=== PATIENT | male | born 1955 | race Caucasian/White ===

== ENCOUNTER → 2017-04-16 | Outpatient (CLI) | payer SELFPAY ==
--- NOTE | 2017-04-16 16:21 | NM ---
EXAMINATION TYPE: NM bone scan whole body DATE OF EXAM: 04/16/2017 COMPARISON: NONE HISTORY: Prostate cancer Delayed whole-body scanning was performed following the injection of 25.2 mCi Tc 99m MDP. Images acq uired 4 hours post injection. Whole body images as well as spot images of the thorax abdomen and pelv is are acquired in multiple projections FINDINGS: There is abnormal radiotracer uptake involving the left iliac crest, portions of bilateral sacrum, L5 vertebra just left of midline, mid thoracic vertebra, vertebra near thoracolumbar junction, and abno rmal uptake involving mid ribs lateral aspect bilaterally as well as finally involving superior left scapula. IMPRESSION: Findings consistent with osseous metastatic disease as detailed above
== END ==
LOC: RADNMMAIN 10:33
PROVIDERS: ATTEND Urology
DX: C61 Malignant neoplasm of prostate (principal)
CPT/HCPCS: 78306; A9503

== ENCOUNTER → 2017-05-03 | Outpatient (CLI) | payer SELFPAY ==
--- NOTE | 2017-05-03 10:39 | CT ---
EXAMINATION TYPE: CT ChestAbdPelvis w con DATE OF EXAM: 05/03/2017 COMPARISON: NONE HISTORY: Prostate Cancer CT DLP: 772.50 mGycm CONTRAST: CT scan of the chest, abdomen and pelvis is performed with Oral Contrast and with IV Contrast, patien t injected with 100 ml mL of Omnipaque 300. CT Chest: LUNGS: The lungs are clear and free of infiltrate or atelectasis. No pulmonary nodule or mass is det ected. No pleural effusion or CT evidence of interstitial lung disease. MEDIASTINUM: Thoracic aorta is of normal caliber. The heart is mildly enlarged. No evidence for me diastinal mass or adenopathy. HILAR STRUCTURES: No evidence for mass. No hilar adenopathy is appreciated. OTHER: Large blastic metastases are noted to the bilateral ribs 6 and 7 on the right and 6 and 7 on t he left. There is also a blastic metastatic lesion involving T12. Nonspecific left thyroid nodule. CONTRAST CT ABDOMEN AND PELVIS FINDINGS: LIVER/GB: No calcified gallstones. No space occupying hepatic lesion. Biliary tree is of normal ca liber. PANCREAS: No inflammation. No distinct mass. SPLEEN: No splenic enlargement. No lesion seen. ADRENALS: No nodule. No thickening. KIDNEYS/BLADDER: No hydronephrosis. No nephrolithiasis. No disctinct renal mass. BOWEL: Normal appendix. Normal bowel caliber. No inflammation. GENITAL ORGANS: No gross abnormality. LYMPH NODES: There is adenopathy within the left para-aortic region extending from the left renal art jr through the bifurcation with multiple enlarged lymph nodes identified measuring up to 1.8 cm. The re is also anterior IVC lymph node mass measuring 1.9 cm. Which extends from just below the right yaneth al artery to the bifurcation. There is bilateral external and internal iliac chain adenopathy. The la rgest lymph node left external iliac chain measures 2.3 cm. Largest left internal iliac chain lymph n ode measures 1.4 cm. On the right measuring 1.5 cm and 8 mm respectively. Left inguinal lymph node me asures 9 mm in short axis. AORTA: No significant abnormality. OSSEOUS STRUCTURES: Blastic bony metastases are noted to involve the left iliac crest. There is loss of height involving L3 with 50% loss of height. I do not see definite blastic component and this may be chronic in nature. Pathologic fracture however cannot be excluded. There is a vague blastic lesion involving the left L5 pedicle. OTHER: No significant additional abnormality is seen. IMPRESSION: 1. Blastic osseous metastases as discussed above. 2. Moderate compression fracture of L3 of indeterminate age although no surrounding paraspinal hemato ma is appreciated. This may be chronic in nature. Underlying pathologic component is difficult to exc lude. 3. Retroperitoneal and iliac chain adenopathy as discussed.
== END ==
LOC: RADCTMAIN 07:34
PROVIDERS: ATTEND Internal Medicine Hematology & Oncology
DX: C79.51 Secondary malignant neoplasm of bone (principal); M48.56XA Collapsed vertebra, not elsewhere classified, lumbar region, initial encounter for fracture; R59.0 Localized enlarged lymph nodes
CPT/HCPCS: 71260; 74177; Q9967

== ENCOUNTER → 2017-10-24 | Outpatient (CLI) | payer OTHER ==
[2017-10-24 10:34] LABS: Blood Urea Nitrogen 15 mg/dL (9-20)
--- NOTE | 2017-10-24 14:11 | CT ---
EXAMINATION TYPE: CT ChestAbdPelvis w con DATE OF EXAM: 10/24/2017 INDICATION: Prostate Cancer COMPARISON: 05/03/2017 CT DLP: 1032.40 mGycm CONTRAST: Performed with Oral Contrast and with IV Contrast, patient injected with 100 ml mL of Omnipaque 300. TECHNIQUE: Axial images at 5 mm thick sections. Reconstructed images in the coronal plane. Delayed images through the kidneys. FINDINGS: CT CHEST: Left lobe thyroid is somewhat prominent although stable from prior study. There is some mild heteroge neity within the mid to inferior portion present previously. No suspicious lung nodules or focal infiltrates are present. There is a 1.4 cm lymph node in the lateral aortopulmonic window. Additional nonenlarged subcentimet er lymph nodes are within the mediastinum including the subcarinal region and right hilar regions. Th ela are increasing from comparison. The ascending aorta diameter at the level of the main pulmonary artery is 4.3 cm. The main pulmonary artery diameter at the bifurcation is 2.9 cm. There are bilateral lower lateral rib thickenings present bilaterally which were present on prior exa mination. These appear smaller in size from previous exam. CT ABDOMEN: Liver: Normal Spleen: Normal Pancreas: Normal Adrenal glands: The adrenal glands are normal. Gallbladder: Normal Kidneys: No masses are evident. No hydronephrosis is present. No cysts are present. Delayed images were obtained through the kidneys, which remain unremarkable. Right renal artery is retrocaval. Aorta: Vascular calcification is within the aorta. Inferior vena cava: Normal. CT PELVIS: Loops of bowel within the abdomen and pelvis are normal. There are loops of bowel which are incom pletely distended or lack oral contrast limiting their evaluation. Appendix: Retrocecal appendix is normal as visualized. No suspicious inflammatory changes evident. Urinary bladder: Normal. Genitourinary structures: Prostate calcification is present. Osseous structures: The enlarged expansile sclerotic ribs are discussed above. There is a sclerotic a jensen within the lateral anterior left iliac wing. Sclerotic lesion with some heterogeneity is within t he right T12 vertebral body. There is a compression deformity of L3 which is old. IMPRESSIONS: 1. Diminished size of expansile rib lesions. 2. Sclerotic metastasis at the anterior left iliac wing appears less prominent. 3. T12 lesion appears more sclerotic than prior exam. 4. Enlarged aortopulmonic window lymph node measuring 1.4 cm. 5. Compression deformity of L3 remain stable without posterior wall displacement.
--- NOTE | 2017-10-24 15:26 | NM ---
EXAMINATION TYPE: NM bone scan whole body DATE OF EXAM: 10/24/2017 COMPARISON: 04/16/2017, 05/03/2017, and CT chest abdomen and pelvis of the same date of 10/24/2017. HISTORY: History of metastatic prostate cancer. Follow-up exam. Delayed whole-body scanning was performed following the injection of 26 mCi Tc 99m MDP. Images acqui red 3 hours post injection. FINDINGS: The previously seen abnormal radiotracer uptake involving the left iliac crest, portions of the bilat eral sacrum, L5 vertebra just left of midline, mid thoracic vertebrae, vertebrae near the thoracolumb ar junction, scapula and multiple ribs on the prior exam of 04/16/2017 are redemonstrated. The sacral radiotracer uptake, L5 vertebrae uptake, and midthoracic vertebrae uptake are less conspicuous than o n the prior exam. The degree of uptake involving the multiple ribs, left iliac crest, and scapula hav e also decreased to a lesser degree compared to the prior of 04/16/2017. No new suspicious lesions are as of uptake are seen. IMPRESSION: Decrease in degree of uptake of the previously seen osseous metastatic lesions favoring response to t reatment. No new suspicious areas of uptake.
== END | disposition home or self-care (01) ==
LOC: RADNMMAIN 09:53
PROVIDERS: ATTEND Internal Medicine Hematology & Oncology
DX: C79.51 Secondary malignant neoplasm of bone (principal); R59.0 Localized enlarged lymph nodes; M43.8X6 Other specified deforming dorsopathies, lumbar region; C61 Malignant neoplasm of prostate; Z88.5 Allergy status to narcotic agent
CPT/HCPCS: 82565; 84520; 71260; 74177; 36415; 78306; A9503; Q9967

== ENCOUNTER → 2017-12-06 | Outpatient (CLI) | payer OTHER ==
[2017-12-06 15:06] LABS: HCT 41.8 % (39.0-53.0); MCH 32.4 pg (25.0-35.0); MCHC 33.4 g/dL (31.0-37.0); MCV 96.9 fL (80.0-100.0); Mean Platelet Volume 6.2; Platelet Count 206 k/uL (150-450); RBC 4.31 m/uL (4.30-5.90); RDW 12.3 % (11.5-15.5); WBC 5.5 k/uL (3.8-10.6)
[2017-12-06 15:18] LABS: Anion Gap 8 mmol/L; Blood Urea Nitrogen 17 mg/dL (9-20); Carbon Dioxide 26 mmol/L (22-30); Chloride 105 mmol/L (98-107); Potassium 4.4 mmol/L (3.5-5.1); Sodium 139 mmol/L (137-145)
== END | disposition home or self-care (01) ==
LOC: LABPAT 14:47
PROVIDERS: ATTEND Internal Medicine Interventional Cardiology
DX: Z01.812 Encounter for preprocedural laboratory examination (principal); R94.30 Abnormal result of cardiovascular function study, unspecified
CPT/HCPCS: 36415; 80051; 82565; 84520; 85027

== ENCOUNTER 2017-12-11 05:45 | Day surgery (SDC) | payer OTHER ==
[2017-12-07 10:09] VITALS: BMI 26.8
[2017-12-11] MEDS ORDERED: ALPRAZolam 0.5 MG TAB PO PRN (06:10)
[2017-12-11] MEDS ORDERED: ATORVASTATIN 80 MG TAB PO STA (06:10)
[2017-12-11] MEDS ORDERED: NITROGLYCERIN SL TABS 0.4 MG TAB SUBLINGUAL PRN (06:10)
[2017-12-11] MEDS ORDERED: SODIUM CHLORIDE 0.9% 1,000 ML in EMPTY BAG 1 BAG IV ONE (06:10)
[2017-12-11] MEDS ORDERED: ALPRAZolam 0.25 MG TAB PO PRN (06:10)
[2017-12-11] MEDS ORDERED: ASPIRIN 325 MG TAB PO STA (06:10)
[2017-12-11 06:32] VITALS: PULSE 70; TEMP 97.8
[2017-12-11] MEDS: MIDAZOLAM 2 MG/2 ML VIAL IV ONE ×2 (07:47→07:58)
[2017-12-11] MEDS ORDERED: LIDOCAINE 2% INJ 20 MG/ML SQ ONE (07:51)
[2017-12-11] MEDS: VERAPAMIL SYRINGE (5 MG/10 ML) IVP ONE ×2 (07:53→08:05)
[2017-12-11] MEDS ORDERED: HEPARIN SODIUM 1,000 UN/ML (10ML VL) IV ONE (07:53)
[2017-12-11] MEDS ORDERED: IOHEXOL 350 MG/ML 125ML BOTTLE INJ ONE (08:05)
[2017-12-11] MEDS ORDERED: RX INFO: IV CONTRAST WAS GIVEN 1 EACH MISC MISCELLANE PRN (08:07)
[2017-12-11] MEDS ORDERED: SODIUM CHLORIDE 0.9% 1,000 ML IV SCH (08:15)
[2017-12-11 09:13] VITALS: RESP 18
--- NOTE | 2017-12-11 09:21 | LTR ---
DATE OF SERVICE: 12/11/2017 RE: Ernie Khoa Dear Dr. Oliver; Mr. Khoa Klein diagnosed recently with cardiomyopathy. In view of that, a heart catheterization was recommended to evaluate for severe underlying coronary artery disease. Mr. Klein underwent a heart catheterization and that revealed normal coronaries. I want to thank you for allowing us to participate in his care and please do not hesitate to call if you have any question or concern. Sincerely, MD DAVID Soriano / NISREEN: [id number] /
--- NOTE | 2017-12-11 09:21 | CC ---
CARDIAC CATHETERIZATION REPORT DATE OF SERVICE: 12/11/2017 PERFORMING PHYSICIAN: Román Elena MD, Landing Signal Officer. PROCEDURE PERFORMED: 1. Selective right and left coronary angiogram. 2. Left heart catheterization. INDICATION: This is a pleasant 62-year-old gentleman who was diagnosed recently with cardiomyopathy. The heart catheterization is to evaluate for severe underlying coronary artery disease. APPROACH: Right radial artery. COMPLICATION: None. LEVEL OF SEDATION: Moderate with sedation length of 14 minutes. PROCEDURE DESCRIPTION: After obtaining an informed consent, the patient was brought to the [facility]. The right radial artery was cannulated using micropuncture technique. The micropuncture wire passed easily, then I placed a 6-Welsh sheath in the right radial artery. After that, I gave the patient 2 mg of verapamil IA and 10,000 units of heparin IV. After that, I did selective right and left coronary angiogram using JR4 and JL3.5 catheters. After that. I did left heart catheterization using 6-Welsh pigtail catheter. The procedure was completed without any complication. SELECTIVE CORONARY ANGIOGRAM: 1. The RCA is a large caliber vessel and it is a dominant vessel. The RCA is angiographically normal. It bifurcates distally into PDA and PLV branches both are angiographically normal. 2. The left main is angiographically normal. It bifurcates into the left circumflex and left anterior descending artery. 3. The left circumflex is a large caliber vessel and nondominant vessel. The proximal circ is angiographically normal and gives rise into a large OM branch which bifurcates into two subbranches and both are angiographically normal. The left circumflex continues after that as a medium caliber vessel in the AV groove and seems to be angiographically normal. 4. The left anterior descending artery, the proximal LAD appeared to be angiographically normal. The mid LAD is normal and gives rise into 2 diagonal branches, both are angiographically normal. The LAD distally is angiographically normal. HEMODYNAMICS: The left ventricular end-diastolic pressure was 12 mmHg and no gradient was identified across the aortic valve. CONCLUSION: Normal coronary angiogram. POSTPROCEDURE MANAGEMENT: Maximize medical treatment and follow up with the patient. MMODL / IJN: [id number] /
[2017-12-11] MEDS ORDERED: HYDROcodone/APAP 10-325MG 1 EACH TAB PO ONE (12:30)
[2017-12-11 15:37] VITALS: BP 132/80
== END 2017-12-11 15:38 | disposition home or self-care (01) ==
LOC: CATHCVL 05:45
PROVIDERS: ATTEND Internal Medicine Interventional Cardiology
DX: I42.9 Cardiomyopathy, unspecified (principal); R94.39 Abnormal result of other cardiovascular function study; I48.0 Paroxysmal atrial fibrillation; Z79.01 Long term (current) use of anticoagulants; F17.210 Nicotine dependence, cigarettes, uncomplicated; C61 Malignant neoplasm of prostate; Z79.891 Long term (current) use of opiate analgesic; Z79.899 Other long term (current) drug therapy; Z88.5 Allergy status to narcotic agent
CPT/HCPCS: 93458; C1894; J2001; J2250; J1644; Q9967

== ENCOUNTER → 2017-12-26 | Outpatient (CLI) | payer OTHER ==
--- NOTE | 2017-12-26 13:37 | XR ---
EXAMINATION TYPE: XR shoulder complete LT DATE OF EXAM: 12/26/2017 CLINICAL HISTORY: Left shoulder pain with no known injury TECHNIQUE: Three views of the left shoulder are obtained. COMPARISON: None. FINDINGS: There is no acute fracture/dislocation evident in the left shoulder. Healed rib fracture s are partially visualized of the lateral margins of ribs 6 and 7 on the left. Moderate acromioclavic ular arthropathy is displayed as joint space narrowing and marginal osteophytes. Mild glenohumeral ar thropathy is also seen as joint space narrowing. Visualized left lung is unremarkable. IMPRESSION: There is no acute fracture or dislocation in the left shoulder.
== END | disposition home or self-care (01) ==
LOC: RADXRMAIN 10:48
PROVIDERS: ATTEND Internal Medicine Hematology & Oncology
DX: M25.512 Pain in left shoulder (principal); C61 Malignant neoplasm of prostate; L25.8 Unspecified contact dermatitis due to other agents; R63.5 Abnormal weight gain; Z71.3 Dietary counseling and surveillance

== ENCOUNTER → 2018-08-27 | Outpatient (CLI) | payer MEDICARE, OTHER ==
[2018-08-27 11:32] LABS: Potassium 5.2 mmol/L (3.5-5.1)
[2018-08-27 11:33] LABS: HCT 42.2 % (39.0-53.0); HGB 14.1 gm/dL (13.0-17.5); MCH 32.6 pg (25.0-35.0); MCHC 33.5 g/dL (31.0-37.0); MCV 97.5 fL (80.0-100.0); Mean Platelet Volume 6.1; Platelet Count 271 k/uL (150-450); RBC 4.33 m/uL (4.30-5.90); RDW 12.4 % (11.5-15.5); WBC 4.7 k/uL (3.8-10.6)
== END | disposition home or self-care (01) ==
LOC: LABPAT 10:07
PROVIDERS: ATTEND Internal Medicine Interventional Cardiology
DX: Z01.812 Encounter for preprocedural laboratory examination (principal); I48.1 Persistent atrial fibrillation
CPT/HCPCS: 36415; 80051; 82565; 84520; 85027

== ENCOUNTER → 2018-09-06 | Day surgery (SDC) | payer OTHER, MEDICARE ==
[2018-09-04 11:03] VITALS: BMI 30.8
[~2018-09-06] MED LIST: AMIODARONE 200 MG TAB PO STA; LACTATED RINGERS 1,000 ML IV SCH; LIDOCAINE 1% INJ 10MG/ML (20 ML MDV) ONE; PROPOFOL 10 MG/ML 20 ML VIAL IV ONE; SODIUM CHLORIDE 0.9% 1,000 ML IV SCH; SODIUM CHLORIDE 0.9% 500 ML 500 ML IV ONE
[2018-09-06 06:59] VITALS: RESP 16; TEMP 97.5
[2018-09-06] MEDS: BENZOCAINE SPRAY 1 CAN MUCOUS MEM ONE ×2 (07:19→07:20)
--- NOTE | 2018-09-06 08:32 | ECHOT ---
TRANSESOPHAGEAL ECHOCARDIOGRAM DATE OF SERVICE: September 06, 2018 PERFORMING PHYSICIAN: Román Elena MD. PROCEDURE PERFORMED: Transesophageal echocardiogram. INDICATION: This is a pleasant 63-year-old gentleman with known history of paroxysmal atrial fibrillation, who was experiencing atrial fibrillation with RVR in spite of maximized medical treatment. He was brought today to undergo a cardioversion and the DEANNE is to rule out any left atrial appendage thrombus or intracardiac thrombus. COMPLICATION: None. LEVEL OF SEDATION: Deep sedation was performed using propofol with FRAME HAND anesthesiologist in the room. PROCEDURE DESCRIPTION: After obtaining an informed consent, explaining the procedure, benefits, risks, complications and alternatives, the patient was brought to the transesophageal echocardiogram suite. A pulse oximetry and heart rate monitors were attached to the patient prior to the procedure. The patient's throat was sprayed using lidocaine locally. Following that, the patient was turned into left lateral position. A bite guard was placed and the patient was then sedated with the above doses of Versed and fentanyl in divided doses. Following that, the transesophageal echocardiogram probe was advanced through the bite guard into the mid esophagus where 2-D echocardiogram images as well as color Doppler images of various cardiac structures were obtained. We evaluated the interatrial septum using 2-D echocardiogram, color Doppler, and contrast study. The procedure was completed. There were no complications. FINDINGS: The left ventricular dimensions appear to be within normal limits. The left ventricular systolic function is impaired with EF between around 40% with global hypokinesia. The right ventricle is dilated. The left atrium and right atrium are severely dilated. The left atrial appendage appeared to be free from any thrombus. The aortic valve is trileaflet valve without stenosis or regurgitation. The mitral valve appeared to be mildly thickened with mild MR only. There was moderate tricuspid regurgitation seen. There was mild pulmonic insufficiency seen as well. CONCLUSION: 1. Normal left atrial appendage without any evidence of thrombus. 2. Intact interatrial septum without any evidence of shunt. 3. Impaired left ventricular function with ejection fraction of 40% and global hypokinesia. 4. Dilated right ventricle with normal function. 5. Severe biatrial enlargement. 6. Trileaflet aortic valve without stenosis or regurgitation. 7. Mildly thickened mitral valve leaflets with mild mitral regurgitation. 8. Moderate tricuspid regurgitation. 9. No evidence of pericardial effusion. MMODL / IJN: [id number] /
--- NOTE | 2018-09-06 08:44 | CE ---
CARDIAC ELECTROPHYSIOLOGY REPORT ELECTROPHYSIOLOGY REPORT: INDICATION: This is a pleasant 63-year-old gentleman who was diagnosed with AFib, which was uncontrolled and he is scheduled today to undergo a cardioversion. COMPLICATION: None. LEVEL OF SEDATION: Deep sedation was performed using propofol. PROCEDURE DESCRIPTION: After performing DEANNE and ruling out intracardiac thrombus, we proceeded with cardioversion. The patient converted from the atrial fibrillation to normal sinus mechanism using 200 joules on first attempt. CONCLUSION: Successful cardioversion of atrial fibrillation to normal sinus mechanism using 200 joules on first attempt. MMODL / IJN: [id number] /
[2018-09-06 10:47] VITALS: BP 112/82; PULSE 72
== END | disposition home or self-care (01) ==
LOC: CATHCVL 05:58
PROVIDERS: ATTEND Internal Medicine Interventional Cardiology
DX: I48.0 Paroxysmal atrial fibrillation (principal); I08.1 Rheumatic disorders of both mitral and tricuspid valves; Z85.46 Personal history of malignant neoplasm of prostate; I11.9 Hypertensive heart disease without heart failure; I43 Cardiomyopathy in diseases classified elsewhere; F17.210 Nicotine dependence, cigarettes, uncomplicated; Z79.01 Long term (current) use of anticoagulants; Z79.891 Long term (current) use of opiate analgesic; Z79.899 Other long term (current) drug therapy
CPT/HCPCS: 93312; 93320; 93325; 92960; 84132; J2001; J2704

== ENCOUNTER → 2018-11-06 | Outpatient (CLI) | payer OTHER, MEDICARE ==
--- NOTE | 2018-11-06 10:07 | XR ---
EXAMINATION TYPE: XR chest 2V DATE OF EXAM: 11/06/2018 COMPARISON: Correlation nuclear medicine bone scan and CT 10/24/2017 HISTORY: 63-year-old male with headaches TECHNIQUE: Frontal and lateral views FINDINGS: Heart upper limits of normal in size. Aorta and pulmonary vasculature within normal limits. Mild hype rinflation. There is some pleural-parenchymal thickening focally along the lateral mid to lower thora cic margin. No consolidation or pleural effusion. IMPRESSION: 1. Focal areas of pleural parenchymal thickening along the lower lateral mid to lower hemithoraces co rrespond to known expansile metastatic rib lesions. 2. Borderline heart size. COPD. No acute process seen.
--- NOTE | 2018-11-06 10:19 | CT ---
EXAMINATION TYPE: CT brain wo con DATE OF EXAM: 11/06/2018 COMPARISON: None INDICATION: Headache x couple weeks. Patient on blood thinners. History of prostate cancer. DLP: 1146.4 mGycm, Automated exposure control for dose reduction was used. CONTRAST: None CT of the brain is performed utilizing 3 mm thick sections through the posterior fossa and 3 mm thick sections through the remaining calvarium. Study is performed within 24 hours of arrival to the hosp [facility]. No abnormal hyperdensity is present to suggest an acute intracranial hemorrhage. No mass lesion is evident. Some asymmetric physiologic basal ganglion calcifications present. No acute infarcts are evident. Small hypodensity along the medial mid left frontal lobe, series 201 i mage 23 is an extra-axial space. Ventricles and sulci are appropriate for the patient age. Paranasal sinuses and mastoid air cells within the [id number] are clear. Calvarium appears normal. IMPRESSIONS: 1. No acute intracranial process.
== END ==
LOC: RADCTMAIN 09:30
PROVIDERS: ATTEND Nurse Practitioner Adult Health
DX: R51 Headache (principal); R91.8 Other nonspecific abnormal finding of lung field; J44.9 Chronic obstructive pulmonary disease, unspecified
CPT/HCPCS: 70450; 71046

== ENCOUNTER → 2018-11-13 | Outpatient (CLI) | payer OTHER, MEDICARE ==
--- NOTE | 2018-11-13 14:02 | NM ---
EXAMINATION TYPE: NM bone scan whole body DATE OF EXAM: 11/13/2018 COMPARISON: 10/24/2017 HISTORY: Metastatic prostate carcinoma. Delayed whole-body scanning was performed following the injection of 24.8 mCi Tc 99m MDP. Images acq uired 3 hours post injection. FINDINGS: New lesions: None Improved lesions: Persistent but improved uptake about the bilateral ribs, left iliac crest, lower th oracic spine and upper lumbar spine. Stable lesions: Cervical spine. Stable uptake about the shoulders, hips and bilateral knees compatibl e with degenerative uptake. Progressive lesions: None IMPRESSION: Overall improvement noted as discussed above.
== END ==
LOC: RADNMMAIN 09:45
PROVIDERS: ATTEND Internal Medicine Hematology & Oncology
DX: C61 Malignant neoplasm of prostate (principal); C79.51 Secondary malignant neoplasm of bone; Z88.5 Allergy status to narcotic agent
CPT/HCPCS: 78306; A9503

== ENCOUNTER → 2018-12-12 | Outpatient (CLI) | payer OTHER, MEDICARE ==
--- NOTE | 2018-12-12 13:09 | CONS ---
CONSULTATION DATE OF SERVICE: 12/12/2018 A 63-year-old gentleman who has been evaluated in the [facility] for possible obstructive sleep apnea-hypopnea syndrome. HISTORY OF PRESENT ILLNESS/SLEEP-WAKE EVALUATION: Patient usual sleep schedule from 10 p.m. to 8:30 a.m. on weekdays and from 11 p.m. to 8:30 a.m. on weekends. No problem with falling asleep. No TV in bedroom. Usually patient sleeps on the back position. According to his , he has loud snoring, witnessed episodes of stopped breathing during the sleep, restless leg symptoms. He kicks and twitches his legs during the night. Patient wakes up from sleep 4 times with 2 episodes of nocturia. Positive history of sleep talking. Positive history of hypnagogic hallucinations even during short naps, which patient usually takes around 2 p.m. He may see dreams. Sometimes this is vivid dreams. No history of sleep paralysis. No history of cataplexy. [place] Sleepiness Scale is in extremely high range of 20. PAST MEDICAL HISTORY: Positive for hypertension, atrial fibrillation, prostate CA stage IV. PAST SURGICAL HISTORY: Surgery biopsy and cardioversion on 08/2018 for atrial fibrillation. MEDICATIONS: Amiodarone, Casodex, Effexor, fentanyl, fentanyl patch q. 72 hours, Klonopin, lisinopril, Lupron, metoprolol, [place], Spironolactone, Xarelto, SOCIAL HISTORY: Positive for smoking for about 40 years, up to 3 packs a day. Quit about 6 months ago. Alcohol consumption presently a few beers a week. FAMILY HISTORY: Hypertension, heart problems, snoring, cancer, restless legs. PHYSICAL EXAM: gentleman without distress, BP 129/78, HR 60, RR 16, height 6 foot 1 inch, weight 243 pounds. Body mass index 32.0, temperature 97.1, oxygen saturation at room air 96%. OROPHARYNX: Overbite with retrognathia about 2 mm, moderately low position of soft palate. Mallampati III. HEENT PERRLA, EOMI, evaluation of oropharynx showed tongue protrudes midline. Neck Supple, no JVD. Thyroid is not palpable. LUNGS Clear to percussion and to auscultation. Good air exchange. No wheezing or rhonchi. HEART S1, S2 regular. No murmurs, gallops, or rubs. ABDOMEN Soft and nontender. Bowel sounds are present. No organomegaly appreciated. EXTREMITIES No clubbing or cyanosis. SYSTEMS INTEGRATION MANAGER Awake, alert, and oriented X3. Cranial nerves 2 to 7 intact. There is no fasciculation or atrophy. noted. No focal deficits observed. IMPRESSION: 1. Loud snoring, witnessed episodes of stopped breathing during the sleep. Low position of soft palate, significant excessive daytime sleepiness, obstructive sleep apnea-hypopnea syndrome. 2. Significant sleepiness with [place] Sleepiness Scale 20. Patient seeing dreams during short naps and while falling asleep. Differential diagnosis should include possibly secondary narcolepsy. 3. History of prostate CA, stage IV. 4. Hypertension. 5. History of atrial fibrillation, status post cardioversion. 6. Periodic limb movements. 7. Mild obesity; body mass index 32. PLAN: 1. Polysomnography for evaluation of patient's breathing during sleep. 2. CPAP/BiPAP titration if sleep study confirms obstructive sleep apnea-hypopnea syndrome. 3. Preferable position during sleep on the side. 4. No driving if patient feels any sleepiness. 5. I will see patient for follow up visit to explain results of testing and following plan. Thank you very much for referring this patient for consultation. Sincerely, Brooks Ford MD, PhD, FAASM Diplomat of [employer] [facility] [place] MMODL / IJN: [id number] /
== END ==
LOC: SLEEP 11:18
PROVIDERS: ATTEND Internal Medicine
DX: G47.33 Obstructive sleep apnea (adult) (pediatric) (principal); G47.61 Periodic limb movement disorder; R35.1 Nocturia; R44.3 Hallucinations, unspecified; I10 Essential (primary) hypertension; I48.91 Unspecified atrial fibrillation; E66.9 Obesity, unspecified; C61 Malignant neoplasm of prostate; Z68.32 Body mass index [BMI] 32.0-32.9, adult; Z87.891 Personal history of nicotine dependence; Z79.891 Long term (current) use of opiate analgesic; Z79.01 Long term (current) use of anticoagulants; Z79.899 Other long term (current) drug therapy
CPT/HCPCS: 99211

== ENCOUNTER → 2019-05-01 | Outpatient (CLI) | payer OTHER, MEDICARE ==
--- NOTE | 2019-05-01 19:50 | PN ---
PROGRESS NOTE DATE OF SERVICE: 05/01/2019 63-year-old gentleman has been followed in Sleep Center for treatment of obstructive sleep apnea-hypopnea syndrome. Recently patient had a polysomnogram which showed extremely severe sleep apnea with extremely bad oxygen desaturation after the patient had CPAP titration. With titration, his respiration normalized. I discussed results of sleep studies with patient in detail. Subsequently, patient received CPAP unit, started to use it today for his first visit after he started to use CPAP equipment. With the CPAP, patient feels better in the morning. Not so often episodes of headaches which he has. [place] Sleepiness Scale today is 1. I checked his CPAP unit, range of the pressure 11 to 18, average pressure is 16.7, usage is 5 out of 30 nights with average usage 6.3 hours. Leak is 5 L/minutes which is normal range. Apnea-hypopnea index 6.4, which is borderline. MEDICATIONS: Amlodipine. Casodex, Effexor, Fentanyl, Klonopin, lisinopril, Lupron, metoprolol, [place], Spironolactone, Xarelto. PHYSICAL EXAM: Patient in no distress. BP 103/69, HR 60, RR 16, weight 253, temp 97.5, oxygen saturation at room air 95%. HEENT: Oropharynx low position of soft palate, Mallampati 3. Neck: Supple, no JVD. Thyroid is not palpable. LUNGS Clear to percussion and to auscultation. Good air exchange. No wheezing or rhonchi. HEART S1, S2 regular. No murmurs, gallops, or rubs. ABDOMEN; Slightly obese. Soft and nontender. Bowel sounds are present. No organomegaly appreciated. EXTREMITIES No clubbing or cyanosis. TELEPHONE EXCHANGE OPERATOR Awake, alert, and oriented X3. Cranial nerves 2 to 7 intact. There is no fasciculation or atrophy. noted. No focal deficits observed. IMPRESSION: 1. Extremely severe obstructive sleep apnea-hypopnea syndrome apnea-hypopnea index 77.9 with oxygen desaturation to extremely low 63.7%. Respiration is under control with CPAP. Presently patient used machine only for 5 nights. 2. History of atrial fibrillation status post cardioversion. 3. History of prostate cancer, stage IV. 4. Hypertension. 5. Mild obesity. PLAN: 1. I discussed with the patient the necessity to use CPAP equipment every night for the whole night and he promised to do so. 2. He will continue to use CPAP equipment every night for the whole night. 3. Watching and losing weight. 4. Sleep hygiene with regular time in bed for at least 7.5 hours. 5. No driving if feeling any sleepiness. Thank you very much for allowing me to participate in the management of your patient. Sincerely, Brooks Ford MD, PhD, FAASM Diplomat of [place] [employer] [place] [employer] [facility] [place] MMODL / IJN: [id number] /
== END | disposition home or self-care (01) ==
LOC: SLEEP 14:52
PROVIDERS: ATTEND Internal Medicine
DX: G47.33 Obstructive sleep apnea (adult) (pediatric) (principal); I10 Essential (primary) hypertension; E66.9 Obesity, unspecified; Z86.79 Personal history of other diseases of the circulatory system; Z85.46 Personal history of malignant neoplasm of prostate; Z99.89 Dependence on other enabling machines and devices; Z98.890 Other specified postprocedural states; Z79.01 Long term (current) use of anticoagulants; Z79.891 Long term (current) use of opiate analgesic; Z79.899 Other long term (current) drug therapy

== ENCOUNTER → 2019-07-10 | Outpatient (CLI) | payer MEDICARE, OTHER ==
--- NOTE | 2019-07-10 17:43 | PN ---
PROGRESS NOTE DATE OF SERVICE: 07/10/2019 63-year-old gentleman who has been [facility] for treatment of obstructive sleep apnea-hypopnea syndrome. Previous visit was done in April of 2019. At that time, the patient did not show compliance with the treatment and come back again today for followup visit. Patient able to use his CPAP unit now for most of the nights without problems and feels better while using his CPAP unit. [place] Sleepiness Scale today is 0, which is perfect. I checked his CPAP unit, range of the pressure from 11-18 cm of water. Average pressure 16 cm of water. Usage is 29/30 nights for more than 4 hours with average usage is 7.7 hours per night. Leak is 6 L/minute, which is normal. Apnea-hypopnea index 6.2, which is borderline but acceptable. MEDICATIONS: Amlodipine, Casodex, Effexor, fentanyl, Klonopin, lisinopril, Lupron, metoprolol, Orondo, spironolactone, Xarelto. PHYSICAL EXAM: Patient in no distress. BP 118/77, HR 71, RR 16, height 6 feet 1 inch, weight 265 pounds. Body mass index 34.8, temperature 97.7, oxygen saturation at room air 94%. Oropharynx: Wide pillars small oropharyngeal air space. Neck Supple, no JVD. Thyroid is not palpable. LUNGS Clear to percussion and to auscultation. Good air exchange. No wheezing or rhonchi. HEART S1, S2 regular. No murmurs, gallops, or rubs. ABDOMEN: Obese. Soft and nontender. Bowel sounds are present. No organomegaly appreciated. EXTREMITIES: No clubbing or cyanosis. COMPUTER HARDWARE DESIGNER Awake, alert, and oriented X3. Cranial nerves 2 to 7 intact. There is no fasciculation or atrophy. noted. No focal deficits observed. IMPRESSION: 1. Severe obstructive sleep apnea-hypopnea syndrome on control with CPAP. The patient demonstrated good compliance with treatment benefitting from treatment. 2. History of atrial fibrillation status post cardioversion. 3. History of prostate cancer, stage IV. 4. Hypertension. 5. Mild obesity. PLAN: 1. Patient will continue to use CPAP equipment every night for the whole night. 2. Watching weight. 3. Sleep hygiene with regular time in bed for at least 8 hours. 4. No driving if feeling sleepiness. 5. Precautions related to driving. 6. I will maintain all necessary prescriptions for CPAP supplies including mask, tube, filters. Thank you very much for allowing me to participate in management of your patient. Sincerely, Brooks Ford MD, PhD, FAASM Diplomat of [employer] [facility] MMODL / PHILN: [id number] /
== END ==
LOC: SLEEP 14:59
PROVIDERS: ATTEND Internal Medicine
DX: G47.33 Obstructive sleep apnea (adult) (pediatric) (principal); I10 Essential (primary) hypertension; E66.9 Obesity, unspecified; C61 Malignant neoplasm of prostate; Z99.89 Dependence on other enabling machines and devices; Z86.79 Personal history of other diseases of the circulatory system; Z98.890 Other specified postprocedural states; Z79.899 Other long term (current) drug therapy; Z79.891 Long term (current) use of opiate analgesic; Z79.818 Long term (current) use of other agents affecting estrogen receptors and estrogen levels

== ENCOUNTER 2019-07-15 11:25 | Day surgery (SDC) | payer MEDICARE, OTHER ==
[2019-07-11 11:02] VITALS: BMI 33.9
[~2019-07-15 11:25] MED LIST changes: -AMIODARONE 200 MG TAB PO STA; -LIDOCAINE 1% INJ 10MG/ML (20 ML MDV) ONE; -PROPOFOL 10 MG/ML 20 ML VIAL IV ONE; -SODIUM CHLORIDE 0.9% 1,000 ML IV SCH; -SODIUM CHLORIDE 0.9% 500 ML 500 ML IV ONE
[2019-07-15] MEDS ORDERED: LIDOCAINE 1% 20 ML VIAL (10MG/ML) FOR IV START INTRADERMA ONE (11:50)
[2019-07-15] MEDS ORDERED: PROPOFOL 10 MG/ML 20 ML VIAL IV ONE (12:45)
[2019-07-15] MEDS ORDERED: LIDOCAINE 1% INJ 10MG/ML (20 ML MDV) ONE (12:45)
--- NOTE | 2019-07-15 13:23 | P.PCN ---
Date of Procedure: 07/15/19 Description of Procedure: BRIEF HISTORY: Patient is a 64-year-old pleasant male scheduled for an elective colonoscopy as a part of screening for malignant neoplasm. No prior colonoscopy reported. Denies any change in bowel habits, constipation, diarrhea or blood per rectum. No family history of colon cancer. PROCEDURE PERFORMED: Colonoscopy with polypectomy. PREOPERATIVE DIAGNOSIS: Screening for malignant neoplasm of the colon, no prior colonoscopies reported. ESTIMATED BLOOD LOSS: Minimal. IV sedation per Anesthesia. PROCEDURE: After informed consent was obtained, the patient, was brought into the endoscopy unit. IV sedation was administered by Anesthesia under continuous monitoring. Digital rectal examination was normal. Initially the Olympus CF-190 flexible video colonoscope was then inserted in the rectum, gradually advanced into the cecum without any difficulty. Careful examination was performed as the scope was gradually being withdrawn. Ileocecal valve and the appendiceal orifice were visualized and appeared normal. Prep was excellent. Mucosa of the cecum, as cending colon, transverse colon, descending colon, sigmoid colon, and rectum appeared normal, somewhat distended. 2 diminutive sessile 2 mm polyps one in the ascending colon and one in the rectum removed with cold forcep polypectomy. Retroflexion was performed in the rectum and no lesions were seen. The patient tolerated the procedure well. IMPRESSION: Normal-appearing colon from rectum to cecum. 2 diminutive polyps one in the rectum and one in the ascending colon removed with cold forcep polypectomy. RECOMMENDATIONS: Findings of this examination were discussed with the patient and his . Okay to resume diet and medications today. Okay to resume Xarelto today. Await pathology from polypectomies. Anticipate repeat colonoscopy in 5-10 years pending pathology from polypectomies.
[2019-07-15] MEDS ORDERED: SODIUM CHLORIDE 0.9% 1,000 ML IV SCH (15:00)
--- NOTE | 2019-07-15 15:19 | P.CRDCN ---
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 He follows in the office with Dr. Elena. In 2018 his EF was 40% with global hypokinesia. Repeat echo after cardioverson performed in the office 06/16/2019 revealed improved LV systolic function with EF 55% and mild MR. He came to the hospital this morning for a routine colonoscopy screening with Dr. Wen. The patient states he did his bowel prep as ordered without incident. However, he woke up this morning with a pressure in the left precordial region. The pressure was worse with deep inspiration. He did not tell anyone because he did not want to have his procedure delayed. The colonoscopy was unremarkable and he was cleared to go home from GI. We have been asked to see him in post-op recovery secondary to ongoing chest pain. He rates the pain at a 4/10 described as a pressure under the left breast. The pain is worse with deep inspiration or when I press on the area. There is no radiation to the arm, back, neck or jaw. He denies associated shortness of breath, dizziness, palpitations, nausea, vomiting or diaphoresis. He does states that his breathing is becoming more labored over the previous couple of months. His states any minor activity causes significant dyspnea. He also has a chronic dry cough, no change recently. EKG requested in post-op reveals sinus bradycardia heart rate 42, no acute ST or T-wave changes. Current daily medications include Xarelto 20 mg daily, Aldactone 25 mg daily, lisinopril 2.5 mg daily, amiodarone 100 mg daily. At the time of my exam: CONSTITUTIONAL: Denies fever. Denies chills. EYES: Denies blurred vision. Denies vision changes. Denies eye pain. EARS, NOSE, MOUTH & THROAT: Denies headache. Denies sore throat. Denies ear pain. CARDIOVASCULAR: Complains of pleuritic left precordial chest pain. Denies shortness of breath. Denies orthopnea. Denies PND. Denies palpitations. RESPIRATORY: Denies cough. GASTROINTESTINAL: Denies abdominal pain. Denies diarrhea. Denies constipation. Denies nausea. Denies vomiting. MUSCULOSKELETAL: Denies myalgias. INTEGUMENTARY: Denies pruitis. Denies rash. NEUROLOGIC: Denies numbness. Denies tingling. Denies weakness. PSYCHIATRIC: Denies anxiety. Denies depression. ENDOCRINE: Denies fatigue. Denies weight change. Denies polydipsia. Denies polyurina. GENITOURINARY: Denies burning, hematuria or urgency with micturation. HEMATOLOGIC: Denies history of anemia. Denies bleeding. Blood pressure 145/94 heart rate 53 afebrile maintaining oxygen saturation on nasal cannula GENERAL: This is a 64-year-old male in no apparent distress at the time of my examination. HEENT: Head is atraumatic, normocephalic. Pupils are equal, round. Sclerae anicteric. Conjunctivae are clear. Mucous membranes of the mouth are moist. Neck is supple. There is no jugular venous distention. No carotid bruit is heard. LUNGS: Clear to auscultation no wheezes, rales or rhonchi. No chest wall tenderness is noted on palpation or with deep breathing. HEART: Regular rate and rhythm without murmurs, rubs or gallops. S1 and S2 heard. ABDOMEN: Soft, nontender. Bowel sounds are heard. No organomegaly noted. EXTREMITIES: No evidence of peripheral edema and no calf tenderness noted. VASCULAR: Radial and dorsalis pedis pulses palpated, no evidence of clubbing. NEUROLOGIC: Patient is awake, alert and oriented x3. ASSESSMENT Chest pain, pleuritic in nature. Has been off xarelto since Sunday for colonoscopy. Sinus bradycardia Paroxysmal atrial fibrillation, currently maintaining sinus mechanism History of non-ischemic cardiomyopathy Hypertension History of prostate cancer Chronic daily alcohol intake Former nicotine dependence PLAN Recommend pt to be placed on observation overnight. Apply continuous telemetry monitoring. Check CBC, CMP, d-dimer, proBNP, TSH with reflex to free T4, magensium and cardiac enzymes. If d-dimer abnormal consider CTA or VQ scan. REsume xarelto tonight, ok per Dr. Wen. Continue amiodarone, lisinopril and aldactone as previously ordered. Hold lopressor. Further recommendations to follow based on clinical course. Thank you kindly for this consultation. Nurse Practitioner note has been reviewed, I agree with a documented findings and plan of care. Patient was seen and examined. Past Medical History Past Medical History: Atrial Fibrillation, Cancer, Hypertension, Prostate Disorder, Skin Disorder, Sleep Apnea/CPAP/BIPAP Additional Past Medical History / Comment(s): migraines, heart "capacity at 30%", stage 4 prostate cancer, scars of arms and face from "picking self", anemia History of Any Multi-Drug Resistant Organisms: None Reported Past Surgical History: Heart Catheterization, Orthopedic Surgery Additional Past Surgical History / Comment(s): ORIF left wrist, cardioversion Past Anesthesia/Blood Transfusion Reactions: No Reported Reaction Smoking Status: Former smoker - Past Family History Father Family Medical History: Cancer, CVA/TIA Medications and Allergies Home Medications Medication Instructions Recorded Confirmed Type Bicalutamide [Casodex] 50 mg PO DAILY 12/07/17 07/11/19 History Calcium Carbonate [Calcium] 600 mg PO DAILY 12/07/17 07/11/19 History Metoprolol Tartrate 50 mg PO QAM 12/07/17 07/11/19 History Xgeva 120 mg IM QMONTH 12/07/17 07/11/19 History fentaNYL 25MCG/HR PATCH [Duragesic 1 patch TRANSDERM Q72H 12/07/17 07/11/19 History 25MCG/HR] HYDROcodone/APAP 7.5-325MG [[place] 1 tab PO BID 09/04/18 07/11/19 History 7.5-325] Ibuprofen 800 mg PO DAILY PRN 09/04/18 07/11/19 History Lisinopril [Zestril] 2.5 mg PO DAILY 09/04/18 07/11/19 History Rivaroxaban [Xarelto] 20 mg PO HS 09/04/18 07/11/19 History Spironolactone [Aldactone] 25 mg PO DAILY 09/04/18 07/11/19 History clonazePAM [KlonoPIN] 0.5 mg PO DAILY PRN 09/04/18 07/15/19 History Amiodarone [Cordarone] 100 mg PO QAM 09/06/18 07/11/19 History Lupron(Dose Unknown) 1 injection IM Q90D 07/11/19 07/11/19 History Venlafaxine HCl [Effexor] 75 mg PO HS 07/11/19 07/11/19 History Allergies Allergy/AdvReac Type Severity Reaction Status Date / Time codeine Allergy Nausea/head Verified 07/15/19 12:04 ache Physical Exam Vitals: Vital Signs Temp Pulse Resp BP Pulse Ox 07/15/19 14:40 53 L 16 145/94 99 07/15/19 14:16 49 L 16 146/84 97 07/15/19 13:38 50 L 16 122/84 94 L 07/15/19 13:24 55 L 16 100/72 93 L 07/15/19 11:50 97.3 F L 63 16 138/72 97 Intake and Output 07/14/19 07/15/19 07/15/19 22:59 06:59 14:59 Intake Total 400 Balance 400 Intake: IV 400 Other: Weight 114.8 kg Results Current Medications Generic Name Dose Route Start Last Admin Trade Name Freq PRN Reason Stop Dose Admin Amiodarone HCl 100 mg 07/16/19 09:00 Cordarone PO QAM HALLE Lactated Ringer's 1,000 mls @ 20 mls/hr 07/15/19 05:25 07/15/19 11:50 Lactated Ringers IV 400 mls .Q24H HALLE Administration Sodium Chloride 1,000 mls @ 50 mls/hr 07/15/19 15:00 Saline 0.9% IV .Q20H HALLE Lisinopril 2.5 mg 07/16/19 09:00 Zestril PO DAILY HALLE Rivaroxaban 20 mg 07/15/19 21:00 Xarelto PO HS HALLE Spironolactone 25 mg 07/16/19 09:00 Aldactone PO DAILY HALLE Intake and Output 07/14/19 07/15/19 07/15/19 22:59 06:59 14:59 Intake Total 400 Balance 400 Intake: IV 400 Other: Weight 114.8 kg Patient Weight 07/16/19 06:59 Weight 114.8 kg
--- NOTE | 2019-07-15 16:03 | XR ---
EXAMINATION TYPE: XR chest 2V DATE OF EXAM: 07/15/2019 COMPARISON: 11/06/2018 HISTORY: Pleuritic chest pain status post colonoscopy TECHNIQUE: Frontal and lateral views of the chest are obtained. FINDINGS: The visualized portions of the colon are dilated and distended by air. Splenic flexure pradeep sures up to 6.9 cm. Lung volumes are low. Pleural-based masses are again seen bilaterally as noted on the prior x-ray of 11/06/2018. Cardiomediastinal silhouette is enlarged, exaggerated by low lung volu mes. Minimal bibasilar atelectasis. No acute osseous pathology. There is mild diffuse osseous deminer alization. IMPRESSION: 1.. 1. Redemonstration of pleural-based masses bilaterally as seen on the x-ray 11/06/2018. 2. Low lung volumes creating bibasilar atelectasis and exaggeration of the cardiomediastinal silhouet te size, relative cardiomegaly. 3. Gaseous dilation of the visualized portions of the colon in this patient that is status post colon oscopy.
[2019-07-15 16:40] LABS: Basophils % (A) 0 %; Eosinophils # (A) 0.1 k/uL (0-0.7); Eosinophils % (A) 1 %; HCT 39.5 % (39.0-53.0); HGB 12.6 gm/dL (13.0-17.5); Lymphocytes # (A) 0.7 k/uL (1.0-4.8); Lymphocytes % (A) 10 %; MCH 31.9 pg (25.0-35.0); MCHC 31.8 g/dL (31.0-37.0); MCV 100.3 fL (80.0-100.0); Mean Platelet Volume 6.7; Monocytes # (A) 0.3 k/uL (0-1.0); Monocytes % (A) 5 %; Neutrophils # (A) 5.4 k/uL (1.3-7.7); Neutrophils % (A) 83 %; Platelet Count 236 k/uL (150-450); RBC 3.94 m/uL (4.30-5.90); RDW 12.3 % (11.5-15.5); WBC 6.6 k/uL (3.8-10.6)
[2019-07-15 16:54] LABS: ALT 41 U/L (21-72); AST 40 U/L (17-59); African American GFR (CKD) >90 (>60 ml/min/1.73 sqM); Albumin 4.2 g/dL (3.5-5.0); Alkaline Phosphatase 70 U/L (38-126); Anion Gap 7 mmol/L; Blood Urea Nitrogen 20 mg/dL (9-20); Carbon Dioxide 28 mmol/L (22-30); Chloride 104 mmol/L (98-107); Glucose 114 mg/dL (74-99); Magnesium 2.3 mg/dL (1.6-2.3); Potassium 4.4 mmol/L (3.5-5.1); Sodium 139 mmol/L (137-145); Total Bilirubin 0.3 mg/dL (0.2-1.3); Total Protein 7.4 g/dL (6.3-8.2)
[2019-07-15] MEDS ORDERED: ACETAMINOPHEN TAB 325 MG TAB PO PRN (17:01)
[2019-07-15] MEDS ORDERED: MORPHINE SULFATE 4 MG/ML SYRINGE IV PRN (17:01)
[2019-07-15] MEDS ORDERED: NALOXONE 0.4 MG/ML 1 ML VIAL IV PRN (17:01)
[2019-07-15] MEDS ORDERED: clonazePAM 0.5 MG TAB PO PRN (17:02)
[2019-07-15] MEDS ORDERED: IBUPROFEN 800 MG TAB PO PRN (17:02)
--- NOTE | 2019-07-15 17:13 | P.HPIM ---
History of Present Illness H&P Date: 07/15/19 Chief Complaint: chest pain Patient is a 64-year-old male past medical history of stage IV prostate cancer with metastasis to the bone including ribs, paroxysmal atrial fibrillation status post cardioversion chronically anticoagulated on eliquis, Obstructive sleep apnea, high blood pressure, and nonischemic cardiomyopathy who presented for colonoscopy secondary to anemia noted by his oncologist. He has been holding his Xarelto for 2 days prior to his colonoscopy. He has no history of DVT or pulmonary embolism in the past. 07/14 he woke up and was having some left-sided chest pain worse with inspiration and movement. He underwent his colonoscopy. In the post anesthesia care unit he again started having left- sided chest discomfort associated with some shortness of breath. Cardiology was called and evaluated the patient. EKG showed marked sinus bradycardia without significant ST-T wave changes. He was placed in observation for his chest pain. Patient seen and examined at bedside. He reports that he woke up with chest pain. She is in constant since this morning. It is exacerbated by deep breathing or movement. He did have an episode of feeling clammy and diaphoretic after waking up from his colonoscopy. He also has a history of hot flashes secondary to his anti-androgen. He did have 2 episodes of nausea associated with this and some shortness of breath. He also has chronic shortness of breath for the 2 years that limit his activity. He denies any recent changes to his medications. He denies any cough, cold, fever, or flu. He has no history of heart attack or stroke in the past. No family history of myocardial infarction. He does report that he uses a CPAP at night at 18. He has intermittent episodes of constipation related to his chronic pain medication use. He follows up with Dr. Pack for his oncologist. He does not regularly follow up with any PCP though Dr. Oliver is listed as his primary care physician. Review of Systems Pertinent positives and negatives as discussed in HPI, a complete review of systems was performed and all other systems are negative. Past Medical History Past Medical History: Atrial Fibrillation, Blood Disorder, Cancer, Hypertension, Pneumonia, Prostate Disorder, Renal Disease, Skin Disorder, Sleep Apnea/CPAP/BIPAP Additional Past Medical History / Comment(s): migraines, heart "capacity at 50%", stage 4 prostate cancer, scars of arms and face from "picking self", ane waylon, kidney infection as a child History of Any Multi-Drug Resistant Organisms: None Reported Past Surgical History: Heart Catheterization, Orthopedic Surgery Additional Past Surgical History / Comment(s): ORIF left wrist, cardioversion, colonoscopy Past Anesthesia/Blood Transfusion Reactions: No Reported Reaction Past Psychological History: Anxiety Smoking Status: Former smoker Past Alcohol Use History: Daily Additional Past Alcohol Use History / Comment(s): 1-2 beers nightly, smoked 3 PPD. started age 48, quit smoking 2017 Past Drug Use History: None Reported - Past Family History Father Family Medical History: Cancer, CVA/TIA Medications and Allergies Home Medications Medication Instructions Recorded Confirmed Type Bicalutamide [Casodex] 50 mg PO DAILY 12/07/17 07/11/19 History Calcium Carbonate [Calcium] 600 mg PO DAILY 12/07/17 07/11/19 History Metoprolol Tartrate 50 mg PO QAM 12/07/17 07/11/19 History Xgeva 120 mg IM QMONTH 12/07/17 07/11/19 History fentaNYL 25MCG/HR PATCH [Duragesic 1 patch TRANSDERM Q72H 12/07/17 07/11/19 History 25MCG/HR] HYDROcodone/APAP 7.5-325MG [[place] 1 tab PO BID 09/04/18 07/11/19 History 7.5-325] Ibuprofen 800 mg PO DAILY PRN 09/04/18 07/11/19 History Lisinopril [Zestril] 2.5 mg PO DAILY 09/04/18 07/11/19 History Rivaroxaban [Xarelto] 20 mg PO HS 09/04/18 07/11/19 History Spironolactone [Aldactone] 25 mg PO DAILY 09/04/18 07/11/19 History clonazePAM [KlonoPIN] 0.5 mg PO DAILY PRN 09/04/18 07/15/19 History Amiodarone [Cordarone] 100 mg PO QAM 09/06/18 07/11/19 History Lupron(Dose Unknown) 1 injection IM Q90D 07/11/19 07/11/19 History Venlafaxine HCl [Effexor] 75 mg PO HS 07/11/19 07/11/19 History Allergies Allergy/AdvReac Type Severity Reaction Status Date / Time codeine Allergy Nausea/head Verified 07/15/19 12:04 ache Physical Exam Osteopathic Statement: *. No significant issues noted on an osteopathic structural exam other than those noted in the History and Physical/Consult. Vitals: Vital Signs Temp Pulse Resp BP Pulse Ox 07/15/19 15:50 97.6 F 48 L 153/83 94 L 07/15/19 15:10 59 L 16 139/88 98 07/15/19 14:40 53 L 16 145/94 99 07/15/19 14:16 49 L 16 146/84 97 07/15/19 13:38 50 L 16 122/84 94 L 07/15/19 13:24 55 L 16 100/72 93 L 07/15/19 11:50 97.3 F L 63 16 138/72 97 Intake and Output 07/15/19 07/15/19 07/15/19 06:59 14:59 22:59 Intake Total 400 400 Balance 400 400 Intake: IV 400 400 Other: Weight 114.8 kg General: non toxic, no distress, appears at stated age, normal weight Derm: no unusual rashes/lesions no unusual ecchymoses, warm, dry Head: atraumatic, normocephalic, symmetric Eyes: EOMI, no lid lag, anicteric sclera, pupils equal round reactive to light ENT: Nose and ears atraumatic, no thrush, no pharyngeal erythema Neck: No thyromegaly, no cervical lymphadenopathy, trachea midline, supple Mouth: no lip lesion, mucus membranes moist Cardiovascular: S1S2 reg, no murmur, positive posterior tibial pulse bilateral, no edema, capillary refill less than 2 seconds, worsening chest pain with pressure applied to left side of chest Lungs: CTA bilateral, no rhonchi, no rales , no accessory muscle use Abdominal: soft, nontender to palpation, no guarding, no appreciable organomegaly, normal bowel sounds Ext: no gross muscle atrophy, muscle strength 5 out of 5 in all 4 extremities grossly, no contractures, Neuro: CN II-XI grossly intact, light touch intact all 4 extremities, finger to nose within normal limits, Psych: Alert, oriented, appropriate affect Results CBC & Chem 7: 07/15/19 16:28 07/15/19 16:28 Labs: Abnormal Lab Results - Last 24 Hours (Table) 07/15/19 07/15/19 Range/Units 16:28 16:28 RBC 3.94 L (4.30-5.90) m/uL Hgb 12.6 L (13.0-17.5) gm/dL MCV 100.3 H (80.0-100.0) fL Lymphocytes # 0.7 L (1.0-4.8) k/uL Glucose 114 H (74-99) mg/dL Chest x-ray: report reviewed Thrombosis Risk Factor Assmnt - DVT/VTE Prophylaxis DVT/VTE Prophylaxis: Mechanical Prophylaxis ordered - Choose All That Apply Any of the Below Risk Factors Present?: Yes Each Factor Represents 1 point: Obesity (BMI >25) Other Risk Factors: Yes Each Risk Factor Represents 2 Points: Age 61-74 years, Malignancy Other congenital or acquired thrombophilia - If yes, enter type in comment: No Thrombosis Risk Factor Assessment Total Risk Factor Score: 5 Thrombosis Risk Factor Assessment Level: High Risk Assessment and Plan Assessment: Pleuritic chest pain of bradycardia -Differential includes myocardial infarction, pulmonary embolism as patient recently off anticoagulation, or bone pain due to rib metastasis -Seriel troponins -Telemetry -Cardiology consult -Aspirin, beta aiden -Check stat CT PE protocol -Continue home fentanyl patch and [place] Paroxysmal atrial fibrillation -Xarelto colonoscopy. We'll continue to hold in case cardiac catheterization needed in the morning -Continue with amiodarone -Beta aiden on hold secondary to bradycardia Chronic pain secondary to bone metastasis -Resume home pain meds Hypertension, controlled -Hold metoprolol secondary to bradycardia -Continue with lisinopril -Follow blood pressures Metastatic prostate cancer with metastases to the bone including ribs -Continue with daily casted asked -Continue outpatient follow-up ABBIE - to bring in home CPAP Obesity BMI 32.5 - outpatient structured weight loss The patient is placed in observation with an anticipated less than 2 midnight stay for evaluation of chest pain. Surrogate decision-maker: CODE STATUS: full DVT prophylaxis: xarelto Discussed with: patient, cardio Anticipated discharge date: in AM Anticipated discharge place: home A total of [35] minutes was spent on the care of this complex patient more than 50% of the time was spent in counseling and care coordination.
--- NOTE | 2019-07-15 18:02 | CT ---
EXAMINATION TYPE: CT angio chest DATE OF EXAM: 07/15/2019 5:45 PM COMPARISON: None HISTORY: pulmonary embolism Chest pain CT DLP: 475.7 mGycm Automated exposure control for dose reduction was used. CONTRAST: CTA scan of the thorax is performed with IV Contrast, patient injected with 100 mL of Isovue 370, pul monary embolism protocol. . There are 3-D post processed images. FINDINGS: There is coarse interstitial infiltrate and atelectasis in the posterior lung ruiz. Heart is enlarg ed. There is no pericardial effusion. There is no hilar mass. There is no mediastinal adenopathy. Thoracic aorta is intact. There is no dissection. There is aneurysm of the ascending aorta measures 4 .4 cm. There is normal contrast opacification of the pulmonary arteries. There are no filling defects. Bony thorax is intact. There is significant sclerosis and thickening of the lateral left rib could re late to old trauma. IMPRESSION: THERE IS PULMONARY INFILTRATES AND ATELECTASIS AT THE LUNG BASES. HEART IS ENLARGED. THERE IS ANEURYS M OF THE ASCENDING AORTA. NO EVIDENCE OF PULMONARY EMBOLISM.
[2019-07-15] MEDS ORDERED: VENLAFAXINE HCL ER 75 MG CAP PO SCH (21:00)
[2019-07-15] MEDS ORDERED: VENLAFAXINE HCL 75 MG TAB PO SCH (21:00)
[2019-07-15] MEDS ORDERED: RIVAROXABAN 20 MG TAB PO SCH (21:00)
[2019-07-15] MEDS: HYDROcodone/APAP 7.5-325MG 1 EACH TAB PO SCH (21:13)
[2019-07-16 07:27] LABS: HCT 36.2 % (39.0-53.0); HGB 11.3 gm/dL (13.0-17.5); MCH 31.2 pg (25.0-35.0); MCHC 31.2 g/dL (31.0-37.0); MCV 100.1 fL (80.0-100.0); Mean Platelet Volume 6.2; Platelet Count 217 k/uL (150-450); RBC 3.62 m/uL (4.30-5.90); RDW 12.4 % (11.5-15.5); WBC 5.2 k/uL (3.8-10.6)
[2019-07-16 07:41] VITALS: BP 110/70; PULSE 53; RESP 18; TEMP 98.1
[2019-07-16 07:50] LABS: African American GFR (CKD) >90 (>60 ml/min/1.73 sqM); Anion Gap 7 mmol/L; Blood Urea Nitrogen 17 mg/dL (9-20); Calcium 8.2 mg/dL (8.4-10.2); Carbon Dioxide 23 mmol/L (22-30); Chloride 109 mmol/L (98-107); Glucose 99 mg/dL (74-99); Potassium 4.1 mmol/L (3.5-5.1); Sodium 139 mmol/L (137-145)
[2019-07-16] MEDS ORDERED: SPIRONOLACTONE 25 MG TAB PO SCH (09:00)
[2019-07-16] MEDS ORDERED: BICALUTAMIDE 50 MG TAB PO SCH (09:00)
[2019-07-16] MEDS ORDERED: LISINOPRIL 2.5 MG TAB PO SCH (09:00)
[2019-07-16] MEDS ORDERED: CALCIUM CARBONATE 500 MG CHEWABLE PO SCH (09:00)
[2019-07-16] MEDS ORDERED: AMIODARONE 100 MG TAB PO SCH (09:00)
[2019-07-16] MEDS: HYDROcodone/APAP 7.5-325MG 1 EACH TAB PO SCH (09:17)
--- NOTE | 2019-07-16 10:41 | P.DS ---
Providers Date of admission: 07/15/19 Expected date of discharge: 07/16/19 Attending physician: Gaby Boateng DO Consults: 07/15/19 14:43 Consult Physician Routine Consulting Provider: Dar Soliman Consult Reason/Comments: chest pain Do you want consulting provider notified?: Already Contacted Primary care physician: [facility] Course: Discharge Diagnosis: Intractable left rib pain secondary to metastasis Prostate cancer stage IV with mets to bone resulting in chronic pain Ascending aortic aneurysm 4.4 cm Status post screening colonoscopy Anemia HTN Paroxysmal atrial fibrillation ABBIE Obesity with BMI 32.5 Hospital Course: Patient is a 64-year-old male past medical history of stage IV prostate cancer with metastasis to the bone including ribs, paroxysmal atrial fibrillation status post cardioversion chronically anticoagulated on eliquis, Obstructive sleep apnea, high blood pressure, and nonischemic cardiomyopathy who presented for colonoscopy secondary to anemia noted by his oncologist. He has been holding his Xarelto for 2 days prior to his colonoscopy. He has no history of DVT or pulmonary embolism in the past. 07/14 he woke up and was having some left-sided chest pain worse with inspiration and movement. He underwent his colonoscopy. In the post anesthesia care unit he again started having left- sided chest discomfort associated with some shortness of breath. Cardiology was called and evaluated the patient. EKG showed marked sinus bradycardia without significant ST-T wave changes. He was placed in observation for his chest pain. Troponins remained negative. He underwent a CT of the chest which did not demonstrate any pulmonary embolism but did show some bibasilar atelectasis, ascending aortic aneurysm 4.4 cm, and sclerotic focus at the left rib. His pain had significantly decreased. He was seen by cardiology and determined stable for discharge. He'll follow up with Dr. Elena in 2 weeks, he is seeing Dr. Pack as his primary doctor secondary to his cancer he'll follow up with him in 2 weeks as well. He is also been given Dr. Kline's information in case Dr. Elena feels he should follow with cardiothoracic surgeon for his ascending aortic aneurysm. Patient states that he has just refilled his fentanyl and Salix and will not need any additional pain medications for home. Patient seen and examined at bedside. Pain is much better only hurts with deep breath, or pressing on lesion, no nausea, slight bloating still. Vital signs reviewed and stable. General: non toxic, no distress, appears at stated age Derm: warm, dry Head: atraumatic, normocephalic, symmetric Eyes: EOMI, no lid lag, anicteric sclera Mouth: no lip lesion, mucus membranes moist Cardiovascular: S1S2 reg, no murmur, positive posterior tibial pulse bilateral, Lungs: CTA bilateral, no rhonchi, no rales , no accessory muscle use Abdominal: soft, nontender to palpation, no guarding, no appreciable organomegaly Ext: no gross muscle atrophy, no edema, no contractures Neuro: CN II-XI grossly intact, no focal neuro deficits Psych: Alert, oriented, appropriate affect A total of 20 minutes of time were spent preparing this complex discharge summary . Patient Condition at Discharge: Stable Plan - Discharge Summary Discharge Rx Participant: Yes New Discharge Prescriptions: Continue Metoprolol Tartrate 50 mg PO QAM fentaNYL 25MCG/HR PATCH [Duragesic 25MCG/HR] 1 patch TRANSDERM Q72H Calcium Carbonate [Calcium] 600 mg PO DAILY Bicalutamide [Casodex] 50 mg PO DAILY Xgeva 120 mg IM QMONTH Spironolactone [Aldactone] 25 mg PO DAILY HYDROcodone/APAP 7.5-325MG [Salix 7.5-325] 1 tab PO BID clonazePAM [KlonoPIN] 0.5 mg PO DAILY PRN PRN Reason: Anxiety Lisinopril [Zestril] 2.5 mg PO DAILY Ibuprofen 800 mg PO DAILY PRN PRN Reason: Pain Rivaroxaban [Xarelto] 20 mg PO HS Amiodarone [Cordarone] 100 mg PO QAM Lupron(Dose Unknown) 1 injection IM Q90D Venlafaxine HCl [Effexor XR] 75 mg PO HS Discharge Medication List Bicalutamide [Casodex] 50 mg PO DAILY 12/07/17 [History] Calcium Carbonate [Calcium] 600 mg PO DAILY 12/07/17 [History] Metoprolol Tartrate 50 mg PO QAM 12/07/17 [History] Xgeva 120 mg IM QMONTH 12/07/17 [History] fentaNYL 25MCG/HR PATCH [Duragesic 25MCG/HR] 1 patch TRANSDERM Q72H 12/07/17 [History] HYDROcodone/APAP 7.5-325MG [Salix 7.5-325] 1 tab PO BID 09/04/18 [History] Ibuprofen 800 mg PO DAILY PRN 09/04/18 [History] Lisinopril [Zestril] 2.5 mg PO DAILY 09/04/18 [History] Rivaroxaban [Xarelto] 20 mg PO HS 09/04/18 [History] Spironolactone [Aldactone] 25 mg PO DAILY 09/04/18 [History] clonazePAM [KlonoPIN] 0.5 mg PO DAILY PRN 09/04/18 [History] Amiodarone [Cordarone] 100 mg PO QAM 09/06/18 [History] Lupron(Dose Unknown) 1 injection IM Q90D 07/11/19 [History] Venlafaxine HCl [Effexor XR] 75 mg PO HS 07/15/19 [History] Patient Instructions/Handouts: *Surgery [facility] - (Anesthesia) Endoscopy Discharge Instructions, Colonoscopy (DC)
== END 2019-07-16 11:10 | disposition home or self-care (01) ==
LOC: ORWHC2ENDO 11:25 → 1SOBS 13:23 → ORWHC2ENDO 07-16 11:10
PROVIDERS: ATTEND Internal Medicine
DX: Z12.11 Encounter for screening for malignant neoplasm of colon (principal); K62.1 Rectal polyp; K63.5 Polyp of colon; I48.0 Paroxysmal atrial fibrillation; Z79.01 Long term (current) use of anticoagulants; I10 Essential (primary) hypertension; C61 Malignant neoplasm of prostate; C79.51 Secondary malignant neoplasm of bone; Z87.01 Personal history of pneumonia (recurrent); G47.33 Obstructive sleep apnea (adult) (pediatric); Z99.89 Dependence on other enabling machines and devices; R00.1 Bradycardia, unspecified; R07.9 Chest pain, unspecified; R06.02 Shortness of breath; L90.5 Scar conditions and fibrosis of skin; I42.8 Other cardiomyopathies; G43.909 Migraine, unspecified, not intractable, without status migrainosus; G89.29 Other chronic pain; R07.81 Pleurodynia; I71.4 Abdominal aortic aneurysm, without rupture; D64.9 Anemia, unspecified; E66.9 Obesity, unspecified; Z68.32 Body mass index [BMI] 32.0-32.9, adult; F41.9 Anxiety disorder, unspecified; Z87.891 Personal history of nicotine dependence; Z82.3 Family history of stroke; Z79.890 Hormone replacement therapy; Z79.891 Long term (current) use of opiate analgesic; Z79.899 Other long term (current) drug therapy; Z88.5 Allergy status to narcotic agent
CPT/HCPCS: 93005; 85379; 88305; 83880; 80053; 80048; 84443; 83735; 84484 ×2; 85025; 85027; 71046; 71275; 45380; J2001; J2704; Q9967

== ENCOUNTER → 2019-07-24 | Outpatient (CLI) | payer MEDICARE, BC ==
--- NOTE | 2019-07-24 13:05 | CT ---
EXAMINATION TYPE: CT ChestAbdPelvis w con DATE OF EXAM: 07/24/2019 INDICATION: Prostate cancer COMPARISON: 07/15/2019 CTA chest, CT Chest Abdomen Pelvis With 10/24/2017 CT DLP: 2309.4 mGycm CONTRAST: Performed with Oral Contrast and with IV Contrast, patient injected with 100 mL of Isovue 300. TECHNIQUE: Axial images at 5 mm thick sections. Reconstructed images in the coronal plane. Delayed images through the kidneys. FINDINGS: CT CHEST: There is some hypodensity within the inferior left lobe thyroid measuring 1.3 cm. No suspicious lung nodules or focal infiltrates are present. No enlarged mediastinal or hilar adenopathy is evident. The ascending aorta diameter at the level of the main pulmonary artery is 4.3 cm. The main pulmonary artery diameter at the bifurcation is 2.[address] ABDOMEN: Liver: Normal Spleen: Normal Pancreas: Normal Adrenal glands: The adrenal glands are normal. Gallbladder: Normal Kidneys: No masses are evident. No hydronephrosis is present. No cysts are present. Delayed images were obtained through the kidneys, which remain unremarkable. Aorta: Vascular calcification is within the aorta. Inferior vena cava: Normal. CT PELVIS: Loops of bowel within the abdomen and pelvis are normal. There are loops of bowel which are incom pletely distended or lack oral contrast limiting their evaluation. Appendix: Not visualized. Urinary bladder: Normal. Genitourinary structures: Prostate appears to be present with calcification present. Osseous structures: There is a sclerotic lesion which may be slightly expansile at the anterior tip o f the left iliac wing there is some sclerotic area at the T12 level greater on the right. Left latera l expansile rib lesion at C6 is present. There is a sclerotic lesion at C7 which is minimal expansion there is an expansile lesion on the right seventh rib. There is a compression deformity of L3. IMPRESSIONS: 1. Bilateral mid lateral rib expansile lesions. Additional sclerotic lesions are in adjacent left lat eral rib the T12 vertebral level and the anterior left iliac wing. Findings can be compatible sclerot ic metastasis from prostate cancer. 2. Compression deformity of L3 present in 2018.
--- NOTE | 2019-07-24 14:18 | NM ---
EXAMINATION TYPE: NM bone scan whole body DATE OF EXAM: 07/24/2019 COMPARISON: Nuclear medicine bone scan dated 11/13/2018. HISTORY: Metastatic prostate carcinoma. Reevaluation. Delayed whole-body scanning was performed following the injection of 25.5 mCi Tc 99m MDP. Images acq uired 3 hours post injection. FINDINGS: New lesions: None Improved lesions: The sacral lesion is no longer seen with radiotracer focus of uptake in the urinary bladder overlying the distal coccyx. The previously noted radiotracer uptake of L5 has resolved. Stable lesions: Stable uptake of the anterior left seventh rib. The left iliac crest lesion is stable . Progressive lesions: Slight increased uptake within the anterior first right rib and lateral fifth le ft rib. Degenerative uptake of the sternal clavicular joints, glenohumeral joints, chromic clavicular joints, sacroiliac joints, knees, ankles, and risks are seen. IMPRESSION: 1. No new osseous metastatic foci. 2. Slight increased uptake within the first right rib and fifth left rib and stable uptake within the left seventh rib as well as the iliac crest on the left. Improved radiotracer uptake within the sacr um and L5.
== END | disposition home or self-care (01) ==
LOC: RADNMMAIN 09:29
PROVIDERS: ATTEND Internal Medicine Hematology & Oncology
DX: M43.8X6 Other specified deforming dorsopathies, lumbar region (principal); M89.8X8 Other specified disorders of bone, other site; C61 Malignant neoplasm of prostate; Z88.5 Allergy status to narcotic agent
CPT/HCPCS: 82565; 84520; 71260; 74177; 36415; 78306; A9503; Q9967 ×2

== ENCOUNTER → 2019-12-04 | Outpatient (CLI) | payer MEDICARE, BC ==
--- NOTE | 2019-12-04 10:25 | XR ---
EXAMINATION TYPE: XR chest 2V DATE OF EXAM: 12/04/2019 COMPARISON: 07/15/2019 INDICATION: Cough history of bone cancer TECHNIQUE: Single frontal view of the chest is obtained. FINDINGS: The heart size is normal. The pulmonary vasculature is normal. There is some pleural thickening along the left lateral margin, present previously. Right apical pleu ral margin thickening is also present. These areas appear stable. Right main pulmonary artery set the upper limits of normal for size. IMPRESSION: 1. Stable areas of pleural thickening adjacent to the left and right chest wall present previously 2. No acute pulmonary process.
== END | disposition home or self-care (01) ==
LOC: RADXRMAIN 10:05
PROVIDERS: ATTEND Internal Medicine Hematology & Oncology
DX: J92.9 Pleural plaque without asbestos (principal); R51 Headache; C61 Malignant neoplasm of prostate; C79.51 Secondary malignant neoplasm of bone
CPT/HCPCS: 71046

== ENCOUNTER → 2020-04-14 | Outpatient (CLI) | payer MEDICARE, BC ==
--- NOTE | 2020-04-14 15:48 | XR ---
KUB HISTORY: Hematuria Frontal KUB submitted on 2 images, comparison CT chest abdomen pelvis 07/24/2019 The bone mineralization is remarkable for abnormal sclerosis involving the left ilium. Calcifications the pelvis likely represent phleboliths but are indeterminate. Degenerative disc disease is present in the lumbar spine. Possible calcification is superimposed over the upper pole the left kidney measu ring 5 mm, this may represent bowel content however. Overlying bowel gas may obscure detail. No evide nt bowel obstruction or pneumoperitoneum. Prostate calcifications are present. IMPRESSION: Difficult to exclude nephrolithiasis as described. Metastatic disease to bone
== END | disposition home or self-care (01) ==
LOC: RADXRMAIN 09:56
PROVIDERS: ATTEND Urology
DX: R31.9 Hematuria, unspecified (principal)
CPT/HCPCS: 74018

== ENCOUNTER → 2020-04-27 | Outpatient (CLI) | payer MEDICARE, BC ==
--- NOTE | 2020-04-27 20:04 | CT ---
EXAMINATION TYPE: CT urogram wo/w con DATE OF EXAM: 04/27/2020 COMPARISON: 07/24/2019 HISTORY: Gross hematuria. CT DLP: 4589.8 mGycm, Automated Exposure Control for Dose Reduction was Utilized. CONTRAST: CT scan of the abdomen and pelvis is performed with oral and without and with IV Contrast, patient in jected with 100ml mL of Isovue 300. FINDINGS: LUNG BASES: The heart is enlarged and there is subsegmental changes involving the lungs most typical of atelectasis. LIVER/GB: No significant abnormality is appreciated. PANCREAS: No significant abnormality is seen. SPLEEN: No significant abnormality is seen. ADRENALS: No significant abnormality is seen. KIDNEYS: There is a 1 cm mid cortical renal lesion on the left measuring 48 Hounsfield units which does not me et the criteria of a simple cyst. There is no hydronephrosis or nephrolithiasis. No additional renal lesions are seen. Ureters are segmentally demonstrated to be of normal course and caliber. Bladder is limited distention with no definite filling defect on delayed imaging. Prostate is somewhat diminuti ve in size with calcifications. Along the medial cortex upper pole right kidney there is a less than 5 mm hypodensity stable from the prior exam and too small to characterize.. BOWEL: No significant abnormality is seen. LYMPH NODES: There is a 1.1 cm lymph node in the left periaortic region increased in size from the pr ior exam where it was subcentimeter. Internal calcification noted.. OSSEOUS STRUCTURES: Expansile lesions involving the left iliac bone and rib cage suggestive of metast ases are again noted.. Hypertrophic and degenerative changes of the spine are noted. Sclerosis involving the SI joints bilaterally correlate for sacroiliitis. OTHER: Small hiatal hernia noted.. Small fat-containing anterior abdominal wall hernia noted. IMPRESSION: 1. There is a 1 cm lesion involving the posterior mid cortex left kidney which does not meet the crit eria of a simple cyst measuring 40 Hounsfield units. MRI recommended to assess for proteinaceous cyst versus neoplasm. This was present on the prior exam and appeared to be better circumscribed previous ly. Therefore, proteinaceous cyst may be most likely etiology. 2. There is interval development of adenopathy in the retroperitoneum on the left measuring short axi s of 1.1 cm and previously measuring subcentimeter. 3. Osseous lesions compatible with bony metastases likely from blastic process such as prostate cance r correlate clinically.
== END | disposition home or self-care (01) ==
LOC: RADCTMAIN 15:10
PROVIDERS: ATTEND Urology
DX: N28.89 Other specified disorders of kidney and ureter (principal); R31.9 Hematuria, unspecified; R59.9 Enlarged lymph nodes, unspecified
CPT/HCPCS: 82565; 84520; 74178; 36415; 74400; Q9967

== ENCOUNTER → 2020-08-10 | Outpatient (CLI) | payer MEDICARE, BC ==
--- NOTE | 2020-08-10 15:49 | NM ---
EXAMINATION TYPE: NM bone scan whole body DATE OF EXAM: 08/10/2020 COMPARISON: Correlation CT same day HISTORY: 65-year-old male prostate cancer. TECHNIQUE: Delayed whole-body scanning was performed following the injection of 25 mCi Tc 99m MDP. I mages acquired 3 hours post injection. FINDINGS: Scattered areas of abnormal tracer activity such as within the posterior elements of the left cervica l spine, right first rib, lateral left mid thorax, right lateral mid to lower ribs, and left iliac wi ng all similar to prior exam. Small foci involving the second rib ends and anterior left mid thoracic rib and appear more defined from prior. IMPRESSION: Overall stable osseous metastatic disease. However, 3 small foci in the ribs appear new. These new ar eas are nonspecific given that they correspond to the rib ends and could reflect costochondritis. Cor relate with PSA values to exclude slight progression.
--- NOTE | 2020-08-10 19:17 | CT ---
EXAMINATION TYPE: CT ChestAbdPelvis w con DATE OF EXAM: 08/10/2020 COMPARISON: CT urogram 04/27/2020. CT chest abdomen pelvis 07/24/1990 HISTORY: Prostate CA CT DLP: 2254.7 mGycm Automated exposure control for dose reduction was used. CONTRAST: CT scan of the chest, abdomen and pelvis is performed with Oral Contrast and with IV Contrast, patien t injected with 80 mL of Isovue 300. FINDINGS: LUNGS: Bibasilar atelectasis. No concerning parenchymal mass or nodule identified. No pleural effusio n. No pneumothorax. The tracheobronchial tree is patent. MEDIASTINUM/SOFT TISSUES: No axillary, hilar, or mediastinal lymphadenopathy greater than 1 cm. Cardi ac size mildly enlarged. No pericardial effusion. Ascending thoracic aortic aneurysm measures 4.5 cm, previously 4.3 cm on 07/24/2019 comparison. Redemonstrated heterogenous asymmetrically enlarged appe arance of the left thyroid gland. LIVER: Redemonstrated too small to characterize hypodense lesion of the liver (3:48). BILIARY SYSTEM: Normal. PANCREAS: Normal. SPLEEN: Normal. ADRENALS: Normal. KIDNEYS: No hydronephrosis. Left renal cyst redemonstrated, with simple Hounsfield units less than 10 . BOWEL: No obstruction or thickening. PERITONEUM: No pneumoperitoneum. No free fluid. LYMPH NODES: Increased left retroperitoneal lymphadenopathy at the level of the kidneys measuring 2. 5 x 3.0 cm (3:72), previously measuring 1.6 x 1.5 cm on 04/27/2020 comparison. PELVIS: Normal urinary bladder. Coarse prostatic calcifications. VASCULATURE: No abdominal aortic aneurysm. MUSCULOSKELETAL: Sclerotic expansile lesions involving the bilateral ribs, spine, left iliac bone, a nd sacrum are not significantly changed from 04/27/2020 and 07/24/2019 CT comparisons. Bilateral gynec omastia. IMPRESSION: 1. Significantly increased left retroperitoneal lymphadenopathy versus 04/27/2020, most likely metast atic disease. 2. Osseous sclerotic metastases are unchanged versus 07/24/2019 and 04/27/2020. 3. Ascending thoracic aortic aneurysm measures 4.5 cm, previously 4.3 cm on 07/24/2019 comparison.
== END | disposition home or self-care (01) ==
LOC: RADNMMAIN 09:08
PROVIDERS: ATTEND Internal Medicine Hematology & Oncology
DX: I71.2 Thoracic aortic aneurysm, without rupture (principal); C61 Malignant neoplasm of prostate; C79.51 Secondary malignant neoplasm of bone; R93.7 Abnormal findings on diagnostic imaging of other parts of musculoskeletal system; Z88.5 Allergy status to narcotic agent
CPT/HCPCS: 82565; 84520; 71260; 74177; 36415; 78306; A9503; Q9967 ×2

== ENCOUNTER → 2020-10-21 | Outpatient (CLI) | payer MEDICARE, BC ==
--- NOTE | 2020-10-21 14:53 | XR ---
EXAMINATION TYPE: XR pelvis AP view, XR Hip Limited LT DATE OF EXAM: 10/21/2020 CLINICAL HISTORY: Pelvic and left hip pain. TECHNIQUE: A single AP view of the pelvis is obtained. Two views of the left hip are obtained. COMPARISON: None. FINDINGS: There is no acute fracture/dislocation evident in the pelvis. The sacroiliac joints appear symmetric and unremarkable. Mild to moderate axial joint space loss both hips with mild acetabular spurring. P ubic symphysis intact. Right-sided pelvic phleboliths. Two views of left hip show no acute fracture or dislocation. No focal lytic or sclerotic lesion seen in the proximal left femur. The overlying soft tissue is unremarkable. IMPRESSION: As above.
== END | disposition home or self-care (01) ==
LOC: RADXRMAIN 14:13
PROVIDERS: ATTEND Internal Medicine Hematology & Oncology
DX: M25.752 Osteophyte, left hip (principal); M25.852 Other specified joint disorders, left hip; C79.51 Secondary malignant neoplasm of bone; C61 Malignant neoplasm of prostate
CPT/HCPCS: 72170; 73501

== ENCOUNTER → 2020-11-01 | Outpatient (CLI) | payer MEDICARE, BC ==
--- NOTE | 2020-11-01 14:24 | MR ---
EXAMINATION TYPE: MR lumbar spine wo/w con DATE OF EXAM: 11/01/2020 COMPARISON: CT 10 bone scan 08/10/2020 HISTORY: 65-year-old male Prostate Cancer, Bone Mets, Low Back Pain Technique: Multiplanar, multisequence images of the lumbar spine were obtained before and after admin istration of 13.0 mL intravenous Gadavist gadolinium contrast. FINDINGS: Heterogeneous enhancing left periaortic mass L2 level measuring 4.7 cm craniocaudal by 3.0 cm AP by 2 .6 cm wide (versus 4.8 x 3.3 x 2.5 cm). Benign 1.8 cm left renal cyst. Superior endplate Schmorl's node of T12 shows diminished signal but no clear postcontrast enhancement , likely site of treated disease. Mild anterior wedging deformity of L3 is unchanged. Remaining vertebral body heights are preserved. Alignment is maintained. Mild multilevel disc disease with variable disc desiccation and disc bulging. Enhancing posterior annular fissure at L4-L5 and L5-S1. Ligamentum flavum thickening and hypertrophic facet arthropathy mid to lower lumbar spine. Conus medullaris is normal. There is a component of congenital spinal canal narrowing in the mid to lower lumbar spine with AP ca nal dimension of 1.2 cm. Changes result in overall mild spinal canal stenosis at L2-L3, moderate at L4-L5 and L5-S1. On the right, changes result in moderate neural foraminal stenosis at L5-S1, mild to moderate L4-L5, and mild at L3-L4. On the left, changes result in mild neuroforaminal stenoses at L4-L5 and L5-S1, mild to moderate at L 2-L3. Disc material with enhancing annular fissure posteriorly approaches and may abut the traversing S1 ne rve roots on both sides at L5-S1. IMPRESSION: 1. No enhancement to the T12 sclerotic area. Findings suggest treated osseous metastasis. 2. Chronic mild compression deformity of L3. No new compression collapse. 3. Known left paraaortic retroperitoneal metastatic soft tissue. This is relatively stable from 2019 measuring 4.7 x 3.0 cm (versus 4.8 x 3.3 cm, previously). 4. Mild congenital spinal canal narrowing with superimposed mild degenerative disc disease. Ligamentu m flavum thickening and hypertrophic facet arthropathy. Posterior annular fissures at L4-L5 and L5-S1 . Mild overall spinal canal stenosis at L2-L3 and moderate at L4-L5 and L5-S1. 5. Disc material with annular fissure approaches and may abut the traversing S1 nerve roots on both s ides at L5-S1. Otherwise, there is variable mild to moderate neuroforaminal stenoses as outlined sandra e.
== END | disposition home or self-care (01) ==
LOC: RADMRIMAIN 11:12
PROVIDERS: ATTEND Internal Medicine Hematology & Oncology
DX: M48.061 Spinal stenosis, lumbar region without neurogenic claudication (principal); M51.36 Other intervertebral disc degeneration, lumbar region; M47.816 Spondylosis without myelopathy or radiculopathy, lumbar region; M51.86 Other intervertebral disc disorders, lumbar region; G95.29 Other cord compression; M89.38 Hypertrophy of bone, other site; C61 Malignant neoplasm of prostate; C79.51 Secondary malignant neoplasm of bone
CPT/HCPCS: 72158; A9585

== ENCOUNTER → 2020-12-24 | Outpatient (CLI) | payer MEDICARE, BC ==
[2020-12-24 09:44] LABS: African American GFR (CKD) >90 (>60 ml/min/1.73 sqM); Blood Urea Nitrogen 18 mg/dL (9-20); Non-African American GFR(CKD) 89 (>60 ml/min/1.73 sqM)
--- NOTE | 2020-12-24 14:15 | CT ---
EXAMINATION TYPE: CT ChestAbdPelvis w con DATE OF EXAM: 12/24/2020 INDICATION: Prostate cancer, bone mets COMPARISON: 08/10/2020 CT DLP: 3050.1 mGycm CONTRAST: Performed with Oral Contrast and with IV Contrast, patient injected with 100 mL of Isovue 300. TECHNIQUE: Axial images at 5 mm thick sections. Reconstructed images in the coronal plane. Delayed images through the kidneys. FINDINGS: CT CHEST: There is some thickening and slight hypodensity within the left lobe thyroid. This could be further e valuated with ultrasound. Thyroid is incompletely visualized. Normal compressive atelectasis is within the dependent portions of the lung bases. No enlarged mediastinal or hilar adenopathy is evident. The ascending aorta diameter at the level of the main pulmonary artery is 4.6 cm. The main pulmonary artery diameter at the bifurcation is 2.[address] ABDOMEN: Liver: Normal Spleen: Normal Pancreas: Normal Adrenal glands: The adrenal glands are normal. Gallbladder: Normal Kidneys: No masses are evident. No hydronephrosis is present. There is a 1.6 cm cyst in the posteri or lateral left mid kidney. Delayed images were obtained through the kidneys, which remain unremarka ble. Aorta: Minimal calcification within the aorta. No dilatation is evident. Inferior vena cava: Normal. CT PELVIS: Loops of bowel within the abdomen and pelvis are normal. There are loops of bowel which are incom pletely distended or lack oral contrast limiting their evaluation. Appendix: Normal as visualized. Urinary bladder: Normal. Genitourinary structures: Prostate calcification is present. Osseous structures: There is a expansile lesion within the lateral left sixth rib in the lateral righ t seventh rib. There may be some right vertebral and right pedicle lytic lesion T12. There is an expa nsile sclerotic area within the superior left iliac crest. Subtle right sacral sclerotic change may b e present. Lymphadenopathy: Left periaortic adenopathy is present the level of the renal arteries. This has incr eased from 3.3 x 2.5 cm to 3.5 x 2.8 cm. Suspicious adenopathy is not otherwise evident. IMPRESSIONS: 1. Increasing periaortic adenopathy just below the level of the renal arteries. 2. Some thickening and signal abnormality within left lobe thyroid. This could be further evaluated w ith ultrasound. 3. Stable bilateral osseous rib lesions, left iliac crest lesion with possible T12 vertebral lesion.
--- NOTE | 2020-12-24 14:58 | NM ---
EXAMINATION TYPE: NM bone scan whole body DATE OF EXAM: 12/24/2020 COMPARISON: Same day whole body CT. Prior bone scan and CT August 10, 2020 HISTORY: Prostate cancer. Delayed whole-body scanning was performed following the injection of 20.0 mCi Tc 99m MDP. Images acq uired 3.5 hours post injection. Whole body images in anterior and posterior projection along with add itional projections of the thorax and abdomen. FINDINGS: Persistent multifocal areas increased radiotracer uptake with findings greatest over the bilateral ri bs is redemonstrated. There is urine loss contamination noted on today's study. IMPRESSION: Stable osseous metastatic disease when correlating bone scan and same day CT with [facility] 2019 studies.
== END ==
LOC: RADCTMAIN 08:58
PROVIDERS: ATTEND Internal Medicine Hematology & Oncology
DX: R59.0 Localized enlarged lymph nodes (principal); M89.8X8 Other specified disorders of bone, other site; C79.51 Secondary malignant neoplasm of bone
CPT/HCPCS: 82565; 84520; 71260; 74177; 36415; 78306; A9503; Q9967 ×2

== ENCOUNTER → 2021-04-05 | Outpatient (CLI) | payer MEDICARE, BC ==
[2021-04-05 17:39] LABS: African American GFR (CKD) 72.1 (60.0-200.0); Albumin 4.2 g/dL (3.80-4.90); Albumin/Globulin Ratio 1.56 (1.60-3.17); Anion Gap 10.9 mmol/L (4.00-12.00); BUN/Creat Ratio 16.67 Ratio (12.00-20.00); Calcium 8.7 mg/dL (8.7-10.3); Carbon Dioxide 20.1 mmol/L (21.6-31.8); Globulin 2.7 g/dL (1.6-3.3); Non-African American GFR(CKD) 62.2 (60.0-200.0); Potassium 4.7 mmol/L (3.5-5.5); Total Bilirubin 0.5 mg/dL (0.3-1.2); Total Protein 6.9 g/dL (6.2-8.2)
[2021-04-05 17:47] LABS: Prostate Specific Antigen 0.8 ng/mL (0.0-4.5)
== END | disposition home or self-care (01) ==
LOC: LABWHC1 10:22
PROVIDERS: ATTEND Internal Medicine Hematology & Oncology
DX: C61 Malignant neoplasm of prostate (principal); C79.51 Secondary malignant neoplasm of bone; R05 Cough; R06.2 Wheezing; R51.9 Headache, unspecified
CPT/HCPCS: 36415; 80053; 84153

== ENCOUNTER 2021-05-02 07:38 | Day surgery (SDC) | payer MEDICARE, BC ==
[2021-04-28 16:33] VITALS: BMI 35.3
[~2021-05-02 07:38] MED LIST changes: +LIDOCAINE 1% (10MG/ML) FOR IV START INTRADERMA PRN; +SODIUM CHLORIDE 0.9% 1,000 ML IV SCH
[2021-05-02 08:19] VITALS: RESP 16; TEMP 96.9
[2021-05-02 08:41] LABS: African American GFR (CKD) >90 (>60 ml/min/1.73 sqM); Anion Gap 6 mmol/L; Blood Urea Nitrogen 20 mg/dL (9-20); Carbon Dioxide 27 mmol/L (22-30); Chloride 105 mmol/L (98-107); Glucose 112 mg/dL (74-99); Non-African American GFR(CKD) 84 (>60 ml/min/1.73 sqM); Potassium 4.4 mmol/L (3.5-5.1); Sodium 138 mmol/L (137-145)
[2021-05-02 08:47] VITALS: BP 99/62; PULSE 63
== END 2021-05-02 09:35 | disposition home or self-care (01) ==
LOC: CATHCVL 07:38
PROVIDERS: ATTEND Internal Medicine Interventional Cardiology
DX: I48.0 Paroxysmal atrial fibrillation (principal); I48.19 Other persistent atrial fibrillation; Z53.9 Procedure and treatment not carried out, unspecified reason; F17.210 Nicotine dependence, cigarettes, uncomplicated; I08.1 Rheumatic disorders of both mitral and tricuspid valves; I65.23 Occlusion and stenosis of bilateral carotid arteries; Z79.899 Other long term (current) drug therapy; I71.2 Thoracic aortic aneurysm, without rupture; Z79.01 Long term (current) use of anticoagulants; Z88.5 Allergy status to narcotic agent; I10 Essential (primary) hypertension; I42.8 Other cardiomyopathies
CPT/HCPCS: 80048

== ENCOUNTER → 2021-10-25 | Outpatient (CLI) | payer MEDICARE, BC ==
[2021-10-25 10:39] LABS: African American GFR (CKD) >90 (>60 ml/min/1.73 sqM); Blood Urea Nitrogen 23 mg/dL (9-20); Non-African American GFR(CKD) 89 (>60 ml/min/1.73 sqM)
--- NOTE | 2021-10-25 12:33 | CT ---
EXAMINATION TYPE: CT ChestAbdPelvis w con DATE OF EXAM: 10/25/2021 INDICATION: prostate CA with mets COMPARISON: 12/24/2020 CT DLP: 2340 mGycm CONTRAST: Performed with Oral Contrast and with IV Contrast, patient injected with 100 mL of Isovue 300. TECHNIQUE: Axial images at 5 mm thick sections. Reconstructed images in the coronal plane. Delayed images through the kidneys. FINDINGS: CT CHEST: There is enlargement of the left lobe thyroid with a 1.6 cm hypodense area. This may be bet ter visualized than the comparison. Additional evaluation with CT is recommended. No suspicious lung nodules or focal infiltrates are present. Some minimal compressive atelectasis may be within dependent portions of the lung bases. No enlarged mediastinal or hilar adenopathy is evident. The ascending aorta diameter at the level of the main pulmonary artery is 4.6 cm and stable The main pulmonary artery diameter at the bifurcation is 3.[address] ABDOMEN: Liver: Normal Spleen: Normal Pancreas: Normal Adrenal glands: The adrenal glands are normal. Gallbladder: Normal Kidneys: No masses are evident. No hydronephrosis is present. No cysts are present. Aorta: Vascular calcification is within the aorta. Inferior vena cava: Normal. CT PELVIS: Loops of bowel within the abdomen and pelvis are normal. There are loops of bowel which are incom pletely distended or lack oral contrast limiting their evaluation. Appendix: Not identified. No dilated tubular structure inflammatory changes are evident. Urinary bladder: Normal. Genitourinary structures: Prostate appears small and contains calcification. Osseous structures: There is some sclerotic area along the left iliac crest could be related to metas tatic lesion. No suspicious lytic lesions are. There is some sclerosis within a lower right thoracic vertebral body could be a metastatic lesion this was present previously. There is an expansile eighth right rib suspicious for metastatic lesion. This was present previously. There are increased size lymph nodes within the periaortic region and the upper abdomen measuring 3.1 x 4.5 cm. This is slightly more prominent than 2.8 x 3.5 cm previous. IMPRESSIONS: 1. Expansile right rib lesion, sclerotic lesion left iliac crest, stable from comparison could be old or metastatic lesions. 2. Enlarging lymph nodes in the retrocrural region. 3. Stable ascending thoracic aortic aneurysm of 4.6 cm
--- NOTE | 2021-10-25 15:00 | NM ---
EXAMINATION TYPE: NM bone scan whole body DATE OF EXAM: 10/25/2021 COMPARISON: Same day CT. Prior bone scan December 24, 2020. HISTORY: Prostate cancer Delayed whole-body scanning was performed following the injection of 24.6 mCi Tc 99m MDP. Images acq uired 3 hours post injection. Whole body images in anterior and posterior projection along with addit ional spot views of the thorax and abdomen are acquired. FINDINGS: Versus a multifocal increased radiotracer uptake involving the bilateral ribs corresponding to sclero tic lesions on CT, 2 are expansile. Sclerotic lesion involving the T12 vertebra right aspect does not show increased radiotracer uptake on current study or most recent prior study. No definitive new are as of abnormal increased radiotracer uptake. IMPRESSION: As above. Osseous metastatic disease redemonstrated. No significant change or progression from prior bone scan.
== END | disposition home or self-care (01) ==
LOC: RADNMMAIN 09:56
PROVIDERS: ATTEND Internal Medicine Hematology & Oncology
DX: C61 Malignant neoplasm of prostate (principal); I71.2 Thoracic aortic aneurysm, without rupture; C79.51 Secondary malignant neoplasm of bone; R59.0 Localized enlarged lymph nodes
CPT/HCPCS: 82565; 84520; 71260; 74177; 36415; 78306; A9503; Q9967

== ENCOUNTER 2022-03-27 18:21 | Inpatient (IN) | payer MEDICARE, BC ==
--- NOTE | 2022-03-27 21:31 | ED ---
General Adult HPI - General Source: patient, family, RN notes reviewed, old records reviewed Mode of arrival: wheelchair Limitations: no limitations - History of Present Illness -: month(s) (1) Location: chest Radiation: non-radiation Severity scale (1-10): 8 Consistency: intermittent, now resolved Associated Symptoms: shortness of breath <Hung Rose - Last Filed: 03/27/22 23:33> <Zach Funez - Last Filed: 03/28/22 22:28> - General Chief complaint: Chest Pain Stated complaint: chest pain, SOB Time Seen by Provider: 03/27/22 21:10 - History of Present Illness Initial comments: This is a 66-year-old male, alert and oriented 4 with complaints of shortness of breath and intermittent chest pain for the past month. Patient does have a history of atrial fibrillation. He has recently seen Dr. Henry and is taking xaralto. Patient also has a history of stage IV prostate cancer with metastasis to the bone that his shortness of breath became so severe today that he wanted to be brought back to the hospital. (Hung Rose) - Related Data Home Medications Medication Instructions Recorded Confirmed fentaNYL 25MCG/HR PATCH [Duragesic 2 patch TRANSDERM Q48H 12/07/17 03/27/22 25MCG/HR] Ibuprofen 800 mg PO Q6H PRN 09/04/18 03/27/22 Rivaroxaban [Xarelto] 20 mg PO HS 09/04/18 03/27/22 clonazePAM [KlonoPIN] 0.5 mg PO Q8H PRN 09/04/18 03/27/22 Enzalutamide [Xtandi] 160 mg PO DAILY 04/28/21 03/27/22 Furosemide [Lasix] 40 mg PO DAILY 02/16/22 03/27/22 Leuprolide Acetate [Lupron Depot] 45 mg IM Q90D 02/16/22 03/27/22 Sennosides/Docusate Sodium 2 tab PO BID 02/16/22 03/27/22 [Senna-S 8.6-50 mg Tablet] Zolpidem [Ambien] 10 mg PO HS 02/16/22 03/27/22 Cyclobenzaprine [Flexeril] 5 mg PO TID 03/27/22 03/27/22 Gabapentin [Neurontin] 300 mg PO BID 03/27/22 03/27/22 HYDROcodone/APAP 10-325MG [[place] 1 tab PO Q6HR PRN 03/27/22 03/27/22 10-325] Metoprolol Succinate [Toprol XL] 100 mg PO DAILY 03/27/22 03/27/22 Previous Rx's Medication Instructions Recorded Albuterol Inhaler [Ventolin Hfa 2 puff INHALATION RT-Q6H PRN #90 03/28/22 Inhaler] mcg Budesonide/Formoterol Fumarate 2 puff INHALATION BID #10.2 gm 03/28/22 [Symbicort 80-4.5 Mcg Inhaler] Allergies Allergy/AdvReac Type Severity Reaction Status Date / Time codeine Allergy Nausea/head Verified 03/27/22 23:36 ache Review of Systems ROS Other: All systems not noted in ROS Statement are negative. <Hung Rose - Last Filed: 03/27/22 23:33> ROS Other: All systems not noted in ROS Statement are negative. <Zach Funez - Last Filed: 03/28/22 22:28> ROS Statement: Those systems with pertinent positive or pertinent negative responses have been documented in the HPI. Past Medical History Past Medical History: Atrial Fibrillation, Cancer, Hypertension, Prostate Disorder, Sleep Apnea/CPAP/BIPAP Additional Past Medical History / Comment(s): Prostate cancer with mets to spine treated with hormone therapy and radiation, back pain, past R sided sciatica, nonischemic cardiomyopathy, ABBIE with Cpap, bilateral lower exremity edema at times, migraines, benign colon polyp. History of Any Multi-Drug Resistant Organisms: None Reported Past Surgical History: Heart Catheterization, Orthopedic Surgery Additional Past Surgical History / Comment(s): ORIF left wrist, DEANNE/cardioversion, colonoscopy Past Anesthesia/Blood Transfusion Reactions: Previous Problems w/ Anesthesia Additional Past Anesthesia/Blood Transfusion Reaction / Comment(s): Woke up with CP after colonoscopy, EKG abn. Past Psychological History: No Psychological Hx Reported Smoking Status: Former smoker Past Alcohol Use History: None Reported Past Drug Use History: None Reported - Past Family History Father Family Medical History: Cancer, CVA/TIA Additional Family Medical History / Comment(s): Father of a stroke at the age of 91 yrs. He had prostate cancer Mother Family Medical History: No Reported History Additional Family Medical History / Comment(s): Mother is healthy and is 93 yrs old. <Hung Rose - Last Filed: 03/27/22 23:33> General Exam Limitations: no limitations General appearance: alert, in no apparent distress Head exam: Present: atraumatic, normocephalic Eye exam: Present: normal appearance. Absent: periorbital swelling ENT exam: Present: mucous membranes moist Neck exam: Present: normal inspection. Absent: tenderness, meningismus Respiratory exam: Present: normal lung sounds bilaterally. Absent: respiratory distress, wheezes, rales, rhonchi, stridor, accessory muscle use, decreased breath sounds Cardiovascular Exam: Present: regular rate, irregular rhythm. Absent: normal rhythm, bradycardia, tachycardia GI/Abdominal exam: Present: soft, normal bowel sounds. Absent: tenderness Extremities exam: Present: normal inspection, normal capillary refill. Absent: pedal edema Back exam: Present: normal inspection. Absent: tenderness, CVA tenderness (R), CVA tenderness (L), rash noted Neurological exam: Present: alert, oriented X3 Psychiatric exam: Present: normal affect, normal mood Skin exam: Present: warm, dry, normal color. Absent: cyanosis, diaphoretic, petechiae, pallor <Hung Rose - Last Filed: 03/27/22 23:33> Course <Zach Funez - Last Filed: 03/28/22 22:28> Vital Signs 03/27/22 03/28/22 03/28/22 18:24 01:17 02:10 Temperature 97.1 F L 97.5 F L Pulse Rate 99 85 Pulse Rate [ 107 H Pulse Oximetery ] Respiratory 18 18 16 Rate Blood Pressure 113/70 94/64 Blood Pressure 108/75 [Right Arm] O2 Sat by Pulse 98 93 L 93 L Oximetry - Reevaluation(s) Reevaluation #1: 03/28/22 Medical records reviewed (Zach Funez) Reevaluation #2: 03/28/22 Patient feels chest pain (Zach Funez) Reevaluation #3: 03/28/22 Spoke patient regarding findings he is agreeable (Zach Funez) - Consultations Consultation #1: Spoke with Dr. Munguia who will admit the patient (Zach Funez) EKG Findings - EKG Results: EKG shows: atrial fibrillation (Ventricular rate 91, QRS 0.87, QTC 0.381) <Hung Rose - Last Filed: 03/27/22 23:33> Medical Decision Making - Lab Data Result diagrams: 03/27/22 23:10 <Hung Rose - Last Filed: 03/27/22 23:33> - Lab Data Result diagrams: 03/27/22 23:10 03/27/22 23:10 - Radiology Data Radiology results: report reviewed (Chest x-rays negative for acute disease), image reviewed <Zach Funez - Last Filed: 03/28/22 22:28> - Medical Decision Making Patient has been having episodes of shortness of breath and intermittent chest pain for the past month. at bedside states he has had atrial fibrillation with a rapid ventricular rate in the past and was seen by Dr. Henry and is currently taking xarelto and amiodarone. 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 EKG shows atrial fibrillation with a ventricular rate of 91. Chest x-ray shows pleural thickening not changed from exam dated November 2019. There is no acute lung disease no heart failure noted. Patient has no pain or difficulty breathing at this time. Labs are pending therefore case was turned over to Dr. Funez for disposition. (RoseHung) 66 male to the emergency department for evaluation found to have atrial fibrillation, patient also having chest pain. Patient has had increased weakness no significant difficulty breathing. Patient be admitted for cardiology to evaluate (Zach Funez) - Lab Data Lab Results 03/27/22 03/27/22 03/27/22 Range/Units 23:10 23:10 23:10 WBC 5.8 (3.8-10.6) k/uL RBC 4.24 L (4.30-5.90) m/uL Hgb 13.3 (13.0-17.5) gm/dL Hct 40.6 (39.0-53.0) % MCV 95.8 (80.0-100.0) fL MCH 31.4 (25.0-35.0) pg MCHC 32.8 (31.0-37.0) g/dL RDW 13.3 (11.5-15.5) % Plt Count 268 (150-450) k/uL MPV 6.9 Neutrophils % 76 % Lymphocytes % 12 % Monocytes % 7 % Eosinophils % 3 % Basophils % 1 % Neutrophils # 4.4 (1.3-7.7) k/uL Lymphocytes # 0.7 L (1.0-4.8) k/uL Monocytes # 0.4 (0-1.0) k/uL Eosinophils # 0.2 (0-0.7) k/uL Basophils # 0.1 (0-0.2) k/uL PT 10.3 (9.0-12.0) sec INR 0.9 (<1.2) APTT 24.8 (22.0-30.0) sec D-Dimer 0.55 (<0.60) mg/L FEU Sodium 134 L (137-145) mmol/L Potassium 4.3 (3.5-5.1) mmol/L Chloride 101 (98-107) mmol/L Carbon Dioxide 27 (22-30) mmol/L Anion Gap 6 mmol/L BUN 22 H (9-20) mg/dL Creatinine 1.23 (0.66-1.25) mg/dL Est GFR (CKD-EPI)AfAm 70 (>60 ml/min/1.73 sqM) Est GFR (CKD-EPI)NonAf 60 (>60 ml/min/1.73 sqM) Glucose 101 H (74-99) mg/dL Calcium 8.3 L (8.4-10.2) mg/dL Magnesium 2.0 (1.6-2.3) mg/dL Total Bilirubin 0.3 (0.2-1.3) mg/dL AST 20 (17-59) U/L ALT 17 (4-49) U/L Alkaline Phosphatase 75 (38-126) U/L Troponin I (0.000-0.034) ng/mL Total Protein 6.9 (6.3-8.2) g/dL Albumin 3.8 (3.5-5.0) g/dL 03/27/22 Range/Units 23:10 WBC (3.8-10.6) k/uL RBC (4.30-5.90) m/uL Hgb (13.0-17.5) gm/dL Hct (39.0-53.0) % MCV (80.0-100.0) fL MCH (25.0-35.0) pg MCHC (31.0-37.0) g/dL RDW (11.5-15.5) % Plt Count (150-450) k/uL MPV Neutrophils % % Lymphocytes % % Monocytes % % Eosinophils % % Basophils % % Neutrophils # (1.3-7.7) k/uL Lymphocytes # (1.0-4.8) k/uL Monocytes # (0-1.0) k/uL Eosinophils # (0-0.7) k/uL Basophils # (0-0.2) k/uL PT (9.0-12.0) sec INR (<1.2) APTT (22.0-30.0) sec D-Dimer (<0.60) mg/L FEU Sodium (137-145) mmol/L Potassium (3.5-5.1) mmol/L Chloride (98-107) mmol/L Carbon Dioxide (22-30) mmol/L Anion Gap mmol/L BUN (9-20) mg/dL Creatinine (0.66-1.25) mg/dL Est GFR (CKD-EPI)AfAm (>60 ml/min/1.73 sqM) Est GFR (CKD-EPI)NonAf (>60 ml/min/1.73 sqM) Glucose (74-99) mg/dL Calcium (8.4-10.2) mg/dL Magnesium (1.6-2.3) mg/dL Total Bilirubin (0.2-1.3) mg/dL AST (17-59) U/L ALT (4-49) U/L Alkaline Phosphatase (38-126) U/L Troponin I <0.012 (0.000-0.034) ng/mL Total Protein (6.3-8.2) g/dL Albumin (3.5-5.0) g/dL Disposition <Hung Rose - Last Filed: 03/27/22 23:33> Is patient prescribed a controlled substance at d/c from ED?: No <Zach Funez - Last Filed: 03/28/22 22:28> Clinical Impression: Chest pain Disposition: ADMITTED IP TO THIS HOSP Condition: Undetermined
--- NOTE | 2022-03-27 21:37 | XR ---
EXAMINATION TYPE: XR chest 2V DATE OF EXAM: 03/27/2022 COMPARISON: 12/04/2019 HISTORY: Chest pain TECHNIQUE: FINDINGS: There is no heart failure nor confluent pneumonic infiltrate. Costophrenic angles are clear . There is focal pleural thickening on the left and right lateral chest wall with rib fractures. Ther e are no hilar masses. Thoracic spine is intact. IMPRESSION: Pleural thickening apparently related to old rib fractures not significantly different th an old exam. No acute lung disease. No heart failure.
[2022-03-27 23:30] LABS: Basophils # (A) 0.1 k/uL (0-0.2); Basophils % (A) 1 %; Eosinophils # (A) 0.2 k/uL (0-0.7); Eosinophils % (A) 3 %; HCT 40.6 % (39.0-53.0); HGB 13.3 gm/dL (13.0-17.5); Lymphocytes # (A) 0.7 k/uL (1.0-4.8); Lymphocytes % (A) 12 %; MCH 31.4 pg (25.0-35.0); MCHC 32.8 g/dL (31.0-37.0); MCV 95.8 fL (80.0-100.0); Mean Platelet Volume 6.9; Monocytes # (A) 0.4 k/uL (0-1.0); Monocytes % (A) 7 %; Neutrophils # (A) 4.4 k/uL (1.3-7.7); Neutrophils % (A) 76 %; Platelet Count 268 k/uL (150-450); RBC 4.24 m/uL (4.30-5.90); RDW 13.3 % (11.5-15.5); WBC 5.8 k/uL (3.8-10.6)
[2022-03-27 23:59] LABS: INR 0.9 (<1.2); Partial Thromboplastin Time 24.8 sec (22.0-30.0); Prothrombin Time 10.3 sec (9.0-12.0)
[2022-03-28 00:04] LABS: Albumin 3.8 g/dL (3.5-5.0); Calcium 8.3 mg/dL (8.4-10.2); Potassium 4.3 mmol/L (3.5-5.1); Total Bilirubin 0.3 mg/dL (0.2-1.3); Total Protein 6.9 g/dL (6.3-8.2)
[2022-03-28] MEDS ORDERED: ONDANSETRON 4 MG/2 ML VIAL IVP PRN (00:48)
[2022-03-28] MEDS ORDERED: MORPHINE SULFATE 4 MG/ML SYRINGE IV PRN (00:48)
[2022-03-28] MEDS ORDERED: LORazepam 2 MG/ML INJ IV PRN (00:48)
[2022-03-28] MEDS ORDERED: NALOXONE 0.4 MG/ML 1 ML VIAL IV PRN (00:48)
[2022-03-28] MEDS ORDERED: SPIRONOLACTONE 25 MG TAB PO SCH (09:00)
[2022-03-28] MEDS ORDERED: lisinopriL 5 MG TAB PO SCH (09:00)
[2022-03-28] MEDS: METOPROLOL SUCCINATE (ER) 100 MG TAB.ER.24H PO SCH (09:42)
[2022-03-28] MEDS: FUROSEMIDE 40 MG TAB PO SCH (09:43)
--- NOTE | 2022-03-28 10:40 | P.CRDCN ---
History of Present Illness History of present illness: HISTORY OF PRESENTING ILLNESS This is a pleasant 66-year-old male past medical history significant for long standing persistent atrial fibrillation on Xarelto, Prostate cancer with metastasis to bone (hip, ribs and shoulders per patient), obstructive sleep apnea, former alcohol abuse, former tobacco use. He follows in the office with Dr. Elena. We have been asked to see in consultation for chest pain. Patient presents to the ER with intermittent left sided chest discomfort for a few days and exertional shortness of breath. He states with activity he has been having shortness of breath, this has been going on for over a month. His chest discomfort is located lower left chest, describes it as sharp, lasts for a few minutes. Non-exertional chest pain. Non-radiating. He does endorse shortness of breath with activity. Denies any associated nausea, diaphoresis, palpitations, lightheadedness, dizziness or syncope. No specific alleviating symptoms. His chest discomfort has now resolved. He denies any symptoms of orthopnea or PND. He denies any history of CAD, AL, Stroke, or diabetes. He is a former smoker. Patient recently saw Dr. Elena this month and was noted to be in atrial fibri llation with overall uncontrolled heart rate. He was transitioned to metoprolol succinate 100mg Daily. DIAGNOSTICS EKG reveals atrial fibrillation, heart rate 91, no acute STT wave abnormalities noted. Last Cardiac Catheterization in 2018 revealed normal coronary arteries Most recent echo in the office 04/2021 revealed EF 55%, mild left ventricular hypertrophy, mild mitral regurgitation, moderate tricuspid regurgitation Telemetry tracings indicate atrial fibrillation with heart rate [id number] Chest xray no acute cardiopulmonary process. Laboratory reviewed, CBC unremarkable, d-dimer negative, sodium 134, potassium 4.3, BUN 22, serum creatinine 1.2, troponin negative 3, TSH within normal li mits. Current home medications include Lasix 40 mg daily, metoprolol succinate half milligrams daily, lisinopril 5 mg daily, Xarelto 20 mg nightly, spironolactone 25 mg daily REVIEW OF SYSTEMS At the time of my exam: CONSTITUTIONAL: Denies fever or chills. CARDIOVASCULAR: +chest pain, +shortness of breath, Denies orthopnea, PND or palpitations. RESPIRATORY: Denies cough. GASTROINTESTINAL: Denies abdominal pain, diarrhea, constipation, nausea or vomiting. MUSCULOSKELETAL: Denies myalgias. NEUROLOGIC: Denies numbness, tingling, headache or weakness. ENDOCRINE: Denies fatigue, weight change, polydipsia or polyurina. GENITOURINARY: Denies burning, hematuria or urgency with micturation. HEMATOLOGIC: Denies history of anemia or bleeding. PHYSICAL EXAMINATION Blood pressure 95/58, heart rate 90, afebrile, saturations 90% room air CONSTITUTIONAL: No apparent distress. HEENT: Head is normocephalic. Pupils are equal, round. Sclerae anicteric. Mucous membranes of the mouth are moist. No JVD. No carotid bruit. CHEST EXAMINATION: Lungs are clear to auscultation. No chest wall tenderness is noted on palpation or with deep breathing. HEART EXAMINATION: Irregular rate and rhythm. S1, S2 heard. No murmurs, gallops or rub. ABDOMEN: Soft, nontender. Positive bowel sounds. EXTREMITIES: 2+ peripheral pulses, no lower extremity edema and no calf tenderness. SKIN: warm, dry NEUROLOGIC EXAMINATION: Patient is awake, alert and oriented x3. ASSESSMENT Chest pain, atypical, acute coronary syndrome has been ruled out, does not appear to be cardiac in etiology Shortness of breath Longstanding persistent-atrial fibrillation on Xarelto History of nonischemic cardiomyopathy with recovered EF Prostate cancer with metastasis to bone Obstructive sleep apnea History of hypertension Hypotension PLAN An acute coronary event has been ruled out with no EKG evidence of ischemia and negative cardiac enzymes. Obtain 2D echocardiogram and doppler study to assess cardiac structure and function. TSH within normal limits Recommend stopping Lisinopril and spironolactone Continue Lasix and metoprolol succinate Continue Xarelto We will assess Echo, monitor BP and recommend close follow up with Dr. Elena. Thank you kindly for this consultation. Nurse practitioner note has been reviewed by physician. Signing provider agrees with the documented findings, assessment, and plan of care. Past Medical History Past Medical History: Atrial Fibrillation, Cancer, Hypertension, Prostate Disorder, Sleep Apnea/CPAP/BIPAP Additional Past Medical History / Comment(s): Prostate cancer with mets to spine treated with hormone therapy and radiation, back pain, past R sided sciatica, nonischemic cardiomyopathy, ABBIE with Cpap, bilateral lower exremity edema at times, migraines, benign colon polyp. History of Any Multi-Drug Resistant Organisms: None Reported Past Surgical History: Heart Catheterization, Orthopedic Surgery Additional Past Surgical History / Comment(s): ORIF left wrist, DEANNE/cardioversion, colonoscopy Past Anesthesia/Blood Transfusion Reactions: Previous Problems w/ Anesthesia Additional Past Anesthesia/Blood Transfusion Reaction / Comment(s): Woke up with CP after colonoscopy, EKG abn. Past Psychological History: No Psychological Hx Reported Additional Psychological History / Comment(s): Pt resides with his spouse. He uses no assistive device but was using a hospital walker here at the hospital last night. Pt is independent. He has a Cpap. Smoking Status: Former smoker Past Alcohol Use History: None Reported Additional Past Alcohol Use History / Comment(s): Pt started smoking in 2002 and was a 3 ppd smoker then quit in 2018. He was a heavy drinker in the past but now drinks rarely. Past Drug Use History: None Reported Additional Drug Use History / Comment(s): Marijuana in his 20s, pt states recently using a marijuana pen at bedtime. - Past Family History Father Family Medical History: Cancer, CVA/TIA Additional Family Medical History / Comment(s): Father of a stroke at the age of 91 yrs. He had prostate cancer Mother Family Medical History: No Reported History Additional Family Medical History / Comment(s): Mother is healthy and is 93 yrs old. Medications and Allergies Home Medications Medication Instructions Recorded Confirmed Type fentaNYL 25MCG/HR PATCH [Duragesic 2 patch TRANSDERM Q48H 12/07/17 03/27/22 History 25MCG/HR] Ibuprofen 800 mg PO Q6H PRN 09/04/18 03/27/22 History Rivaroxaban [Xarelto] 20 mg PO HS 09/04/18 03/27/22 History Spironolactone [Aldactone] 25 mg PO DAILY 09/04/18 03/27/22 History clonazePAM [KlonoPIN] 0.5 mg PO Q8H PRN 09/04/18 03/27/22 History Enzalutamide [Xtandi] 160 mg PO DAILY 04/28/21 03/27/22 History Furosemide [Lasix] 40 mg PO DAILY 02/16/22 03/27/22 History Leuprolide Acetate [Lupron Depot] 45 mg IM Q90D 02/16/22 03/27/22 History Sennosides/Docusate Sodium 2 tab PO BID 02/16/22 03/27/22 History [Senna-S 8.6-50 mg Tablet] Zolpidem [Ambien] 10 mg PO HS 02/16/22 03/27/22 History lisinopriL [Zestril] 5 mg PO DAILY 02/16/22 03/27/22 History Cyclobenzaprine [Flexeril] 5 mg PO TID 03/27/22 03/27/22 History Gabapentin [Neurontin] 300 mg PO BID 03/27/22 03/27/22 History HYDROcodone/APAP 10-325MG [[place] 1 tab PO Q6HR PRN 03/27/22 03/27/22 History 10-325] Metoprolol Succinate [Toprol XL] 100 mg PO DAILY 03/27/22 03/27/22 History Allergies Allergy/AdvReac Type Severity Reaction Status Date / Time codeine Allergy Nausea/head Verified 03/27/22 23:36 ache Physical Exam Vitals: Vital Signs Temp Pulse Pulse Resp BP BP Pulse Ox 03/28/22 02:10 97.5 F L 107 H 16 108/75 93 L 03/28/22 01:17 85 18 94/64 93 L 03/27/22 18:24 97.1 F L 99 18 113/70 98 Intake and Output 03/27/22 03/28/22 03/28/22 22:59 06:59 14:59 Other: Voiding Method Toilet # Voids 1 Weight 119.748 kg 119.748 kg Results 03/27/22 23:10 03/27/22 23:10 Cardiac Enzymes 03/27/22 03/27/22 03/28/22 Range/Units 23:10 23:10 02:34 AST 20 (17-59) U/L Troponin I <0.012 <0.012 (0.000-0.034) ng/mL Coagulation 03/27/22 Range/Units 23:10 PT 10.3 (9.0-12.0) sec APTT 24.8 (22.0-30.0) sec CBC 03/27/22 Range/Units 23:10 WBC 5.8 (3.8-10.6) k/uL RBC 4.24 L (4.30-5.90) m/uL Hgb 13.3 (13.0-17.5) gm/dL Hct 40.6 (39.0-53.0) % Plt Count 268 (150-450) k/uL Comprehensive Metabolic Panel 03/27/22 Range/Units 23:10 Sodium 134 L (137-145) mmol/L Potassium 4.3 (3.5-5.1) mmol/L Chloride 101 (98-107) mmol/L Carbon Dioxide 27 (22-30) mmol/L BUN 22 H (9-20) mg/dL Creatinine 1.23 (0.66-1.25) mg/dL Glucose 101 H (74-99) mg/dL Calcium 8.3 L (8.4-10.2) mg/dL AST 20 (17-59) U/L ALT 17 (4-49) U/L Alkaline Phosphatase 75 (38-126) U/L Total Protein 6.9 (6.3-8.2) g/dL Albumin 3.8 (3.5-5.0) g/dL Current Medications Generic Name Dose Route Start Last Admin Trade Name Freq PRN Reason Stop Dose Admin Lorazepam 0.5 mg 03/28/22 00:48 Lorazepam 2 Mg/Ml Inj IV Q6HR PRN Anxiety Morphine Sulfate 4 mg 03/28/22 00:48 Morphine Sulfate 4 Mg/Ml Syringe IV Q4HR PRN Severe Pain Naloxone HCl 0.2 mg 03/28/22 00:48 Naloxone 0.4 Mg/Ml 1 Ml Vial IV Q2M PRN Opioid Reversal Ondansetron HCl 4 mg 03/28/22 00:48 Ondansetron 4 Mg/2 Ml Vial IVP Q8HR PRN Nausea And Vomiting Intake and Output 03/27/22 03/28/22 03/28/22 22:59 06:59 14:59 Other: Voiding Method Toilet # Voids 1 Weight 119.748 kg 119.748 kg 03/27/22 23:10 03/27/22 23:10
--- NOTE | 2022-03-28 14:06 | P.HPIM ---
"History of Present Illness H&P Date: 03/28/22 Chief Complaint: Chest pain, shortness of breath History and Physical and Discharge Summary This is a 66-year-old gentleman with past medical history of metastatic prostate cancer, chronic atrial fibrillation, cardiomyopathy, obesity, obstructive sleep apnea, former alcohol abuse, former nicotine dependence-reports he was vaping every night,but recently stopped 2 weeks ago and multiple other medical issues presented to the ER with fluctuating lower left chest nonradiating pain/reproducible accompanied by exertional shortness of breath over the last month and continued to worsen. Recently saw Dr. Henry, with metoprolol initiated. Patient reports over the last few months he has continued to decline, unable to ambulate any significant distance related to his exertional shortness of breath. Denies nausea vomiting or diarrhea. Denies abdominal pain. Denies cough, congestion, chills or fevers. Chest x-ray reports no acute cardiopulmonary process. EKG revealing atrial fibrillation, troponins negative 3, most recent echo 04/27 reported normal LV function, mild left ventricular hypertrophy, moderate tricuspid regurgitation. D-dimer negative. Afebrile, normal WBC, hemoglobin 13.3, platelets 268 , hemoglobin 134, P1 22, creatinine 1 .23 , magnesium 2. Borderline hypotension, RABIA inhibitor and Aldactone placed on hold.Currently denies chest pain, palpitations or increased shortness of breath. Maintaining O2 sats in the 90s on room air. Review of Systems ROS Statement: Those systems with pertinent positive or pertinent negative responses have been documented in the HPI. ROS Other: All systems not noted in ROS Statement are negative. Past Medical History Past Medical History: Atrial Fibrillation, Cancer, Hypertension, Prostate Disorder, Sleep Apnea/CPAP/BIPAP Additional Past Medical History / Comment(s): Prostate cancer with mets to spine treated with hormone therapy and radiation, back pain, past R sided sciatica, nonischemic cardiomyopathy, ABBIE with Cpap, bilateral lower exremity edema at times, migraines, benign colon polyp. History of Any Multi-Drug Resistant Organisms: None Reported Past Surgical History: Heart Catheterization, Orthopedic Surgery Additional Past Surgical History / Comment(s): ORIF left wrist, DEANNE/cardioversion, colonoscopy Past Anesthesia/Blood Transfusion Reactions: Previous Problems w/ Anesthesia Additional Past Anesthesia/Blood Transfusion Reaction / Comment(s): Woke up with CP after colonoscopy, EKG abn. Past Psychological History: No Psychological Hx Reported Additional Psychological History / Comment(s): Pt resides with his spouse. He uses no assistive device but was using a hospital walker here at the hospital last night. Pt is independent. He has a Cpap. Smoking Status: Former smoker Past Alcohol Use History: None Reported Additional Past Alcohol Use History / Comment(s): Pt started smoking in 2002 and was a 3 ppd smoker then quit in 2018. He was a heavy drinker in the past but now drinks rarely. Past Drug Use History: None Reported Additional Drug Use History / Comment(s): Marijuana in his 20s, pt states recently using a marijuana pen at bedtime. - Past Family History Father Family Medical History: Cancer, CVA/TIA Additional Family Medical History / Comment(s): Father of a stroke at the age of 91 yrs. He had prostate cancer Mother Family Medical History: No Reported History Additional Family Medical History / Comment(s): Mother is healthy and is 93 yrs old. Medications and Allergies Home Medications Medication Instructions Recorded Confirmed Type fentaNYL 25MCG/HR PATCH [Duragesic 2 patch TRANSDERM Q48H 12/07/17 03/27/22 History 25MCG/HR] Ibuprofen 800 mg PO Q6H PRN 09/04/18 03/27/22 History Rivaroxaban [Xarelto] 20 mg PO HS 09/04/18 03/27/22 History clonazePAM [KlonoPIN] 0.5 mg PO Q8H PRN 09/04/18 03/27/22 History Enzalutamide [Xtandi] 160 mg PO DAILY 04/28/21 03/27/22 History Furosemide [Lasix] 40 mg PO DAILY 02/16/22 03/27/22 History Leuprolide Acetate [Lupron Depot] 45 mg IM Q90D 02/16/22 03/27/22 History Sennosides/Docusate Sodium 2 tab PO BID 02/16/22 03/27/22 History [Senna-S 8.6-50 mg Tablet] Zolpidem [Ambien] 10 mg PO HS 02/16/22 03/27/22 History Cyclobenzaprine [Flexeril] 5 mg PO TID 03/27/22 03/27/22 History Gabapentin [Neurontin] 300 mg PO BID 03/27/22 03/27/22 History HYDROcodone/APAP 10-325MG [[place] 1 tab PO Q6HR PRN 03/27/22 03/27/22 History 10-325] Metoprolol Succinate [Toprol XL] 100 mg PO DAILY 03/27/22 03/27/22 History Allergies Allergy/AdvReac Type Severity Reaction Status Date / Time codeine Allergy Nausea/head Verified 03/27/22 23:36 ache Physical Exam Vitals: Vital Signs Temp Pulse Pulse Resp BP BP Pulse Ox 03/28/22 07:43 97.5 F L 90 15 95/58 98 03/28/22 02:10 97.5 F L 107 H 16 108/75 93 L 03/28/22 01:17 85 18 94/64 93 L 03/27/22 18:24 97.1 F L 99 18 113/70 98 Intake and Output 03/27/22 03/28/22 03/28/22 22:59 06:59 14:59 Other: Voiding Method Toilet # Voids 1 Weight 119.748 kg 119.748 kg General: Awake, alert and oriented times 3. no acute distress.] HEENT: [PERRL. EOMI. No pharyngeal erythema or exudate. Neck: Supple, no JVD. Cardiac: S1, S2, irregular, No S3. No S4. No clicks, rubs. No murmur. Lungs: [Clear to auscultation bilaterally. Abdomen: [No mass. No organomegaly. Bowel sounds presnt and normoactive in all 4 quadrants.] Extremities: No swelling, no edema Musculoskeletal: [No joint erythema, edema or tenderness.] Skin: Warm and dry, No rash.] Neurologic: [No lateralizing deficits. CN II - XII grossly intact.] Results CBC & Chem 7: 03/27/22 23:10 03/27/22 23:10 Labs: Abnormal Lab Results - Last 24 Hours (Table) 03/27/22 03/27/22 Range/Units 23:10 23:10 RBC 4.24 L (4.30-5.90) m/uL Lymphocytes # 0.7 L (1.0-4.8) k/uL Sodium 134 L (137-145) mmol/L BUN 22 H (9-20) mg/dL Glucose 101 H (74-99) mg/dL Calcium 8.3 L (8.4-10.2) mg/dL Assessment and Plan Assessment: |Chest pain with shortness of breath, troponin is negative 3, ACS ruled out per Cardiology, Echo pending Borderline hypotension, acute renal failure, RABIA inhibitor and Aldactone placed on hold, reevaluate outpatient in clinic for further recommendations. Chronic atrial fibrillation,on Xarelto Hypertension History of nonischemic cardiomyopathy, EF 55% History of metastatic prostate cancer with metastases to spine Obstructive sleep apnea Obesity, BMI 33.9 History of nicotine dependence, reports he had been vaping every night, quit 2 weeks age COPD Medical debility, OP pulmonary function stress test to be arranged by PCP Plan: Continue on current medication regime ,monitoring and symptomatic treatment. Evaluated by cardiology. Patient will be discharged home today in a stable condition with guarded prognosis pending echo and final DC recommendations and clearance per cardiology. Patient and significant other at bedside and updated on plan of care including further outpatient workup to be arranged by a PCP, Dr. Oliver. Discharge Medication List fentaNYL 25MCG/HR PATCH [Duragesic 25MCG/HR] 2 patch TRANSDERM Q48H 12/07/17 [History] Ibuprofen 800 mg PO Q6H PRN 09/04/18 [History] Rivaroxaban [Xarelto] 20 mg PO HS 09/04/18 [History] clonazePAM [KlonoPIN] 0.5 mg PO Q8H PRN 09/04/18 [History] Enzalutamide [Xtandi] 160 mg PO DAILY 04/28/21 [History] Furosemide [Lasix] 40 mg PO DAILY 02/16/22 [History] Leuprolide Acetate [Lupron Depot] 45 mg IM Q90D 02/16/22 [History] Sennosides/Docusate Sodium [Senna-S 8.6-50 mg Tablet] 2 tab PO BID 02/16/22 [History] Zolpidem [Ambien] 10 mg PO HS 02/16/22 [History] Cyclobenzaprine [Flexeril] 5 mg PO TID 03/27/22 [History] Gabapentin [Neurontin] 300 mg PO BID 03/27/22 [History] HYDROcodone/APAP 10-325MG [[place] 10-325] 1 tab PO Q6HR PRN 03/27/22 [History] Metoprolol Succinate [Toprol XL] 100 mg PO DAILY 03/27/22 [History] Albuterol Inhaler [Ventolin Hfa Inhaler] 2 puff INHALATION RT-Q6H PRN #90 mcg [Rx] Budesonide/Formoterol Fumarate [Symbicort 80-4.5 Mcg Inhaler] 2 puff INHALATION BID #10.2 gm 03/28/22 [Rx] The impression and plan of care has been dictated as directed. : I performed a history and examination of this patient, discussed the same with the dictator. I agree with the dictator's note ,documented as a scribe. Any additional findings or plans will be noted."
--- NOTE | 2022-03-28 15:28 | CA ---
Transthoracic Echo Report Name: Khoa Klein Age: 66 Gender: M : 1955 Exam Date: 03/28/2022 09:51 Exam Location: [facility] Ht (in): 74 Wt (lb): 264 Ordering Physician: Zach Funez DO Attending/Referring Phys: Román Elena MD ([id number]) Agriculture Worker Amanda Angeles RDCS Procedure CPT: Indications: cp/sob Cardiac Hx: Technical Quality: Technically difficult study Contrast 1: Lumason Total Dose (mL): Contrast 2: Total Dose (mL): MEASUREMENTS (Male / Female) Normal Values 2D ECHO LV Diastolic Diameter PLAX 4.2 cm 4.2 - 5.9 / 3.9 - 5.3 cm LV Systolic Diameter PLAX 3.3 cm IVS Diastolic Thickness 1.3 cm 0.6 - 1.0 / 0.6 - 0.9 cm LVPW Diastolic Thickness 1.7 cm 0.6 - 1.0 / 0.6 - 0.9 cm LV Relative Wall Thickness 0.7 RV Internal Dim ED PLAX 3.4 cm LV Diastolic Volume MOD 4C 91.8 cm??? LV Systolic Volume MOD 4C 34.4 cm??? LV Ejection Fraction MOD 4C 62.6 % LV Cardiac Index MOD 4C 1993.8 cm???/min???m??? LV Diastolic Length 4C 6.6 cm LV Systolic Length 4C 6.6 cm LV Cardiac Index 4C AL 1883.6 cm???/min???m??? M-MODE Aortic Root Diameter MM 3.4 cm LA Systolic Diameter MM 4.4 cm LA Ao Ratio MM 1.3 AV Cusp Separation MM 2.3 cm DOPPLER AV Peak Velocity 80.1 cm/s AV Peak Gradient 2.6 mmHg LVOT Peak Velocity 61.6 cm/s LVOT Peak Gradient 1.5 mmHg TR Peak Velocity 266.2 cm/s TR Peak Gradient 28.3 mmHg Right Ventricular Systolic Press 32.8 mmHg FINDINGS Left Ventricle Mildly increased left ventricular wall thickness. Left ventricular ejection fraction is estimated at 50 %. Right Ventricle Mild right ventricular dilatation. Right ventricular systolic pressure within normal limits. Right Atrium Normal right atrial size. Left Atrium Moderately increased left atrial area. No evidence for an atrial septal defect. Mitral Valve Structurally normal mitral valve. Mild mitral annular calcification. Mild mitral regurgitation. Aortic Valve Trileaflet aortic valve. Aortic valve sclerosis. No aortic valve stenosis or regurgitation. Tricuspid Valve Structurally normal tricuspid valve. Mild tricuspid regurgitation. Pulmonic Valve Trace pulmonic regurgitation. Pericardium No pericardial effusion. Aorta Normal size aortic root and proximal ascending aorta. CONCLUSIONS Left radical ejection fraction 50% Very subtle septal hypokinesis Dilated right ventricle Biatrial enlargement Previewed by: Dr. Isiah Capone MD (Electronically Signed) Final Date: 28 March 2022 15:27
[2022-03-28] MEDS: RIVAROXABAN 20 MG TAB PO SCH (19:51)
[2022-03-28] MEDS: SYMBICORT 80-4.5 MCG INHALER INHALATION SCH ×2 (21:03)
[2022-03-29] MEDS: SYMBICORT 80-4.5 MCG INHALER INHALATION SCH ×2 (07:43→20:01)
[2022-03-29] MEDS: METOPROLOL SUCCINATE (ER) 100 MG TAB.ER.24H PO SCH (08:50)
[2022-03-29] MEDS: FUROSEMIDE 40 MG TAB PO SCH (08:50)
[2022-03-29 09:19] LABS: Basophils # (A) 0.04 X 10*3/uL (0.00-0.10); Basophils % (A) 0.7 %; Eosinophils # (A) 0.14 X 10*3/uL (0.04-0.35); Eosinophils % (A) 2.5 %; HCT 40.7 % (39.6-50.0); HGB 13.5 g/dL (13.0-17.0); Immature Grans, Automated 0.4 %; Lymphocytes # (A) 0.64 X 10*3/uL (0.90-5.00); Lymphocytes % (A) 11.5 %; MCH 30.6 pg (27.0-32.0); MCHC 33.2 g/dL (32.0-37.0); MCV 92.3 fL (80.0-97.0); Mean Platelet Volume 8.6 fL (9.5-12.2); Monocytes # (A) 0.62 X 10*3/uL (0.20-1.00); Monocytes % (A) 11.2 %; NRBC Per 100 WBC 0 /100 WBCS (0.0-0.0); Neutrophils % (A) 73.7 %; Platelet Count 245 X 10*3/uL (140-440); RBC 4.41 X 10*6/uL (4.40-5.60); RDW 12.6 % (11.5-14.5); WBC 5.56 X 10*3/uL (4.50-10.00)
--- NOTE | 2022-03-29 09:30 | P.PN ---
Subjective This is a pleasant 66-year-old male past medical history significant for long standing persistent atrial fibrillation on Xarelto, Prostate cancer with metastasis to bone (hip, ribs and shoulders per patient), obstructive sleep apnea, former alcohol abuse, former tobacco use. He follows in the office with Dr. Elena. We have been asked to see in consultation for chest pain. Patient presents to the ER with intermittent left sided chest discomfort for a few days and exertional shortness of breath. Acute coronary syndrome was ruled out. Echocardiogram was completed which revealed EF 50%, there is subtotal septal hypokinesis, dilated right ventricle, biatrial enlargement. TSH within normal limits. Overnight patient had 2 episodes of atrial tachycardia/atrial fibrillation with RVR with HR in the 170s. Patient HR decreased on their own, no additional medication were given. Patient endorsed some shortness of breath. Currently HR in the 60s-90s. He is currently maintained on Lasix 40 mg daily, metoprolol succinate 100 mg daily, Xarelto 20 mg nightly PHYSICAL EXAMINATION Vitals reviewed CONSTITUTIONAL: No apparent distress. HEENT: Neck Supple. No JVD. CHEST EXAMINATION: Lungs are clear to auscultation. No chest wall tenderness is noted on palpation or with deep breathing. HEART EXAMINATION: Irregular rate and rhythm. S1, S2 heard. No murmurs, gallops or rub. ABDOMEN: Soft, nontender. Positive bowel sounds. EXTREMITIES: no lower extremity edema and no calf tenderness. NEUROLOGIC EXAMINATION: Patient is awake, alert and oriented x3. ASSESSMENT Chest pain, atypical, acute coronary syndrome has been ruled out, does not appear to be cardiac in etiology Longstanding persistent-atrial fibrillation with rapid ventricular response on Xarelto Shortness of breath History of nonischemic cardiomyopathy with recovered EF Prostate cancer with metastasis to bone Obstructive sleep apnea History of hypertension Hypotension PLAN Start Flecainide 100mg BID Recommend continue to hold Lisinopril and spironolactone Continue Lasix and metoprolol succinate 100mg daily Continue Xarelto Continue cardiac telemetry Recommend to monitor patient for additional 24 hours Nurse practitioner note has been reviewed by physician. Signing provider agrees with the documented findings, assessment, and plan of care. Objective - Vital Signs Vital signs: Vital Signs Temp 98.2 F 03/29/22 07:27 Pulse 89 03/29/22 07:27 Resp 16 06/22/22 07:27 BP 102/69 03/29/22 07:27 Pulse Ox 97 03/29/22 07:27 FiO2 Intake & Output 03/28/22 03/29/22 03/29/22 18:59 06:59 18:59 Intake Total 118 Output Total 150 Balance -150 118 Intake: Oral 118 Output: Urine 150 Other: Voiding Method Toilet # Voids 2 1 - Labs CBC & Chem 7: 03/29/22 06:43 03/27/22 23:10 Labs: Abnormal Lab Results - Last 24 Hours (Table) 03/29/22 Range/Units 06:43 MPV 8.6 L (9.5-12.2) fL Lymphocytes # 0.64 L (0.90-5.00) X 10*3/uL
[2022-03-29] MEDS: FLECAINIDE 50 MG TAB PO SCH ×2 (09:44→19:24)
[2022-03-29 09:52] LABS: Magnesium 2.3 mg/dL (1.5-2.4)
[2022-03-29 10:05] LABS: African American GFR (CKD) 79.5 (60.0-200.0); Albumin 3.5 g/dL (3.8-4.9); Albumin/Globulin Ratio 1.35 (1.60-3.17); Anion Gap 10.6 mmol/L (10.00-18.00); BUN/Creat Ratio 17.82 Ratio (12.00-20.00); Blood Urea Nitrogen 19.6 mg/dL (9.0-27.0); Calcium 8.6 mg/dL (8.7-10.3); Carbon Dioxide 23.4 mmol/L (20.0-27.5); Globulin 2.6 g/dL (1.6-3.3); Non-African American GFR(CKD) 68.6 (60.0-200.0); Potassium 4.6 mmol/L (3.5-5.5); Total Bilirubin 0.3 mg/dL (0.30-1.20); Total Protein 6.1 g/dL (6.2-8.2)
[2022-03-29] MEDS ORDERED: LORazepam 0.5 MG TAB PO PRN (12:07)
[2022-03-29] MEDS ORDERED: IPRATROPIUM-ALBUTEROL 3 ML NEB INHALATION PRN (12:47)
--- NOTE | 2022-03-29 13:34 | P.PN ---
"Subjective Progress Note Date: 03/29/22 03/28/2022 This is a 66-year-old gentleman with past medical history of metastat ic prostate cancer, chronic atrial fibrillation, cardiomyopathy, obesity, obstructive sleep apnea, former alcohol abuse, former nicotine dependence- reports he was vaping every night,but recently stopped 2 weeks ago and multiple other medical issues presented to the ER with fluctuating lower left chest nonradiating pain/reproducible accompanied by exertional shortness of breath over the last month and continued to worsen. Recently saw Dr. Henry, with metoprolol initiated. Patient reports over the last few months he has continued to decline, unable to ambulate any significant distance related to his exertional shortness of breath. Denies nausea vomiting or diarrhea. Denies abdominal pain. Denies cough, congestion, chills or fevers. Chest x-ray reports no acute cardiopulmonary process. EKG revealing atrial fibrillation, troponins negative 3, most recent echo 04/27 reported normal LV function, mild left ventricular hypertrophy, moderate tricuspid regurgitation. D-dimer negative. Afebrile, normal WBC, hemoglobin 13.3, platelets 268 , hemoglobin 134, P1 22, creatinine 1.23 , magnesium 2. Borderline hypotension, RABIA inhibitor and Aldactone placed on hold.Currently denies chest pain, palpitations or increased shortness of breath. Maintaining O2 sats in the 90s on room air. 03/29/2022 continues on oral Lasix, metoprolol , anticoagulated on Xarelto .yesterday afternoon when into A. fib with RVR with heart rates as high as the 180s with ambulating, resolved spontaneously after sitting, another episode elevated heart rate reported upon minimal exertion with repositioning to sit at side of the bed. Echo reported technically difficult study, EF 50%, very subtle septal hypokinesis, dilated right ventricle, biatrial enlargement. Reports increased shortness of breath with tachycardia. TSH normal. Denies chest pain, palpitations or increased shortness of breath. Heart rate currently controlled, blood pressures soft. Objective - Vital Signs Vital signs: Vital Signs Temp 98.2 F 03/29/22 07:27 Pulse 89 03/29/22 07:27 Resp 16 03/29/22 07:27 BP 102/69 03/29/22 07:27 Pulse Ox 97 03/29/22 07:27 FiO2 Intake & Output 03/28/22 03/29/22 03/29/22 18:59 06:59 18:59 Intake Total 118 Output Total 150 Balance -150 118 Intake: Oral 118 Output: Urine 150 Other: Voiding Method Toilet # Voids 2 1 - Exam General: Awake, alert and oriented times 3. Sitting up in chair, no acute distress.] HEENT: [PERRL. EOMI. No pharyngeal erythema or exudate. Neck: Supple, no JVD. Cardiac: S1, S2, irregular, No S3. No S4. No clicks, rubs. No murmur. Lungs: [Clear to auscultation bilaterally. Abdomen: [No mass. No organomegaly. Bowel sounds presnt and normoactive in all 4 quadrants.] Extremities: No swelling, no edema Skin: Warm and dry, No rash.] Neurologic: CN II - XII grossly intact. No focal deficits] - Labs CBC & Chem 7: 03/29/22 06:43 03/29/22 06:43 Labs: Abnormal Lab Results - Last 24 Hours (Table) 03/29/22 03/29/22 Range/Units 06:43 06:43 MPV 8.6 L (9.5-12.2) fL Lymphocytes # 0.64 L (0.90-5.00) X 10*3/uL Sodium 134 L (135-145) mmol/L Calcium 8.6 L (8.7-10.3) mg/dL AST 13 L (14-35) U/L Total Protein 6.1 L (6.2-8.2) g/dL Albumin 3.5 L (3.8-4.9) g/dL Albumin/Globulin Ratio 1.35 L (1.60-3.17) g/dL Assessment and Plan Assessment: |Chest pain with shortness of breath, troponin is negative 3, ACS ruled out per Cardiology Borderline hypotension, acute renal failure, RABIA inhibitor and Aldactone placed on hold, reevaluate outpatient in clinic for further recommendations. Acute on Chronic atrial fibrillation with RVR, anticoagulated on Xarelto. 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 Discharge held yesterday, flecainide initiated. Blood pressures soft, RABIA inhibitor and Aldactone remain on hold. Follow closely with cardi ology. Continue monitoring. The impression and plan of care has been dictated as directed. : I performed a history and examination of this patient, discussed the same with the dictator. I agree with the dictator's note ,documented as a scribe. Any additional findings or plans will be noted."
[2022-03-29] MEDS: RIVAROXABAN 20 MG TAB PO SCH (19:24)
[2022-03-30] MEDS: SYMBICORT 80-4.5 MCG INHALER INHALATION SCH ×2 (08:31→19:44)
[2022-03-30] MEDS: FLECAINIDE 50 MG TAB PO SCH ×2 (08:54→20:56)
[2022-03-30] MEDS: FUROSEMIDE 40 MG TAB PO SCH (08:55)
[2022-03-30] MEDS: METOPROLOL SUCCINATE (ER) 100 MG TAB.ER.24H PO SCH (08:55)
[2022-03-30 10:37] LABS: African American GFR (CKD) 79.5 (60.0-200.0); Anion Gap 10.2 mmol/L (10.00-18.00); BUN/Creat Ratio 16.91 Ratio (12.00-20.00); Blood Urea Nitrogen 18.6 mg/dL (9.0-27.0); Calcium 8.7 mg/dL (8.7-10.3); Carbon Dioxide 25.8 mmol/L (20.0-27.5); Non-African American GFR(CKD) 68.6 (60.0-200.0); Potassium 4.1 mmol/L (3.5-5.5)
--- NOTE | 2022-03-30 10:38 | P.PN ---
Subjective This is a pleasant 66-year-old male past medical history significant for long standing persistent atrial fibrillation on Xarelto, Prostate cancer with metastasis to bone (hip, ribs and shoulders per patient), obstructive sleep apnea, former alcohol abuse, former tobacco use. He follows in the office with Dr. Elena. We have been asked to see in consultation for chest pain. Patient presents to the ER with intermittent left sided chest discomfort for a few days and exertional shortness of breath. Acute coronary syndrome was ruled out. Echocardiogram was completed which revealed EF 50%, there is subtotal septal hypokinesis, dilated right ventricle, biatrial enlargement. TSH within normal limits. 03/30/2022 Patient seen and examined at bedside, no acute distress. Feeling better. Started on Flecainide yesterday. Overnight patient having episodes of tachycardia, especially with movement and ambulating. Telemetry appears to be atrial tachycardia, atrial fibrillation with RVR. Currently HR in the 90s in atrial fibrillation He is currently maintained on Lasix 40 mg daily, metoprolol succinate 100 mg daily, Xarelto 20 mg nightly, Flecainide 100mg BID PHYSICAL EXAMINATION Vitals reviewed CONSTITUTIONAL: No apparent distress. HEENT: Neck Supple. No JVD. CHEST EXAMINATION: Lungs are clear to auscultation. No chest wall tenderness is noted on palpation or with deep breathing. HEART EXAMINATION: Irregular rate and rhythm. S1, S2 heard. No murmurs, gallops or rub. ABDOMEN: Soft, nontender. Positive bowel sounds. EXTREMITIES: no lower extremity edema and no calf tenderness. NEUROLOGIC EXAMINATION: Patient is awake, alert and oriented x3. ASSESSMENT Chest pain, atypical, acute coronary syndrome has been ruled out, does not appe ar to be cardiac in etiology Longstanding persistent-atrial fibrillation with rapid ventricular response on Xarelto Shortness of breath History of nonischemic cardiomyopathy with recovered EF Prostate cancer with metastasis to bone Obstructive sleep apnea History of hypertension Hypotension PLAN Continue current cardiac medications Recommend continue to hold Lisinopril and spironolactone Continue Xarelto Continue cardiac telemetry Plan for cardioversion tomorrow with Dr. Elena NPO after midnight Further recommendations based on clinical course Nurse practitioner note has been reviewed by physician. Signing provider agrees with the documented findings, assessment, and plan of care. Objective - Vital Signs Vital signs: Vital Signs Temp 97.3 F L 03/30/22 07:00 Pulse 180 H 03/30/22 07:40 Resp 16 03/30/22 07:00 BP 121/85 03/30/22 07:00 Pulse Ox 94 L 03/30/22 07:00 FiO2 Intake & Output 03/29/22 03/30/22 03/30/22 18:59 06:59 18:59 Intake Total 118 Balance 118 Intake: Oral 118 Other: Voiding Method Toilet # Voids 1 1 - Labs CBC & Chem 7: 03/29/22 06:43 03/29/22 06:43
[2022-03-30] MEDS ORDERED: HYDROcodone/APAP 10-325MG 1 EACH TAB PO PRN (13:32)
--- NOTE | 2022-03-30 13:37 | P.PN ---
"Subjective Progress Note Date: 03/30/22 03/28/2022 This is a 66-year-old gentleman with past medical history of metastat ic prostate cancer, chronic atrial fibrillation, cardiomyopathy, obesity, obstructive sleep apnea, former alcohol abuse, former nicotine dependence- reports he was vaping every night,but recently stopped 2 weeks ago and multiple other medical issues presented to the ER with fluctuating lower left chest nonradiating pain/reproducible accompanied by exertional shortness of breath over the last month and continued to worsen. Recently saw Dr. Henry, with metoprolol initiated. Patient reports over the last few months he has continued to decline, unable to ambulate any significant distance related to his exertional shortness of breath. Denies nausea vomiting or diarrhea. Denies abdominal pain. Denies cough, congestion, chills or fevers. Chest x-ray reports no acute cardiopulmonary process. EKG revealing atrial fibrillation, troponins negative 3, most recent echo 04/27 reported normal LV function, mild left ventricular hypertrophy, moderate tricuspid regurgitation. D-dimer negative. Afebrile, normal WBC, hemoglobin 13.3, platelets 268 , hemoglobin 134, P1 22, creatinine 1.23 , magnesium 2. Borderline hypotension, RABIA inhibitor and Aldactone placed on hold.Currently denies chest pain, palpitations or increased shortness of breath. Maintaining O2 sats in the 90s on room air. 03/29/2022 continues on oral Lasix, metoprolol , anticoagulated on Xarelto .yesterday afternoon when into A. fib with RVR with heart rates as high as the 180s with ambulating, resolved spontaneously after sitting, another episode elevated heart rate reported upon minimal exertion with repositioning to sit at side of the bed. Echo reported technically difficult study, EF 50%, very subtle septal hypokinesis, dilated right ventricle, biatrial enlargement. Reports increased shortness of breath with tachycardia. TSH normal. Denies chest pain, palpitations or increased shortness of breath. Heart rate currently controlled, blood pressures soft. 03/30/2022 tachycardic throughout the night ,maintained on flecainide. telemetry reporting atrial tachycardia, A. fib with RVR. Cardioversion ordered for tomorrow. Denies chest pain, palpitations or increased shortness of breath. Denies lightheadedness, dizziness or focal deficits. Afebrile, maintaining O2 sats in the 90s on room air. Renal function stable, BUN 18.6, creatinine 1.1 Objective - Vital Signs Vital signs: Vital Signs Temp 97.3 F L 03/30/22 07:00 Pulse 180 H 03/30/22 07:40 Resp 16 03/30/22 07:00 BP 121/85 03/30/22 07:00 Pulse Ox 94 L 03/30/22 07:00 FiO2 Intake & Output 03/29/22 03/30/22 03/30/22 18:59 06:59 18:59 Intake Total 118 Balance 118 Intake: Oral 118 Other: Voiding Method Toilet # Voids 1 1 - Exam General: Awake, alert and oriented times 3. Sitting up in chair, no acute distress.] HEENT: PERRL. EOMI. MMM. Neck: Supple, no JVD. Cardiac: S1, S2, irregular, tachycardic, No S3. No S4. No clicks, rubs. No murmur. Lungs: Clear to auscultation bilaterally. Abdomen: Soft, nontender, nondistended, positive bowel sounds. No guarding, no rigidity. Extremities: No swelling, no edema. Skin: Warm and dry, No rash.] Neurologic: CN II - XII grossly intact. No focal deficits] - Labs CBC & Chem 7: 03/29/22 06:43 03/30/22 07:28 Labs: Abnormal Lab Results - Last 24 Hours (Table) 03/30/22 Range/Units 07:28 Glucose 112 H (70-110) mg/dL Assessment and Plan Assessment: |Chest pain with shortness of breath, troponin is negative 3, ACS ruled out per Cardiology Borderline hypotension, acute renal failure, RABIA inhibitor and Aldactone placed on hold, reevaluate outpatient in clinic for further recommendations. Acute on Chronic atrial fibrillation with RVR, anticoagulated on Xarelto. 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 Continues on flecainide, metoprolol, oral Lasix. Anticoagulated on Xarelto. Scheduled for cardioversion tomorrow with cardiology. The impression and plan of care has been dictated as directed. : I performed a history and examination of this patient, discussed the same with the dictator. I agree with the dictator's note ,documented as a scribe. Any additional findings or plans will be noted."
[2022-03-30] MEDS: GABAPENTIN 300 MG CAP PO SCH ×2 (15:43→20:56)
[2022-03-30] MEDS: ENZALUTAMIDE 160 MG PO SCH (15:49)
[2022-03-30] MEDS: SODIUM CHLORIDE 0.9% 1,000 ML IV SCH (19:31)
[2022-03-30] MEDS: RIVAROXABAN 20 MG TAB PO SCH (20:57)
[2022-03-30] MEDS: SENNOSIDES-DOCUSATE SODIUM 1 EACH TAB PO SCH (20:57)
[2022-03-30] MEDS ORDERED: NON FORMULARY DRUG (Enzalutamide [Xtandi] 40 MG Capsule) PO SCH (21:00)
[2022-03-30] MEDS ORDERED: ZOLPIDEM 5 MG TAB PO SCH (21:00)
[2022-03-31 02:41] VITALS: TEMP 97.7
[2022-03-31] MEDS: ENZALUTAMIDE 160 MG PO SCH (07:07)
[2022-03-31] MEDS: FLECAINIDE 50 MG TAB PO SCH (07:14)
[2022-03-31] MEDS: METOPROLOL SUCCINATE (ER) 100 MG TAB.ER.24H PO SCH (07:15)
[2022-03-31] MEDS: GABAPENTIN 300 MG CAP PO SCH (07:15)
[2022-03-31] MEDS: FUROSEMIDE 40 MG TAB PO SCH (07:15)
[2022-03-31] MEDS: SENNOSIDES-DOCUSATE SODIUM 1 EACH TAB PO SCH (07:15)
[2022-03-31] MEDS: SODIUM CHLORIDE 0.9% 1,000 ML IV SCH (07:16)
[2022-03-31] MEDS: SYMBICORT 80-4.5 MCG INHALER INHALATION SCH (08:28)
[2022-03-31 10:09] VITALS: RESP 18
[2022-03-31] MEDS ORDERED: SODIUM CHLORIDE 0.9% 1,000 ML IV ONE (10:11)
[2022-03-31] MEDS ORDERED: fentaNYL (PF) 50 MCG/ML 2 ML AMP ONE (10:27)
[2022-03-31] MEDS ORDERED: LIDOCAINE 2% INJ 20 MG/ML (2 ML VIAL) ONE (10:27)
[2022-03-31] MEDS ORDERED: PROPOFOL 10 MG/ML 20 ML VIAL IV ONE (10:27)
[2022-03-31] MEDS ORDERED: MIDAZOLAM 2 MG/2 ML VIAL ONE (10:27)
--- NOTE | 2022-03-31 11:02 | P.PN ---
Subjective This is a pleasant 66-year-old male past medical history significant for long standing persistent atrial fibrillation on Xarelto, Prostate cancer with metastasis to bone (hip, ribs and shoulders per patient), obstructive sleep apnea, former alcohol abuse, former tobacco use. He follows in the office with Dr. Elena. We have been asked to see in consultation for chest pain. Patient presents to the ER with intermittent left sided chest discomfort for a few days and exertional shortness of breath. Acute coronary syndrome was ruled out. Echocardiogram was completed which revealed EF 50%, there is subtotal septal hypokinesis, dilated right ventricle, biatrial enlargement. TSH within normal limits. 03/31/2022 Patient seen and examined at bedside, no acute distress. Feeling better. Started on Flecainide 03/29. Patient continues to be in atrial fibrillation, relatively controlled rates, continues to have intermittent tachycardia. He is currently maintained on Lasix 40 mg daily, metoprolol succinate 100 mg daily, Xarelto 20 mg nightly, Flecainide 100mg BID PHYSICAL EXAMINATION Vitals reviewed CONSTITUTIONAL: No apparent distress. HEENT: Neck Supple. No JVD. CHEST EXAMINATION: Lungs are clear to auscultation. No chest wall tenderness is noted on palpation or with deep breathing. HEART EXAMINATION: Irregular rate and rhythm. S1, S2 heard. No murmurs, gallops or rub. ABDOMEN: Soft, nontender. Positive bowel sounds. EXTREMITIES: no lower extremity edema and no calf tenderness. NEUROLOGIC EXAMINATION: Patient is awake, alert and oriented x3. ASSESSMENT Chest pain, atypical, acute coronary syndrome has been ruled out, does not appear to be cardiac in etiology Longstanding persistent-atrial fibrillation with rapid ventricular response on Xarelto Shortness of breath History of nonischemic cardiomyopathy with recovered EF Prostate cancer with metastasis to bone Obstructive sleep apnea History of hypertension Hypotension PLAN Continue current cardiac medications Recommend continue to hold Lisinopril and spironolactone Continue Xarelto Continue cardiac telemetry Plan for cardioversion today with Dr. Elena. I have discussed the risks, benefits and alternative therapies for the above- mentioned procedure and for both sedation/analgesia as they pertain to this patient. The patient has indicated understanding and acceptance of the risks and procedures discussed. Questions have been answered appropriately and he is agreeable to move forward with the above-stated procedure. If patient maintains sinus rhythm and is feeling well later today, ok to discharge from a cardiology perspective and follow up with Dr. Elena within 1 week. Nurse practitioner note has been reviewed by physician. Signing provider agrees with the documented findings, assessment, and plan of care. Objective - Vital Signs Vital signs: Vital Signs Temp 97.7 F 03/31/22 07:20 Pulse 77 03/31/22 10:07 Resp 18 03/31/22 10:07 BP 125/77 03/31/22 10:07 Pulse Ox 97 03/31/22 10:07 FiO2 Intake & Output 03/30/22 03/31/22 03/31/22 18:59 06:59 18:59 Intake Total 550 Output Total 0 Balance 550 0 Intake: Oral 550 Output: Emesis 0 Other: Voiding Method Toilet # Voids 3 # Bowel Movements 1 - Labs CBC & Chem 7: 03/29/22 06:43 03/30/22 07:28 Labs: Abnormal Lab Results - Last 24 Hours (Table) 03/30/22 Range/Units 07:28 Glucose 112 H (70-110) mg/dL
--- NOTE | 2022-03-31 11:59 | P.PN ---
"Subjective Progress Note Date: 03/31/22 03/28/2022 This is a 66-year-old gentleman with past medical history of metastat ic prostate cancer, chronic atrial fibrillation, cardiomyopathy, obesity, obstructive sleep apnea, former alcohol abuse, former nicotine dependence- reports he was vaping every night,but recently stopped 2 weeks ago and multiple other medical issues presented to the ER with fluctuating lower left chest nonradiating pain/reproducible accompanied by exertional shortness of breath over the last month and continued to worsen. Recently saw Dr. Henry, with metoprolol initiated. Patient reports over the last few months he has continued to decline, unable to ambulate any significant distance related to his exertional shortness of breath. Denies nausea vomiting or diarrhea. Denies abdominal pain. Denies cough, congestion, chills or fevers. Chest x-ray reports no acute cardiopulmonary process. EKG revealing atrial fibrillation, troponins negative 3, most recent echo 04/27 reported normal LV function, mild left ventricular hypertrophy, moderate tricuspid regurgitation. D-dimer negative. Afebrile, normal WBC, hemoglobin 13.3, platelets 268 , hemoglobin 134, P1 22, creatinine 1.23 , magnesium 2. Borderline hypotension, RABIA inhibitor and Aldactone placed on hold.Currently denies chest pain, palpitations or increased shortness of breath. Maintaining O2 sats in the 90s on room air. 03/29/2022 continues on oral Lasix, metoprolol , anticoagulated on Xarelto .yesterday afternoon when into A. fib with RVR with heart rates as high as the 180s with ambulating, resolved spontaneously after sitting, another episode elevated heart rate reported upon minimal exertion with repositioning to sit at side of the bed. Echo reported technically difficult study, EF 50%, very subtle septal hypokinesis, dilated right ventricle, biatrial enlargement. Reports increased shortness of breath with tachycardia. TSH normal. Denies chest pain, palpitations or increased shortness of breath. Heart rate currently controlled, blood pressures soft. 03/30/2022 tachycardic throughout the night ,maintained on flecainide. telemetry reporting atrial tachycardia, A. fib with RVR. Cardioversion ordered for tomorrow. Denies chest pain, palpitations or increased shortness of breath. Denies lightheadedness, dizziness or focal deficits. Afebrile, maintaining O2 sats in the 90s on room air. Renal function stable, BUN 18.6, creatinine 1.1 03/31/2022 maintained on flecainide, telemetry atrial fibrillation with occasional tachycardia. Scheduled for cardioversion today. Denies chest pain, p alpitations or increased shortness of breath. Afebrile. Reports he was ambulating in the room last night with less shortness of breath. Objective - Vital Signs Vital signs: Vital Signs Temp 97.7 F 03/31/22 07:20 Pulse 62 03/31/22 10:52 Resp 18 03/31/22 10:52 BP 102/62 03/31/22 10:52 Pulse Ox 98 03/31/22 10:52 FiO2 Intake & Output 03/30/22 03/31/22 03/31/22 18:59 06:59 18:59 Intake Total 550 350 Output Total 0 Balance 550 0 350 Intake: IV 350 Oral 550 Output: Emesis 0 Other: Voiding Method Toilet Toilet # Voids 3 # Bowel Movements 1 - Exam General: Awake, alert and oriented times 3. Sitting up in bed, no acute distress.] HEENT: PERRL. EOMI. Neck: Supple, no JVD. Cardiac: S1, S2, irregular, No S3. No S4. No clicks, rubs. No murmur. Lungs: Clear to auscultation bilaterally. Abdomen: Soft, nontender, nondistended, positive bowel sounds. No guarding, no rigidity. Extremities: No swelling, no edema. Skin: Warm and dry, No rash.] Neurologic: CN II - XII grossly intact. No focal deficits] - Labs CBC & Chem 7: 03/29/22 06:43 03/30/22 07:28 Assessment and Plan Assessment: |Chest pain with shortness of breath, troponin is negative 3, ACS ruled out per Cardiology Borderline hypotension, acute renal failure, RABIA inhibitor and Aldactone placed on hold, reevaluate outpatient in clinic for further recommendations. Acute on Chronic atrial fibrillation with RVR, anticoagulated on Xarelto. Cardioversion pending Hypertension History of nonischemic cardiomyopathy, EF 50% History of metastatic prostate cancer with metastases to spine Obstructive sleep apnea Obesity, BMI 33.9 History of nicotine dependence, 3 packs a day X 14 yrs, quit 4 yrs ago, reports he had been vaping THC every night, quit 2 weeks age COPD Medical debility Plan: Continue on current medication regime ,monitoring and symptomatic treatment. Cardioversion pending . Maintained on flecainide, metoprolol, oral Lasix. Anticoagulated on Xarelto. Possible discharge later today, pending cardiology clearance. The impression and plan of care has been dictated as directed. : I performed a history and examination of this patient, discussed the same with the dictator. I agree with the dictator's note ,documented as a scribe. Any additional findings or plans will be noted."
[2022-03-31 12:12] LABS: African American GFR (CKD) 69.5 (60.0-200.0); BUN/Creat Ratio 20.33 Ratio (12.00-20.00); Calcium 8.9 mg/dL (8.7-10.3); Carbon Dioxide 19.1 mmol/L (20.0-27.5); Non-African American GFR(CKD) 59.9 (60.0-200.0); Potassium 4.3 mmol/L (3.5-5.5)
[2022-03-31 12:50] VITALS: BP 97/76; PULSE 72
--- NOTE | 2022-04-08 10:26 | P.PCN ---
Date of Procedure: 04/02/22 Operative Findings: Cardioversion report Performing physician Román Elena MD Procedure performed Successful cardioversion of atrial fibrillation Indication Atrial fibrillation with uncontrolled heart rate Complication None Procedure description After anesthesia induction using propofol, the patient was cardioverted from atrial fibrillation to normal rhythm using 200 J and first attempt Postprocedure management Continue AV ashley and oral anticoagulation agents
== END 2022-03-31 15:55 | disposition home or self-care (01) | DRG 309 ==
LOC: EC 18:21 → 6NMEDSUR 03-28 00:48 → OBSVTOIN 03-29 14:41
PROVIDERS: ADMIT Family Medicine; ATTEND Family Medicine
PROC: 5A2204Z Restoration of Cardiac Rhythm, Single (ICD-10-PCS; principal; 2022-03-31 10:30)
DX: I48.11 Longstanding persistent atrial fibrillation (principal); C79.51 Secondary malignant neoplasm of bone; N17.9 Acute kidney failure, unspecified; I42.8 Other cardiomyopathies; C61 Malignant neoplasm of prostate; I95.9 Hypotension, unspecified; J44.9 Chronic obstructive pulmonary disease, unspecified; I11.9 Hypertensive heart disease without heart failure; I47.1 Supraventricular tachycardia; I07.1 Rheumatic tricuspid insufficiency; G47.33 Obstructive sleep apnea (adult) (pediatric); G43.909 Migraine, unspecified, not intractable, without status migrainosus; F10.11 Alcohol abuse, in remission; M54.31 Sciatica, right side; F17.291 Nicotine dependence, other tobacco product, in remission; E66.9 Obesity, unspecified; Z68.33 Body mass index [BMI] 33.0-33.9, adult; Z79.01 Long term (current) use of anticoagulants; Z79.891 Long term (current) use of opiate analgesic; Z79.899 Other long term (current) drug therapy; Z92.3 Personal history of irradiation; Z88.5 Allergy status to narcotic agent
CPT/HCPCS: 36415; 71046; 80048; 80053; 83735; 84100; 84443; 84484; 85025; 85379; 85610; 85730; 92960; 93005; 93306; 94640; 99285

== ENCOUNTER → 2022-04-13 | Outpatient (CLI) | payer MEDICARE, BC ==
--- NOTE | 2022-04-14 09:42 | MR ---
EXAMINATION TYPE: MR brain wo/w con DATE OF EXAM: 04/13/2022 6:39 PM COMPARISON: NONE HISTORY: Altered mental status, prostate cancer, evaluate for metastatic disease. CONTRAST: Patient received 10 mL intravenous Gadavist gadolinium contrast. Multiplanar and multispin-echo imaging of the brain was performed . Pre and post contrast enhanced i mages are obtained. The ventricles, basal cisterns and sulci overlying the cerebral convexities are mildly enlarged. There is evidence of mild periventricular white matter ischemic demyelination. Remote deep white matter insults are also noted. No acute edema is seen on diffusion weighted imaging. There is no evidence for midline shift or mass effect. Acute intracranial hemorrhage or extra-axial collection is not evident. No enhancing lesions are seen. The paranasal sinuses and mastoid air cells are well-aerated. IMPRESSION: Age-related atrophic and chronic small vessel ischemic change. No acute intracranial process at this time. No enhancing lesions are seen.
== END | disposition home or self-care (01) ==
LOC: RADMRIMAIN 17:40
PROVIDERS: ATTEND Internal Medicine Hematology & Oncology
DX: G31.9 Degenerative disease of nervous system, unspecified (principal)
CPT/HCPCS: 70553; A9585

== ENCOUNTER → 2022-08-01 | Outpatient (CLI) | payer MEDICARE, BC ==
--- NOTE | 2022-08-01 14:51 | NM ---
EXAMINATION TYPE: NM bone scan whole body DATE OF EXAM: 08/01/2022 COMPARISON: Nuclear bone scan 02/20/2022, 10/25/2021. HISTORY: C79.51, history of prostate cancer. Delayed whole-body scanning was performed following the injection of 24.2 mCi Tc 99m MDP. Images acq uired 3 hours post injection. FINDINGS: Persistent multifocal increased radiotracer uptake involving the bilateral ribs and right iliac bone corresponding to previously seen sclerotic expansile lesions on CT consistent with metastasis. No def inite new areas of abnormal increased radiotracer uptake to suggest active metastatic disease. Mild u ptake bilateral knees and shoulders are felt to represent degenerative changes. IMPRESSION: Overall unchanged examination from 02/20/2022 with osseous metastatic disease redemonstrated.
== END | disposition home or self-care (01) ==
LOC: RADNMMAIN 10:22
PROVIDERS: ATTEND Internal Medicine Hematology & Oncology
DX: C79.51 Secondary malignant neoplasm of bone (principal)
CPT/HCPCS: 78306; A9503

== ENCOUNTER → 2023-02-14 | Outpatient (CLI) | payer MEDICARE, BC ==
--- NOTE | 2023-02-14 14:06 | NM ---
EXAMINATION TYPE: NM bone scan whole body DATE OF EXAM: 02/14/2023 COMPARISON: Multiple nuclear medicine bone scan with most recent 08/01/2022, CT chest abdomen pelvis 02/14/2023 CLINICAL INDICATION: Male, 67 years old with history of C61; Delayed whole-body scanning was performed following the injection of 23.1 mCi Tc 99m MDP. Images acq uired 4.25 hours post injection. FINDINGS: Persistent multifocal increased radiotracer uptake involving the bilateral ribs, cervical thoracolumb ar spine and right iliac bone corresponding to previously seen sclerotic expansile lesions on CT cons istent with metastasis. No definite new areas of abnormal increased radiotracer uptake to suggest act chris metastatic disease. Mild uptake bilateral knees and shoulders are felt to represent degenerative changes. IMPRESSION: Overall unchanged examination dating back to at least 08/10/2020 with osseous metastatic disease redem onstrated.
--- NOTE | 2023-02-14 16:22 | CT ---
EXAMINATION TYPE: CT ChestAbdPelvis w con DATE OF EXAM: 02/14/2023 INDICATION: Follow up to prostate CA COMPARISON: 10/25/2021 CT DLP: 2322.9 mGycm CONTRAST: Performed with Oral Contrast and with IV Contrast, patient injected with 80 mL of Isovue 300. TECHNIQUE: Axial images at 5 mm thick sections. Reconstructed images in the coronal plane. Delayed images through the kidneys. FINDINGS: CT CHEST: Left lobe thyroid is somewhat full. Right lobe thyroid is visualized appears normal. No suspicious lung nodules or focal infiltrates are present. No enlarged mediastinal or hilar adenopathy is evident. The ascending aorta diameter at the level of the main pulmonary artery is 4.7 cm. The main pulmonary artery diameter at the bifurcation is 2.[address] ABDOMEN: Liver: Normal Spleen: Normal Pancreas: Normal Adrenal glands: The adrenal glands are normal. Gallbladder: Normal Kidneys: No masses are evident. No hydronephrosis is present. Cortical renal cysts are on the left kidney present previously Delayed images were obtained through the kidneys, which remain unremarkabl e. Aorta: Vascular calcification is within the aorta. Inferior vena cava: Normal. CT PELVIS: Loops of bowel within the abdomen and pelvis are normal. There are loops of bowel lacking oral co ntrast or incompletely distended limiting their evaluation. Appendix: Not identified. No dilated tubular structure or inflammatory changes evident. Urinary bladder: Decompressed but otherwise unremarkable. Genitourinary structures: Prostate appears small. Calcifications present. Osseous structures: Lateral left sixth rib has an expansile lesion lateral right seventh rib is a sim ilar expansile lesion. These were present previously. There appears to be some sclerosis on the right pedicle at T12. There is a sclerotic lesion at the iliac crest on the left. No suspicious lytic lesi ons are identified. Lymphadenopathy: There may be some periaortic lymphadenopathy at the level of the renal artery. This was present previously and is currently estimated to measure 3.8 x 3.7 cm. Prior measurement 3.1 x 4 .5 cm. There is a 1.6 cm enlarged retrocrural lymph node. Normal less than 0.5 cm. This is new. IMPRESSIONS: 1. No retrocrural lymph node with persistent lymphadenopathy in the periaortic region. 2. Stable appearing sclerotic and expansile lesions discussed above
== END | disposition home or self-care (01) ==
LOC: RADCTMAIN 08:14
PROVIDERS: ATTEND Internal Medicine Hematology & Oncology
DX: C61 Malignant neoplasm of prostate (principal); C79.51 Secondary malignant neoplasm of bone; R31.9 Hematuria, unspecified; G89.3 Neoplasm related pain (acute) (chronic)
CPT/HCPCS: 82565; 84520; 71260; 74177; 36415; 78306; A9503; Q9967

== ENCOUNTER 2023-03-14 13:24 | Emergency (ER) | payer MEDICARE, BC ==
[2023-03-14] MEDS ORDERED: LIDOCAINE 1% INJ 10MG/ML (30 ML VIAL-PF) SQ ONE (14:46)
[2023-03-14] MEDS ORDERED: DIPH,PERTUS(ACELL)TETVAC-LF 0.5 ML VIAL IM ONE (14:46)
--- NOTE | 2023-03-14 15:40 | ED ---
General Adult HPI - General Chief complaint: Wound/Laceration Stated complaint: L Arm Injury Time Seen by Provider: 03/14/23 14:05 Source: patient, RN notes reviewed Mode of arrival: ambulatory Limitations: no limitations - History of Present Illness Initial comments: 67-year-old male presents emergency Department with chief complaint of left arm laceration. Patient states that he was working out in the yard cutting wood when he fell into a log with a wood flour miller and hit his left arm. Patient states that he had a sweater and long sleeve shirt on. He states that he put peroxide on the wound. Patient does not know the date of his last tetanus. - Related Data Home Medications Medication Instructions Recorded Confirmed fentaNYL 25MCG/HR PATCH [Duragesic 2 patch TRANSDERM Q48H 12/07/17 03/27/22 25MCG/HR] Ibuprofen 800 mg PO Q6H PRN 09/04/18 03/27/22 Rivaroxaban [Xarelto] 20 mg PO HS 09/04/18 03/27/22 clonazePAM [KlonoPIN] 0.5 mg PO Q8H PRN 09/04/18 03/27/22 Enzalutamide [Xtandi] 160 mg PO DAILY 04/28/21 03/27/22 Furosemide [Lasix] 40 mg PO DAILY 02/16/22 03/27/22 Leuprolide Acetate [Lupron Depot] 45 mg IM Q90D 02/16/22 03/27/22 Sennosides/Docusate Sodium 2 tab PO BID 02/16/22 03/27/22 [Senna-S 8.6-50 mg Tablet] Zolpidem [Ambien] 10 mg PO HS 02/16/22 03/27/22 Cyclobenzaprine [Flexeril] 5 mg PO TID 03/27/22 03/27/22 Gabapentin [Neurontin] 300 mg PO BID 03/27/22 03/27/22 HYDROcodone/APAP 10-325MG [[place] 1 tab PO Q6HR PRN 03/27/22 03/27/22 10-325] Metoprolol Succinate [Toprol XL] 100 mg PO DAILY 03/27/22 03/27/22 Previous Rx's Medication Instructions Recorded Albuterol Inhaler [Ventolin Hfa 2 puff INHALATION RT-Q6H PRN #90 03/28/22 Inhaler] mcg Budesonide/Formoterol Fumarate 2 puff INHALATION BID #10.2 gm 03/28/22 [Symbicort 80-4.5 Mcg Inhaler] Flecainide [Tambocor] 100 mg PO Q12HR #120 tab 03/31/22 Allergies Allergy/AdvReac Type Severity Reaction Status Date / Time codeine Allergy Nausea/head Verified 03/14/23 14:03 ache Review of Systems ROS Statement: Those systems with pertinent positive or pertinent negative responses have been documented in the HPI. ROS Other: All systems not noted in ROS Statement are negative. Past Medical History Past Medical History: Atrial Fibrillation, Cancer, Hypertension, Prostate Disorder, Sleep Apnea/CPAP/BIPAP Additional Past Medical History / Comment(s): Prostate cancer with mets to spine treated with hormone therapy and radiation, back pain, past R sided sciatica, nonischemic cardiomyopathy, ABBIE with Cpap, bilateral lower exremity edema at times, migraines, benign colon polyp. History of Any Multi-Drug Resistant Organisms: None Reported Past Surgical History: Heart Catheterization, Orthopedic Surgery Additional Past Surgical History / Comment(s): ORIF left wrist, DEANNE/cardioversion, colonoscopy Past Anesthesia/Blood Transfusion Reactions: Previous Problems w/ Anesthesia Additional Past Anesthesia/Blood Transfusion Reaction / Comment(s): Woke up with CP after colonoscopy, EKG abn. Past Psychological History: No Psychological Hx Reported Smoking Status: Former smoker Past Alcohol Use History: None Reported Past Drug Use History: None Reported - Past Family History Father Family Medical History: Cancer, CVA/TIA Additional Family Medical History / Comment(s): Father of a stroke at the age of 91 yrs. He had prostate cancer Mother Family Medical History: No Reported History Additional Family Medical History / Comment(s): Mother is healthy and is 93 yrs old. General Exam Limitations: no limitations General appearance: alert, in no apparent distress Head exam: Present: atraumatic, normocephalic, normal inspection Eye exam: Present: normal appearance, PERRL, EOMI. Absent: scleral icterus, conjunctival injection, periorbital swelling ENT exam: Present: normal exam, mucous membranes moist Neck exam: Present: normal inspection. Absent: tenderness, meningismus, lymphadenopathy Respiratory exam: Present: normal lung sounds bilaterally. Absent: respiratory distress, wheezes, rales, rhonchi, stridor Cardiovascular Exam: Present: regular rate, normal rhythm, normal heart sounds. Absent: systolic murmur, diastolic murmur, rubs, gallop, clicks Extremities exam: Present: other (4cm laceration to patient's left arm, quarter- sized abrasion to the left arm, normal capillary refill, radial pulses 2+, normal range of motion at the shoulder, elbow, fingers) Back exam: Present: normal inspection Neurological exam: Present: alert, oriented X3 Psychiatric exam: Present: normal affect, normal mood Course Vital Signs 03/14/23 03/14/23 13:59 16:14 Temperature 97.2 F L 97.6 F Pulse Rate 91 65 Respiratory 20 16 Rate Blood Pressure 117/88 108/70 O2 Sat by Pulse 95 96 Oximetry Procedures - Laceration Laceration #1 Consent Obtained: verbal consent Indication: laceration Site: upper extremity Size (cm): 4 Description: linear Depth: simple, single layer Anesthetic Used: lidocaine 1% Anesthesia Technique: local infiltration Pre-repair: wound explored, irrigated extensively Type of Sutures: other (Monofilament) Size of Sutures: 5-0 Number of Sutures: 8 Technique: simple, interrupted Patient Tolerated Procedure: well, no complications Medical Decision Making - Medical Decision Making Was pt. sent in by a medical professional or institution ([facility], INTEGRITY ANALYST, urgent care, hospital, or snf...) When possible be specific @ -No Did you speak to anyone other than the patient for history (EMS, parent, family, police, friend...)? What history was obtained from this source @ -No Did you review nursing and triage notes (agree or disagree)? Why? @ -I reviewed and agree with nursing and triage notes Were old charts reviewed (outside hosp., previous admission, EMS record, old EKG, old radiological studies, urgent care reports/EKG's, snf records)? Report findings @ -No old charts were reviewed Differential Diagnosis (chest pain, altered mental status, abdominal pain women, abdominal pain men, vaginal bleeding, weakness, fever, dyspnea, syncope, headache, dizziness, GI bleed, back pain, seizure, CVA, palpatations, mental health, musculoskeletal)? @ -Differential Musculoskeletal Muscular strain, contusion, ligament sprain, fracture, arthritis, septic arthritis, bursitis, cellulitis, muscle spasm, nerve compression, DVT, arterial occlusion, herpes zoster, electrolyte abnormality, tumor.... This is not meant to be in all inclusive list EKG interpreted by me (3pts min.). @ -None X-rays interpreted by me (1pt min.). @ -None done CT interpreted by me (1pt min.). @ -None done U/S interpreted by me (1pt. min.). @ -None done What testing was considered but not performed or refused? (CT, X-rays, U/S, labs)? Why? @ -None What meds were considered but not given or refused? Why? @ -None Did you discuss the management of the patient with other professionals (professionals i.e. , PA, INTEGRITY ANALYST, lab, RT, psych nurse, geriatric social worker, assistant director of plant operations, teacher, boat officer, case resource manager)? Give summary @ -No Was smoking cessation discussed for >3mins.? @ -No Was critical care preformed (if so, how long)? @ -No Were there social determinants of health that impacted care today? How? (Homelessness, low income, unemployed, alcoholism, drug addiction, transportation, low edu. Level, literacy, decrease access to med. care, care home, rehab)? @ -No Was there de-escalation of care discussed even if they declined (Discuss DNR or withdrawal of care, Hospice)? DNR status @ -No What co-morbidities impacted this encounter? (DM, HTN, Smoking, COPD, CAD, Cancer, CVA, ARF, Chemo, Hep., AIDS, mental health diagnosis, sleep apnea, morbid obesity)? @ -None Was patient admitted / discharged? Hospital course, mention meds given and route, prescriptions, significant lab abnormalities, going to OR and other pertinent info. @ -Discharged. Patient presented to emergency department chief complaint of laceration and skin tear of this left arm. Patient states that he is working in the yard when he fell into either a log or with other. He states that he is wearing a longsleeved shirt and sweater. Wound was extensively irrigated and cleaned Laceration was repaired with 8 simple interrupted sutures. The wound was dressed. Patient given instructions on wound care and when to get the sutures removed. Patient discharged in stable condition. Case discussed my attending, Dr. Malcolm Undiagnosed new problem with uncertain prognosis? @ -No Drug Therapy requiring intensive monitoring for toxicity (Heparin, Nitro, Insulin, Cardizem)? @ -No Were any procedures done? @ -Yes laceration repair Diagnosis/symptom? @ -laceration Acute, or Chronic, or Acute on Chronic? @ -Acute Uncomplicated (without systemic symptoms) or Complicated (systemic symptoms)? @ -Uncomplicated Side effects of treatment? @ -No Exacerbation, Progression, or Severe Exacerbation? @ -No Poses a threat to life or bodily function? How? (Chest pain, [place], [place], pneumonia, PE, COPD, DKA, ARF, appy, cholecystitis, CVA, Diverticulitis, Homicidal, Suicidal, threat to staff... and all critical care pts) @ -No Disposition Clinical Impression: Laceration Disposition: HOME SELF-CARE Condition: Stable Instructions (If sedation given, give patient instructions): Care For Your Stitches (ED), Acute Wound Care (ED) Additional Instructions: Please follow up with primary care provider for suture removal in 5-[address] ease return to the emergency department for new or worsening symptoms. follow Is patient prescribed a controlled substance at d/c from ED?: No Referrals: Hoang Oliver Jr, [Primary Care Provider] - 1-2 days Time of Disposition: 15:49
[2023-03-14 16:17] VITALS: BP 108/70; PULSE 65; RESP 16; TEMP 97.6
== END 2023-03-14 16:20 | disposition home or self-care (01) ==
LOC: EC 13:24
DX: S41.112A Laceration without foreign body of left upper arm, initial encounter (principal); I48.91 Unspecified atrial fibrillation; I10 Essential (primary) hypertension; G47.30 Sleep apnea, unspecified; Z87.891 Personal history of nicotine dependence; Z79.899 Other long term (current) drug therapy; Z88.5 Allergy status to narcotic agent; Z23 Encounter for immunization; W22.8XXA Striking against or struck by other objects, initial encounter
CPT/HCPCS: 90715; 99283; 90471; 12002; J2001

== ENCOUNTER 2023-04-12 10:57 | Emergency (ER) | payer MEDICARE, BC ==
[2023-04-12] MEDS ORDERED: HYDROmorphone 1 MG/ML 1 ML SYRINGE IVP STA (11:46)
--- NOTE | 2023-04-12 12:15 | ED ---
General Adult HPI - General Chief complaint: Back Pain/Injury Stated complaint: Sent over by PCP, Lower Back Pain Time Seen by Provider: 04/12/23 11:24 Source: patient, RN notes reviewed Mode of arrival: ambulatory Limitations: no limitations - History of Present Illness Initial comments: 67-year-old male presents to the emergency department for chief complaint of low back pain. He states the pain is worse with movement. He reports that he has had this pain before and was admitted to the hospital for pain management and received injections in his back. He has not had an injection since then. Patient was sent in by Michell at Dr. Oliver's office. Patient has a history of stage 4 prostate cancer with metastasis to the bone. Patient denies urinary retention, loss of bowel or bladder function, saddle anesthesia, fever, chills. - Related Data Home Medications Medication Instructions Recorded Confirmed fentaNYL 25MCG/HR PATCH [Duragesic 2 patch TRANSDERM Q48H 12/07/17 03/27/22 25MCG/HR] Ibuprofen 800 mg PO Q6H PRN 09/04/18 03/27/22 Rivaroxaban [Xarelto] 20 mg PO HS 09/04/18 03/27/22 clonazePAM [KlonoPIN] 0.5 mg PO Q8H PRN 09/04/18 03/27/22 Enzalutamide [Xtandi] 160 mg PO DAILY 04/28/21 03/27/22 Furosemide [Lasix] 40 mg PO DAILY 02/16/22 03/27/22 Leuprolide Acetate [Lupron Depot] 45 mg IM Q90D 02/16/22 03/27/22 Sennosides/Docusate Sodium 2 tab PO BID 02/16/22 03/27/22 [Senna-S 8.6-50 mg Tablet] Zolpidem [Ambien] 10 mg PO HS 02/16/22 03/27/22 Cyclobenzaprine [Flexeril] 5 mg PO TID 03/27/22 03/27/22 Gabapentin [Neurontin] 300 mg PO BID 03/27/22 03/27/22 HYDROcodone/APAP 10-325MG [[place] 1 tab PO Q6HR PRN 03/27/22 03/27/22 10-325] Metoprolol Succinate [Toprol XL] 100 mg PO DAILY 03/27/22 03/27/22 Previous Rx's Medication Instructions Recorded Albuterol Inhaler [Ventolin Hfa 2 puff INHALATION RT-Q6H PRN #90 03/28/22 Inhaler] mcg Budesonide/Formoterol Fumarate 2 puff INHALATION BID #10.2 gm 03/28/22 [Symbicort 80-4.5 Mcg Inhaler] Flecainide [Tambocor] 100 mg PO Q12HR #120 tab 03/31/22 fentaNYL 75MCG/HR PATCH [Duragesic 1 patch TRANSDERM Q72H 3 Days #3 04/12/23 75MCG/HR] patch Allergies Allergy/AdvReac Type Severity Reaction Status Date / Time codeine Allergy Nausea/head Verified 04/12/23 11:20 ache Review of Systems ROS Statement: Those systems with pertinent positive or pertinent negative responses have been documented in the HPI. ROS Other: All systems not noted in ROS Statement are negative. Past Medical History Past Medical History: Atrial Fibrillation, Cancer, Hypertension, Prostate Disorder, Sleep Apnea/CPAP/BIPAP Additional Past Medical History / Comment(s): Prostate cancer with mets to spine treated with hormone therapy and radiation, back pain, past R sided sciatica, nonischemic cardiomyopathy, ABBIE with Cpap, bilateral lower exremity edema at times, migraines, benign colon polyp. History of Any Multi-Drug Resistant Organisms: None Reported Past Surgical History: Heart Catheterization, Orthopedic Surgery Additional Past Surgical History / Comment(s): ORIF left wrist, DEANNE/cardioversion, colonoscopy Past Anesthesia/Blood Transfusion Reactions: Previous Problems w/ Anesthesia Additional Past Anesthesia/Blood Transfusion Reaction / Comment(s): Woke up with CP after colonoscopy, EKG abn. Past Psychological History: No Psychological Hx Reported Smoking Status: Former smoker Past Alcohol Use History: None Reported Past Drug Use History: None Reported - Past Family History Father Family Medical History: Cancer, CVA/TIA Additional Family Medical History / Comment(s): Father of a stroke at the a ge of 91 yrs. He had prostate cancer Mother Family Medical History: No Reported History Additional Family Medical History / Comment(s): Mother is healthy and is 93 yrs old. General Exam Limitations: no limitations General appearance: alert, in no apparent distress Head exam: Present: atraumatic, normocephalic, normal inspection Eye exam: Present: normal appearance, PERRL, EOMI ENT exam: Present: normal exam, mucous membranes moist Neck exam: Present: normal inspection. Absent: tenderness, meningismus, lymphadenopathy Respiratory exam: Present: normal lung sounds bilaterally. Absent: respiratory distress, wheezes, rales, rhonchi, stridor Cardiovascular Exam: Present: regular rate, normal rhythm, normal heart sounds. Absent: systolic murmur, diastolic murmur, rubs, gallop, clicks GI/Abdominal exam: Present: soft, normal bowel sounds. Absent: distended, tenderness, guarding, rebound, rigid Extremities exam: Present: normal inspection, full ROM, normal capillary refill. Absent: tenderness, pedal edema, joint swelling, calf tenderness Back exam: Present: normal inspection Neurological exam: Present: alert, oriented X3 Psychiatric exam: Present: normal affect, normal mood Skin exam: Present: warm, dry, intact, normal color. Absent: rash Course Vital Signs 04/12/23 04/12/23 11:17 15:36 Temperature 98.2 F 97.8 F Pulse Rate 74 89 Respiratory 20 18 Rate Blood Pressure 154/92 141/89 O2 Sat by Pulse 97 96 Oximetry Medical Decision Making - Medical Decision Making Was pt. sent in by a medical professional or institution (, PA, SUPERVISOR DRIED YEAST, urgent care, hospital, or intermediate...) When possible be specific @ -No Did you speak to anyone other than the patient for history (EMS, parent, family, police, friend...)? What history was obtained from this source @ -No Did you review nursing and triage notes (agree or disagree)? Why? @ -I reviewed and agree with nursing and triage notes Were old charts reviewed (outside hosp., previous admission, EMS record, old EKG, old radiological studies, urgent care reports/EKG's, intermediate records)? Report findings @ -prior records from last years visit were reviewed Differential Diagnosis (chest pain, altered mental status, abdominal pain women, abdominal pain men, vaginal bleeding, weakness, fever, dyspnea, syncope, hea dache, dizziness, GI bleed, back pain, seizure, CVA, palpatations, mental health, musculoskeletal)? @ -Differential Back Pain: Strain, zoster, cauda equina syndrome, epidural abscess, vertebral osteomyelitis, discitis, fracture, subluxation, disc herniation, DJD, spinal stenosis, dissection, AAA, pancreatitis, peptic ulcer disease, pyelonephritis, kidney stone, this is not meant to be an all-inclusive list. EKG interpreted by me (3pts min.). @ -none X-rays interpreted by me (1pt min.). @ -X-ray lumbar spine showed no acute fracture CT interpreted by me (1pt min.). @ -None done U/S interpreted by me (1pt. min.). @ -None done What testing was considered but not performed or refused? (CT, X-rays, U/S, labs)? Why? @ -None What meds were considered but not given or refused? Why? @ -None Did you discuss the management of the patient with other professionals (professionals i.e. , PA, SUPERVISOR DRIED YEAST, lab, RT, psych nurse, psychiatric social worker, audit machine operator, teacher, community relations officer, case therapist)? Give summary @ -Case was discussed with Dr. Jasso who recommended obtaining the patient's fentanyl patch dose to 75 g in follow up in the office in the next couple of days for referral to pain management Was smoking cessation discussed for >3mins.? @ -No Was critical care preformed (if so, how long)? @ -No Were there social determinants of health that impacted care today? How? (Homelessness, low income, unemployed, alcoholism, drug addiction, transportation, low edu. Level, literacy, decrease access to med. care, [facility], rehab)? @ -No Was there de-escalation of care discussed even if they declined (Discuss DNR or withdrawal of care, Hospice)? DNR status @ -No What co-morbidities impacted this encounter? (DM, HTN, Smoking, COPD, CAD, Cancer, CVA, ARF, Chemo, Hep., AIDS, mental health diagnosis, sleep apnea, morbid obesity)? @ -None Was patient admitted / discharged? Hospital course, mention meds given and ro jean-paul, prescriptions, significant lab abnormalities, going to OR and other pertinent info. @ -Discharged. Patient presented to emergency department chief complaint of low back pain which he reports to be in the low lumbar region. He was sent in by Michell at Dr. Oliver's office. Patient underwent lumbar x-rays which showed no evidence for acute fracture. Case was discussed with Dr. Jasso who recommended upping the patient's fentanyl patch dose to 75 g to help control the pain this time and if patient achieved appropriate pain management, patient can be managed on outpatient basis. Patient is not having any red flag symptoms at this time. Patient was given 1 mg of Dilaudid which he states improved his pain and a fentanyl patch was placed. He reported improvement in his pain and is agreeable to outpatient follow-up was Dr. Oliver's office. Patient stable at time of discharge. Case discussed my attending, Dr. Farah. Undiagnosed new problem with uncertain prognosis? @ -No Drug Therapy requiring intensive monitoring for toxicity (Heparin, Nitro, Insulin, Cardizem)? @ -No Were any procedures done? @ -No Diagnosis/symptom? @ -back pain Acute, or Chronic, or Acute on Chronic? @ -acute on chronic Uncomplicated (without systemic symptoms) or Complicated (systemic symptoms)? @ -uncomplicated Side effects of treatment? @ -No Exacerbation, Progression, or Severe Exacerbation? @ -No Poses a threat to life or bodily function? How? (Chest pain, [place], [place], pneumonia, PE, COPD, DKA, ARF, appy, cholecystitis, CVA, Diverticulitis, Homicidal, Suicidal, threat to staff... and all critical care pts) @ -No - Lab Data Lab Results 04/12/23 Range/Units 12:45 Urine Color Yellow Urine Appearance Clear (Clear) Urine pH 5.0 (5.0-8.0) Ur Specific [place] 1.015 (1.001-1.035) Urine Protein Trace H (Negative) Urine Glucose (UA) Negative (Negative) Urine Ketones Negative (Negative) Urine Blood Moderate H (Negative) Urine Nitrite Negative (Negative) Urine Bilirubin Negative (Negative) Urine Urobilinogen <2.0 (<2.0) mg/dL Ur Leukocyte Esterase Negative (Negative) Urine RBC 15 H (0-5) /hpf Urine WBC <1 (0-5) /hpf Urine Bacteria Rare H (None) /hpf Urine Mucus Occasional H (None) /hpf Disposition Clinical Impression: Back pain Disposition: HOME SELF-CARE Condition: Stable Instructions (If sedation given, give patient instructions): Acute Low Back Pain (ED) Additional Instructions: Please return to the emergency department for new or worsening symptoms. Prescriptions: fentaNYL 75MCG/HR PATCH [Duragesic 75MCG/HR] 1 patch TRANSDERM Q72H 3 Days #3 patch Is patient prescribed a controlled substance at d/c from ED?: No Referrals: Hoang Oliver Jr, [Primary Care Provider] - 1-2 days Time of Disposition: 15:21
--- NOTE | 2023-04-12 12:16 | XR ---
EXAMINATION TYPE: XR lumbar spine 2 or 3V DATE OF EXAM: 04/12/2023 CLINICAL HISTORY: Chronic mid to lower lumbar pain TECHNIQUE: Three views of the lumbar spine are submitted. COMPARISON: MR lumbar spine 02/18/2022, bone scan 02/14/2023 FINDINGS: There are 5 lumbar type vertebral bodies identified. No acute fracture. Stable anterior wedge anisha que deformity at L3 with approximately 50% height loss and no retropulsion. Additional mild anterior wedging of the T12 vertebral body redemonstrated. Multilevel facet arthropathy. Mild multilevel dege nerative disc disease with disc space narrowing, anterior osteophytosis, and endplate sclerosis. No s pondylolisthesis. Mild dextrocurvature of the lumbar spine. Heterogenous appearance of the T12 verteb ral body corresponding to known metastasis. The overlying soft tissue appears unremarkable. IMPRESSION: 1. No acute fracture or dislocation is seen in the lumbar spine. 2. Chronic anterior wedge compression deformities of the T12 and L3 vertebral bodies. 3. Mild multilevel degenerative disc disease and facet arthropathy. 4. Known osseous metastatic disease is better appreciated on prior MRI and bone scan.
[2023-04-12 13:17] LABS: Appearance,Urine Clear (Clear); Bacteria,Urine Rare /hpf; Bilirubin,Urine Negative (Negative); Blood,Urine Moderate (Negative); Color,Urine Yellow; Glucose,Urine (UA) Negative (Negative); Ketones,Urine Negative (Negative); Leukocyte Esterase,Urine Negative (Negative); Mucus,Urine Occasional /hpf; Nitrite,Urine Negative (Negative); Protein,Urine Trace (Negative); RBC,Urine 15 /hpf (0-5); Specific Gravity,Urine 1.015 (1.001-1.035); Urobilinogen,Urine <2.0 mg/dL (<2.0); WBC,Urine <1 /hpf (0-5)
[2023-04-12 15:41] VITALS: BP 141/89; PULSE 89; RESP 18; TEMP 97.8
== END 2023-04-12 15:42 | disposition home or self-care (01) ==
LOC: EC 10:57
DX: M54.50 Low back pain, unspecified (principal); I10 Essential (primary) hypertension; I48.91 Unspecified atrial fibrillation; Z79.01 Long term (current) use of anticoagulants; Z79.899 Other long term (current) drug therapy; Z87.891 Personal history of nicotine dependence; Z88.5 Allergy status to narcotic agent
CPT/HCPCS: 81001; 99284; 96374; 72100; J1170

== ENCOUNTER 2023-06-03 16:08 | Emergency (ER) | payer MEDICARE, BC ==
--- NOTE | 2023-06-03 16:28 | ED ---
Head Injury HPI - General Chief complaint: Head Injury Stated complaint: Head Lac, Blood Thinners Time Seen by Provider: 06/03/23 16:16 Source: patient, EMS Mode of arrival: EMS Limitations: altered mental status - History of Present Illness Initial comments: This patient is a 67-year-old man taking the Xarelto for atrial fibrillation, who is brought to have evaluation after having head injury. Patient reportedly using wood retread mold operator near his home when the metal housing came off and struck him in the head. He was reportedly unconscious for up to a couple of minutes. After that he has been confused and disoriented. The patient also has a laceration to the right frontoparietal area. When I review the patient, he is complaining of pain to the substernal area of the chest. MD Complaint: head injury -: minutes(s) Mechanism of Injury: other Location: parietal Loss of Consciousness: yes Previous Trauma to this Area: No Place: outdoors Quality: dull Consistency: constant Provoking factors: none known Other Injuries: laceration Associated Symptoms: confusion - Related Data Home Medications Medication Instructions Recorded Confirmed fentaNYL 25MCG/HR PATCH [Duragesic 2 patch TRANSDERM Q48H 12/07/17 03/27/22 25MCG/HR] Ibuprofen 800 mg PO Q6H PRN 09/04/18 03/27/22 Rivaroxaban [Xarelto] 20 mg PO HS 09/04/18 03/27/22 clonazePAM [KlonoPIN] 0.5 mg PO Q8H PRN 09/04/18 03/27/22 Enzalutamide [Xtandi] 160 mg PO DAILY 04/28/21 03/27/22 Furosemide [Lasix] 40 mg PO DAILY 02/16/22 03/27/22 Leuprolide Acetate [Lupron Depot] 45 mg IM Q90D 02/16/22 03/27/22 Sennosides/Docusate Sodium 2 tab PO BID 02/16/22 03/27/22 [Senna-S 8.6-50 mg Tablet] Zolpidem [Ambien] 10 mg PO HS 02/16/22 03/27/22 Cyclobenzaprine [Flexeril] 5 mg PO TID 03/27/22 03/27/22 Gabapentin [Neurontin] 300 mg PO BID 03/27/22 03/27/22 HYDROcodone/APAP 10-325MG [[employer] 1 tab PO Q6HR PRN 03/27/22 03/27/22 10-325] Metoprolol Succinate [Toprol XL] 100 mg PO DAILY 03/27/22 03/27/22 Previous Rx's Medication Instructions Recorded Albuterol Inhaler [Ventolin Hfa 2 puff INHALATION RT-Q6H PRN #90 03/28/22 Inhaler] mcg Budesonide/Formoterol Fumarate 2 puff INHALATION BID #10.2 gm 03/28/22 [Symbicort 80-4.5 Mcg Inhaler] Flecainide [Tambocor] 100 mg PO Q12HR #120 tab 03/31/22 fentaNYL 75MCG/HR PATCH [Duragesic 1 patch TRANSDERM Q72H 3 Days #3 04/12/23 75MCG/HR] patch Allergies/Adverse reactions: Allergies Allergy/AdvReac Type Severity Reaction Status Date / Time codeine Allergy Nausea/head Verified 04/12/23 11:20 ache Review of Systems ROS Statement: Those systems with pertinent positive or pertinent negative responses have been documented in the HPI. ROS Other: All systems not noted in ROS Statement are negative. Limitations: ROS unobtainable due to patients medical condition Respiratory: Denies: cough, dyspnea Cardiovascular: Reports: as per HPI, chest pain Gastrointestinal: Denies: abdominal pain, vomiting Neurological: Reports: headache Past Medical History Past Medical History: Atrial Fibrillation, Cancer, Hypertension, Prostate Disorder, Sleep Apnea/CPAP/BIPAP Additional Past Medical History / Comment(s): Prostate cancer with mets to spine treated with hormone therapy and radiation, back pain, past R sided sciatica, nonischemic cardiomyopathy, ABBIE with Cpap, bilateral lower exremity edema at times, migraines, benign colon polyp. History of Any Multi-Drug Resistant Organisms: None Reported Past Surgical History: Heart Catheterization, Orthopedic Surgery Additional Past Surgical History / Comment(s): ORIF left wrist, DEANNE/cardioversion, colonoscopy Past Anesthesia/Blood Transfusion Reactions: Previous Problems w/ Anesthesia Additional Past Anesthesia/Blood Transfusion Reaction / Comment(s): Woke up with CP after colonoscopy, EKG abn. Past Psychological History: No Psychological Hx Reported Smoking Status: Former smoker Past Alcohol Use History: None Reported Past Drug Use History: None Reported - Past Family History Father Family Medical History: Cancer, CVA/TIA Additional Family Medical History / Comment(s): Father of a stroke at the age of 91 yrs. He had prostate cancer Mother Family Medical History: No Reported History Additional Family Medical History / Comment(s): Mother is healthy and is 93 yrs old. General Exam Limitations: altered mental status General appearance: alert Head exam: Present: normocephalic, other (Laceration right frontal parietal area) Eye exam: Present: normal appearance, PERRL, EOMI. Absent: scleral icterus, conjunctival injection, nystagmus ENT exam: Present: normal oropharynx Neck exam: Present: normal inspection. Absent: tenderness Respiratory exam: Present: normal lung sounds bilaterally. Absent: respiratory distress, wheezes, rales, rhonchi, stridor, chest wall tenderness Cardiovascular Exam: Present: regular rate, normal rhythm, normal heart sounds. Absent: systolic murmur, diastolic murmur, rubs, gallop GI/Abdominal exam: Present: soft. Absent: distended, tenderness, guarding, rebound, rigid, mass Extremities exam: Present: normal inspection, normal capillary refill. Absent: pedal edema, calf tenderness Back exam: Present: normal inspection Neurological exam: Present: alert, CN II-XII intact, other (Patient with repetitive questioning and some confusion. Clear speech, no aphasia.). Absent: oriented X3, motor sensory deficit Expanded Neurological exam: Present: protecting the airway Patient oriented to: Present: person, place. Absent: time Speech: Present: fluid speech Cranial nerves: EOM's Intact: Normal, Gag Reflex: Normal, Tongue Deviation: Normal, Facial Sensation: Normal Motor strength exam: RUE: 5, LUE: 5, RLE: 5, LLE: 5 Eye Response: (4) open spontaneously Motor Response: (6) obeys commands Verbal Response: (4) confused conversation Thelma Total: 14 Skin exam: Present: warm, dry, intact, normal color. Absent: rash Course Vital Signs 06/03/23 06/03/23 06/03/23 16:08 16:47 17:10 Temperature 97.6 F Pulse Rate 82 88 102 H Respiratory 17 17 16 Rate Blood Pressure 121/107 109/80 102/81 O2 Sat by Pulse 88 L 94 L 95 Oximetry 06/03/23 18:05 Temperature 96.8 F L Pulse Rate 95 Respiratory 16 Rate Blood Pressure 105/86 O2 Sat by Pulse 96 Oximetry - Reevaluation(s) Reevaluation #1: 06/03/23 18:32 After reviewing the patient's computed tomography scan, I went to discuss with the patient and family was at bedside. Given the injury, patient to be transferred to facility with neurosurgery availability, and the consensus is to request [facility]. I spoke with the clinic coordinator there who states they can accept this patient at [facility]. I discussed the case with Dr. Aguilera, who will accept transfer. Medical Decision Making - Medical Decision Making Patient is 67-year-old man arrived by mL stab evaluation for head injury. The patient does have scalp lacerations which were irrigated at the bedside, careful to not apply any pressure to the injury, I also was able to remove a number of wood fragments from the laceration. The wound is then carefully redressed. The patient did receive dose of IV antibiotics. The patient had computed tomography scan of the brain that I interpreted as demonstrating acute skull fracture and acute subarachnoid hemorrhage. The patient had a hand x-ray which I interpreted as showing no acute bony injury The patient had chest x-ray which I interpreted as not showing pneumothorax, infiltrate, congestive heart failure The patient had pelvis x-ray which I interpreted as not showing acute bony injury I discussed the patient's injury with the patient and family, and they request transfer to [facility]. I discussed case with the transfer team there and accepted transfer. Was pt. sent in by a medical professional or institution (, PA, PRODUCT SUPPORT ANALYST, urgent care, hospital, or usp...) When possible be specific @ -[No] Did you speak to anyone other than the patient for history (EMS, parent, family, police, friend...)? What history was obtained from this source @ -[EMS gave medical history. Patient's family gave some history. Did you review nursing and triage notes (agree or disagree)? Why? @ -[I reviewed and agree with nursing and triage notes] Were old charts reviewed (outside hosp., previous admission, EMS record, old EKG, old radiological studies, urgent care reports/EKG's, usp records)? Report findings @ -[No old charts were reviewed] Differential Diagnosis (chest pain, altered mental status, abdominal pain women, abdominal pain men, vaginal bleeding, weakness, fever, dyspnea, syncope, headache, dizziness, GI bleed, back pain, seizure, CVA, palpatations, mental health, musculoskeletal)? @ -[The differential diagnosis for head injury includes skull fracture, subarachnoid hemorrhage, epidural hemorrhage, subdural hemorrhage, concussion, scalp contusion, laceration, amongst other conditions EKG interpreted by me (3pts min.). @ -[As above] X-rays interpreted by me (1pt min.). @ -[I interpreted as above CT interpreted by me (1pt min.). @ -[I interpreted as above U/S interpreted by me (1pt. min.). @ -[None done] What testing was considered but not performed or refused? (CT, X-rays, U/S, labs)? Why? @ -[None] What meds were considered but not given or refused? Why? @ -[None] Did you discuss the management of the patient with other professionals (professionals i.e. , PA, PRODUCT SUPPORT ANALYST, lab, RT, psych nurse, social media coordinator, medical center director, teacher, armoured corps officer, manager case management)? Give summary @ -[I discussed the case with transfer team and also the receiving physician Was smoking cessation discussed for >3mins.? @ -[No] Was critical care preformed (if so, how long)? @ -[Yes 35 minutes Were there social determinants of health that impacted care today? How? (Homelessness, low income, unemployed, alcoholism, drug addiction, transportation, low edu. Level, literacy, decrease access to med. care, group home, rehab)? @ -[No] Was there de-escalation of care discussed even if they declined (Discuss DNR or withdrawal of care, Hospice)? DNR status @ -[No] What co-morbidities impacted this encounter? (DM, HTN, Smoking, COPD, CAD, Cancer, CVA, ARF, Chemo, Hep., AIDS, mental health diagnosis, sleep apnea, morbid obesity)? @ -[None] Was patient admitted / discharged? Hospital course, mention meds given and route, prescriptions, significant lab abnormalities, going to OR and other pertinent info. @ -Patient is transferred to facility with trauma/neurosurgery for [facility]. [facility] was ordered to reverse patient's anticoagulation. Antibiotics ordered for scalp laceration and presence of skull fracture Undiagnosed new problem with uncertain prognosis? @ -[No] Drug Therapy requiring intensive monitoring for toxicity (Heparin, Nitro, Insulin, Cardizem)? @ -[No] Were any procedures done? @ -[No] Diagnosis/symptom? @ -[Traumatic subarachnoid hemorrhage, acute Skull fracture, acute Scalp laceration, acute Nasal bone fracture, acute Skin tear, left hand, acute Acute, or Chronic, or Acute on Chronic? @ -[Acute Uncomplicated (without systemic symptoms) or Complicated (systemic symptoms)? @ -[Uncomplicated Side effects of treatment? @ -[No] Exacerbation, Progression, or Severe Exacerbation? @ -[No] Poses a threat to life or bodily function? How? (Chest pain, USA, NM, pneumonia, PE, COPD, DKA, ARF, appy, cholecystitis, CVA, Diverticulitis, Homicidal, Suicidal, threat to staff... and all critical care pts) @ -[yes - Lab Data Result diagrams: 06/03/23 17:00 06/03/23 13:26 Lab Results 06/03/23 06/03/23 06/03/23 Range/Units 13:26 13:26 13:26 WBC (3.8-10.6) k/uL RBC (4.30-5.90) m/uL Hgb (13.0-17.5) gm/dL Hct (39.0-53.0) % MCV (80.0-100.0) fL MCH (25.0-35.0) pg MCHC (31.0-37.0) g/dL RDW (11.5-15.5) % Plt Count (150-450) k/uL MPV Neutrophils % % Lymphocytes % % Monocytes % % Eosinophils % % Basophils % % Neutrophils # (1.3-7.7) k/uL Lymphocytes # (1.0-4.8) k/uL Monocytes # (0-1.0) k/uL Eosinophils # (0-0.7) k/uL Basophils # (0-0.2) k/uL PT (9.0-12.0) sec INR (<1.2) APTT (22.0-30.0) sec Sodium 137 (137-145) mmol/L Potassium 4.5 (3.5-5.1) mmol/L Chloride 106 (98-107) mmol/L Carbon Dioxide 22 (22-30) mmol/L Anion Gap 9 mmol/L BUN 28 H (9-20) mg/dL Creatinine 1.56 H (0.66-1.25) mg/dL Est GFR (CKD-EPI)AfAm 52 (>60 ml/min/1.73 sqM) Est GFR (CKD-EPI)NonAf 45 (>60 ml/min/1.73 sqM) Glucose 135 H (74-99) mg/dL Plasma Lactic Acid Lucas 1.2 (0.7-2.0) mmol/L Calcium 8.8 (8.4-10.2) mg/dL Total Bilirubin 0.6 (0.2-1.3) mg/dL AST 75 H (17-59) U/L ALT 42 (4-49) U/L Alkaline Phosphatase 73 (38-126) U/L Troponin I 0.031 (0.000-0.034) ng/mL Total Protein 8.1 (6.3-8.2) g/dL Albumin 4.1 (3.5-5.0) g/dL Serum Alcohol mg/dL Blood Type Blood Type Confirm Blood Type Recheck Bld Type Recheck Status Antibody Screen Spec Expiration Date 06/03/23 06/03/23 06/03/23 Range/Units 13:26 16:26 16:32 WBC (3.8-10.6) k/uL RBC (4.30-5.90) m/uL Hgb (13.0-17.5) gm/dL Hct (39.0-53.0) % MCV (80.0-100.0) fL MCH (25.0-35.0) pg MCHC (31.0-37.0) g/dL RDW (11.5-15.5) % Plt Count (150-450) k/uL MPV Neutrophils % % Lymphocytes % % Monocytes % % Eosinophils % % Basophils % % Neutrophils # (1.3-7.7) k/uL Lymphocytes # (1.0-4.8) k/uL Monocytes # (0-1.0) k/uL Eosinophils # (0-0.7) k/uL Basophils # (0-0.2) k/uL PT (9.0-12.0) sec INR (<1.2) APTT (22.0-30.0) sec Sodium (137-145) mmol/L Potassium (3.5-5.1) mmol/L Chloride (98-107) mmol/L Carbon Dioxide (22-30) mmol/L Anion Gap mmol/L BUN (9-20) mg/dL Creatinine (0.66-1.25) mg/dL Est GFR (CKD-EPI)AfAm (>60 ml/min/1.73 sqM) Est GFR (CKD-EPI)NonAf (>60 ml/min/1.73 sqM) Glucose (74-99) mg/dL Plasma Lactic Acid Lucas (0.7-2.0) mmol/L Calcium (8.4-10.2) mg/dL Total Bilirubin (0.2-1.3) mg/dL AST (17-59) U/L ALT (4-49) U/L Alkaline Phosphatase (38-126) U/L Troponin I (0.000-0.034) ng/mL Total Protein (6.3-8.2) g/dL Albumin (3.5-5.0) g/dL Serum Alcohol <10 mg/dL Blood Type A Positive Blood Type Confirm A Positive Blood Type Recheck No Previous Record Bld Type Recheck Status CABO Indicated Antibody Screen NEGATIVE Spec Expiration Date 06/06/2023 - 232506/03/23 06/03/23 Range/Units 17:00 17:00 WBC 7.1 (3.8-10.6) k/uL RBC 3.81 L (4.30-5.90) m/uL Hgb 11.3 L (13.0-17.5) gm/dL Hct 34.4 L (39.0-53.0) % MCV 90.3 (80.0-100.0) fL MCH 29.6 (25.0-35.0) pg MCHC 32.8 (31.0-37.0) g/dL RDW 14.0 (11.5-15.5) % Plt Count 270 (150-450) k/uL MPV 6.8 Neutrophils % 81 % Lymphocytes % 12 % Monocytes % 4 % Eosinophils % 3 % Basophils % 0 % Neutrophils # 5.8 (1.3-7.7) k/uL Lymphocytes # 0.8 L (1.0-4.8) k/uL Monocytes # 0.3 (0-1.0) k/uL Eosinophils # 0.2 (0-0.7) k/uL Basophils # 0.0 (0-0.2) k/uL PT 11.2 (9.0-12.0) sec INR 1.1 (<1.2) APTT 25.6 (22.0-30.0) sec Sodium (137-145) mmol/L Potassium (3.5-5.1) mmol/L Chloride (98-107) mmol/L Carbon Dioxide (22-30) mmol/L Anion Gap mmol/L BUN (9-20) mg/dL Creatinine (0.66-1.25) mg/dL Est GFR (CKD-EPI)AfAm (>60 ml/min/1.73 sqM) Est GFR (CKD-EPI)NonAf (>60 ml/min/1.73 sqM) Glucose (74-99) mg/dL Plasma Lactic Acid Lucas (0.7-2.0) mmol/L Calcium (8.4-10.2) mg/dL Total Bilirubin (0.2-1.3) mg/dL AST (17-59) U/L ALT (4-49) U/L Alkaline Phosphatase (38-126) U/L Troponin I (0.000-0.034) ng/mL Total Protein (6.3-8.2) g/dL Albumin (3.5-5.0) g/dL Serum Alcohol mg/dL Blood Type Blood Type Confirm Blood Type Recheck Bld Type Recheck Status Antibody Screen Spec Expiration Date - EKG Data -: EKG Interpreted by [facility] EKG shows normal: axis (normal), intervals (QRS duration borderline at 116 ms.) Interpretation: nonspecific ST-T wave changes, other (atrial fibrillation) Disposition Clinical Impression: Depressed skull fracture, Subarachnoid hemorrhage, Laceration of left hand Disposition: OTHER INSTITUTION NOT DEFINED Condition: Serious Is patient prescribed a controlled substance at d/c from ED?: No Referrals: None,Stated [REFERRING] - 1-2 days - Out of Hospital Transfer - Req. Specs Out of Hospital Transfer - Requested Specifics: Other Emergency Center
--- NOTE | 2023-06-03 16:58 | XR ---
Pelvis HISTORY: Trauma. COMPARISON: 10/21/2020 TECHNIQUE: Single AP view the pelvis is obtained. FINDINGS: The pelvic ring is intact and there is no fracture or diastasis of the SI joints or pubic symphysis. The hips are normal and symmetric bilaterally without fracture or dislocation. IMPRESSION: No evidence of trauma.
--- NOTE | 2023-06-03 17:01 | XR ---
EXAMINATION TYPE: XR chest 1V portable DATE OF EXAM: 06/03/2023 COMPARISON: 03/27/2022 HISTORY: Trauma TECHNIQUE: Single frontal view of the chest is obtained. FINDINGS: There is marked cardiomegaly but no overt pulmonary vascular congestion There is no airspace consolidation. There is no pleural effusion or pneumothorax. There is a focal area of pleural thickening on the left lateral chest wall which was seen previously and likely corresponds to remote healed rib fractures. No acute osseous abnormalities are seen. IMPRESSION: 1. No evidence of acute trauma. 2. Marked cardiomegaly without overt CHF.
[2023-06-03 17:10] LABS: Basophils % (A) 0 %; Eosinophils # (A) 0.2 k/uL (0-0.7); Eosinophils % (A) 3 %; HCT 34.4 % (39.0-53.0); HGB 11.3 gm/dL (13.0-17.5); Lymphocytes # (A) 0.8 k/uL (1.0-4.8); Lymphocytes % (A) 12 %; MCH 29.6 pg (25.0-35.0); MCHC 32.8 g/dL (31.0-37.0); MCV 90.3 fL (80.0-100.0); Mean Platelet Volume 6.8; Monocytes # (A) 0.3 k/uL (0-1.0); Monocytes % (A) 4 %; Neutrophils # (A) 5.8 k/uL (1.3-7.7); Neutrophils % (A) 81 %; Platelet Count 270 k/uL (150-450); RBC 3.81 m/uL (4.30-5.90); WBC 7.1 k/uL (3.8-10.6)
--- NOTE | 2023-06-03 17:13 | CT ---
EXAMINATION TYPE: CT brain son douglass DATE OF EXAM: 06/03/2023 COMPARISON: 11/06/2018 HISTORY: fall CT DLP: 1630 mGycm Automated exposure control for dose reduction was used. TECHNIQUE: CT scan of the head and cervical spine are performed without contrast. FINDINGS: Head CT: The ventricles, basal cisterns and sulci over convexities are within normal limits and there is no ma ss effect or shift of midline structures. There is a 3.3 x 2.2 cm area of increased parenchymal density in the right frontal lobe adjacent to t he falx and there is a small subarachnoid hemorrhage along the right side of the falx. A second focal area of ill-defined increased density is seen in the cortex and subcortical white matter of the left parietal lobe. These findings are consistent with acute hemorrhage. There is marked soft tissue swelling over the calvarial vertex and frontal region. On the sagittal im ages of the calvarium, there is a small depressed skull fracture involving the outer table of the mid line frontal bone with soft tissue gas in the adjacent soft tissues. There is swelling over the nasal bone with soft tissue gas and there is a mildly displaced nasal frac ture.. The intraorbital contents appear normal and symmetric. Paranasal sinuses and mastoid air cells are well aerated. CT cervical spine: Cervical spine is visualized in its entirety from C1 through upper thoracic levels and demonstrates s atisfactory alignment without evidence of acute fracture or dislocation. Prevertebral soft tissue ap pears within normal limits. The C1-C2 articulation is unremarkable. There is mild to moderate degen erative disc disease at the C4-5 and C6-6 levels. There is a few tiny bony fragments adjacent to the tip of the odontoid process indicating remote injury. IMPRESSION: 1. There is no acute fracture or dislocation evident in the cervical spine. 2. Small focal acute subarachnoid hemorrhage and 2 areas of acute parenchymal hemorrhage as described above. 3. Small depressed posterior frontal bone fracture involving the outer table of the skull. 4. Marked soft tissue swelling with scattered areas of gas over the calvarial vertex, frontal bone an d nasal bone. 5. Nasal bone fracture.
[2023-06-03 17:20] VITALS: RESP 16
[2023-06-03 17:21] LABS: INR 1.1 (<1.2); Partial Thromboplastin Time 25.6 sec (22.0-30.0); Prothrombin Time 11.2 sec (9.0-12.0)
[2023-06-03] MEDS ORDERED: Kcentra PER PHARMACY 1 EACH MISC MISCELLANE PRN (17:21)
[2023-06-03] MEDS ORDERED: DIPH,PERTUS(ACELL)TETVAC-LF 0.5 ML VIAL IM ONE (17:38)
--- NOTE | 2023-06-03 17:41 | XR ---
Left hand HISTORY: Trauma COMPARISON: None TECHNIQUE: 3 views left hand were obtained. FINDINGS: There is remote trauma to the distal ulna. There is no acute fracture or dislocation. There is no radiopaque foreign body. There is mild soft ti ssue gas in the dorsal soft tissues. There is moderate osteoarthritic change of the hand including the DIP joints and PIP joints as well a s the second and third MCP joints. There are also moderate degenerative changes of the radial aspect of the wrist involving the first carpometacarpal articulation and scaphoid trapezium articulation. IMPRESSION: 1. No evidence of acute trauma. 2. Osteophytic changes as described above. 3. Remote trauma to the distal ulna.
[2023-06-03] MEDS ORDERED: EMPTY BAG 1 BAG with HUMAN PROTHROMBIN COMPLX 2,216 UNIT IV ONE (17:45)
[2023-06-03] MEDS ORDERED: HUMAN PROTHROMBIN COMPLX 500 UNIT/16 ML VIAL IV ONE (17:52)
[2023-06-03] MEDS ORDERED: MORPHINE SULFATE 4 MG/ML SYRINGE IV STA (17:52)
[2023-06-03 18:44] LABS: ALT 42 U/L (4-49); African American GFR (CKD) 52 (>60 ml/min/1.73 sqM); Albumin 4.1 g/dL (3.5-5.0); Anion Gap 9 mmol/L; Blood Urea Nitrogen 28 mg/dL (9-20); Calcium 8.8 mg/dL (8.4-10.2); Carbon Dioxide 22 mmol/L (22-30); Chloride 106 mmol/L (98-107); Glucose 135 mg/dL (74-99); Non-African American GFR(CKD) 45 (>60 ml/min/1.73 sqM); Sodium 137 mmol/L (137-145); Total Bilirubin 0.6 mg/dL (0.2-1.3); Total Protein 8.1 g/dL (6.3-8.2)
[2023-06-03 19:01] LABS: AST 75 U/L (17-59); Alkaline Phosphatase 73 U/L (38-126); Potassium 4.5 mmol/L (3.5-5.1)
[2023-06-03 21:08] VITALS: BP 105/86; PULSE 95; TEMP 96.8
== END 2023-06-03 18:05 | disposition other institution (70) ==
LOC: EC 16:08
DX: S02.0XXA Fracture of vault of skull, initial encounter for closed fracture (principal); S02.2XXA Fracture of nasal bones, initial encounter for closed fracture; S06.6XAA Traumatic subarachnoid hemorrhage with loss of consciousness status unknown, initial encounter; S61.412A Laceration without foreign body of left hand, initial encounter; R40.2362 Coma scale, best motor response, obeys commands, at arrival to emergency department; R40.2142 Coma scale, eyes open, spontaneous, at arrival to emergency department; R40.2242 Coma scale, best verbal response, confused conversation, at arrival to emergency department; I10 Essential (primary) hypertension; I48.91 Unspecified atrial fibrillation; Z79.01 Long term (current) use of anticoagulants; Z79.899 Other long term (current) drug therapy; Z87.891 Personal history of nicotine dependence; W22.8XXA Striking against or struck by other objects, initial encounter
CPT/HCPCS: 36415; 93005; 86900; 86901; 80053; 83605; 84484; 85025; 85610; 85730; 86850; 72170; 73130; 71045; 72125; 70450; 99291; 96374; 96375 ×2; G0480; J2270; J0690; J7168; 80320

== ENCOUNTER 2023-07-13 17:00 | Emergency (ER) | payer MEDICARE, BC ==
[2023-07-13 17:17] VITALS: TEMP 98.6
[2023-07-13] MEDS ORDERED: MIDODRINE 5 MG TAB PO STA (17:40)
[2023-07-13 18:05] LABS: Basophils % (A) 0 %; Eosinophils # (A) 0.2 k/uL (0-0.7); Eosinophils % (A) 5 %; HCT 33.1 % (39.0-53.0); HGB 10.7 gm/dL (13.0-17.5); Hypochromasia Moderate; Lymphocytes # (A) 0.5 k/uL (1.0-4.8); Lymphocytes % (A) 12 %; MCH 29.2 pg (25.0-35.0); MCHC 32.4 g/dL (31.0-37.0); MCV 90.2 fL (80.0-100.0); Mean Platelet Volume 6.6; Monocytes # (A) 0.2 k/uL (0-1.0); Monocytes % (A) 5 %; Neutrophils # (A) 3.4 k/uL (1.3-7.7); Neutrophils % (A) 76 %; Platelet Count 489 k/uL (150-450); RBC 3.67 m/uL (4.30-5.90); RDW 14.9 % (11.5-15.5); WBC 4.4 k/uL (3.8-10.6)
[2023-07-13 18:12] VITALS: RESP 16
[2023-07-13 18:14] LABS: ALT 11 U/L (4-49); AST 23 U/L (17-59); African American GFR (CKD) 77 (>60 ml/min/1.73 sqM); Albumin 3.4 g/dL (3.5-5.0); Alkaline Phosphatase 89 U/L (38-126); Anion Gap 10 mmol/L; Blood Urea Nitrogen 16 mg/dL (9-20); Calcium 8.4 mg/dL (8.4-10.2); Carbon Dioxide 27 mmol/L (22-30); Chloride 101 mmol/L (98-107); Glucose 103 mg/dL (74-99); Non-African American GFR(CKD) 67 (>60 ml/min/1.73 sqM); Potassium 4.2 mmol/L (3.5-5.1); Sodium 138 mmol/L (137-145); Total Bilirubin 0.3 mg/dL (0.2-1.3); Total Protein 6.8 g/dL (6.3-8.2)
[2023-07-13 18:18] LABS: Appearance,Urine Clear (Clear); Bilirubin,Urine Negative (Negative); Blood,Urine Negative (Negative); Color,Urine Yellow; Glucose,Urine (UA) Negative (Negative); Hyaline Casts,Urine 4 /lpf (0-2); Ketones,Urine Negative (Negative); Leukocyte Esterase,Urine Negative (Negative); Mucus,Urine Few /hpf; Nitrite,Urine Negative (Negative); Protein,Urine 1+ (Negative); RBC,Urine 4 /hpf (0-5); Specific Gravity,Urine 1.029 (1.001-1.035); Squamous Epithelial Cell,Urine <1 /hpf (0-4); Urobilinogen,Urine <2.0 mg/dL (<2.0); WBC,Urine 4 /hpf (0-5)
--- NOTE | 2023-07-13 19:48 | ED ---
Male Urogenital HPI - General Chief complaint: Recheck/Abnormal Lab/Rx Stated complaint: Trouble Urinating Time Seen by Provider: 07/13/23 17:20 Source: patient Mode of arrival: ambulatory Limitations: no limitations - History of Present Illness Initial comments: 67-year-old male with recent history of traumatic brain injury who presents to the emergency department reporting urinary retention. Daughter is at bedside and helps provide history. States that the patient recently had a brain bleed and was transferred to outside facility. While hospitalized there the patient had issues with urinary retention and low blood pressures. He was discharged to rehab and just left rehab yesterday. States that he has not urinated since yesterday morning. He does not have the urge to go. The patient required a catheter while in the hospital however this was taken out approximately 1 week ago and he hasn't had any issues. He does report to some constipation as his last bowel movement was yesterday morning as well. He denies any abdominal pain. No fevers. Upon hospital arrival the patient is noted to have significantly low blood pressures. Daughter does provide medication list which states that he is on midodrine 3 times a day as well as fludrocortisone. Patient has taken 2 doses of his midodrine however still requires one more dose and it is around the time that the patient should be taking it. No other alleviating, precipitating or modifying factors - Related Data Home Medications Medication Instructions Recorded Confirmed Rivaroxaban [Xarelto] 20 mg PO DAILY@1700 09/04/18 07/05/23 clonazePAM [KlonoPIN] 0.5 mg PO HS 09/04/18 07/05/23 Gabapentin [Neurontin] 300 mg PO Q12HR@0800,2100 03/27/22 07/05/23 Metoprolol Succinate [Toprol XL] 100 mg PO DAILY@0800 03/27/22 07/05/23 Acetaminophen Tab [Tylenol] 650 mg PO Q6H PRN 07/05/23 07/05/23 Bacitracin Zinc Oint 1 applic TOPICAL DAILY@0800 07/05/23 07/05/23 Calcium Carbonate [Tums] 1,000 mg PO QID PRN 07/05/23 07/05/23 Docusate [Colace] 100 mg PO BID@0800,1700 07/05/23 07/05/23 Flecainide [Tambocor] 100 mg PO Q12HR@0800,209907/05/23 07/05/23 Fludrocortisone [Florinef] 0.1 mg PO DAILY@0800 07/05/23 07/05/23 Magnesium Hydroxide [Milk of 2,400 mg PO Q2D PRN 07/05/23 07/05/23 Magnesia Concentrate] Midodrine HCl [ProAmatine] 10 mg PO TID@0600,1400,209907/05/23 07/05/23 Na Phos,M-B/Na Phos,Di-Ba [Fleet 133 ml RECTAL DAILY PRN 07/05/23 07/05/23 Adult] Sennosides [Senna Lax] 17.2 mg PO BID@0800,209907/05/23 07/05/23 Sodium Chloride [Saline Mist] 1 spray EA NOSTRIL Q6H PRN 07/05/23 07/05/23 Tamsulosin HCl [Flomax] 0.4 mg PO HS 07/05/23 07/05/23 bisacodyL 10 mg RECTAL DAILY PRN 07/05/23 07/05/23 bisacodyL [Dulcolax] 10 mg PO DAILY@00 07/05/23 07/05/23 clonazePAM [KlonoPIN] 0.5 mg PO BID PRN 07/05/23 07/05/23 levETIRAcetam [Keppra] 500 mg PO Q12HR@0800,209907/05/23 07/05/23 oxyCODONE-APAP 10-325MG [Percocet 1 tab PO QID PRN 07/05/23 07/05/23 10-325 mg] Previous Rx's Medication Instructions Recorded fentaNYL 75MCG/HR PATCH [Duragesic 1 patch TRANSDERM Q72H 3 Days #3 04/12/23 75MCG/HR] patch Allergies Allergy/AdvReac Type Severity Reaction Status Date / Time codeine AdvReac Nausea/head Verified 07/13/23 17:16 ache Review of Systems ROS Statement: Those systems with pertinent positive or pertinent negative responses have been documented in the HPI. ROS Other: All systems not noted in ROS Statement are negative. Past Medical History Past Medical History: Atrial Fibrillation, Cancer, Hypertension, Prostate Disorder, Sleep Apnea/CPAP/BIPAP Additional Past Medical History / Comment(s): Prostate cancer with mets to spine treated with hormone therapy and radiation, back pain, past R sided sciatica, nonischemic cardiomyopathy, ABBIE with Cpap, bilateral lower exremity edema at times, migraines, benign colon polyp. History of Any Multi-Drug Resistant Organisms: None Reported Past Surgical History: Heart Catheterization, Orthopedic Surgery Additional Past Surgical History / Comment(s): ORIF left wrist, DEANNE/cardioversion, colonoscopy Past Anesthesia/Blood Transfusion Reactions: Previous Problems w/ Anesthesia Additional Past Anesthesia/Blood Transfusion Reaction / Comment(s): Woke up with CP after colonoscopy, EKG abn. Past Psychological History: No Psychological Hx Reported Smoking Status: Former smoker Past Alcohol Use History: None Reported Past Drug Use History: None Reported - Past Family History Father Family Medical History: Cancer, CVA/TIA Additional Family Medical History / Comment(s): Father of a stroke at the age of 91 yrs. He had prostate cancer Mother Family Medical History: No Reported History Additional Family Medical History / Comment(s): Mother is healthy and is 93 yrs old. General Exam Limitations: no limitations General appearance: alert, in no apparent distress Head exam: Present: atraumatic, normocephalic, normal inspection Eye exam: Present: normal appearance, PERRL, EOMI. Absent: scleral icterus, conjunctival injection, periorbital swelling ENT exam: Present: normal exam, mucous membranes moist Neck exam: Present: normal inspection. Absent: tenderness, meningismus, lymphadenopathy Respiratory exam: Present: normal lung sounds bilaterally. Absent: respiratory distress, wheezes, rales, rhonchi, stridor Cardiovascular Exam: Present: regular rate, normal rhythm, normal heart sounds. Absent: systolic murmur, diastolic murmur, rubs, gallop, clicks GI/Abdominal exam: Present: soft, normal bowel sounds. Absent: distended, tenderness, guarding, rebound, rigid Extremities exam: Present: normal inspection, full ROM, normal capillary refill. Absent: tenderness, pedal edema, joint swelling, calf tenderness Back exam: Present: normal inspection Neurological exam: Present: alert, oriented X3, CN II-XII intact Psychiatric exam: Present: normal affect, normal mood Skin exam: Present: warm, dry, intact, normal color. Absent: rash Course Vital Signs 07/13/23 07/13/23 07/13/23 17:12 17:15 20:20 Temperature 98.6 F Pulse Rate 99 82 90 Respiratory 23 16 16 Rate Blood Pressure 79/53 97/52 102/83 O2 Sat by Pulse 96 95 Oximetry Medical Decision Making - Medical Decision Making Was pt. sent in by a medical professional or institution (, AJIT, RUN BOAT OPERATOR, urgent care, hospital, or halfway...) When possible be specific @ -No Did you speak to anyone other than the patient for history (EMS, parent, family, police, friend...)? What history was obtained from this source @ -I spoke with the patient's daughter Did you review nursing and triage notes (agree or disagree)? Why? @ -I reviewed and agree with nursing and triage notes Were old charts reviewed (outside hosp., previous admission, EMS record, old EKG, old radiological studies, urgent care reports/EKG's, halfway records)? Report findings @ -I reviewed the patient's medication list from rehab Differential Diagnosis (chest pain, altered mental status, abdominal pain women, abdominal pain men, vaginal bleeding, weakness, fever, dyspnea, syncope, headache, dizziness, GI bleed, back pain, seizure, CVA, palpatations, mental health, musculoskeletal)? @ -Urinary retention, BPH, UTI, hematuria, TINA EKG interpreted by me (3pts min.). @ -Yes and demonstrates A. fib with a rate of 83. QRS 121. QTC of 452. No acute ST segment elevations or depressions X-rays interpreted by me (1pt min.). @ -None done CT interpreted by me (1pt min.). @ -None done U/S interpreted by me (1pt. min.). @ -None done What testing was considered but not performed or refused? (CT, X-rays, U/S, labs)? Why? @ -None What meds were considered but not given or refused? Why? @ -None Did you discuss the management of the patient with other professionals (professionals i.e. , AJIT, RUN BOAT OPERATOR, lab, RT, psych nurse, social work professor, opticianry teacher, teacher, financial aid officer, home health care case manager)? Give summary @ -No Was smoking cessation discussed for >3mins.? @ -No Was critical care preformed (if so, how long)? @ -No Were there social determinants of health that impacted care today? How? (Homelessness, low income, unemployed, alcoholism, drug addiction, transportation, low edu. Level, literacy, decrease access to med. care, m[facility], rehab)? @ -No Was there de-escalation of care discussed even if they declined (Discuss DNR or withdrawal of care, Hospice)? DNR status @ -No What co-morbidities impacted this encounter? (DM, HTN, Smoking, COPD, CAD, Cancer, CVA, ARF, Chemo, Hep., AIDS, mental health diagnosis, sleep apnea, morbid obesity)? @ -Orthostatic hypotension, recent TBI, BPH Was patient admitted / discharged? Hospital course, mention meds given and route, prescriptions, significant lab abnormalities, going to OR and other pertinent info. @ -Discharged. Upon arrival patient was placed into trauma 1 because of this low blood pressure. It does improve upon sitting down. I did dose the patient's Midrin as it is time for him to receive it. Bladder scan is performed which demonstrates that the patient has 500 mL of urine in his bladder. Rome catheter is placed and does have return of 500 mL. Laboratory studies are conducted. Kidney function normal. Patient continues to have improved blood pressure after Midrin. Patient is producing urine. Kidney function is normal. He would like to go home. Instructed that he will have to have a Rome catheter in and removed next week by urology. He understood and was agreeable to this. Instructed to return for any new or worsening symptoms. Must stick to his medications for a closely due to his history of orthostatic hypotension. Patient was agreeable to this plan and was discharged in stable condition Undiagnosed new problem with uncertain prognosis? @ -Yes Drug Therapy requiring intensive monitoring for toxicity (Heparin, Nitro, Insulin, Cardizem)? @ -No Were any procedures done? @ -Rome insertion Diagnosis/symptom? @ -Acute urinary retention, history of BPH, orthostatic hypotension on Midrin Acute, or Chronic, or Acute on Chronic? @ -Acute urinary retention, chronic orthostatic hypotension and BPH Uncomplicated (without systemic symptoms) or Complicated (systemic symptoms)? @ -Complicated Side effects of treatment? @ -No Exacerbation, Progression, or Severe Exacerbation? @ -No Poses a threat to life or bodily function? How? (Chest pain, [place], [place], pneumonia, PE, COPD, DKA, ARF, appy, cholecystitis, CVA, Diverticulitis, Homicidal, Suici emelina, threat to staff... and all critical care pts) @ -No - Lab Data Result diagrams: 07/13/23 17:55 07/13/23 17:55 Lab Results 07/13/23 07/13/23 07/13/23 Range/Units 17:55 17:55 17:55 WBC 4.4 (3.8-10.6) k/uL RBC 3.67 L (4.30-5.90) m/uL Hgb 10.7 L (13.0-17.5) gm/dL Hct 33.1 L (39.0-53.0) % MCV 90.2 (80.0-100.0) fL MCH 29.2 (25.0-35.0) pg MCHC 32.4 (31.0-37.0) g/dL RDW 14.9 (11.5-15.5) % Plt Count 489 H (150-450) k/uL MPV 6.6 Neutrophils % 76 % Lymphocytes % 12 % Monocytes % 5 % Eosinophils % 5 % Basophils % 0 % Neutrophils # 3.4 (1.3-7.7) k/uL Lymphocytes # 0.5 L (1.0-4.8) k/uL Monocytes # 0.2 (0-1.0) k/uL Eosinophils # 0.2 (0-0.7) k/uL Basophils # 0.0 (0-0.2) k/uL Hypochromasia Moderate Sodium 138 (137-145) mmol/L Potassium 4.2 (3.5-5.1) mmol/L Chloride 101 (98-107) mmol/L Carbon Dioxide 27 (22-30) mmol/L Anion Gap 10 mmol/L BUN 16 (9-20) mg/dL Creatinine 1.12 (0.66-1.25) mg/dL Est GFR (CKD-EPI)AfAm 77 (>60 ml/min/1.73 sqM) Est GFR (CKD-EPI)NonAf 67 (>60 ml/min/1.73 sqM) Glucose 103 H (74-99) mg/dL Calcium 8.4 (8.4-10.2) mg/dL Total Bilirubin 0.3 (0.2-1.3) mg/dL AST 23 (17-59) U/L ALT 11 (4-49) U/L Alkaline Phosphatase 89 (38-126) U/L Troponin I (0.000-0.034) ng/mL Total Protein 6.8 (6.3-8.2) g/dL Albumin 3.4 L (3.5-5.0) g/dL Urine Color Yellow Urine Appearance Clear (Clear) Urine pH 6.0 (5.0-8.0) Ur Specific Stanton 1.029 (1.001-1.035) Urine Protein 1+ H (Negative) Urine Glucose (UA) Negative (Negative) Urine Ketones Negative (Negative) Urine Blood Negative (Negative) Urine Nitrite Negative (Negative) Urine Bilirubin Negative (Negative) Urine Urobilinogen <2.0 (<2.0) mg/dL Ur Leukocyte Esterase Negative (Negative) Urine RBC 4 (0-5) /hpf Urine WBC 4 (0-5) /hpf Ur Squamous Epith Cells <1 (0-4) /hpf Hyaline Casts 4 H (0-2) /lpf Urine Mucus Few H (None) /hpf 07/13/23 Range/Units 17:55 WBC (3.8-10.6) k/uL RBC (4.30-5.90) m/uL Hgb (13.0-17.5) gm/dL Hct (39.0-53.0) % MCV (80.0-100.0) fL MCH (25.0-35.0) pg MCHC (31.0-37.0) g/dL RDW (11.5-15.5) % Plt Count (150-450) k/uL MPV Neutrophils % % Lymphocytes % % Monocytes % % Eosinophils % % Basophils % % Neutrophils # (1.3-7.7) k/uL Lymphocytes # (1.0-4.8) k/uL Monocytes # (0-1.0) k/uL Eosinophils # (0-0.7) k/uL Basophils # (0-0.2) k/uL Hypochromasia Sodium (137-145) mmol/L Potassium (3.5-5.1) mmol/L Chloride (98-107) mmol/L Carbon Dioxide (22-30) mmol/L Anion Gap mmol/L BUN (9-20) mg/dL Creatinine (0.66-1.25) mg/dL Est GFR (CKD-EPI)AfAm (>60 ml/min/1.73 sqM) Est GFR (CKD-EPI)NonAf (>60 ml/min/1.73 sqM) Glucose (74-99) mg/dL Calcium (8.4-10.2) mg/dL Total Bilirubin (0.2-1.3) mg/dL AST (17-59) U/L ALT (4-49) U/L Alkaline Phosphatase (38-126) U/L Troponin I <0.012 (0.000-0.034) ng/mL Total Protein (6.3-8.2) g/dL Albumin (3.5-5.0) g/dL Urine Color Urine Appearance (Clear) Urine pH (5.0-8.0) Ur Specific Stanton (1.001-1.035) Urine Protein (Negative) Urine Glucose (UA) (Negative) Urine Ketones (Negative) Urine Blood (Negative) Urine Nitrite (Negative) Urine Bilirubin (Negative) Urine Urobilinogen (<2.0) mg/dL Ur Leukocyte Esterase (Negative) Urine RBC (0-5) /hpf Urine WBC (0-5) /hpf Ur Squamous Epith Cells (0-4) /hpf Hyaline Casts (0-2) /lpf Urine Mucus (None) /hpf Disposition Clinical Impression: Urinary retention, Orthostatic hypotension Disposition: HOME SELF-CARE Condition: Stable Instructions (If sedation given, give patient instructions): Urinary Retention in Men (ED) Additional Instructions: Please follow-up with the urologist next week to have your Rome removed Is patient prescribed a controlled substance at d/c from ED?: No Referrals: Hoang Oliver Jr, DO [Primary Care Provider] - 1-2 days Garrett Webster MD [STAFF PHYSICIAN] - 1-2 days Time of Disposition: 19:48
[2023-07-13 20:24] VITALS: BP 102/83; PULSE 90
== END 2023-07-13 20:21 | disposition home or self-care (01) ==
LOC: EC 17:00
DX: R33.9 Retention of urine, unspecified (principal); I95.1 Orthostatic hypotension; I10 Essential (primary) hypertension; I48.91 Unspecified atrial fibrillation; Z79.01 Long term (current) use of anticoagulants; Z79.899 Other long term (current) drug therapy; Z88.5 Allergy status to narcotic agent; Z87.891 Personal history of nicotine dependence; Z87.438 Personal history of other diseases of male genital organs
CPT/HCPCS: 36415; 51702; 51798; 80053; 81001; 84484; 85025; 93005; 99284

== ENCOUNTER 2023-07-14 11:42 | Inpatient (IN) | payer MEDICARE, BC ==
[2023-07-14] MEDS ORDERED: SODIUM CHLORIDE 0.9% 1,000 ML IV ONE (12:01)
[2023-07-14] MEDS: MIDODRINE 5 MG TAB PO SCH ×3 (12:24→23:11)
[2023-07-14 12:28] LABS: Basophils % (A) 0 %; Eosinophils # (A) 0.2 k/uL (0-0.7); Eosinophils % (A) 3 %; HCT 32.3 % (39.0-53.0); HGB 10.3 gm/dL (13.0-17.5); Hypochromasia Moderate; Lymphocytes # (A) 0.5 k/uL (1.0-4.8); Lymphocytes % (A) 7 %; MCH 29.1 pg (25.0-35.0); MCHC 31.9 g/dL (31.0-37.0); MCV 91.4 fL (80.0-100.0); Mean Platelet Volume 6.8; Monocytes # (A) 0.4 k/uL (0-1.0); Monocytes % (A) 6 %; Neutrophils # (A) 5.4 k/uL (1.3-7.7); Neutrophils % (A) 84 %; Platelet Count 473 k/uL (150-450); RBC 3.53 m/uL (4.30-5.90); RDW 15.3 % (11.5-15.5); WBC 6.5 k/uL (3.8-10.6)
--- NOTE | 2023-07-14 12:29 | ED ---
General Adult HPI - General Chief complaint: Weakness Stated complaint: Low BP Time Seen by Provider: 07/14/23 11:57 Source: patient, RN notes reviewed Mode of arrival: ambulatory Limitations: no limitations - History of Present Illness Initial comments: 5-year-old male with past medical history significant for TBI, subarachnoid hemorrhage resents to the emergency department with a chief complaint of low blood pressure. Patient reports that he had low blood pressure for a few weeks. Patient reports that he has on Midrin, Flomax. He recently had a urinary catheter placed in the emergency department yesterday. Patient also wears a fentanyl patch. Patient denies any dizziness, lightheadedness, vision changes, vision loss, headache, chest pain, palpitations, shortness of breath, nausea, vomiting. He reports increased fatigue and weakness causing him to be unable to ambulate. Patient reports that he was seen here yesterday for the same. - Related Data Home Medications Medication Instructions Recorded Confirmed Rivaroxaban [Xarelto] 20 mg PO W/SUPPER 09/04/18 07/14/23 clonazePAM [KlonoPIN] 1 mg PO HS 09/04/18 07/14/23 Gabapentin [Neurontin] 300 mg PO BID 03/27/22 07/14/23 Metoprolol Succinate [Toprol XL] 100 mg PO DAILY 03/27/22 07/14/23 Acetaminophen Tab [Tylenol] 650 mg PO Q6H PRN 07/05/23 07/14/23 Flecainide [Tambocor] 100 mg PO Q12H 07/05/23 07/14/23 Fludrocortisone [Florinef] 0.1 mg PO DAILY 07/05/23 07/14/23 Midodrine HCl [ProAmatine] 10 mg PO TID 07/05/23 07/14/23 Sennosides [Senna Lax] 17.2 mg PO BID 07/05/23 07/14/23 Tamsulosin HCl [Flomax] 0.4 mg PO DAILY 07/05/23 07/14/23 clonazePAM [KlonoPIN] 0.5 mg PO DAILY PRN 07/05/23 07/14/23 levETIRAcetam [Keppra] 500 mg PO Q12H 07/05/23 07/14/23 oxyCODONE-APAP 10-325MG [Percocet 1 tab PO QID PRN 07/05/23 07/14/23 10-325 mg] Cholecalciferol [Vitamin D3 (25 50 mcg PO DAILY 07/14/23 07/14/23 Mcg = 1000 Iu)] Previous Rx's Medication Instructions Recorded fentaNYL 75MCG/HR PATCH [Duragesic 1 patch TRANSDERM Q72H 3 Days #3 04/12/23 75MCG/HR] patch Allergies Allergy/AdvReac Type Severity Reaction Status Date / Time codeine AdvReac Nausea/head Verified 07/14/23 13:01 ache Review of Systems ROS Statement: Those systems with pertinent positive or pertinent negative responses have been documented in the HPI. ROS Other: All systems not noted in ROS Statement are negative. Past Medical History Past Medical History: Atrial Fibrillation, Cancer, Hypertension, Prostate Disorder, Sleep Apnea/CPAP/BIPAP Additional Past Medical History / Comment(s): Prostate cancer with mets to spine treated with hormone therapy and radiation, back pain, past R sided sciatica, nonischemic cardiomyopathy, ABBIE with Cpap, bilateral lower exremity edema at times, migraines, benign colon polyp. History of Any Multi-Drug Resistant Organisms: None Reported Past Surgical History: Heart Catheterization, Orthopedic Surgery Additional Past Surgical History / Comment(s): ORIF left wrist, DEANNE/cardioversion, colonoscopy Past Anesthesia/Blood Transfusion Reactions: Previous Problems w/ Anesthesia Additional Past Anesthesia/Blood Transfusion Reaction / Comment(s): Woke up with CP after colonoscopy, EKG abn. Past Psychological History: No Psychological Hx Reported Smoking Status: Former smoker Past Alcohol Use History: None Reported Past Drug Use History: None Reported - Past Family History Father Family Medical History: Cancer, CVA/TIA Additional Family Medical History / Comment(s): Father of a stroke at the age of 91 yrs. He had prostate cancer Mother Family Medical History: No Reported History Additional Family Medical History / Comment(s): Mother is healthy and is 93 yrs old. General Exam - General Exam Comments Initial Comments: General: Alert, in no acute distress Head: atraumatic normocephalic. Eyes PERRL, EOMI intact, mucous membranes moist Respiratory: Lungs clear to auscultation bilaterally Cardiovascular: Heart rate regular rate and rhythm Abdominal: Soft without guarding or rebound Extremities: Normal inspection with full range of motion and normal capillary refill Neuroogic: alert and oriented 3, CN II-XII intact, able to ambulate with steady gait Skin: warm dry and intact with normal color Limitations: no limitations Course Vital Signs 07/14/23 07/14/23 07/14/23 11:45 12:01 13:00 Temperature 98.2 F Pulse Rate 116 H 89 68 Respiratory 20 16 16 Rate Blood Pressure 83/54 92/60 116/72 O2 Sat by Pulse 98 98 98 Oximetry 07/14/23 07/14/23 07/14/23 14:00 15:00 17:00 Temperature Pulse Rate 82 86 89 Respiratory 20 16 16 Rate Blood Pressure 101/74 92/60 88/66 O2 Sat by Pulse 98 96 96 Oximetry - Reevaluation(s) Reevaluation #1: 07/14/23 16:02 Dr. Veras to discuss case with Dr. Oliver regarding admission EKG Findings - EKG Comments: EKG Findings:: Interpreted the following: EKG performed at 12:31 rate 79 bpm atrial fibrillation. NE interval *, QRS duration 107, QT/QTc 440/474 Medical Decision Making - Medical Decision Making Was pt. sent in by a medical professional or institution (, PA, INTERNAL COMBUSTION ENGINE SUBASSEMBLER, urgent care, hospital, or [facility]...) When possible be specific @ -[No] Did you speak to anyone other than the patient for history (EMS, parent, family, police, friend...)? What history was obtained from this source @ - Did you review nursing and triage notes (agree or disagree)? Why? @ -[I reviewed and agree with nursing and triage notes] Were old charts reviewed (outside hosp., previous admission, EMS record, old EKG, old radiological studies, urgent care reports/EKG's, [facility] records)? Report findings @ Chart from yesterday, 07/14 reviewed Differential Diagnosis (chest pain, altered mental status, abdominal pain women, abdominal pain men, vaginal bleeding, weakness, fever, dyspnea, syncope, headache, dizziness, GI bleed, back pain, seizure, CVA, palpatations, mental health, musculoskeletal)? @ -[not applicable] EKG interpreted by me (3pts min.). @ -[As above] X-rays interpreted by me (1pt min.). @ -[None done] CT interpreted by me (1pt min.). @ -[None done] U/S interpreted by me (1pt. min.). @ -[None done] What testing was considered but not performed or refused? (CT, X-rays, U/S, labs)? Why? @ -[None] What meds were considered but not given or refused? Why? @ -[None] Did you discuss the management of the patient with other professionals (pr ofessionals i.e. , PA, INTERNAL COMBUSTION ENGINE SUBASSEMBLER, lab, RT, psych nurse, social insurance specialist, general office clerk, teacher, court collections officer, case finishing machine adjuster)? Give summary @ -[No] Was smoking cessation discussed for >3mins.? @ -[No] Was critical care preformed (if so, how long)? @ -[No] Were there social determinants of health that impacted care today? How? (Homelessness, low income, unemployed, alcoholism, drug addiction, tra nsportation, low edu. Level, literacy, decrease access to med. care, fpc, rehab)? @ -[No] Was there de-escalation of care discussed even if they declined (Discuss DNR or withdrawal of care, Hospice)? DNR status @ -[No] What co-morbidities impacted this encounter? (DM, HTN, Smoking, COPD, CAD, Cancer, CVA, ARF, Chemo, Hep., AIDS, mental health diagnosis, sleep apnea, morbid obesity)? @ -[None] Was patient admitted / discharged? Hospital course, mention meds given and route, prescriptions, significant lab abnormalities, going to OR and other pertinent info. @ Admission. 68-year-old male with a past medical history significant for TBI and metastatic prostate cancer presents to the emergency department with a chief complaint hypotension. Patient had a thorough history and physical exam performed on the ED. Physical exam is essentially unremarka ble. Heart rate regular rate and rhythm, lungs are to auscultation bilaterally abdomen soft. Patient's initial blood pressure 80/60. Patient's blood pressure 100/70 status post fluids and midrin., Patient had laboratory studies which revealed hemoglobin 9.1, WBC 6.2, sodium 137, potassium 4.0, BUN 17, Cr 1.58, magnesium 1.8, troponin negative Urinalysis reveals moderate, blood, large leukocyte esterase, 12 WBCs Stool: Negative. This is essentially negative workup in the emergency department is my decision to admit the patient for dramatic hypotension. Case discussed with Dr. Oliver, k 9 handler/ deputy who agrees and accepts the patient for admission. Patient started on IV Rocephin. Fentanyl patch ordered. Case discussed with Dr. Veras, ECP agrees with plan of care Undiagnosed new problem with uncertain prognosis? @ -[No] Drug Therapy requiring intensive monitoring for toxicity (Heparin, Nitro, Insulin, Cardizem)? @ -[No] Were any procedures done? @ -[No] Diagnosis/symptom? @ -Hypotension - Weakness Acute, or Chronic, or Acute on Chronic? @ -Acute on Chronic Uncomplicated (without systemic symptoms) or Complicated (systemic symptoms)? @ -Uncomplicated Side effects of treatment? @ -[No] Exacerbation, Progression, or Severe Exacerbation? @ -[No] Poses a threat to life or bodily function? How? (Chest pain, [place], [place], pneumonia, PE, COPD, DKA, ARF, appy, cholecystitis, CVA, Diverticulitis, Homicidal, Suicidal, threat to staff... and all critical care pts) @ -Moderate likelihood, increased fall risk - Lab Data Result diagrams: 07/14/23 12:46 07/14/23 12:01 Lab Results 07/14/23 07/14/23 07/14/23 Range/Units 12:01 12:01 12:01 WBC 6.5 (3.8-10.6) k/uL RBC 3.53 L (4.30-5.90) m/uL Hgb 10.3 L (13.0-17.5) gm/dL Hct 32.3 L (39.0-53.0) % MCV 91.4 (80.0-100.0) fL MCH 29.1 (25.0-35.0) pg MCHC 31.9 (31.0-37.0) g/dL RDW 15.3 (11.5-15.5) % Plt Count 473 H (150-450) k/uL MPV 6.8 Neutrophils % 84 % Lymphocytes % 7 % Monocytes % 6 % Eosinophils % 3 % Basophils % 0 % Neutrophils # 5.4 (1.3-7.7) k/uL Lymphocytes # 0.5 L (1.0-4.8) k/uL Monocytes # 0.4 (0-1.0) k/uL Eosinophils # 0.2 (0-0.7) k/uL Basophils # 0.0 (0-0.2) k/uL Hypochromasia Moderate PT 12.1 H (9.0-12.0) sec INR 1.2 H (<1.2) APTT 36.5 H (22.0-30.0) sec Sodium (137-145) mmol/L Potassium (3.5-5.1) mmol/L Chloride (98-107) mmol/L Carbon Dioxide (22-30) mmol/L Anion Gap mmol/L BUN (9-20) mg/dL Creatinine (0.66-1.25) mg/dL Est GFR (CKD-EPI)AfAm (>60 ml/min/1.73 sqM) Est GFR (CKD-EPI)NonAf (>60 ml/min/1.73 sqM) Glucose (74-99) mg/dL Plasma Lactic Acid Lucas (0.7-2.0) mmol/L Calcium (8.4-10.2) mg/dL Magnesium (1.6-2.3) mg/dL Total Bilirubin (0.2-1.3) mg/dL AST (17-59) U/L ALT (4-49) U/L Alkaline Phosphatase (38-126) U/L Troponin I (0.000-0.034) ng/mL Total Protein (6.3-8.2) g/dL Albumin (3.5-5.0) g/dL Urine Color Light Red Urine Appearance Cloudy (Clear) Urine pH 5.5 (5.0-8.0) Ur Specific [place] 1.030 (1.001-1.035) Urine Protein 2+ H (Negative) Urine Glucose (UA) Negative (Negative) Urine Ketones Negative (Negative) Urine Blood Large H (Negative) Urine Nitrite Negative (Negative) Urine Bilirubin Negative (Negative) Urine Urobilinogen 2.0 (<2.0) mg/dL Ur Leukocyte Esterase Large H (Negative) Urine RBC >182 H (0-5) /hpf Urine WBC 51 H (0-5) /hpf Urine WBC Clumps Rare H (None) /hpf Ur Squamous Epith Cells <1 (0-4) /hpf Urine Bacteria Rare H (None) /hpf Hyaline Casts 16 H (0-2) /lpf Urine Mucus Many H (None) /hpf 07/14/23 07/14/23 07/14/23 Range/Units 12:01 12:01 12:46 WBC 6.2 (3.8-10.6) k/uL RBC 3.20 L (4.30-5.90) m/uL Hgb 9.1 L (13.0-17.5) gm/dL Hct 29.1 L (39.0-53.0) % MCV 91.1 (80.0-100.0) fL MCH 28.6 (25.0-35.0) pg MCHC 31.4 (31.0-37.0) g/dL RDW 15.2 (11.5-15.5) % Plt Count 431 (150-450) k/uL MPV 6.9 Neutrophils % 82 % Lymphocytes % 7 % Monocytes % 7 % Eosinophils % 2 % Basophils % 0 % Neutrophils # 5.1 (1.3-7.7) k/uL Lymphocytes # 0.5 L (1.0-4.8) k/uL Monocytes # 0.4 (0-1.0) k/uL Eosinophils # 0.2 (0-0.7) k/uL Basophils # 0.0 (0-0.2) k/uL Hypochromasia Slight PT (9.0-12.0) sec INR (<1.2) APTT (22.0-30.0) sec Sodium 137 (137-145) mmol/L Potassium 4.0 (3.5-5.1) mmol/L Chloride 100 (98-107) mmol/L Carbon Dioxide 27 (22-30) mmol/L Anion Gap 10 mmol/L BUN 17 (9-20) mg/dL Creatinine 1.58 H (0.66-1.25) mg/dL Est GFR (CKD-EPI)AfAm 51 (>60 ml/min/1.73 sqM) Est GFR (CKD-EPI)NonAf 44 (>60 ml/min/1.73 sqM) Glucose 107 H (74-99) mg/dL Plasma Lactic Acid Lucas (0.7-2.0) mmol/L Calcium 8.2 L (8.4-10.2) mg/dL Magnesium 1.8 (1.6-2.3) mg/dL Total Bilirubin 0.3 (0.2-1.3) mg/dL AST 25 (17-59) U/L ALT 12 (4-49) U/L Alkaline Phosphatase 89 (38-126) U/L Troponin I <0.012 (0.000-0.034) ng/mL Total Protein 6.6 (6.3-8.2) g/dL Albumin 3.2 L (3.5-5.0) g/dL Urine Color Urine Appearance (Clear) Urine pH (5.0-8.0) Ur Specific [place] (1.001-1.035) Urine Protein (Negative) Urine Glucose (UA) (Negative) Urine Ketones (Negative) Urine Blood (Negative) Urine Nitrite (Negative) Urine Bilirubin (Negative) Urine Urobilinogen (<2.0) mg/dL Ur Leukocyte Esterase (Negative) Urine RBC (0-5) /hpf Urine WBC (0-5) /hpf Urine WBC Clumps (None) /hpf Ur Squamous Epith Cells (0-4) /hpf Urine Bacteria (None) /hpf Hyaline Casts (0-2) /lpf Urine Mucus (None) /hpf 07/14/23 07/14/23 Range/Units 12:46 12:46 WBC (3.8-10.6) k/uL RBC (4.30-5.90) m/uL Hgb (13.0-17.5) gm/dL Hct (39.0-53.0) % MCV (80.0-100.0) fL MCH (25.0-35.0) pg MCHC (31.0-37.0) g/dL RDW (11.5-15.5) % Plt Count (150-450) k/uL MPV Neutrophils % % Lymphocytes % % Monocytes % % Eosinophils % % Basophils % % Neutrophils # (1.3-7.7) k/uL Lymphocytes # (1.0-4.8) k/uL Monocytes # (0-1.0) k/uL Eosinophils # (0-0.7) k/uL Basophils # (0-0.2) k/uL Hypochromasia PT (9.0-12.0) sec INR (<1.2) APTT (22.0-30.0) sec Sodium (137-145) mmol/L Potassium (3.5-5.1) mmol/L Chloride (98-107) mmol/L Carbon Dioxide (22-30) mmol/L Anion Gap mmol/L BUN (9-20) mg/dL Creatinine (0.66-1.25) mg/dL Est GFR (CKD-EPI)AfAm (>60 ml/min/1.73 sqM) Est GFR (CKD-EPI)NonAf (>60 ml/min/1.73 sqM) Glucose (74-99) mg/dL Plasma Lactic Acid Lucas 1.3 (0.7-2.0) mmol/L Calcium (8.4-10.2) mg/dL Magnesium (1.6-2.3) mg/dL Total Bilirubin (0.2-1.3) mg/dL AST (17-59) U/L ALT (4-49) U/L Alkaline Phosphatase (38-126) U/L Troponin I (0.000-0.034) ng/mL Total Protein (6.3-8.2) g/dL Albumin (3.5-5.0) g/dL Urine Color Yellow Urine Appearance Cloudy (Clear) Urine pH 6.0 (5.0-8.0) Ur Specific [place] 1.031 (1.001-1.035) Urine Protein 1+ H (Negative) Urine Glucose (UA) Negative (Negative) Urine Ketones Negative (Negative) Urine Blood Moderate H (Negative) Urine Nitrite Negative (Negative) Urine Bilirubin Negative (Negative) Urine Urobilinogen 2.0 (<2.0) mg/dL Ur Leukocyte Esterase Large H (Negative) Urine RBC 108 H (0-5) /hpf Urine WBC 12 H (0-5) /hpf Urine WBC Clumps (None) /hpf Ur Squamous Epith Cells (0-4) /hpf Urine Bacteria Occasional H (None) /hpf Hyaline Casts 1 (0-2) /lpf Urine Mucus Few H (None) /hpf Disposition Clinical Impression: Symptomatic hypotension, Weakness Disposition: ADMITTED IP TO THIS HOSP Condition: Fair Is patient prescribed a controlled substance at d/c from ED?: No Time of Disposition: 16:06
[2023-07-14 12:35] LABS: INR 1.2 (<1.2); Partial Thromboplastin Time 36.5 sec (22.0-30.0); Prothrombin Time 12.1 sec (9.0-12.0)
[2023-07-14 12:43] LABS: Appearance,Urine Cloudy (Clear); Bacteria,Urine Rare /hpf; Bilirubin,Urine Negative (Negative); Blood,Urine Large (Negative); Color,Urine Light Red; Glucose,Urine (UA) Negative (Negative); Hyaline Casts,Urine 16 /lpf (0-2); Ketones,Urine Negative (Negative); Leukocyte Esterase,Urine Large (Negative); Mucus,Urine Many /hpf; Nitrite,Urine Negative (Negative); PH, Urine 5.5 (5.0-8.0); Protein,Urine 2+ (Negative); RBC,Urine >182 /hpf (0-5); Squamous Epithelial Cell,Urine <1 /hpf (0-4); WBC,Urine 51 /hpf (0-5)
[2023-07-14 12:44] LABS: ALT 12 U/L (4-49); AST 25 U/L (17-59); African American GFR (CKD) 51 (>60 ml/min/1.73 sqM); Albumin 3.2 g/dL (3.5-5.0); Alkaline Phosphatase 89 U/L (38-126); Anion Gap 10 mmol/L; Blood Urea Nitrogen 17 mg/dL (9-20); Calcium 8.2 mg/dL (8.4-10.2); Carbon Dioxide 27 mmol/L (22-30); Chloride 100 mmol/L (98-107); Glucose 107 mg/dL (74-99); Magnesium 1.8 mg/dL (1.6-2.3); Non-African American GFR(CKD) 44 (>60 ml/min/1.73 sqM); Sodium 137 mmol/L (137-145); Total Bilirubin 0.3 mg/dL (0.2-1.3); Total Protein 6.6 g/dL (6.3-8.2)
[2023-07-14 13:02] LABS: Basophils % (A) 0 %; Eosinophils # (A) 0.2 k/uL (0-0.7); Eosinophils % (A) 2 %; HCT 29.1 % (39.0-53.0); HGB 9.1 gm/dL (13.0-17.5); Hypochromasia Slight; Lymphocytes # (A) 0.5 k/uL (1.0-4.8); Lymphocytes % (A) 7 %; MCH 28.6 pg (25.0-35.0); MCHC 31.4 g/dL (31.0-37.0); MCV 91.1 fL (80.0-100.0); Mean Platelet Volume 6.9; Monocytes # (A) 0.4 k/uL (0-1.0); Monocytes % (A) 7 %; Neutrophils # (A) 5.1 k/uL (1.3-7.7); Neutrophils % (A) 82 %; Platelet Count 431 k/uL (150-450); RDW 15.2 % (11.5-15.5); WBC 6.2 k/uL (3.8-10.6)
--- NOTE | 2023-07-14 13:03 | XR ---
EXAMINATION TYPE: XR chest 2V DATE OF EXAM: 07/14/2023 12:43 PM CLINICAL INDICATION:Male, 68 years old with history of weakness; [facility] COMPARISON: Chest radiographs from 06/03/2023. TECHNIQUE: XR chest 2V Frontal and lateral views of the chest. FINDINGS: Lungs/Pleura: There is no evidence of pleural effusion, focal consolidation, or pneumothorax. Pulmonary vascularity: Unremarkable. Heart/mediastinum: Cardiomediastinal silhouette is enlarged and stable. Musculoskeletal: No acute osseous pathology. IMPRESSION: No acute cardiopulmonary disease/process.
[2023-07-14 13:37] LABS: Appearance,Urine Cloudy (Clear); Bacteria,Urine Occasional /hpf; Bilirubin,Urine Negative (Negative); Blood,Urine Moderate (Negative); Color,Urine Yellow; Glucose,Urine (UA) Negative (Negative); Hyaline Casts,Urine 1 /lpf (0-2); Ketones,Urine Negative (Negative); Leukocyte Esterase,Urine Large (Negative); Mucus,Urine Few /hpf; Nitrite,Urine Negative (Negative); Protein,Urine 1+ (Negative); RBC,Urine 108 /hpf (0-5); Specific Gravity,Urine 1.031 (1.001-1.035); WBC,Urine 12 /hpf (0-5)
[2023-07-14] MEDS ORDERED: NALOXONE 0.4 MG/ML 1 ML VIAL IV PRN (16:09)
[2023-07-14] MEDS ORDERED: ONDANSETRON 4 MG/2 ML VIAL IVP PRN (16:09)
[2023-07-14] MEDS: SODIUM CHLORIDE 0.9% 1,000 ML IV SCH ×3 (17:05→23:16)
[2023-07-14] MEDS ORDERED: clonazePAM 0.5 MG TAB PO PRN (21:56)
[2023-07-14] MEDS ORDERED: ACETAMINOPHEN TAB 325 MG TAB PO PRN (21:56)
[2023-07-14] MEDS: levETIRAcetam 500 MG TAB PO SCH (23:11)
[2023-07-14] MEDS: FLECAINIDE 50 MG TAB PO SCH (23:11)
[2023-07-14] MEDS: clonazePAM 1 MG TAB PO SCH (23:11)
[2023-07-15] MEDS: SODIUM CHLORIDE 0.9% 1,000 ML IV SCH ×3 (00:48→20:01)
[2023-07-15] MEDS: MIDODRINE 5 MG TAB PO SCH ×5 (06:17→20:01)
[2023-07-15] MEDS: FLECAINIDE 50 MG TAB PO SCH ×2 (08:19→20:01)
[2023-07-15] MEDS: CHOLECALCIFEROL 25 MCG (1000 IU) TABLET PO SCH (08:20)
[2023-07-15] MEDS: TAMSULOSIN 0.4 MG CAP.ER.24H PO SCH (08:20)
[2023-07-15] MEDS: SENNOSIDES 8.6 MG TAB PO SCH ×2 (08:20→20:01)
[2023-07-15] MEDS: GABAPENTIN 300 MG CAP PO SCH ×2 (08:20→20:02)
[2023-07-15] MEDS: levETIRAcetam 500 MG TAB PO SCH ×2 (08:21→20:02)
[2023-07-15] MEDS: FLUDROCORTISONE 0.1 MG TAB PO SCH (08:24)
[2023-07-15 11:44] LABS: Basophils % (A) 0 %; Eosinophils # (A) 0.1 k/uL (0-0.7); Eosinophils % (A) 2 %; HCT 28.9 % (39.0-53.0); HGB 9.1 gm/dL (13.0-17.5); Hypochromasia Moderate; Lymphocytes # (A) 0.3 k/uL (1.0-4.8); Lymphocytes % (A) 5 %; MCH 28.9 pg (25.0-35.0); MCHC 31.6 g/dL (31.0-37.0); MCV 91.5 fL (80.0-100.0); Mean Platelet Volume 6.7; Monocytes # (A) 0.4 k/uL (0-1.0); Monocytes % (A) 5 %; Neutrophils % (A) 87 %; Platelet Count 413 k/uL (150-450); RBC 3.16 m/uL (4.30-5.90); RDW 15.1 % (11.5-15.5); WBC 6.9 k/uL (3.8-10.6)
[2023-07-15 11:59] LABS: African American GFR (CKD) 75 (>60 ml/min/1.73 sqM); Anion Gap 6 mmol/L; Blood Urea Nitrogen 13 mg/dL (9-20); Calcium 7.7 mg/dL (8.4-10.2); Carbon Dioxide 26 mmol/L (22-30); Chloride 102 mmol/L (98-107); Glucose 105 mg/dL (74-99); Non-African American GFR(CKD) 65 (>60 ml/min/1.73 sqM); Potassium 4.1 mmol/L (3.5-5.1); Sodium 134 mmol/L (137-145)
[2023-07-15] MEDS: RIVAROXABAN 20 MG TAB PO SCH (18:12)
[2023-07-15] MEDS: clonazePAM 1 MG TAB PO SCH (20:01)
--- NOTE | 2023-07-16 07:38 | P.HPIM ---
History of Present Illness H&P Date: 07/15/23 Chief Complaint: weakness, fatigue, hypotension 68-year-old patient well-known to my practice long-standing history of metastatic prostate cancer, developed hypotension, urinary obstruction, urinary tract infection, nausea,. This patient is awake alert oriented 3 current vital signs are stable blood pressure has improved though still taking meds to support blood pressure, suspect underlying urinary tract infection with early sepsis Review of Systems Constitutional: Reports fatigue, Reports malaise, Reports weakness Ears, nose, mouth and throat: Reports as per HPI Cardiovascular: Reports as per HPI Respiratory: Reports cough Gastrointestinal: Reports nausea (oliguria) Genitourinary: Reports as per HPI (oliguria, obstruction, UTI,) Musculoskeletal: Reports muscle weakness Integumentary: Reports as per HPI Neurological: Reports as per HPI (significant low back pain) Psychiatric: Reports as per HPI Endocrine: Reports as per HPI Past Medical History Past Medical History: Atrial Fibrillation, Cancer, Hypertension, Prostate Disorder, Sleep Apnea/CPAP/BIPAP Additional Past Medical History / Comment(s): Prostate cancer with mets to spine treated with hormone therapy and radiation, back pain, past R sided sciatica, nonischemic cardiomyopathy, ABBIE with Cpap, bilateral lower exremity edema at times, migraines, benign colon polyp. History of Any Multi-Drug Resistant Organisms: None Reported Past Surgical History: Heart Catheterization, Orthopedic Surgery Additional Past Surgical History / Comment(s): ORIF left wrist, DEANNE/cardiover que, colonoscopy Past Anesthesia/Blood Transfusion Reactions: Previous Problems w/ Anesthesia Additional Past Anesthesia/Blood Transfusion Reaction / Comment(s): Woke up with CP after colonoscopy, EKG abn. Past Psychological History: No Psychological Hx Reported Additional Psychological History / Comment(s): Pt resides with his spouse. He uses no assistive device but was using a hospital walker here at the hospital last night. Pt is independent. He has a Cpap. Smoking Status: Former smoker Past Alcohol Use History: None Reported Additional Past Alcohol Use History / Comment(s): Pt started smoking in 2002 and was a 3 ppd smoker then quit in 2018. He was a heavy drinker in the past but now drinks rarely. Past Drug Use History: None Reported Additional Drug Use History / Comment(s): Marijuana in his 20s, pt states recently using a marijuana pen at bedtime. - Past Family History Father Family Medical History: Cancer, CVA/TIA Additional Family Medical History / Comment(s): Father of a stroke at the age of 91 yrs. He had prostate cancer Mother Family Medical History: No Reported History Additional Family Medical History / Comment(s): Mother is healthy and is 93 yrs old. Medications and Allergies Home Medications Medication Instructions Recorded Confirmed Type Rivaroxaban [Xarelto] 20 mg PO W/SUPPER 09/04/18 07/14/23 History clonazePAM [KlonoPIN] 1 mg PO HS 09/04/18 07/14/23 History Gabapentin [Neurontin] 300 mg PO BID 03/27/22 07/14/23 History Metoprolol Succinate [Toprol XL] 100 mg PO DAILY 03/27/22 07/14/23 History fentaNYL 75MCG/HR PATCH [Duragesic 1 patch TRANSDERM Q72H 3 Days #3 04/12/23 07/14/23 Rx 75MCG/HR] patch Acetaminophen Tab [Tylenol] 650 mg PO Q6H PRN 07/05/23 07/14/23 History Flecainide [Tambocor] 100 mg PO Q12H 07/05/23 07/14/23 History Fludrocortisone [Florinef] 0.1 mg PO DAILY 07/05/23 07/14/23 History Midodrine HCl [ProAmatine] 10 mg PO TID 07/05/23 07/14/23 History Sennosides [Senna Lax] 17.2 mg PO BID 07/05/23 07/14/23 History Tamsulosin HCl [Flomax] 0.4 mg PO DAILY 07/05/23 07/14/23 History clonazePAM [KlonoPIN] 0.5 mg PO DAILY PRN 07/05/23 07/14/23 History levETIRAcetam [Keppra] 500 mg PO Q12H 07/05/23 07/14/23 History oxyCODONE-APAP 10-325MG [Percocet 1 tab PO QID PRN 07/05/23 07/14/23 History 10-325 mg] Cholecalciferol [Vitamin D3 (25 50 mcg PO DAILY 07/14/23 07/14/23 History Mcg = 1000 Iu)] Allergies Allergy/AdvReac Type Severity Reaction Status Date / Time codeine AdvReac Nausea/head Verified 07/14/23 13:01 ache Physical Exam Osteopathic Statement: *. No significant issues noted on an osteopathic structural exam other than those noted in the History and Physical/Consult. Vitals: Vital Signs Temp Pulse Resp BP Pulse Ox 07/16/23 04:00 100 18 94/60 96 07/15/23 23:43 98.8 F 92 18 98/64 97 07/15/23 19:57 99.2 F 89 18 95/62 95 07/15/23 16:00 99.0 F 87 16 84/62 97 07/15/23 14:00 16 07/15/23 12:00 100.3 F H 93 16 104/72 96 07/15/23 08:55 99.8 F H 85 18 100/60 98 Intake and Output 07/15/23 07/16/23 07/16/23 22:59 06:59 14:59 Other: Voiding Method Indwelling Catheter Indwelling Catheter General: [Patient awake, alert and oriented times 3. Patient in no acute distress.] HEENT: [PERRL. EOMI. No pharyngeal erythema or exudate.] Neck: [No adenopathy.] Cardiac: [Heart regular in rate and rhythm. No S3. No S4. No clicks, rubs. No murmur.] Lungs: [Clear to auscultation bilaterally.] Abdomen: [No mass. No organomegaly. Bowel sounds presnt and normoactive in all 4 quadrants.] Extremes: [No edema no cyanosis no claudication normal pulses] : normal male genitalia Musculoskeletal: [No joint erythema, edema or tenderness.] Skin: [No rash.] Neurologic: [No lateralizing deficits. CN II - XII grossly intact.] Lymphatic: [No adenopathy.] Results CBC & Chem 7: 07/15/23 10:43 07/15/23 10:43 Labs: Abnormal Lab Results - Last 24 Hours (Table) 07/15/23 07/15/23 Range/Units 10:43 10:43 RBC 3.16 L (4.30-5.90) m/uL Hgb 9.1 L (13.0-17.5) gm/dL Hct 28.9 L (39.0-53.0) % Lymphocytes # 0.3 L (1.0-4.8) k/uL Sodium 134 L (137-145) mmol/L Glucose 105 H (74-99) mg/dL Calcium 7.7 L (8.4-10.2) mg/dL Thrombosis Risk Factor Assmnt - DVT/VTE Prophylaxis DVT/VTE Prophylaxis: Pharmacologic Prophylaxis ordered (currently on Xarelto) - Choose All That Apply Any of the Below Risk Factors Present?: Yes Each Risk Factor Represents 2 Points: Age 61-74 years Thrombosis Risk Factor Assessment Total Risk Factor Score: 2 Thrombosis Risk Factor Assessment Level: Low Risk Assessment and Plan (1) Symptomatic hypotension Current Visit: Yes Status: Acute Code(s): I95.9 - HYPOTENSION, UNSPECIFIED SNOMED Code(s): 38523219 (2) Weakness Current Visit: Yes Status: Acute Code(s): R53.1 - WEAKNESS SNOMED Code(s): 45933660 (3) Atrial fibrillation with RVR Current Visit: No Status: Acute Code(s): I48.91 - UNSPECIFIED ATRIAL FIBRILLATION SNOMED Code(s): 949683176070335 (4) Back pain Current Visit: No Status: Acute Code(s): M54.9 - DORSALGIA, UNSPECIFIED SNOMED Code(s): 763137256 (5) Chest pain Current Visit: No Status: Acute Code(s): R07.9 - CHEST PAIN, UNSPECIFIED SNOMED Code(s): 34019380 (6) Left-sided weakness Current Visit: No Status: Acute Code(s): R53.1 - WEAKNESS SNOMED Code(s): 482559333 (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 Current Visit: No Status: Acute Code(s): C61 - MALIGNANT NEOPLASM OF PROSTATE; Z19.2 - HORMONE RESISTANT MALIGNANCY STATUS SNOMED Code(s): 605754795920848 (8) Orthostatic hypotension Current Visit: No Status: Acute Code(s): I95.1 - ORTHOSTATIC HYPOTENSION SNOMED Code(s): 05792770 (9) Urinary retention Current Visit: No Status: Acute Code(s): R33.9 - RETENTION OF URINE, UNSPECIFIED SNOMED Code(s): 994044613 (10) Wedge compression fracture of L3 vertebra Current Visit: No Status: Acute Code(s): S32.030A - WEDGE COMPRESSION FRACTURE OF THIRD LUMBAR VERTEBRA, INIT SNOMED Code(s): 062158337 Plan: the patient is a hospital IV fluids IV antibiotics Consult urology Consult oncology Waiting on urine culture Pain management Continue to follow Time with Patient: Greater than 30
[2023-07-16] MEDS: levETIRAcetam 500 MG TAB PO SCH ×2 (08:35→20:25)
[2023-07-16] MEDS: FLECAINIDE 50 MG TAB PO SCH ×2 (08:35→20:28)
[2023-07-16] MEDS: CHOLECALCIFEROL 25 MCG (1000 IU) TABLET PO SCH (08:35)
[2023-07-16] MEDS: SENNOSIDES 8.6 MG TAB PO SCH ×2 (08:35→20:25)
[2023-07-16] MEDS: MIDODRINE 5 MG TAB PO SCH ×3 (08:35→21:39)
[2023-07-16] MEDS: FLUDROCORTISONE 0.1 MG TAB PO SCH (08:35)
[2023-07-16] MEDS: TAMSULOSIN 0.4 MG CAP.ER.24H PO SCH (08:35)
[2023-07-16] MEDS: GABAPENTIN 300 MG CAP PO SCH ×2 (08:35→20:28)
[2023-07-16] MEDS: SODIUM CHLORIDE 0.9% 1,000 ML IV SCH ×3 (11:20→23:19)
--- NOTE | 2023-07-16 14:13 | CT ---
EXAMINATION TYPE: CT brain wo con DATE OF EXAM: 07/16/2023 COMPARISON: 06/03/2023 HISTORY: confusion and ams CT DLP: 1186.4 mGycm Automated exposure control for dose reduction was used. FINDINGS: Basal ganglia calcifications are stable. Mild/moderate generalized degenerative change. Faint hypoatt enuation the white matter most typical of remote microvascular ischemia. Hyperdensity along the anter ior margin of the frontal bone most likely artifactual in stable. Previously noted areas of acute intracranial hemorrhage have resolved. Stable right frontal bone fracture. Orbits are symmetric. No midline shift or mass effect. Craniocerv ical junction maintained. Sella turcica is normal. IMPRESSION: DEGENERATIVE CHANGE WITH NO EVIDENCE OF ACUTE INTRACRANIAL HEMORRHAGE OR MASS EFFECT. HYPERDENSITY AL SHARON THE FRONTAL LOBES BILATERALLY STABLE FROM PRIOR EXAM AND LIKELY ARTIFACTUAL
--- NOTE | 2023-07-16 16:06 | P.CONS ---
History of Present Illness - Reason for Consult Consult date: 07/16/23 metastatic prostate cancer Requesting physician: Hoang Oliver Jr - Chief Complaint hypotension, weakness - History of Present Illness Patient is a 68 year male with a significant history of metastatic prostate cancer. He is a patient of Dr. Pack. He had Prostate Bx on 04/04/17 revealing Rosemary 4+3=7 Adenocarcinoma involving L mid & L Lateral base. He has been on m ultiple treatment regimens due to skeletal metastasis. Most recently was started on Nubeqa 05/2023, last taking medication approx 1 month ago and only took medication for 1 month before stopping. It was held due to potential side effects of hypotension. 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 Patient presented to the emergency room with complaints of dizziness and lower extremity weakness. Patient was previously at rehab and had Rome catheter removed prior to discharge. Patient reports he was home for approximately 2 days and had little urinary output and began experiencing increasing weakness and dizziness. At todays visit, pt has no reported complaints, but he is having some confused speech, but is oriented to person and place. Upon admission blood pressure was found to be 79/53. Tmax 100.3. Rome catheter was placed. UA suspicious for UTI. Patient was started on Rocephin. Chest x-ray revealed no acute cardiopulmonary processes. WBC 6.9, hemoglobin 9.1, platelets 413,000. Review of Systems 10 point ROS is negative except as stated in the HPI Past Medical History Past Medical History: Atrial Fibrillation, Cancer, Hypertension, Prostate Disorder, Sleep Apnea/CPAP/BIPAP Additional Past Medical History / Comment(s): Prostate cancer with mets to spine treated with hormone therapy and radiation, back pain, past R sided sciatica, n onischemic cardiomyopathy, ABBIE with Cpap, bilateral lower exremity edema at times, migraines, benign colon polyp. History of Any Multi-Drug Resistant Organisms: None Reported Past Surgical History: Heart Catheterization, Orthopedic Surgery Additional Past Surgical History / Comment(s): ORIF left wrist, DEANNE/cardioversion, colonoscopy Past Anesthesia/Blood Transfusion Reactions: Previous Problems w/ Anesthesia Additional Past Anesthesia/Blood Transfusion Reaction / Comm: Woke up with CP after colonoscopy, EKG abn. Past Psychological History: No Psychological Hx Reported Additional Psychological History / Comment(s): Pt resides with his spouse. He uses no assistive device but was using a hospital walker here at the hospital last night. Pt is independent. He has a Cpap. Smoking Status: Former smoker Past Alcohol Use History: None Reported Additional Past Alcohol Use History / Comment(s): Pt started smoking in 2002 and was a 3 ppd smoker then quit in 2018. He was a heavy drinker in the past but now drinks rarely. Past Drug Use History: None Reported Additional Drug Use History / Comment(s): Marijuana in his 20s, pt states recently using a marijuana pen at bedtime. - Past Family History Father Family Medical History: Cancer, CVA/TIA Additional Family Medical History / Comment(s): Father of a stroke at the age of 91 yrs. He had prostate cancer Mother Family Medical History: No Reported History Additional Family Medical History / Comment(s): Mother is healthy and is 93 yrs old. Medications and Allergies Home Medications Medication Instructions Recorded Confirmed Type Rivaroxaban [Xarelto] 20 mg PO W/SUPPER 09/04/18 07/14/23 History clonazePAM [KlonoPIN] 1 mg PO HS 09/04/18 07/14/23 History Gabapentin [Neurontin] 300 mg PO BID 03/27/22 07/14/23 History Metoprolol Succinate [Toprol XL] 100 mg PO DAILY 03/27/22 07/14/23 History fentaNYL 75MCG/HR PATCH [Duragesic 1 patch TRANSDERM Q72H 3 Days #3 04/12/23 07/14/23 Rx 75MCG/HR] patch Acetaminophen Tab [Tylenol] 650 mg PO Q6H PRN 07/05/23 07/14/23 History Flecainide [Tambocor] 100 mg PO Q12H 07/05/23 07/14/23 History Fludrocortisone [Florinef] 0.1 mg PO DAILY 07/05/23 07/14/23 History Midodrine HCl [ProAmatine] 10 mg PO TID 07/05/23 07/14/23 History Sennosides [Senna Lax] 17.2 mg PO BID 07/05/23 07/14/23 History Tamsulosin HCl [Flomax] 0.4 mg PO DAILY 07/05/23 07/14/23 History clonazePAM [KlonoPIN] 0.5 mg PO DAILY PRN 07/05/23 07/14/23 History levETIRAcetam [Keppra] 500 mg PO Q12H 07/05/23 07/14/23 History oxyCODONE-APAP 10-325MG [Percocet 1 tab PO QID PRN 07/05/23 07/14/23 History 10-325 mg] Cholecalciferol [Vitamin D3 (25 50 mcg PO DAILY 07/14/23 07/14/23 History Mcg = 1000 Iu)] Allergies Allergy/AdvReac Type Severity Reaction Status Date / Time codeine AdvReac Nausea/head Verified 07/14/23 13:01 ache Physical Exam Vitals: Vital Signs Temp Pulse Pulse Resp BP Pulse Ox 07/16/23 14:00 108 H 100 18 07/16/23 12:00 108 H 18 100/64 96 07/16/23 08:02 95 07/16/23 08:00 98.1 F 115 H 100 18 121/74 95 07/16/23 04:00 100 18 94/60 96 07/15/23 23:43 98.8 F 92 18 98/64 97 07/15/23 19:57 99.2 F 89 18 95/62 95 07/15/23 16:00 99.0 F 87 16 84/62 97 Intake and Output 07/16/23 07/16/23 07/16/23 06:59 14:59 22:59 Intake Total 180 Balance 180 Intake: Oral 180 Other: Voiding Method Indwelling Catheter Indwelling Catheter - Constitutional General appearance: average body habitus, no acute distress - EENT Eyes: anicteric sclerae, EOMI ENT: hearing grossly normal - Respiratory Respiratory: bilateral: CTA - Cardiovascular Rhythm: regular Heart sounds: normal: S1, S2 Abnormal Heart Sounds: no systolic murmur, no diastolic murmur, no rub, no S3 Gallop, no S4 Gallop, no click, no other - Gastrointestinal General gastrointestinal: soft, no tenderness - Integumentary Integumentary: no cyanotic, no jaundiced - Musculoskeletal Musculoskeletal: generalized weakness - Psychiatric confused, but A&O to person and place Results CBC & Chem 7: 07/15/23 10:43 07/15/23 10:43 Chest x-ray: report reviewed Assessment and Plan (1) UTI (urinary tract infection) Current Visit: Yes Status: Acute Priority: High Code(s): N39.0 - URINARY TRACT INFECTION, SITE NOT SPECIFIED SNOMED Code(s): 62396920 (2) Symptomatic hypotension Current Visit: Yes Status: Acute Priority: High Code(s): I95.9 - HYPOTENSION, UNSPECIFIED SNOMED Code(s): 16882107 (3) Metastatic castration-resistant adenocarcinoma of prostate Current Visit: Yes Status: Acute Priority: High Code(s): C61 - MALIGNANT NEOPLASM OF PROSTATE; Z19.2 - HORMONE RESISTANT MALIGNANCY STATUS SNOMED Code(s): 695273612330991 (4) Urinary retention Current Visit: Yes Status: Acute Priority: High Code(s): R33.9 - RETENTION OF URINE, UNSPECIFIED SNOMED Code(s): 727539455 Plan: Urinary retention/UTI: -UA suspicious for UTI. Patient has been started on Rocephin. Urine culture pending - Rome catheter placed. Urology consulted - Blood cultures ordered - BP improved. Afebrile x 24 hours. No leukocytosis noted, WBC 6.9 Confusion: -CT head ordered to r/o other underlying etiology for acute confusion. Hx TBI and metastatic prostate cancer -Likely r/t underlying UTI. Continue treatment for the same Metastatic prostate cancer: -Pt of Dr. Pack. He has been on multiple treatment regimens due to skeletal metastasis. Most recently was started on Nubeqa 05/2023, last taking medication approx 1 month ago and only took medication for 1 month before stopping. It was held due to potential side effects of hypotension. -Will continue to hold Nubeqa. Will schedule f/u in clinic once acutely recovered to reassess pt and to discuss plan of care/treatment options with patient Pt and updated on POC Dr attests: I have performed H&P and developed impression and plan of care for patient, discussed with dictator. I agree with dictated note, documented as a scribe
--- NOTE | 2023-07-16 16:25 | P.PN ---
Subjective Progress Note Date: 07/16/23 H&P Date: 07/15/23 Chief Complaint: weakness, fatigue, hypotension 68-year-old patient well-known to my practice long-standing history of metastatic prostate cancer, developed hypotension, urinary obstruction, urinary tract infection, nausea,. This patient is awake alert oriented 3 current vital signs are stable blood pressure has improved though still taking meds to support blood pressure, suspect underlying urinary tract infection with early sepsis 07/16/2023 fluctuating confusion, staff reports he reorients easily. Maintained on gentle IV fluid hydration with significant improvement in blood pressures. Mild tachycardia. Denies chest pain, palpitations or shortness of breath. Maintaining O2 sats in the mid 90s on 2 L nasal cannula. Rome catheter placed for urinary retention, culture pending. Maintained on IV ceftriaxone. Afebrile, T-max 100.3, normal WBC. Blood cultures in progress. Renal function improving, BUN 13, creatinine decreased to 1.14. Sodium 134. Objective - Vital Signs Vital signs: Vital Signs Temp 98.1 F 07/16/23 08:00 Pulse 100 07/16/23 14:00 Resp 18 07/16/23 14:00 BP 100/64 07/16/23 12:00 Pulse Ox 96 07/16/23 12:00 FiO2 Intake & Output 07/15/23 07/16/23 07/16/23 18:59 06:59 18:59 Intake Total 540 180 Output Total 450 Balance 90 180 Weight 106.141 kg Intake: Oral 540 180 Output: Urine 450 Other: Voiding Method Indwelling Catheter Indwelling Catheter Indwelling Catheter - Exam General: Sitting up in bed, alert and oriented 3, no acute distress. HEENT: [Normal cephalic, PERRL. EOMI. MMM. Neck: Supple, no JVD Cardiac: [Heart regular in rate and rhythm. Mild tachycardia. No S3. No S4. No clicks, rubs. No murmur.] Lungs: [Unlabored, equal air entry, Clear to auscultation bilaterally.] Abdomen: [Soft, non-distended, nontender .No mass. No organomegaly. +BS Extremes: [No edema no cyanosis no claudication normal pulses] Skin: No rash, warm and dry. - Labs CBC & Chem 7: 07/15/23 10:43 10/08/23 10:43 Assessment and Plan Assessment: Assessment and Plan (1) Symptomatic hypotension Current Visit: Yes Status: Acute Code(s): I95.9 - HYPOTENSION, UNSPECIFIED SNOMED Code(s): 05638087 (2) Weakness Current Visit: Yes Status: Acute Code(s): R53.1 - WEAKNESS SNOMED Code(s): 41143656 (3) Atrial fibrillation with RVR Current Visit: No Status: Acute Code(s): I48.91 - UNSPECIFIED ATRIAL FIBRIL LATION SNOMED Code(s): 387120865095033 (4) Back pain Current Visit: No Status: Acute Code(s): M54.9 - DORSALGIA, UNSPECIFIED SNOMED Code(s): 449877471 (5) Chest pain Current Visit: No Status: Acute Code(s): R07.9 - CHEST PAIN, UNSPECIFIED SNOMED Code(s): 89133435 (6) Left-sided weakness Current Visit: No Status: Acute Code(s): R53.1 - WEAKNESS SNOMED Code(s): 694858482 (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 Current Visit: No Status: Acute Code(s): C61 - MALIGNANT NEOPLASM OF PROSTATE; Z19.2 - HORMONE RESISTANT MALIGNANCY STATUS SNOMED Code(s): 354 919941116324 (8) Orthostatic hypotension Current Visit: No Status: Acute Code(s): I95.1 - ORTHOSTATIC HYPOTENSION SNOMED Code(s): 81646697 (9) Urinary retention Current Visit: No Status: Acute Code(s): R33.9 - RETENTION OF URINE, UNSPECIFIED SNOMED Code(s): 949907581 (10) Wedge compression fracture of L3 vertebra Current Visit: No Status: Acute Code(s): S32.030A - WEDGE COMPRESSION FRACTURE OF THIRD LUMBAR VERTEBRA, INIT SNOMED Code(s): 535719147 (11) sepsis secondary to acute UTI, culture pending (12) History of TBI, workup completed at [facility]-reported per S.O. (13) fluctuating delirium ,acute metabolic encephalopathy, possibly related to metastatic malignancy, possibly residual effects of skull fracture, possibly related to infection. Brain CT pending (14) chronic atrial fibrillation (15) morbid obesity,BMI 30 (16) obstructive sleep apnea and wears CPAP (17) former nicotine dependence (18) marijuana use Plan: Continue on current medication regime ,monitoring and symptomatic treatment. Brain CT pending. IV antibiotics of ceftriaxone while urine cultures finalize. Blood cultures pending. Urology consult in place, recommendations pending. Continue with Flomax. PT/OT evaluation pending. The impression and plan of care has been dictated as directed. : I performed a history and examination of this patient, discussed the same with the dictator. I agree with the dictator's note ,documented as a scribe. Any additional findings or plans will be noted.
[2023-07-16] MEDS: RIVAROXABAN 20 MG TAB PO SCH (17:55)
[2023-07-16] MEDS: clonazePAM 1 MG TAB PO SCH (20:28)
[2023-07-17] MEDS: MIDODRINE 5 MG TAB PO SCH ×3 (08:23→20:06)
[2023-07-17] MEDS: TAMSULOSIN 0.4 MG CAP.ER.24H PO SCH (08:23)
[2023-07-17] MEDS: SENNOSIDES 8.6 MG TAB PO SCH ×2 (08:23→20:06)
[2023-07-17] MEDS: CHOLECALCIFEROL 25 MCG (1000 IU) TABLET PO SCH (08:23)
[2023-07-17] MEDS: PANTOPRAZOLE 40 MG/10 ML VIAL IVP SCH (08:23)
[2023-07-17] MEDS: FLUDROCORTISONE 0.1 MG TAB PO SCH (08:23)
[2023-07-17] MEDS: GABAPENTIN 300 MG CAP PO SCH ×2 (08:23→20:06)
[2023-07-17] MEDS: FLECAINIDE 50 MG TAB PO SCH ×2 (08:23→20:06)
[2023-07-17] MEDS: levETIRAcetam 500 MG TAB PO SCH ×2 (08:24→20:06)
[2023-07-17 11:42] LABS: Basophils % (A) 0 %; Eosinophils # (A) 0.1 k/uL (0-0.7); Eosinophils % (A) 3 %; HCT 26.5 % (39.0-53.0); HGB 8.4 gm/dL (13.0-17.5); Hypochromasia Moderate; Lymphocytes # (A) 0.4 k/uL (1.0-4.8); Lymphocytes % (A) 8 %; MCH 28.7 pg (25.0-35.0); MCHC 31.6 g/dL (31.0-37.0); MCV 90.9 fL (80.0-100.0); Mean Platelet Volume 7.1; Monocytes # (A) 0.4 k/uL (0-1.0); Monocytes % (A) 9 %; Neutrophils # (A) 3.5 k/uL (1.3-7.7); Neutrophils % (A) 78 %; Platelet Count 322 k/uL (150-450); RBC 2.91 m/uL (4.30-5.90); RDW 15.1 % (11.5-15.5); WBC 4.5 k/uL (3.8-10.6)
[2023-07-17 12:05] LABS: African American GFR (CKD) >90 (>60 ml/min/1.73 sqM); Anion Gap 8 mmol/L; Blood Urea Nitrogen 9 mg/dL (9-20); Calcium 7.2 mg/dL (8.4-10.2); Carbon Dioxide 24 mmol/L (22-30); Chloride 104 mmol/L (98-107); Glucose 98 mg/dL (74-99); Non-African American GFR(CKD) 89 (>60 ml/min/1.73 sqM); Potassium 3.8 mmol/L (3.5-5.1); Sodium 136 mmol/L (137-145)
--- NOTE | 2023-07-17 12:46 | P.PN ---
Subjective Progress Note Date: 07/17/23 Principal diagnosis: UTI, confusion At today's visit patient is resting comfortably in bed. Confusion has improved. Patient reports he is feeling well but fatigued. BP has improved. Patient afebrile x 48hrs. Urine culture positive for Enterococcus faecalis VRE, ID consulted for abx management Objective - Vital Signs Vital signs: Vital Signs Temp 97.5 F L 07/17/23 08:00 Pulse 100 07/17/23 08:00 Resp 18 07/17/23 08:00 BP 99/65 07/17/23 08:00 Pulse Ox 90 L 07/17/23 08:00 FiO2 Intake & Output 07/16/23 07/17/23 07/17/23 18:59 06:59 18:59 Intake Total 180 Output Total 800 Balance 180 -800 Weight 106.141 kg Intake: Oral 180 Output: Urine 800 Other: Voiding Method Indwelling Catheter Indwelling Catheter Indwelling Catheter # Bowel Movements 1 - Constitutional General appearance: Present: average body habitus, no acute distress - EENT Eyes: Present: anicteric sclerae, EOMI ENT: Present: hearing grossly normal - Respiratory Details: breathing even and unlabored - Cardiovascular Details: skin warm and dry - Gastrointestinal General gastrointestinal: Present: soft. Absent: tenderness - Integumentary Integumentary: Absent: cyanotic, jaundiced - Musculoskeletal Musculoskeletal: Present: generalized weakness - Psychiatric Psychiatric: Present: A&O x's 3 - Labs CBC & Chem 7: 07/17/23 10:37 07/17/23 10:37 Labs: Abnormal Lab Results - Last 24 Hours (Table) 07/17/23 07/17/23 Range/Units 10:37 10:37 RBC 2.91 L (4.30-5.90) m/uL Hgb 8.4 L (13.0-17.5) gm/dL Hct 26.5 L (39.0-53.0) % Lymphocytes # 0.4 L (1.0-4.8) k/uL Sodium 136 L (137-145) mmol/L Calcium 7.2 L (8.4-10.2) mg/dL Microbiology - Last 24 Hours (Table) 07/14/23 12:46 Urine Culture - Final Urine,Catheterized Enterococcus faecalis VRE Assessment and Plan (1) UTI (urinary tract infection) Current Visit: Yes Status: Acute Priority: High Code(s): N39.0 - URINARY TRACT INFECTION, SITE NOT SPECIFIED SNOMED Code(s): 91412754 (2) Symptomatic hypotension Current Visit: Yes Status: Acute Priority: High Code(s): I95.9 - HYPOTENSION, UNSPECIFIED SNOMED Code(s): 33139317 (3) Metastatic castration-resistant adenocarcinoma of prostate Current Visit: Yes Status: Acute Priority: High Code(s): C61 - MALIGNANT NEOPLASM OF PROSTATE; Z19.2 - HORMONE RESISTANT MALIGNANCY STATUS SNOMED Code(s): 848634593644864 (4) Urinary retention Current Visit: Yes Status: Acute Priority: High Code(s): R33.9 - RETENTION OF URINE, UNSPECIFIED SNOMED Code(s): 914016682 Plan: Urinary retention/UTI: -Urine culture positive for Enterococcus faecalis VRE, ID consulted for abx management - Rome catheter placed. Urology following - Blood cultures pending - BP improved. Afebrile x 48 hours. No leukocytosis noted, WBC 4.5 Confusion: -CT head obtained, showed degenerative change without evidence of acute intracra nial hemorrhage or mass effect. Hyperdensity along the frontal lobes bilaterally stable from last exam -Confusion improved today -Likely r/t underlying UTI. Continue treatment for the same. Will continue to monitor Metastatic prostate cancer: -Patient has been on multiple treatment regimens due to disease progression. Most recently was started on Nubeqa 05/2023, last taking medication approx 1 month ago and only took medication for 1 month before stopping. It was held due to potential side effects of hypotension, however this is not a common adverse effect from medication -Will continue to hold Nubeqa and upcoming lupron injection. Will reassess pt to ensure he has adequately recovered from acute condition before proceeding with treatment. Clinic f/u with Dr. Pack in discharge plan Pt and updated on POC
--- NOTE | 2023-07-17 13:21 | P.GSCN ---
History of Present Illness Consult date: 07/17/23 Reason for Consult: Urinary retention History of present illness: This is a 68-year-old male with history metastatic prostate cancer on androgen deprivation therapy, he is a patient of Dr. Pack and Dr Blair. He's admitted to the hospital for confusion, urine culture does show VRE. Urology is consulted for urinary retention. He had a Roem catheter placed on presentation for PVR of 500 mL. Patient was unable to void, and was unaware of his retention. Patient hasn't had a recent traumatic brain injury and has been having intermittent urinary retention. He is currently on Flomax Review of Systems ROS unobtainable: due to mental status Past Medical History Past Medical History: Atrial Fibrillation, Cancer, Hypertension, Prostate Disorder, Sleep Apnea/CPAP/BIPAP Additional Past Medical History / Comment(s): Prostate cancer with mets to spine treated with hormone therapy and radiation, back pain, past R sided sciatica, n onischemic cardiomyopathy, ABBIE with Cpap, bilateral lower exremity edema at times, migraines, benign colon polyp. History of Any Multi-Drug Resistant Organisms: None Reported Past Surgical History: Heart Catheterization, Orthopedic Surgery Additional Past Surgical History / Comment(s): ORIF left wrist, DEANNE/cardioversion, colonoscopy Past Anesthesia/Blood Transfusion Reactions: Previous Problems w/ Anesthesia Additional Past Anesthesia/Blood Transfusion Reaction / Comm: Woke up with CP after colonoscopy, EKG abn. Past Psychological History: No Psychological Hx Reported Additional Psychological History / Comment(s): Pt resides with his spouse. He uses no assistive device but was using a hospital walker here at the hospital last night. Pt is independent. He has a Cpap. Smoking Status: Former smoker Past Alcohol Use History: None Reported Additional Past Alcohol Use History / Comment(s): Pt started smoking in 2002 and was a 3 ppd smoker then quit in 2018. He was a heavy drinker in the past but now drinks rarely. Past Drug Use History: None Reported Additional Drug Use History / Comment(s): Marijuana in his 20s, pt states recently using a marijuana pen at bedtime. - Past Family History Father Family Medical History: Cancer, CVA/TIA Additional Family Medical History / Comment(s): Father of a stroke at the age of 91 yrs. He had prostate cancer Mother Family Medical History: No Reported History Additional Family Medical History / Comment(s): Mother is healthy and is 93 yrs old. Medications and Allergies Home Medications Medication Instructions Recorded Confirmed Type Rivaroxaban [Xarelto] 20 mg PO W/SUPPER 09/04/18 07/14/23 History clonazePAM [KlonoPIN] 1 mg PO HS 09/04/18 07/14/23 History Gabapentin [Neurontin] 300 mg PO BID 03/27/22 07/14/23 History Metoprolol Succinate [Toprol XL] 100 mg PO DAILY 03/27/22 07/14/23 History fentaNYL 75MCG/HR PATCH [Duragesic 1 patch TRANSDERM Q72H 3 Days #3 04/12/23 07/14/23 Rx 75MCG/HR] patch Acetaminophen Tab [Tylenol] 650 mg PO Q6H PRN 07/05/23 07/14/23 History Flecainide [Tambocor] 100 mg PO Q12H 07/05/23 07/14/23 History Fludrocortisone [Florinef] 0.1 mg PO DAILY 07/05/23 07/14/23 History Midodrine HCl [ProAmatine] 10 mg PO TID 07/05/23 07/14/23 History Sennosides [Senna Lax] 17.2 mg PO BID 07/05/23 07/14/23 History Tamsulosin HCl [Flomax] 0.4 mg PO DAILY 07/05/23 07/14/23 History clonazePAM [KlonoPIN] 0.5 mg PO DAILY PRN 07/05/23 07/14/23 History levETIRAcetam [Keppra] 500 mg PO Q12H 07/05/23 07/14/23 History oxyCODONE-APAP 10-325MG [Percocet 1 tab PO QID PRN 07/05/23 07/14/23 History 10-325 mg] Cholecalciferol [Vitamin D3 (25 50 mcg PO DAILY 07/14/23 07/14/23 History Mcg = 1000 Iu)] Allergies Allergy/AdvReac Type Severity Reaction Status Date / Time codeine AdvReac Nausea/head Verified 07/14/23 13:01 ache Surgical - Exam Vital Signs Temp Pulse Resp BP Pulse Ox 98.2 F 116 H 20 83/54 98 07/14/23 11:45 07/14/23 11:45 07/14/23 11:45 07/14/23 11:45 07/14/23 11:45 - General no distress, no pain - ENT normal nares, normal mucosa - Respiratory normal expansion, normal respiratory effort - Abdomen Abdomen: soft, non tender - Psychiatric oriented to time, oriented to person, oriented to place Results - Labs 07/17/23 10:37 07/17/23 10:37 Abnormal Lab Results - Last 24 Hours (Table) 07/17/23 07/17/23 Range/Units 10:37 10:37 RBC 2.91 L (4.30-5.90) m/uL Hgb 8.4 L (13.0-17.5) gm/dL Hct 26.5 L (39.0-53.0) % Lymphocytes # 0.4 L (1.0-4.8) k/uL Sodium 136 L (137-145) mmol/L Calcium 7.2 L (8.4-10.2) mg/dL Microbiology - Last 24 Hours (Table) 07/14/23 12:46 Urine Culture - Final Urine,Catheterized Enterococcus faecalis VRE Diabetes panel 07/17/23 Range/Units 10:37 Sodium 136 L (137-145) mmol/L Potassium 3.8 (3.5-5.1) mmol/L Chloride 104 (98-107) mmol/L Carbon Dioxide 24 (22-30) mmol/L BUN 9 (9-20) mg/dL Creatinine 0.84 (0.66-1.25) mg/dL Glucose 98 (74-99) mg/dL Calcium 7.2 L (8.4-10.2) mg/dL Calcium panel 07/17/23 Range/Units 10:37 Calcium 7.2 L (8.4-10.2) mg/dL Pituitary panel 07/17/23 Range/Units 10:37 Sodium 136 L (137-145) mmol/L Potassium 3.8 (3.5-5.1) mmol/L Chloride 104 (98-107) mmol/L Carbon Dioxide 24 (22-30) mmol/L BUN 9 (9-20) mg/dL Creatinine 0.84 (0.66-1.25) mg/dL Glucose 98 (74-99) mg/dL Calcium 7.2 L (8.4-10.2) mg/dL Adrenal panel 07/17/23 Range/Units 10:37 Sodium 136 L (137-145) mmol/L Potassium 3.8 (3.5-5.1) mmol/L Chloride 104 (98-107) mmol/L Carbon Dioxide 24 (22-30) mmol/L BUN 9 (9-20) mg/dL Creatinine 0.84 (0.66-1.25) mg/dL Glucose 98 (74-99) mg/dL Calcium 7.2 L (8.4-10.2) mg/dL Assessment and Plan Assessment: 68-year-old male with history metastatic prostate cancer last PSA is 2.4. Admitted to the hospital with confusion and VRE UTI. Patient had a Rome catheter placed for urinary retention, he was unaware retention, but patient currently does have altered mental status. Recommend for now keep in the Rome catheter in place until his mental status is improving and he's started on appropriate antibiotics. Discussed with the his retention unawareness is concerning for an atonic bladder, but given his altered mental status and his VRE UTI this could be the cause of his unawareness. -Continue Flomax -Rome catheter can be removed prior to discharge, after catheter was removed obtain a postvoid residual, if less than 400 and can be discharged home without the Rome catheter. If his urinary retention persists following Rome catheter removal then he will require an outpatient urodynamics
--- NOTE | 2023-07-17 13:45 | P.PN ---
Subjective Progress Note Date: 07/17/23 H&P Date: 07/15/23 Chief Complaint: weakness, fatigue, hypotension 68-year-old patient well-known to my practice long-standing history of metastatic prostate cancer, developed hypotension, urinary obstruction, urinary tract infection, nausea,. This patient is awake alert oriented 3 current vital signs are stable blood pressure has improved though still taking meds to support blood pressure, suspect underlying urinary tract infection with early sepsis 07/16/2023 fluctuating confusion, staff reports he reorients easily. Maintained on gentle IV fluid hydration with significant improvement in blood pressures. Mild tachycardia. Denies chest pain, palpitations or shortness of breath. Maintaining O2 sats in the mid 90s on 2 L nasal cannula. Rome catheter placed for urinary retention, culture pending. Maintained on IV ceftriaxone. Afebrile, T-max 100.3, normal WBC. Blood cultures in progress. Renal function improving, BUN 13, creatinine decreased to 1.14. Sodium 134. 07/17/2023 maintained on Unasyn. Afebrile, mild tachycardia, low 100s, systolic blood pressures high 90s to 1 teens. urine culture reporting enterococcus VRE. Denies chest pain, palpitations or shortness of breath. Maintaining O2 sats in the low 90s on 2 L nasal cannula. Rome catheter remains in place secondary to urinary retention, continues on Flomax. Brain CT reported degenerative changes with no evidence of acute intracranial hemorrhage or mass effect. Hyperdensity along the frontal lobes bilaterally stable from prior exam and likely artifactual. Objective - Vital Signs Vital signs: Vital Signs Temp 97.5 F L 07/17/23 08:00 Pulse 100 07/17/23 08:00 Resp 18 07/17/23 08:00 BP 99/65 07/17/23 08:00 Pulse Ox 90 L 07/17/23 08:00 FiO2 Intake & Output 07/16/23 07/17/23 07/17/23 18:59 06:59 18:59 Intake Total 180 Output Total 800 Balance 180 -800 Weight 106.141 kg Intake: Oral 180 Output: Urine 800 Other: Voiding Method Indwelling Catheter Indwelling Catheter Indwelling Catheter # Bowel Movements 1 - Exam General: Sitting up in bed, alert and oriented 3, no acute distress. HEENT: [Normal cephalic, PERRL. EOMI. MMM. Neck: Supple, no JVD Cardiac: [Heart regular in rate and rhythm. Mild tachycardia. No S3. No S4. No clicks, rubs. No murmur.] Lungs: [Unlabored, equal air entry, Clear to auscultation bilaterally.] Abdomen: [Soft, non-distended, nontender .No mass. No organomegaly. +BS Extremes: [No edema no cyanosis,normal pulses] Skin: No rash, warm and dry. - Labs CBC & Chem 7: 07/17/23 10:37 07/17/23 10:37 Labs: Abnormal Lab Results - Last 24 Hours (Table) 07/17/23 07/17/23 Range/Units 10:37 10:37 RBC 2.91 L (4.30-5.90) m/uL Hgb 8.4 L (13.0-17.5) gm/dL Hct 26.5 L (39.0-53.0) % Lymphocytes # 0.4 L (1.0-4.8) k/uL Sodium 136 L (137-145) mmol/L Calcium 7.2 L (8.4-10.2) mg/dL Microbiology - Last 24 Hours (Table) 07/14/23 12:46 Urine Culture - Final Urine,Catheterized Enterococcus faecalis VRE Assessment and Plan Assessment: Assessment and Plan (1) Symptomatic hypotension Current Visit: Yes Status: Acute Code(s): I95.9 - HYPOTENSION, UNSPECIFIED SNOMED Code(s): 77469313 (2) Weakness Current Visit: Yes Status: Acute Code(s): R53.1 - WEAKNESS SNOMED Code(s): 73896169 (3) Atrial fibrillation with RVR Current Visit: No Status: Acute Code(s): I48.91 - UNSPECIFIED ATRIAL FIBRILLATION SNOMED Code(s): 937312346674655 (4) Back pain Current Visit: No Status: Acute Code(s): M54.9 - DORSALGIA, UNSPECIFIED SNOMED Code(s): 504634023 (5) Chest pain Current Visit: No Status: Acute Code(s): R07.9 - CHEST PAIN, UNSPECIFIED SNOMED Code(s): 15029392 (6) Left-sided weakness Current Visit: No Status: Acute Code(s): R53.1 - WEAKNESS SNOMED Code(s): 258648720 (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 Current Visit: No Status: Acute Code(s): C61 - MALIGNANT NEOPLASM OF PROSTATE; Z19.2 - HORMONE RESISTANT MALIGNANCY STATUS SNOMED Code(s): 419802592270393 (8) Orthostatic hypotension Current Visit: No Status: Acute Code(s): I95.1 - ORTHOSTATIC HYPOTENSION SNOMED Code(s): 16993851 (9) Urinary retention Current Visit: No Status: Acute Code(s): R33.9 - RETENTION OF URINE, UNSPECIFIED SNOMED Code(s): 228466722 (10) Wedge compression fracture of L3 vertebra Current Visit: No Status: Acute Code(s): S32.030A - WEDGE COMPRESSION FRACTURE OF THIRD LUMBAR VERTEBRA, INIT SNOMED Code(s): 902226466 (11) sepsis secondary to acute UTI, culture reporting enterococcus VRE. (12) History of TBI, workup completed at [facility]-reported per S.O. (13) fluctuating delirium ,acute metabolic encephalopathy, suspect related to infection. Brain CT reported degenerative changes. (14) chronic atrial fibrillation (15) morbid obesity,BMI 30 (16) obstructive sleep apnea and wears CPAP (17) former nicotine dependence (18) marijuana use Plan: Continue on current medication regime ,monitoring and symptomatic treatment. Infectious disease consulted, urine culture now reporting VRE .Continue with Flomax. The impression and plan of care has been dictated as directed. : I performed a history and examination of this patient, discussed the same with the dictator. I agree with the dictator's note ,documented as a scribe. Any additional findings or plans will be noted.
[2023-07-17] MEDS: AMPICILLIN-SULBACTAM 3 GM in SODIUM CHLORIDE 0.9% 100 ML IVPB SCH ×3 (17:38→23:58)
[2023-07-17] MEDS: RIVAROXABAN 20 MG TAB PO SCH (17:39)
[2023-07-17] MEDS: clonazePAM 1 MG TAB PO SCH (20:06)
[2023-07-17] MEDS: SODIUM CHLORIDE 0.9% 1,000 ML IV SCH (22:11)
[2023-07-18] MEDS: oxyCODONE-APAP 10-325MG 1 EACH TAB PO PRN ×2 (00:02→20:22)
[2023-07-18] MEDS: SODIUM CHLORIDE 0.9% 1,000 ML IV SCH ×2 (01:56→11:48)
[2023-07-18] MEDS: AMPICILLIN-SULBACTAM 3 GM in SODIUM CHLORIDE 0.9% 100 ML IVPB SCH ×4 (05:48→23:55)
--- NOTE | 2023-07-18 07:16 | P.CONS ---
History of Present Illness - Reason for Consult Consult date: 07/17/23 UTI, enterococcus, VRE Requesting physician: iRchard Weaver - Chief Complaint Weakness and urinary retention x few days - History of Present Illness Patient is a 76-year-old male with a past medical history significant for atrial fibrillation hypertension history of prostate cancer with mets to the spine presenting to the hospital 3 days ago for evaluation of weakness low blood pressure and no urine output patient on presentation to the hospital was afebrile he did have a low-grade fever 100.3 F on 07/15/2023 patient did have a normal white count creatinine was mildly elevated subsequent normalized did have significantly positive UA with urine culture showing a VRE that has prompted this infectious disease consultation patient currently complaining of mostly weakness patient denies having any headache or URI symptoms no chest pain shortness of breath or cough some nausea decreased oral intake but no vomiting no abdominal pain no diarrhea, patient currently did have a Rome catheter getting some dark urine and no hematuria Review of Systems Positive point and negatives has been mentioned in the HPI, complete review of systems was performed and all other systems are negative Past Medical History Past Medical History: Atrial Fibrillation, Cancer, Hypertension, Prostate Disorder, Sleep Apnea/CPAP/BIPAP Additional Past Medical History / Comment(s): Prostate cancer with mets to spine treated with hormone therapy and radiation, back pain, past R sided sciatica, nonischemic cardiomyopathy, ABBIE with Cpap, bilateral lower exremity edema at times, migraines, benign colon polyp. History of Any Multi-Drug Resistant Organisms: None Reported Past Surgical History: Heart Catheterization, Orthopedic Surgery Additional Past Surgical History / Comment(s): ORIF left wrist, DEANNE/cardiov ersion, colonoscopy Past Anesthesia/Blood Transfusion Reactions: Previous Problems w/ Anesthesia Additional Past Anesthesia/Blood Transfusion Reaction / Comm: Woke up with CP after colonoscopy, EKG abn. Past Psychological History: No Psychological Hx Reported Additional Psychological History / Comment(s): Pt resides with his spouse. He uses no assistive device but was using a hospital walker here at the hospital last night. Pt is independent. He has a Cpap. Smoking Status: Former smoker Past Alcohol Use History: None Reported Additional Past Alcohol Use History / Comment(s): Pt started smoking in 2002 and was a 3 ppd smoker then quit in 2018. He was a heavy drinker in the past but now drinks rarely. Past Drug Use History: None Reported Additional Drug Use History / Comment(s): Marijuana in his 20s, pt states recently using a marijuana pen at bedtime. - Past Family History Father Family Medical History: Cancer, CVA/TIA Additional Family Medical History / Comment(s): Father of a stroke at the age of 91 yrs. He had prostate cancer Mother Family Medical History: No Reported History Additional Family Medical History / Comment(s): Mother is healthy and is 93 yrs old. Medications and Allergies Home Medications Medication Instructions Recorded Confirmed Type Rivaroxaban [Xarelto] 20 mg PO W/SUPPER 09/04/18 07/14/23 History Metoprolol Succinate [Toprol XL] 100 mg PO DAILY 03/27/22 07/14/23 History Acetaminophen Tab [Tylenol] 650 mg PO Q6H PRN 07/05/23 07/14/23 History Flecainide [Tambocor] 100 mg PO Q12H 07/05/23 07/14/23 History Fludrocortisone [Florinef] 0.1 mg PO DAILY 07/05/23 07/14/23 History Midodrine HCl [ProAmatine] 10 mg PO TID 07/05/23 07/14/23 History Sennosides [Senna Lax] 17.2 mg PO BID 07/05/23 07/14/23 History Tamsulosin HCl [Flomax] 0.4 mg PO DAILY 07/05/23 07/14/23 History levETIRAcetam [Keppra] 500 mg PO Q12H 07/05/23 07/14/23 History Cholecalciferol [Vitamin D3 (25 50 mcg PO DAILY 07/14/23 07/14/23 History Mcg = 1000 Iu)] Amoxic-Pot Clav 875-125Mg 1 tab PO BID 7 Days #14 tab 07/20/23 Rx [Augmentin 875-125] Gabapentin [Neurontin] 100 mg PO BID 3 Days #6 cap 07/20/23 Rx Pantoprazole Sodium [Protonix] 40 mg PO DAILY #30 tab 07/20/23 Rx clonazePAM [KlonoPIN] 0.5 mg PO DAILY PRN #3 tab 07/20/23 Rx clonazePAM [KlonoPIN] 1 mg PO HS #3 tab 07/20/23 Rx fentaNYL 75MCG/HR PATCH [Duragesic 1 patch TRANSDERM Q72H 3 Days #1 07/20/23 Rx 75MCG/HR] patch oxyCODONE-APAP 10-325MG [Percocet 1 tab PO QID PRN #12 tab 07/20/23 Rx 10-325 mg] Allergies Allergy/AdvReac Type Severity Reaction Status Date / Time codeine AdvReac Nausea/head Verified 07/14/23 13:01 ache Physical Exam Vitals: Vital Signs Temp Pulse Pulse Resp BP Pulse Ox 07/17/23 08:00 97.5 F L 101 H 100 18 99/65 90 L 07/17/23 04:00 105 H 18 111/72 93 L 07/17/23 00:00 101 H 17 111/68 97 07/16/23 20:00 97.8 F 64 18 119/71 93 L 07/16/23 16:00 102 H 18 111/68 98 Intake and Output 07/16/23 07/17/23 07/17/23 22:59 06:59 14:59 Output Total 800 Balance -800 Output: Urine 800 Other: Voiding Method Indwelling Catheter Indwelling Catheter Indwelling Catheter # Bowel Movements 1 Weight 106.141 kg GENERAL DESCRIPTION: Elderly male lying in bed, no distress. No tachypnea or accessory muscle of respiration use. HEENT: Shows Pallor , no scleral icterus. Oral mucous membrane is dry. No pharyngeal erythema or thrush NECK: Trachea central, no thyromegaly. LUNGS: Unlabored breathing. Clear to auscultation anteriorly. No wheeze or crackle. HEART: S1, S2, regular rate and rhythm. ABDOMEN: Soft, no tenderness , guarding or rigidity, no organomegaly EXTREMITIES: No edema of feet. SKIN: No rash, no masses palpable. NEUROLOGICAL: The patient is awake, alert, oriented x3, mood and affect normal. Results CBC & Chem 7: 07/19/23 08:09 07/19/23 08:09 Labs: Abnormal Lab Results - Last 24 Hours (Table) 07/17/23 07/17/23 Range/Units 10:37 10:37 RBC 2.91 L (4.30-5.90) m/uL Hgb 8.4 L (13.0-17.5) gm/dL Hct 26.5 L (39.0-53.0) % Lymphocytes # 0.4 L (1.0-4.8) k/uL Sodium 136 L (137-145) mmol/L Calcium 7.2 L (8.4-10.2) mg/dL Microbiology - Last 24 Hours (Table) 07/14/23 12:46 Urine Culture - Final Urine,Catheterized Enterococcus faecalis VRE Assessment and Plan (1) UTI (urinary tract infection) Status: Acute Priority: High Code(s): N39.0 - URINARY TRACT INFECTION, SITE NOT SPECIFIED SNOMED Code(s): 77290494 (2) VRE (vancomycin resistant enterococcus) culture positive Status: Acute Code(s): Z22.39 - CARRIER OF OTHER SPECIFIED BACTERIAL DISEASES SNOMED Code(s): 811608767 Plan: 1patient was in the hospital with weakness low blood pressure in this patient did have a urinary retention requiring Rome catheter placement positive UA low- grade fever likely symptomatic/complicated UTI in this patient who do have a history of metastatic prostate cancer with a urine culture showing VRE that is penicillin sensitive 2-discontinue Rocephin 3-we will start the patient on Unasyn 3 g every 6 hours at the bedside multiple questions concern answered We will follow on clinical condition and cultures to further adjust medication if needed Thank you for this consultation we will follow the patient along with you Dictation was produced using [employer] dictation software. please excuse any grammatical, word or spelling errors. Time with Patient: Greater than 30
[2023-07-18] MEDS: GABAPENTIN 300 MG CAP PO SCH ×2 (09:56→20:22)
[2023-07-18] MEDS: TAMSULOSIN 0.4 MG CAP.ER.24H PO SCH (09:56)
[2023-07-18] MEDS: PANTOPRAZOLE 40 MG/10 ML VIAL IVP SCH (09:56)
[2023-07-18] MEDS: MIDODRINE 5 MG TAB PO SCH ×3 (09:56→21:40)
[2023-07-18] MEDS: FLECAINIDE 50 MG TAB PO SCH ×2 (09:57→21:40)
[2023-07-18] MEDS: SENNOSIDES 8.6 MG TAB PO SCH ×2 (09:57→20:22)
[2023-07-18] MEDS: CHOLECALCIFEROL 25 MCG (1000 IU) TABLET PO SCH (09:57)
[2023-07-18] MEDS: levETIRAcetam 500 MG TAB PO SCH ×2 (09:57→21:40)
[2023-07-18] MEDS: FLUDROCORTISONE 0.1 MG TAB PO SCH (09:57)
--- NOTE | 2023-07-18 12:00 | P.PN ---
Subjective Progress Note Date: 07/18/23 Principal diagnosis: VRE urinary tract infection and a positive blood culture Patient is a 76-year-old male with a past medical history significant for atrial fibrillation hypertension history of prostate cancer with mets to the spine presenting to the hospital for evaluation of weakness and did have a urinary retention patient did have a low-grade fever and urine cultures have been finalized with the VRE. On today's evaluation and that is07/18/2023, the patient denies any fever or any chills, the patient is breathing comfortably on 2 L nasal cannula supplemental oxygen, the patient denies chest pain or cough, patient denies nausea/vomiting and no diarrhea has been reported. Patient did have white count of 4.5, creatinine 0.84 Objective - Vital Signs Vital signs: Vital Signs Temp 97.5 F L 07/18/23 11:47 Pulse 120 H 07/18/23 11:47 Resp 17 07/18/23 11:47 BP 118/72 07/18/23 11:47 Pulse Ox 96 07/18/23 11:47 FiO2 Intake & Output 07/17/23 07/18/23 07/18/23 18:59 06:59 18:59 Intake Total 10 20 490 Output Total 900 Balance 10 -880 490 Intake: IV 10 20 10 Invasive Line 3 10 20 10 Oral 480 Output: Urine 900 Other: Voiding Method Indwelling Catheter Indwelling Catheter Indwelling Catheter - Exam GENERAL DESCRIPTION: An elderly male lying in bed in no distress RESPIRATORY SYSTEM: Unlabored breathing , decreased breath sounds at bases HEART: S1 S2 regular rate and rhythm , ABDOMEN: Soft , no tenderness EXTREMITIES: No edema feet - Labs CBC & Chem 7: 07/17/23 10:37 07/17/23 10:37 Labs: Abnormal Lab Results - Last 24 Hours (Table) 07/17/23 Range/Units 10:37 Sodium 136 L (137-145) mmol/L Calcium 7.2 L (8.4-10.2) mg/dL Microbiology - Last 24 Hours (Table) 07/16/23 12:14 Blood Culture Gram Stain - Preliminary Blood Blood Culture - Preliminary 07/16/23 12:14 Blood Culture - Preliminary Blood 07/14/23 12:46 Urine Culture - Final Urine,Catheterized Enterococcus faecalis VRE Assessment and Plan (1) Positive blood culture Current Visit: Yes Status: Acute Code(s): R78.81 - BACTEREMIA SNOMED Code(s): 594626678 (2) VRE (vancomycin resistant enterococcus) culture positive Current Visit: Yes Status: Acute Code(s): Z22.39 - CARRIER OF OTHER SPECIFIED BACTERIAL DISEASES SNOMED Code(s): 104148974 (3) UTI (urinary tract infection) Current Visit: Yes Status: Acute Priority: High Code(s): N39.0 - URINARY TRACT INFECTION, SITE NOT SPECIFIED SNOMED Code(s): 35199868 Plan: 1patient was in the hospital with weakness low blood pressure in this patient did have a urinary retention requiring Rome catheter placement positive UA low- grade fever likely symptomatic/complicated UTI in this patient who do have a history of metastatic prostate cancer with a urine culture showing VRE that is penicillin sensitive 2Patient also have a positive blood culture with staph epi likely skin contamination, no need for vancomycin blood cultures will be repeated documented recurrence 3-we will continue the patient on Unasyn 3 g every 6 hours with a plan to finish therapy with oral antibiotics Dictation was produced using [employer] dictation software. please excuse any grammatical, word or spelling errors. Time with Patient: Less than 30
--- NOTE | 2023-07-18 15:01 | P.PN ---
Subjective Progress Note Date: 07/18/23 Principal diagnosis: UTI, confusion At today's visit patient is resting comfortably in bed, family at bedside. Confusion has improved, pt is A&Ox3. BP stable. Patient afebrile. Urine culture positive for Enterococcus faecalis VRE, ID consulted for abx management. Pt started on Unasyn Objective - Vital Signs Vital signs: Vital Signs Temp 97.5 F L 07/18/23 11:47 Pulse 120 H 07/18/23 11:47 Resp 17 07/18/23 11:47 BP 118/72 07/18/23 11:47 Pulse Ox 96 07/18/23 11:47 FiO2 Intake & Output 07/17/23 07/18/23 07/18/23 18:59 06:59 18:59 Intake Total 10 20 500 Output Total 900 Balance 10 -880 500 Intake: IV 10 20 20 Invasive Line 3 10 20 20 Oral 480 Output: Urine 900 Other: Voiding Method Indwelling Catheter Indwelling Catheter Indwelling Catheter - Constitutional General appearance: Present: no acute distress - EENT Eyes: Present: anicteric sclerae, EOMI ENT: Present: hearing grossly normal - Respiratory Details: breathing is even and unlabored - Cardiovascular Details: skin warm and dry - Gastrointestinal General gastrointestinal: Present: soft. Absent: tenderness - Integumentary Integumentary: Absent: cyanotic, jaundiced - Musculoskeletal Musculoskeletal: Present: generalized weakness - Psychiatric Psychiatric: Present: A&O x's 3, appropriate affect, intact judgment & insight - Labs CBC & Chem 7: 07/17/23 10:37 07/17/23 10:37 Labs: Microbiology - Last 24 Hours (Table) 07/16/23 12:14 Blood Culture Gram Stain - Preliminary Blood Blood Culture - Preliminary 07/16/23 12:14 Blood Culture - Preliminary Blood 07/14/23 12:46 Urine Culture - Final Urine,Catheterized Enterococcus faecalis VRE Assessment and Plan (1) UTI (urinary tract infection) Current Visit: Yes Status: Acute Priority: High Code(s): N39.0 - URINARY TRACT INFECTION, SITE NOT SPECIFIED SNOMED Code(s): 38299165 (2) Symptomatic hypotension Current Visit: Yes Status: Acute Priority: High Code(s): I95.9 - HYPOTENSION, UNSPECIFIED SNOMED Code(s): 09313450 (3) Metastatic castration-resistant adenocarcinoma of prostate Current Visit: Yes Status: Acute Priority: High Code(s): C61 - MALIGNANT NEOPLASM OF PROSTATE; Z19.2 - HORMONE RESISTANT MALIGNANCY STATUS SNOMED Code(s): 349065725122846 (4) Urinary retention Current Visit: Yes Status: Acute Priority: High Code(s): R33.9 - RETENTION OF URINE, UNSPECIFIED SNOMED Code(s): 100339615 Plan: Urinary retention/UTI: -Urine culture positive for Enterococcus faecalis VRE, ID consulted for abx management. Abx coverage changed to Unasyn - Haque catheter in place. Urology following with plans for outpt f/u if urinary retention persists s/p haque removal - Blood cultures negative thus far - BP improved/stable. Afebrile. No leukocytosis noted, WBC 4.5 Confusion: -CT head obtained, showing degenerative change without evidence of acute intracranial hemorrhage or mass effect. Hyperdensity along the frontal lobes bilaterally stable from last exam -Confusion has improved -Likely r/t underlying UTI. Continue treatment for the same. Will continue to monitor Metastatic prostate cancer: -Patient has been on multiple treatment regimens due to disease progression. Most recently was started on Nubeqa 05/2023, last taking medication approx 1 month ago and only took medication for 1 month before stopping. It was held due to potential side effects of hypotension, however this is not a common adverse effect from medication -Will continue to hold Nubeqa and upcoming lupron injection. Will reassess pt to ensure he has adequately recovered from acute condition before proceeding with treatment. Clinic f/u with Dr. Pack in discharge plan Pt and updated on POC
[2023-07-18 16:45] LABS: HCT 25.3 % (39.0-53.0); HGB 8.1 gm/dL (13.0-17.5); Hypochromasia Marked; MCH 28.8 pg (25.0-35.0); MCV 90.1 fL (80.0-100.0); Mean Platelet Volume 6.7; Platelet Count 330 k/uL (150-450); RBC 2.81 m/uL (4.30-5.90); RDW 14.9 % (11.5-15.5); WBC 3.3 k/uL (3.8-10.6)
[2023-07-18] MEDS: RIVAROXABAN 20 MG TAB PO SCH (17:03)
[2023-07-18] MEDS: METOPROLOL SUCCINATE (ER) 100 MG TAB.ER.24H PO SCH (17:03)
[2023-07-18] MEDS: clonazePAM 1 MG TAB PO SCH (20:22)
[2023-07-19] MEDS: SODIUM CHLORIDE 0.9% 1,000 ML IV SCH ×2 (03:12→12:02)
[2023-07-19] MEDS: AMPICILLIN-SULBACTAM 3 GM in SODIUM CHLORIDE 0.9% 100 ML IVPB SCH ×3 (06:06→17:43)
[2023-07-19 08:34] LABS: Basophils % (A) 0 %; Eosinophils # (A) 0.2 k/uL (0-0.7); Eosinophils % (A) 8 %; HCT 26.6 % (39.0-53.0); HGB 8.1 gm/dL (13.0-17.5); Hypochromasia Marked; Lymphocytes # (A) 0.4 k/uL (1.0-4.8); Lymphocytes % (A) 14 %; MCH 28.1 pg (25.0-35.0); MCHC 30.6 g/dL (31.0-37.0); MCV 91.8 fL (80.0-100.0); Mean Platelet Volume 7.2; Monocytes # (A) 0.3 k/uL (0-1.0); Monocytes % (A) 8 %; Neutrophils # (A) 2.1 k/uL (1.3-7.7); Neutrophils % (A) 69 %; Platelet Count 316 k/uL (150-450); RDW 14.9 % (11.5-15.5); WBC 3.1 k/uL (3.8-10.6)
[2023-07-19 08:56] LABS: African American GFR (CKD) >90 (>60 ml/min/1.73 sqM); Anion Gap 7 mmol/L; Blood Urea Nitrogen 6 mg/dL (9-20); Carbon Dioxide 25 mmol/L (22-30); Chloride 106 mmol/L (98-107); Glucose 89 mg/dL (74-99); Non-African American GFR(CKD) 90 (>60 ml/min/1.73 sqM); Potassium 3.7 mmol/L (3.5-5.1); Sodium 138 mmol/L (137-145)
[2023-07-19] MEDS: FLECAINIDE 50 MG TAB PO SCH ×2 (08:58→22:02)
[2023-07-19] MEDS: CHOLECALCIFEROL 25 MCG (1000 IU) TABLET PO SCH (08:58)
[2023-07-19] MEDS: PANTOPRAZOLE 40 MG/10 ML VIAL IVP SCH (08:58)
[2023-07-19] MEDS: GABAPENTIN 300 MG CAP PO SCH (08:58)
[2023-07-19] MEDS: levETIRAcetam 500 MG TAB PO SCH ×2 (08:58→22:02)
[2023-07-19] MEDS: METOPROLOL SUCCINATE (ER) 100 MG TAB.ER.24H PO SCH (08:58)
[2023-07-19] MEDS: SENNOSIDES 8.6 MG TAB PO SCH ×2 (08:58→22:02)
[2023-07-19] MEDS: TAMSULOSIN 0.4 MG CAP.ER.24H PO SCH (08:58)
[2023-07-19] MEDS: MIDODRINE 5 MG TAB PO SCH ×3 (08:59→22:02)
[2023-07-19] MEDS: FLUDROCORTISONE 0.1 MG TAB PO SCH (08:59)
--- NOTE | 2023-07-19 13:39 | P.PN ---
Subjective Progress Note Date: 07/18/23 H&P Date: 07/15/23 Chief Complaint: weakness, fatigue, hypotension 68-year-old patient well-known to my practice long-standing history of metastatic prostate cancer, developed hypotension, urinary obstruction, urinary tract infection, nausea,. This patient is awake alert oriented 3 current vital signs are stable blood pressure has improved though still taking meds to support blood pressure, suspect underlying urinary tract infection with early sepsis 07/16/2023 fluctuating confusion, staff reports he reorients easily. Maintained on gentle IV fluid hydration with significant improvement in blood pressures. Mild tachycardia. Denies chest pain, palpitations or shortness of breath. Maintaining O2 sats in the mid 90s on 2 L nasal cannula. Rome catheter placed for urinary retention, culture pending. Maintained on IV ceftriaxone. Afebrile, T-max 100.3, normal WBC. Blood cultures in progress. Renal function improving, BUN 13, creatinine decreased to 1.14. Sodium 134. 07/17/2023 maintained on Unasyn. Afebrile, mild tachycardia, low 100s, systolic blood pressures high 90s to 1 teens. urine culture reporting enterococcus VRE. Denies chest pain, palpitations or shortness of breath. Maintaining O2 sats in the low 90s on 2 L nasal cannula. Rome catheter remains in place secondary to urinary retention, continues on Flomax. Brain CT reported degenerative changes with no evidence of acute intracranial hemorrhage or mass effect. Hyperdensity along the frontal lobes bilaterally stable from prior exam and likely artifactual. 07/18/2023 evaluated by infectious disease yesterday with antibiotics adjusted to Unasyn. One of 2 blood cultures reporting gram-positive cocci in clusters. Repeat blood culture in progress. Afebrile. Labs pending. Tachycardic. Maintaining O2 sats in the 90s on 2 L nasal cannula. Objective - Vital Signs Vital signs: Vital Signs Temp 97.5 F L 07/18/23 11:47 Pulse 120 H 07/18/23 11:47 Resp 17 07/18/23 11:47 BP 118/72 07/18/23 11:47 Pulse Ox 96 07/18/23 11:47 FiO2 Intake & Output 07/17/23 07/18/23 07/18/23 18:59 06:59 18:59 Intake Total 10 20 500 Output Total 900 Balance 10 -880 500 Intake: IV 10 20 20 Invasive Line 3 10 20 20 Oral 480 Output: Urine 900 Other: Voiding Method Indwelling Catheter Indwelling Catheter Indwelling Catheter - Exam General: Sitting up in bed, alert and oriented 3, no acute distress. HEENT: [Normal cephalic, PERRL. EOMI. MMM. Neck: Supple, no JVD Cardiac: [Heart regular in rate and rhythm. Mild tachycardia. No S3. No S4. No clicks, rubs. No murmur.] Lungs: [Unlabored, equal air entry, Clear to auscultation bilaterally.] Abdomen: [Soft, non-distended, nontender .No guarding .+BS Extremes: [No edema no cyanosis,normal pulses] Skin: No rash, warm and dry. - Labs CBC & Chem 7: 07/19/23 08:09 07/19/23 08:09 Labs: Microbiology - Last 24 Hours (Table) 07/16/23 12:14 Blood Culture Gram Stain - Preliminary Blood Blood Culture - Preliminary 07/16/23 12:14 Blood Culture - Preliminary Blood 07/14/23 12:46 Urine Culture - Final Urine,Catheterized Enterococcus faecalis VRE Assessment and Plan Assessment: Assessment and Plan (1) Symptomatic hypotension Current Visit: Yes Status: Acute Code(s): I95.9 - HYPOTENSION, UNSPECIFIED SNOMED Code(s): 75997082 (2) Weakness Current Visit: Yes Status: Acute Code(s): R53.1 - WEAKNESS SNOMED Code(s): 12381844 (3) Atrial fibrillation with RVR Current Visit: No Status: Acute Code(s): I48.91 - UNSPECIFIED ATRIAL FIBRILLATION SNOMED Code(s): 364429103158578 (4) Back pain Current Visit: No Status: Acute Code(s): M54.9 - DORSALGIA, UNSPECIFIED SNOMED Code(s): 835246636 (5) Chest pain Current Visit: No Status: Acute Code(s): R07.9 - CHEST PAIN, UNSPECIFIED SNOMED Code(s): 76463176 (6) Left-sided weakness Current Visit: No Status: Acute Code(s): R53.1 - WEAKNESS SNOMED Code(s): 379088514 (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 Current Visit: No Status: Acute Code(s): C61 - MALIGNANT NEOPLASM OF PROSTATE; Z19.2 - HORMONE RESISTANT MALIGNANCY STATUS SNOMED Code(s): 662956851641907 (8) Orthostatic hypotension Current Visit: No Status: Acute Code(s): I95.1 - ORTHOSTATIC HYPOTENSION SNOMED Code(s): 48292049 (9) Urinary retention Current Visit: No Status: Acute Code(s): R33.9 - RETENTION OF URINE, UNSPECIFIED SNOMED Code(s): 061563273 (10) Wedge compression fracture of L3 vertebra Current Visit: No Status: Acute Code(s): S32.030A - WEDGE COMPRESSION FRACT URE OF THIRD LUMBAR VERTEBRA, INIT SNOMED Code(s): 389347235 (11) sepsis secondary to acute UTI, culture reporting enterococcus VRE. (12) History of TBI, workup completed at [facility]-reported per S.O. (13) fluctuating delirium ,acute metabolic encephalopathy, suspect related to infection. Brain CT reported degenerative changes. (14) chronic atrial fibrillation (15) morbid obesity,BMI 30 (16) obstructive sleep apnea and wears CPAP (17) former nicotine dependence (18) marijuana use Plan: Continue on current medication regime ,monitoring and symptomatic treatment. Labs pending, antibiotics as per infectious disease. Discharge planning in progress pending Repeat blood culture. Significant other at bedside, updated on plan of care. The impression and plan of care has been dictated as directed. : I performed a history and examination of this patient, discussed the same with the dictator. I agree with the dictator's note ,documented as a scribe. Any additional findings or plans will be noted.
--- NOTE | 2023-07-19 13:46 | P.PN ---
Subjective Progress Note Date: 07/19/23 H&P Date: 07/15/23 Chief Complaint: weakness, fatigue, hypotension 68-year-old patient well-known to my practice long-standing history of metastatic prostate cancer, developed hypotension, urinary obstruction, urinary tract infection, nausea,. This patient is awake alert oriented 3 current vital signs are stable blood pressure has improved though still taking meds to support blood pressure, suspect underlying urinary tract infection with early sepsis 07/16/2023 fluctuating confusion, staff reports he reorients easily. Maintained on gentle IV fluid hydration with significant improvement in blood pressures. Mild tachycardia. Denies chest pain, palpitations or shortness of breath. Maintaining O2 sats in the mid 90s on 2 L nasal cannula. Rome catheter placed for urinary retention, culture pending. Maintained on IV ceftriaxone. Afebrile, T-max 100.3, normal WBC. Blood cultures in progress. Renal function improving, BUN 13, creatinine decreased to 1.14. Sodium 134. 07/17/2023 maintained on Unasyn. Afebrile, mild tachycardia, low 100s, systolic blood pressures high 90s to 1 teens. urine culture reporting enterococcus VRE. Denies chest pain, palpitations or shortness of breath. Maintaining O2 sats in the low 90s on 2 L nasal cannula. Rome catheter remains in place secondary to urinary retention, continues on Flomax. Brain CT reported degenerative changes with no evidence of acute intracranial hemorrhage or mass effect. Hyperdensity along the frontal lobes bilaterally stable from prior exam and likely artifactual. 07/18/2023 evaluated by infectious disease yesterday with antibiotics adjusted to Unasyn. One of 2 blood cultures reporting gram-positive cocci in clusters. Repeat blood culture in progress. Afebrile. Labs pending. Tachycardic. Maintaining O2 sats in the 90s on 2 L nasal cannula. 07/19/2023 continues on Unasyn, repeat blood culture pending. Afebrile, normal WBC. Developed some confusion during the night/, pulling out lines. Fatigued this morning. Maintaining O2 sats in the 90s on 2 L. Denies chest pain, palpitations or shortness of breath. Objective - Vital Signs Vital signs: Vital Signs Temp 97.3 F L 07/19/23 08:51 Pulse 86 07/19/23 11:52 Resp 17 07/19/23 11:52 BP 116/55 07/19/23 11:52 Pulse Ox 93 L 07/19/23 11:52 FiO2 Intake & Output 07/18/23 07/19/23 07/19/23 18:59 06:59 18:59 Intake Total 850 10 360 Output Total 600 475 Balance 250 -465 360 Intake: IV 20 10 Invasive Line 3 20 10 Oral 830 360 Output: Urine 600 475 Other: Voiding Method Indwelling Catheter Indwelling Catheter Indwelling Catheter - Exam General: Tired appearing ,Sitting up in bed, alert and oriented 3, no acute distress. HEENT: [Normal cephalic, PERRL. EOMI. MMM. Neck: Supple, no JVD Cardiac: [Heart regular in rate and rhythm. Mild tachycardia. No S3. No S4. No clicks, rubs. No murmur.] Lungs: [Unlabored, equal air entry, Clear to auscultation bilaterally.] Abdomen: [Soft, non-distended, nontender .No guarding .+BS Extremes: [No edema no cyanosis,normal pulses] Skin: No rash, warm and dry. - Labs CBC & Chem 7: 07/19/23 08:09 07/19/23 08:09 Labs: Abnormal Lab Results - Last 24 Hours (Table) 07/18/23 07/19/23 07/19/23 Range/Units 16:12 08:09 08:09 WBC 3.3 L 3.1 L (3.8-10.6) k/uL RBC 2.81 L 2.90 L (4.30-5.90) m/uL Hgb 8.1 L 8.1 L (13.0-17.5) gm/dL Hct 25.3 L 26.6 L (39.0-53.0) % MCHC 30.6 L (31.0-37.0) g/dL Lymphocytes # 0.4 L (1.0-4.8) k/uL BUN 6 L (9-20) mg/dL Calcium 7.0 L (8.4-10.2) mg/dL Microbiology - Last 24 Hours (Table) 07/16/23 12:14 Blood Culture - Preliminary Blood Assessment and Plan Assessment: Assessment and Plan (1) Symptomatic hypotension Current Visit: Yes Status: Acute Code(s): I95.9 - HYPOTENSION, UNSPECIFIED SNOMED Code(s): 50687223 (2) Weakness Current Visit: Yes Status: Acute Code(s): R53.1 - WEAKNESS SNOMED Code(s): 05516392 (3) Atrial fibrillation with RVR Current Visit: No Status: Acute Code(s): I48.91 - UNSPECIFIED ATRIAL FIBRILLATION SNOMED Code(s): 148263005210522 (4) Back pain Current Visit: No Status: Acute Code(s): M54.9 - DORSALGIA, UNSPECIFIED SNOMED Code(s): 061371876 (5) Chest pain Current Visit: No Status: Acute Code(s): R07.9 - CHEST PAIN, UNSPECIFIED SNOMED Code(s): 67237194 (6) Left-sided weakness Current Visit: No Status: Acute Code(s): R53.1 - WEAKNESS SNOMED Code(s): 289247497 (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 Current Visit: No Status: Acute Code(s): C61 - MALIGNANT NEOPLASM OF PROSTATE; Z19.2 - HORMONE RESISTANT MALIGNANCY STATUS SNOMED Code(s): 743129249064092 (8) Orthostatic hypotension Current Visit: No Status: Acute Code(s): I95.1 - ORTHOSTATIC HYPOTENSION SNOMED Code(s): 52327004 (9) Urinary retention Current Visit: No Status: Acute Code(s): R33.9 - RETENTION OF URINE, UNSPECIFIED SNOMED Code(s): 791696585 (10) Wedge compression fracture of L3 vertebra Current Visit: No Status: Acute Code(s): S32.030A - WEDGE COMPRESSION FRACTURE OF THIRD LUMBAR VERTEBRA, INIT SNOMED Code(s): 578091698 (11) sepsis secondary to acute UTI, culture reporting enterococcus VRE. (12) History of TBI, workup completed at [facility]-reported per S.O. (13) fluctuating delirium ,acute metabolic encephalopathy, suspect related to infection. Brain CT reported degenerative changes. (14) chronic atrial fibrillation (15) morbid obesity,BMI 30 (16) obstructive sleep apnea and wears CPAP (17) former nicotine dependence (18) marijuana use Plan: Continue on current medication regime ,monitoring and symptomatic treatment. Pain management discussed at bedside with significant other. At this time, Neurontin dose will be decreased .Antibiotics as per infectious disease. Discharge planning in progress pending Repeat blood culture. The impression and plan of care has been dictated as directed. : I performed a history and examination of this patient, discussed the same with the dictator. I agree with the dictator's note ,documented as a scribe. Any additional findings or plans will be noted.
--- NOTE | 2023-07-19 15:47 | P.PN ---
Subjective Progress Note Date: 07/19/23 Principal diagnosis: VRE urinary tract infection and a positive blood culture Patient is a 76-year-old male with a past medical history significant for atrial fibrillation hypertension history of prostate cancer with mets to the spine presenting to the hospital for evaluation of weakness and did have a urinary retention patient did have a low-grade fever and urine cultures have been finalized with the VRE. On today's evaluation and that is 07/19/2023, the patient remains to be afebrile the patient is breathing comfortably on 2 L nasal cannula oxygen, the patient denies chest pain and no significant cough or sputum production, patient denies nausea/vomiting and no diarrhea, patient seems to more confused per the Patient white count of 3.1, creatinine 0.82 Objective - Vital Signs Vital signs: Vital Signs Temp 97.3 F L 07/19/23 08:51 Pulse 86 07/19/23 11:52 Resp 17 07/19/23 11:52 BP 116/55 07/19/23 11:52 Pulse Ox 93 L 07/19/23 11:52 FiO2 Intake & Output 07/18/23 07/19/23 07/19/23 18:59 06:59 18:59 Intake Total 673 67 7453 Output Total 600 475 Balance 250 -465 1177 Weight 106.141 kg Intake: IV 20 10 Invasive Line 3 20 10 Oral 830 1177 Output: Urine 600 475 Other: Voiding Method Indwelling Catheter Indwelling Catheter Indwelling Catheter - Exam GENERAL DESCRIPTION: An elderly male lying in bed in no distress RESPIRATORY SYSTEM: Unlabored breathing , decreased breath sounds at bases HEART: S1 S2 regular rate and rhythm , ABDOMEN: Soft , no tenderness EXTREMITIES: No edema feet - Labs CBC & Chem 7: 07/19/23 08:09 07/19/23 08:09 Labs: Abnormal Lab Results - Last 24 Hours (Table) 07/18/23 07/19/23 07/19/23 Range/Units 16:12 08:09 08:09 WBC 3.3 L 3.1 L (3.8-10.6) k/uL RBC 2.81 L 2.90 L (4.30-5.90) m/uL Hgb 8.1 L 8.1 L (13.0-17.5) gm/dL Hct 25.3 L 26.6 L (39.0-53.0) % MCHC 30.6 L (31.0-37.0) g/dL Lymphocytes # 0.4 L (1.0-4.8) k/uL BUN 6 L (9-20) mg/dL Calcium 7.0 L (8.4-10.2) mg/dL Microbiology - Last 24 Hours (Table) 07/16/23 12:14 Blood Culture Gram Stain - Preliminary Blood Blood Culture - Preliminary Coagulase Negative Staph 07/16/23 12:14 Blood Culture - Preliminary Blood Assessment and Plan (1) Positive blood culture Current Visit: Yes Status: Acute Code(s): R78.81 - BACTEREMIA SNOMED Code(s): 142048218 (2) VRE (vancomycin resistant enterococcus) culture positive Current Visit: Yes Status: Acute Code(s): Z22.39 - CARRIER OF OTHER SPECIFIED BACTERIAL DISEASES SNOMED Code(s): 084123478 (3) UTI (urinary tract infection) Current Visit: Yes Status: Acute Priority: High Code(s): N39.0 - URINARY TRACT INFECTION, SITE NOT SPECIFIED SNOMED Code(s): 97083117 Plan: 1patient was in the hospital with weakness low blood pressure in this patient did have a urinary retention requiring Rome catheter placement positive UA low- grade fever likely symptomatic/complicated UTI in this patient who do have a history of metastatic prostate cancer with a urine culture showing VRE that is penicillin sensitive 2Patient also have a positive blood culture with staph epi likely skin contamination, no need for vancomycin blood cultures has been repeated documented clearance 3-patient will continue the patient on Unasyn 3 g every 6 hours with a plan to finish therapy with oral Augmentin at the bedside and multiple questions concerned were answered Dictation was produced using [employer] dictation software. please excuse any grammatical, word or spelling errors. Time with Patient: Less than 30
[2023-07-19] MEDS: RIVAROXABAN 20 MG TAB PO SCH (16:24)
[2023-07-19] MEDS: GABAPENTIN 100 MG CAP PO SCH (22:02)
[2023-07-19] MEDS: clonazePAM 1 MG TAB PO SCH (22:02)
[2023-07-20] MEDS: AMPICILLIN-SULBACTAM 3 GM in SODIUM CHLORIDE 0.9% 100 ML IVPB SCH ×3 (00:56→12:09)
[2023-07-20] MEDS: SODIUM CHLORIDE 0.9% 1,000 ML IV SCH (05:31)
[2023-07-20] MEDS: CHOLECALCIFEROL 25 MCG (1000 IU) TABLET PO SCH (08:41)
[2023-07-20] MEDS: FLUDROCORTISONE 0.1 MG TAB PO SCH (08:41)
[2023-07-20] MEDS: METOPROLOL SUCCINATE (ER) 100 MG TAB.ER.24H PO SCH (08:42)
[2023-07-20] MEDS: TAMSULOSIN 0.4 MG CAP.ER.24H PO SCH (08:42)
[2023-07-20] MEDS: MIDODRINE 5 MG TAB PO SCH (08:42)
[2023-07-20] MEDS: SENNOSIDES 8.6 MG TAB PO SCH (08:42)
[2023-07-20] MEDS: GABAPENTIN 100 MG CAP PO SCH (08:42)
[2023-07-20] MEDS: PANTOPRAZOLE 40 MG/10 ML VIAL IVP SCH (08:43)
[2023-07-20 08:54] VITALS: RESP 20
[2023-07-20] MEDS: FLECAINIDE 50 MG TAB PO SCH (09:55)
[2023-07-20] MEDS: levETIRAcetam 500 MG TAB PO SCH (09:55)
[2023-07-20 11:55] VITALS: BP 109/73; PULSE 87; TEMP 97.4
--- NOTE | 2023-07-20 12:05 | P.DS ---
Providers Date of admission: 07/14/23 12:57 Expected date of discharge: 07/20/23 Attending physician: Hoang Oliver Consults: 07/16/23 09:13 Consult Physician Routine Consulting Provider: Eitan Pack Consult Reason/Comments: Prostrate Ca Do you want consulting provider notified?: Yes 07/16/23 09:14 Consult Physician Routine Consulting Provider: Garrett Webster Consult Reason/Comments: Urinary retention Do you want consulting provider notified?: Yes 07/17/23 12:29 Consult Physician Routine Consulting Provider: Miguel Angel Cleaning Consult Reason/Comments: UTI, enterococcus faecalis VRE, abx rec Do you want consulting provider notified?: Yes 07/17/23 12:41 Consult Physician Routine Consulting Provider: Miguel Angel Cleaning Consult Reason/Comments: VRE Do you want consulting provider notified?: Yes Primary care physician: [facility] Course: Final diagnoses (1) Symptomatic hypotension Current Visit: Yes Status: Acute Code(s): I95.9 - HYPOTENSION, UNSPECIFIED SNOMED Code(s): 89148232 (2) Weakness Current Visit: Yes Status: Acute Code(s): R53.1 - WEAKNESS SNOMED Code(s): 82505278 (3) Atrial fibrillation with RVR Current Visit: No Status: Acute Code(s): I48.91 - UNSPECIFIED ATRIAL FIBRILLATION SNOMED Code(s): 170826717055372 (4) Back pain Current Visit: No Status: Acute Code(s): M54.9 - DORSALGIA, UNSPECIFIED SNOMED Code(s): 146526856 (5) Chest pain Current Visit: No Status: Acute Code(s): R07.9 - CHEST PAIN, UNSPECIFIED SNOMED Code(s): 63807457 (6) Left-sided weakness Current Visit: No Status: Acute Code(s): R53.1 - WEAKNESS SNOMED Code(s): 805964761 (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 Current Visit: No Status: Acute Code(s): C61 - MALIGNANT NEOPLASM OF PROSTATE; Z19.2 - HORMONE RESISTANT MALIGNANCY STATUS SNOMED Code(s): 294097516401372 (8) Orthostatic hypotension Current Visit: No Status: Acute Code(s): I95.1 - ORTHOSTATIC HYPOTENSION SNOMED Code(s): 23622289 (9) Urinary retention Current Visit: No Status: Acute Code(s): R33.9 - RETENTION OF URINE, UNSPECIFIED SNOMED Code(s): 300342265 (10) Wedge compression fracture of L3 vertebra Current Visit: No Status: Acute Code(s): S32.030A - WEDGE COMPRESSION FRACTURE OF THIRD LUMBAR VERTEBRA, INIT SNOMED Code(s): 977812181 (11) sepsis secondary to acute UTI, culture reporting enterococcus VRE. (12) History of TBI, workup completed at [facility]-reported per S.O. (13) fluctuating delirium ,acute metabolic encephalopathy, suspect related to infection. Brain CT reported degenerative changes. (14) chronic atrial fibrillation (15) morbid obesity,BMI 30 (16) obstructive sleep apnea and wears CPAP (17) former nicotine dependence (18) marijuana use Hospital course:68-year-old patient well-known to my practice long-standing history of metastatic prostate cancer, developed hypotension, urinary obstruction, urinary tract infection, nausea,. This patient is awake alert oriented 3 current vital signs are stable blood pressure has improved though still taking meds to support blood pressure, suspect underlying urinary tract infection with early sepsis 07/16/2023 fluctuating confusion, staff reports he reorients easily. Maintained on gentle IV fluid hydration with significant improvement in blood pressures. Mild tachycardia. Denies chest pain, palpitations or shortness of breath. Maintaining O2 sats in the mid 90s on 2 L nasal cannula. Rome catheter placed for urinary retention, culture pending. Maintained on IV ceftriaxone. Afebrile, T-max 100.3, normal WBC. Blood cultures in progress. Renal function improving, BUN 13, creatinine decreased to 1.14. Sodium 134. 07/17/2023 maintained on Unasyn. Afebrile, mild tachycardia, low 100s, systolic blood pressures high 90s to 1 teens. urine culture reporting enterococcus VRE. Denies chest pain, palpitations or shortness of breath. Maintaining O2 sats in the low 90s on 2 L nasal cannula. Rome catheter remains in place secondary to urinary retention, continues on Flomax. Brain CT reported degenerative changes with no evidence of acute intracranial hemorrhage or mass effect. Hyperdensity along the frontal lobes bilaterally stable from prior exam and likely artifactual. 07/18/2023 evaluated by infectious disease yesterday with antibiotics adjusted to Unasyn. One of 2 blood cultures reporting gram-positive cocci in clusters. Repeat blood culture in progress. Afebrile. Labs pending. Tachycardic. Maintaining O2 sats in the 90s on 2 L nasal cannula. 07/19/2023 continues on Unasyn, repeat blood culture pending. Afebrile, normal WBC. Developed some confusion during the night/, pulling out lines. Fatigued this morning. Maintaining O2 sats in the 90s on 2 L. Denies chest pain, palpitations or shortness of breath. Repeat urine culture reporting no growth, repeat blood culture no growth after 24 hours. Cleared by infectious disease for discharge on 1 week of Augmentin. Alert and oriented 3. Denies chest pain, palpitations or increased shortness of breath. Afebrile, VSS,maintaining O2 sats in the mid 90s on 2 L nasal cannula. Patient will be discharged today to subacute rehab in a stable condition with guarded prognosis. Microbiology 07/16/23 12:14 Blood Blood Culture Gram Stain - Final 07/16/23 12:14 Blood Blood Culture - Final Coagulase Negative Staph 07/18/23 21:45 Urine,Catheterized Urine Culture - Final 07/18/23 12:27 Blood Blood Culture - Preliminary 07/16/23 12:14 Blood Blood Culture - Preliminary 07/14/23 12:46 Urine,Catheterized Urine Culture - Final Enterococcus faecalis VRE The impression and plan of care has been dictated as directed. : I performed a history and examination of this patient, discussed the same with the dictator. I agree with the dictator's note ,documented as a scribe. Any additional findings or plans will be noted. Patient Condition at Discharge: Stable Plan - Discharge Summary Discharge Rx Participant: No New Discharge Prescriptions: New Pantoprazole Sodium [Protonix] 40 mg PO DAILY #30 tab Amoxic-Pot Clav 875-125Mg [Augmentin 875-125] 1 tab PO BID 7 Days #14 tab clonazePAM [KlonoPIN] 1 mg PO HS #3 tab Gabapentin [Neurontin] 100 mg PO BID 3 Days #6 cap Continue Rivaroxaban [Xarelto] 20 mg PO W/SUPPER Midodrine HCl [ProAmatine] 10 mg PO TID levETIRAcetam [Keppra] 500 mg PO Q12H fentaNYL 75MCG/HR PATCH [Duragesic 75MCG/HR] 1 patch TRANSDERM Q72H 3 Days #1 patch oxyCODONE-APAP 10-325MG [Percocet 10-325 mg] 1 tab PO QID PRN #12 tab PRN Reason: Pain Metoprolol Succinate [Toprol XL] 100 mg PO DAILY clonazePAM [KlonoPIN] 0.5 mg PO DAILY PRN PRN Reason: Anxiety Acetaminophen Tab [Tylenol] 650 mg PO Q6H PRN PRN Reason: Mild Pain (Scale 1 To 3) Sennosides [Senna Lax] 17.2 mg PO BID Tamsulosin HCl [Flomax] 0.4 mg PO DAILY Fludrocortisone [Florinef] 0.1 mg PO DAILY Flecainide [Tambocor] 100 mg PO Q12H Cholecalciferol [Vitamin D3 (25 Mcg = 1000 Iu)] 50 mcg PO DAILY clonazePAM [KlonoPIN] 1 mg PO HS #3 tab Discontinued Gabapentin [Neurontin] 300 mg PO BID Discharge Medication List Rivaroxaban [Xarelto] 20 mg PO W/SUPPER 09/04/18 [History] Metoprolol Succinate [Toprol XL] 100 mg PO DAILY 03/27/22 [History] Acetaminophen Tab [Tylenol] 650 mg PO Q6H PRN 07/05/23 [History] Flecainide [Tambocor] 100 mg PO Q12H 07/05/23 [History] Fludrocortisone [Florinef] 0.1 mg PO DAILY 07/05/23 [History] Midodrine HCl [ProAmatine] 10 mg PO TID 07/05/23 [History] Sennosides [Senna Lax] 17.2 mg PO BID 07/05/23 [History] Tamsulosin HCl [Flomax] 0.4 mg PO DAILY 07/05/23 [History] clonazePAM [KlonoPIN] 0.5 mg PO DAILY PRN 07/05/23 [History] levETIRAcetam [Keppra] 500 mg PO Q12H 07/05/23 [History] Cholecalciferol [Vitamin D3 (25 Mcg = 1000 Iu)] 50 mcg PO DAILY 07/14/23 [History] Amoxic-Pot Clav 875-125Mg [Augmentin 875-125] 1 tab PO BID 7 Days #14 tab 07/20/23 [Rx] Gabapentin [Neurontin] 100 mg PO BID 3 Days #6 cap 07/20/23 [Rx] Pantoprazole Sodium [Protonix] 40 mg PO DAILY #30 tab 07/20/23 [Rx] clonazePAM [KlonoPIN] 1 mg PO HS #3 tab 07/20/23 [Rx] clonazePAM [KlonoPIN] 1 mg PO HS #3 tab 07/20/23 [Rx] fentaNYL 75MCG/HR PATCH [Duragesic 75MCG/HR] 1 patch TRANSDERM Q72H 3 Days #1 patch 07/20/23 [Rx] oxyCODONE-APAP 10-325MG [Percocet 10-325 mg] 1 tab PO QID PRN #12 tab 07/20/23 [Rx] Follow up Appointment(s)/Referral(s): Hoang Oliver Jr, DO [Primary Care Provider] - 1-2 days Javier Pack MD [STAFF PHYSICIAN] - 07/31/23 9:15 am Activity/Diet/Wound Care/Special Instructions: [facility] CBC,BMP in 3 days Discharge Disposition: TRANSFER TO SNF/ECF
--- NOTE | 2023-07-20 16:28 | P.PN ---
Subjective Progress Note Date: 07/20/23 Principal diagnosis: VRE urinary tract infection and a positive blood culture Patient is a 76-year-old male with a past medical history significant for atrial fibrillation hypertension history of prostate cancer with mets to the spine presenting to the hospital for evaluation of weakness and did have a urinary retention patient did have a low-grade fever and urine cultures have been finalized with the VRE. On today's evaluation and that is 07/20/2023, the patient continues to be afebrile the patient is breathing comfortably on room air, the patient denies chest pain or cough, patient denies abdominal pain and no nausea/vomiting or diarrhea reported, confusion has improved per the at the bedside Patient white count of 3.1, creatinine 0.82 as of yesterday no lab drawn today Objective - Vital Signs Vital signs: Vital Signs Temp 97.4 F L 07/20/23 11:44 Pulse 87 07/20/23 11:44 Resp 20 07/20/23 11:44 BP 109/73 07/20/23 11:44 Pulse Ox 95 07/20/23 11:44 FiO2 Intake & Output 07/19/23 07/20/23 07/20/23 18:59 06:59 18:59 Intake Total 1277 Output Total 375 460 Balance 902 -460 Weight 106.141 kg Intake: Oral 1277 Output: Urine 375 460 Other: Voiding Method Indwelling Catheter Indwelling Catheter Indwelling Catheter # Bowel Movements 1 - Exam GENERAL DESCRIPTION: An elderly male lying in bed in no distress RESPIRATORY SYSTEM: Unlabored breathing , decreased breath sounds at bases HEART: S1 S2 regular rate and rhythm , ABDOMEN: Soft , no tenderness EXTREMITIES: No edema feet - Labs CBC & Chem 7: 07/19/23 08:09 07/19/23 08:09 Labs: Microbiology - Last 24 Hours (Table) 07/16/23 12:14 Blood Culture Gram Stain - Final Blood Blood Culture - Final Coagulase Negative Staph 07/18/23 21:45 Urine Culture - Final Urine,Catheterized 07/18/23 12:27 Blood Culture - Preliminary Blood 07/16/23 12:14 Blood Culture - Preliminary Blood Assessment and Plan (1) Positive blood culture Status: Acute Code(s): R78.81 - BACTEREMIA SNOMED Code(s): 230944168 (2) VRE (vancomycin resistant enterococcus) culture positive Status: Acute Code(s): Z22.39 - CARRIER OF OTHER SPECIFIED BACTERIAL DISEASES SNOMED Code(s): 453095748 (3) UTI (urinary tract infection) Status: Acute Priority: High Code(s): N39.0 - URINARY TRACT INFECTION, SITE NOT SPECIFIED SNOMED Code(s): 13431198 Plan: 1patient was in the hospital with weakness low blood pressure in this patient did have a urinary retention requiring [place] catheter placement positive UA low- grade fever likely symptomatic/complicated UTI in this patient who do have a hi story of metastatic prostate cancer with a urine culture showing VRE that is penicillin sensitive 2Patient also have a positive blood culture with staph epi likely skin contamination, no need for vancomycin blood cultures has been repeated documented clearance 3-patient has shown clinical improvement with Unasyn 3 g every 6 hours with a plan to finish therapy with oral Augmentin 875 mg twice a day 7 days on discharge discussed with the GRAIN COMBINER for admitting him at the bedside questions were answered Dictation was produced using [employer] dictation software. please excuse any grammatical, word or spelling errors. Time with Patient: Less than 30
--- NOTE | 2023-08-22 04:55 | CDI ---
Documentation Clarification Form Date: From: Teresa Morris Phone: Admit Date: 07/14/2023 12:57:00 PM Patient Name: Khoa Klein Visit Number: [id number] Discharge Date: 07/20/2023 04:02:00 PM ATTENTION: The Clinical Documentation Specialists (CDI) and [facility] Coding Staff appreciate your assistance in clarifying documentation. Please respond to the clarification below the line at the bottom and electronically sign. The CDI & [facility] Coding staff will review the response and follow-up if needed. Please note: Queries are made part of the Legal Health Record. If you have any questions, please contact the author of this message via ITS. Dr. Hoang Oliver Wedge compression fracture of L3 vertebra was listed in the problem/diagnosis list throughout the chart into the discharge summary. Based on this information and the findings below, was this diagnosis treated during this encounter? Patient history/risk factors: pt presented with weakness and chronic pain Clinical Indicators: weakness and chronic pain Treatment: fentanyl patch and oxycodone for pain Based on your clinical judgement and knowledge of this patient, please indicate the clinical significance of this diagnosis on this encounter [ ] Wedge compression fracture of L3 vertebra was treated during this encounter [ ] Wedge compression fracture of L3 vertebra is a historical diagnosis, not treated during this encounter [ ] Unable to determine [ ] Other, please specify (Template Last Revised: January 2023) MTDD
== END 2023-07-20 16:02 | DRG 871 ==
LOC: EC 11:42 → 3SCARD 12:57
PROVIDERS: ADMIT Family Medicine; ATTEND Family Medicine
DX: A41.9 Sepsis, unspecified organism (principal); G93.41 Metabolic encephalopathy; S32.030A Wedge compression fracture of third lumbar vertebra, initial encounter for closed fracture; C79.51 Secondary malignant neoplasm of bone; I42.8 Other cardiomyopathies; I48.20 Chronic atrial fibrillation, unspecified; N39.0 Urinary tract infection, site not specified; Z16.21 Resistance to vancomycin; B95.2 Enterococcus as the cause of diseases classified elsewhere; C61 Malignant neoplasm of prostate; E66.01 Morbid (severe) obesity due to excess calories; G47.33 Obstructive sleep apnea (adult) (pediatric); I10 Essential (primary) hypertension; I95.1 Orthostatic hypotension; Z19.2 Hormone resistant malignancy status; Z68.30 Body mass index [BMI] 30.0-30.9, adult; Z79.01 Long term (current) use of anticoagulants; Z79.52 Long term (current) use of systemic steroids; Z79.899 Other long term (current) drug therapy; Z80.42 Family history of malignant neoplasm of prostate; Z82.3 Family history of stroke; Z87.19 Personal history of other diseases of the digestive system; Z87.820 Personal history of traumatic brain injury; Z91.81 History of falling; Z87.891 Personal history of nicotine dependence; Z88.5 Allergy status to narcotic agent
CPT/HCPCS: 36415; 70450; 71046; 80048; 80053; 81001; 82272; 83605; 83735; 84484; 85025; 85027; 85610; 85730; 87040; 87077; 87086; 87186; 93005; 94760; 96361; 96374; 99285

== ENCOUNTER 2023-09-27 17:41 | Inpatient (IN) | payer MEDICARE, BC ==
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
--- NOTE | 2023-09-27 18:53 | XR ---
EXAMINATION TYPE: XR chest 2V DATE OF EXAM: 09/27/2023 6:19 PM CLINICAL INDICATION:Male, 68 years old with history of sob; COMPARISON: 07/14/2023 TECHNIQUE: XR chest 2V Frontal and lateral views of the chest. FINDINGS: Lungs/Pleura: There is no evidence of pleural effusion, focal consolidation, or pneumothorax. Pulmonary vascularity: Pulmonary vascular congestion. Heart/mediastinum: Cardiomediastinal silhouette is enlarged and stable. Musculoskeletal: No acute osseous pathology. Bilateral chronic appearing rib fractures. IMPRESSION: Cardiomegaly, pulmonary vascular congestion and bilateral pleural effusions. Correlate with BNP for c ongestive heart failure.
[2023-09-27 20:05] LABS: Anisocytosis Slight; Basophils % (A) 0 %; Eosinophils # (A) 0.1 k/uL (0-0.7); Eosinophils % (A) 2 %; HCT 34.8 % (39.0-53.0); Hypochromasia Marked; Lymphocytes # (A) 0.5 k/uL (1.0-4.8); Lymphocytes % (A) 9 %; MCH 27.9 pg (25.0-35.0); MCHC 31.6 g/dL (31.0-37.0); MCV 88.2 fL (80.0-100.0); Mean Platelet Volume 7.3; Monocytes # (A) 0.3 k/uL (0-1.0); Monocytes % (A) 6 %; Neutrophils # (A) 4.3 k/uL (1.3-7.7); Neutrophils % (A) 82 %; Platelet Count 206 k/uL (150-450); RBC 3.95 m/uL (4.30-5.90); RDW 18.6 % (11.5-15.5); WBC 5.3 k/uL (3.8-10.6)
[2023-09-27 20:19] LABS: INR 1.2 (<1.2); Partial Thromboplastin Time 32.1 sec (22.0-30.0); Prothrombin Time 12.8 sec (10.0-12.5)
[2023-09-27 20:23] LABS: ALT 10 U/L (4-49); AST 17 U/L (17-59); African American GFR (CKD) >90 (>60 ml/min/1.73 sqM); Albumin 3.6 g/dL (3.5-5.0); Alkaline Phosphatase 94 U/L (38-126); Anion Gap 10 mmol/L; Blood Urea Nitrogen 10 mg/dL (9-20); Calcium 8.2 mg/dL (8.4-10.2); Carbon Dioxide 25 mmol/L (22-30); Chloride 101 mmol/L (98-107); Glucose 100 mg/dL (74-99); Non-African American GFR(CKD) 79 (>60 ml/min/1.73 sqM); Potassium 3.9 mmol/L (3.5-5.1); Sodium 136 mmol/L (137-145); Total Bilirubin 0.8 mg/dL (0.2-1.3)
[2023-09-27 20:31] LABS: NT-Pro-B-Type Natriuretic Pept 9720 pg/mL
[2023-09-27] MEDS ORDERED: FUROSEMIDE 10 MG/ML 4 ML VIAL IV STA (22:23)
[2023-09-27] MEDS ORDERED: NALOXONE 0.4 MG/ML 1 ML VIAL IV PRN (22:25)
[2023-09-28 00:33] LABS: Appearance,Urine Clear (Clear); Bilirubin,Urine Negative (Negative); Blood,Urine Small (Negative); Budding Yeast,Urine Rare /hpf; Color,Urine Yellow; Glucose,Urine (UA) Negative (Negative); Hyaline Casts,Urine 1 /lpf (0-2); Ketones,Urine Trace (Negative); Leukocyte Esterase,Urine Negative (Negative); Mucus,Urine Moderate /hpf; Nitrite,Urine Negative (Negative); PH, Urine 6.5 (5.0-8.0); Protein,Urine Trace (Negative); RBC,Urine 35 /hpf (0-5); Specific Gravity,Urine 1.017 (1.001-1.035); Squamous Epithelial Cell,Urine <1 /hpf (0-4); Urobilinogen,Urine <2.0 mg/dL (<2.0); WBC,Urine 1 /hpf (0-5)
[2023-09-28] MEDS ORDERED: FLECAINIDE 50 MG TAB PO SCH (01:30)
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
[2023-09-28] MEDS: MIDODRINE 5 MG TAB PO SCH ×3 (07:52→18:03)
[2023-09-28 08:52] LABS: Anisocytosis Slight; Basophils % (A) 0 %; Eosinophils # (A) 0.2 k/uL (0-0.7); Eosinophils % (A) 3 %; HCT 34.1 % (39.0-53.0); HGB 10.9 gm/dL (13.0-17.5); Hypochromasia Moderate; Lymphocytes # (A) 0.3 k/uL (1.0-4.8); Lymphocytes % (A) 6 %; MCH 27.9 pg (25.0-35.0); MCV 87.2 fL (80.0-100.0); Mean Platelet Volume 6.8; Monocytes # (A) 0.3 k/uL (0-1.0); Monocytes % (A) 5 %; Neutrophils # (A) 4.4 k/uL (1.3-7.7); Neutrophils % (A) 85 %; Platelet Count 209 k/uL (150-450); RBC 3.91 m/uL (4.30-5.90); RDW 18.8 % (11.5-15.5); WBC 5.1 k/uL (3.8-10.6)
[2023-09-28] MEDS: FUROSEMIDE 10 MG/ML 4 ML VIAL IV SCH ×2 (09:16→20:05)
[2023-09-28] MEDS: GABAPENTIN 100 MG CAP PO SCH ×2 (09:16→20:05)
[2023-09-28] MEDS: FLUDROCORTISONE 0.1 MG TAB PO SCH (09:16)
[2023-09-28 09:42] LABS: African American GFR (CKD) 87 (>60 ml/min/1.73 sqM); Anion Gap 11 mmol/L; Blood Urea Nitrogen 9 mg/dL (9-20); Calcium 8.1 mg/dL (8.4-10.2); Carbon Dioxide 29 mmol/L (22-30); Chloride 99 mmol/L (98-107); Glucose 98 mg/dL (74-99); Non-African American GFR(CKD) 75 (>60 ml/min/1.73 sqM); Potassium 3.6 mmol/L (3.5-5.1); Sodium 139 mmol/L (137-145)
--- NOTE | 2023-09-28 11:04 | CA ---
Transthoracic Echo Report Name: Khoa Klein Age: 68 Gender: M : 1955 Exam Date: 09/28/2023 08:47 Exam Location: [facility] Ht (in): 74 Wt (lb): 166 Ordering Physician: Manju Barkley DO Attending/Referring Phys: [id number], Filippo [employer] Foreman Caity Calderon [facility] Procedure CPT: Indications: new onset pulmonary edema Cardiac Hx: Technical Quality: Technically difficult study Contrast 1: Definity Total Dose (mL): 6 Contrast 2: Total Dose (mL): MEASUREMENTS (Male / Female) Normal Values 2D ECHO LV Diastolic Diameter PLAX 5.2 cm 4.2 - 5.9 / 3.9 - 5.3 cm LV Systolic Diameter PLAX 4.0 cm IVS Diastolic Thickness 1.1 cm 0.6 - 1.0 / 0.6 - 0.9 cm LVPW Diastolic Thickness 1.2 cm 0.6 - 1.0 / 0.6 - 0.9 cm LV Relative Wall Thickness 0.5 LVOT Diameter 2.0 cm Ascending Aorta Diameter 4.5 cm M-MODE Aortic Root Diameter MM 3.0 cm LA Systolic Diameter MM 5.6 cm LA Ao Ratio MM 1.9 AV Cusp Separation MM 2.5 cm DOPPLER AV Peak Velocity 81.2 cm/s AV Peak Gradient 2.6 mmHg AV Mean Velocity 61.8 cm/s AV Mean Gradient 1.6 mmHg AV Velocity Time Integral 18.3 cm LVOT Peak Velocity 71.5 cm/s LVOT Peak Gradient 2.0 mmHg LVOT Velocity Time Integral 14.1 cm LVOT Stroke Volume 42.2 cm??? LVOT Stroke Volume Index 21.0 ml/m??? LVOT Cardiac Index 1794.5 cm???/min???m??? AV Area Cont Eq vti 2.3 cm??? AV Area Cont Eq pk 2.6 cm??? Mitral E Point Velocity 83.2 cm/s MV Deceleration Time 110.9 ms LV E' Lateral Velocity 9.8 cm/s Mitral E to LV E' Lateral Ratio 8.5 LV E' Septal Velocity 9.3 cm/s Mitral E to LV E' Septal Ratio 9.0 TR Peak Velocity 350.5 cm/s TR Peak Gradient 49.1 mmHg Right Atrial Pressure 15.0 mmHg Pulmonary Artery Systolic Pressu 64.1 mmHg Right Ventricular Systolic Press 64.1 mmHg FINDINGS Left Ventricle Mildly increased left ventricular wall thickness. Left ventricular cavity size normal.left ventricular ejection fraction is estimated at 50-55 %. Right Ventricle Severe right ventricular dilatation. Moderate to severe pulmonary hypertension. Right Atrium Severe right atrial dilatation. Left Atrium Severe left atrial dilatation. Mitral Valve Mitral valve thickened. Mild mitral regurgitation. Aortic Valve Trileaflet aortic valve. Mild aortic regurgitation. Tricuspid Valve Structurally normal tricuspid valve. Moderate to severe tricuspid regurgitation. Pulmonic Valve Structurally normal pulmonic valve. Trace pulmonic regurgitation. Pericardium Echo free space anterior to the right ventricle likely represents a fat pad. Aorta Normal size aortic root and moderately dilated proximal ascending aorta. CONCLUSIONS 1. Left ventricular systolic function borderline normal 2. Severely dilated right ventricle with moderate to severe pulmonary hypertension 3. Moderate to severe tricuspid regurgitation 4. Mild mitral and aortic regurgitation Previewed by: Dr. Afsaneh Gutierrez MD (Electronically Signed) Final Date: 28 September 2023 11:03
[2023-09-28] MEDS: RIVAROXABAN 20 MG TAB PO SCH (18:03)
[2023-09-28] MEDS: clonazePAM 1 MG TAB PO SCH (20:05)
--- NOTE | 2023-09-28 21:47 | CONS ---
CONSULTATION HISTORY OF PRESENT ILLNESS: This is a 68-year-old gentleman with a history of persistent atrial fibrillation, who was actually scheduled for electrical cardioversion today. He also has metastatic prostate cancer. He is also known to have congestive heart failure, combination of both systolic and diastolic. He came into the hospital with increasing shortness of breath and weight gain and lower extremity edema. He has received IV Lasix and he feels somewhat better. He is resting comfortably at the time of my evaluation and with activity, however, he feels quite short of breath. Apparently, because of hypotension, his Lasix was held. This may have contributed somewhat to his volume overload type picture. He has chronic atrial fibrillation, has had previous cardioversions before. He was scheduled for one tomorrow according to the , however, I have not verified this. He is resting comfortably at the time of my evaluation. PAST MEDICAL HISTORY: 1. Chronic persistent atrial fibrillation. 2. History of prostate cancer with metastasis to the bone, obstructive sleep apnea, previous history of alcohol abuse. He has no documented CAD based on a cardiac cath in 2018. His last echocardiogram apparently in 2020, revealed preserved systolic function, but with atrial fibrillation rapid rate. He seems to go into a congestive heart failure type picture. PHYSICAL EXAMINATION: VITAL SIGNS: Blood pressure is 130/70 and pulse rate is about 100 to 110, irregular. HEENT: Unremarkable. Fundus was not examined by me. NECK: Supple. There is JVD. No carotid bruit. HEART: S1 and S2 with a short systolic murmur. LUNGS: Bilateral scattered rales and rhonchi. ABDOMEN: Soft. Distended. LOWER EXTREMITIES: Reveal diminished pulses. CENTRAL NERVOUS SYSTEM: Normal. LABORATORY DATA: Reveals initial troponin is normal. BNP is over 9000. COVID negative. Renal function is normal. IMPRESSION: 1. Exacerbation of combined systolic and diastolic heart failure. 2. Chronic persistent atrial fibrillation. 3. Metastatic prostate cancer. RECOMMENDATIONS: I am recommending that we continue IV diuretics today and tomorrow, switch him to oral diuretics. I will discontinue Florinef. This may have contributed to some volume overload, but we will leave him on midodrine. We will resume Xarelto. I discussed my thoughts in detail with the patient and family. Thank you very much for the consult. MMLEROYL / IJN: [id number] /
[2023-09-29] MEDS ORDERED: FUROSEMIDE 40 MG TAB PO SCH (09:00)
[2023-09-29] MEDS: GABAPENTIN 100 MG CAP PO SCH ×2 (09:44→22:05)
[2023-09-29] MEDS: FLUDROCORTISONE 0.1 MG TAB PO SCH (09:44)
[2023-09-29] MEDS: MIDODRINE 5 MG TAB PO SCH (09:44)
[2023-09-29] MEDS: METOPROLOL SUCCINATE (ER) 25 MG TAB.ER.24H PO SCH ×2 (10:03→22:04)
[2023-09-29] MEDS: FUROSEMIDE 10 MG/ML 4 ML VIAL IV SCH (10:03)
[2023-09-29 11:18] LABS: Anisocytosis Slight; Basophils % (A) 0 %; Eosinophils # (A) 0.1 k/uL (0-0.7); Eosinophils % (A) 2 %; HCT 38.4 % (39.0-53.0); HGB 11.9 gm/dL (13.0-17.5); Hypochromasia Moderate; Lymphocytes # (A) 0.3 k/uL (1.0-4.8); Lymphocytes % (A) 4 %; MCH 27.3 pg (25.0-35.0); MCHC 31.1 g/dL (31.0-37.0); MCV 87.7 fL (80.0-100.0); Mean Platelet Volume 6.9; Monocytes # (A) 0.3 k/uL (0-1.0); Monocytes % (A) 5 %; Neutrophils # (A) 5.3 k/uL (1.3-7.7); Neutrophils % (A) 88 %; Platelet Count 236 k/uL (150-450); RBC 4.38 m/uL (4.30-5.90); RDW 18.5 % (11.5-15.5)
--- NOTE | 2023-09-29 11:48 | P.PN ---
Subjective Progress Note Date: 09/29/23 No new copmlaints. Pt reports improvement in dyspnea. Requesting his home fentanyl patch to be re-ordered. Gen: awake, alert HEENT: normocephalic, atraumatic, good hearing acuity, moist mucous membranes Resp: good air exchange, breathing comfortably with no accessory muscle use CVS: good distal perfusion x 4, GI: soft, NTTP, ND : no SPT, no CVAT, MSK: no pitting edema, no clubbing Neuro: non-focal, moving all extremities Psych: cooperative, euthymic mood Hospital course: Patient is a 68-year-old male with a PMH of long-standing prostate cancer with metastasis to bone, afib on Xarelto, and BPH who presents to the emergency room with complaints of shortness of breath and lower extremity swelling. Chest x- ray in the emergency room was consistent with fluid overload and congestive heart failure. EKG revealed A. fib with intraventricular conduction delay at 97 bpm as reviewed by me. Laboratory evaluation was remarkable for a proBNP 9720, troponin less than 0.012, hemoglobin of 11.0 (baseline 8), sodium 136, UA with 35 rbc's, with a respiratory viral panel unremarkable. Assessment: Acute CHF exacerbation, newly diagnosed Chronic conditions: A. fib, BPH, prostate cancer with metastases to bone Plan: Continue with Lasix IV 40 mg every 12 hourly Intake and output Cardiac monitoring Cardiology consult Daily weights Obtain echocardiogram Continue with home medications, resumed fentanyl patch 75 g per 72 hours today DVT prophylaxis: xarelto CODE STATUS: Full Code Discussed with: Patient Anticipated discharge place: Home Objective - Vital Signs Vital signs: Vital Signs Temp 98.6 F 09/29/23 09:43 Pulse 105 H 09/29/23 09:43 Resp 20 09/29/23 09:43 BP 131/94 09/29/23 09:43 Pulse Ox 95 09/29/23 09:43 FiO2 Intake & Output 09/28/23 09/29/23 09/29/23 18:59 06:59 18:59 Intake Total 250 540 Output Total 3552049 Balance -3300 -1510 Intake: Oral 250 540 Output: Urine 3549 2049 Other: Voiding Method External Catheter - Labs CBC & Chem 7: 09/29/23 10:28 09/28/23 08:42 Labs: Abnormal Lab Results - Last 24 Hours (Table) 09/29/23 Range/Units 10:28 Hgb 11.9 L (13.0-17.5) gm/dL Hct 38.4 L (39.0-53.0) % RDW 18.5 H (11.5-15.5) % Lymphocytes # 0.3 L (1.0-4.8) k/uL
[2023-09-29 12:43] LABS: African American GFR (CKD) 83 (>60 ml/min/1.73 sqM); Anion Gap 13 mmol/L; Blood Urea Nitrogen 12 mg/dL (9-20); Calcium 7.9 mg/dL (8.4-10.2); Carbon Dioxide 31 mmol/L (22-30); Chloride 93 mmol/L (98-107); Glucose 102 mg/dL (74-99); Non-African American GFR(CKD) 72 (>60 ml/min/1.73 sqM); Potassium 3.4 mmol/L (3.5-5.1); Sodium 137 mmol/L (137-145)
--- NOTE | 2023-09-29 15:51 | P.PN ---
Subjective Progress Note Date: 09/29/23 The patient is a 68-year-old male who was admitted to the hospital yesterday after presenting for a cardioversion. He was found to be in acute heart failure and therefore was referred to the emergency room. He was given IV Lasix with adequate output thereafter. The patient states he is slowly feeling better. He still has some shortness of breath, but he has not been out of the bed since he was admitted to the ER yesterday. He states he does have palpitations. No chest pain. GENERAL: Well-appearing, well-nourished and in no acute distress. NECK: Supple without JVD or thyromegaly. LUNGS: Breath sounds rhonchorous to auscultation bilaterally. Respiration equal and unlabored. Bilateral inspiratory wheezes HEART: Irregular rate and rhythm without murmurs, rubs or gallops. S1 and S2 heard. EXTREMITIES: Normal range of motion, no edema. No clubbing or cyanosis. Peripheral pulses intact and strong. TELEMETRY: Persistent atrial fibrillation IMPRESSION: Persistent atrial fibrillation heart rates in the low 100s Congestive heart failure, diastolic Moderate to severe tricuspid regurgitation Moderate to severe pulmonary hypertension History of recent covid infection History of orthostatic intolerance, on Florinef and midodrine PLAN: Start oral beta aiden for rate control Start IV Lasix daily Discontinue Florinef and midodrine Further recommendations to be clinical course I am dictating on behalf of Dr Isiah Capone's history/physical and assessment/plan. Objective - Vital Signs Vital signs: Vital Signs Temp 98.7 F 09/29/23 12:20 Pulse 96 09/29/23 13:00 Resp 17 09/29/23 13:00 BP 132/90 09/29/23 12:20 Pulse Ox 90 L 09/29/23 12:20 FiO2 Intake & Output 09/28/23 09/29/23 09/29/23 18:59 06:59 18:59 Intake Total 250 540 100 Output Total [id number] 250 Balance -3300 -1510 -150 Weight 96.6 kg Intake: Oral 250 540 100 Output: Urine 3550 2049 250 Other: Voiding Method External Catheter External Catheter - Labs CBC & Chem 7: 09/29/23 10:28 09/29/23 10:28 Labs: Abnormal Lab Results - Last 24 Hours (Table) 09/29/23 09/29/23 Range/Units 10:28 10:28 Hgb 11.9 L (13.0-17.5) gm/dL Hct 38.4 L (39.0-53.0) % RDW 18.5 H (11.5-15.5) % Lymphocytes # 0.3 L (1.0-4.8) k/uL Potassium 3.4 L (3.5-5.1) mmol/L Chloride 93 L (98-107) mmol/L Carbon Dioxide 31 H (22-30) mmol/L Glucose 102 H (74-99) mg/dL Calcium 7.9 L (8.4-10.2) mg/dL
[2023-09-29] MEDS: RIVAROXABAN 20 MG TAB PO SCH (16:53)
[2023-09-29] MEDS: CHOLECALCIFEROL 25 MCG (1000 IU) TABLET PO SCH (22:04)
[2023-09-29] MEDS: SENNOSIDES 8.6 MG TAB PO SCH (22:05)
[2023-09-29] MEDS: clonazePAM 1 MG TAB PO SCH (22:05)
[2023-09-29] MEDS: oxyCODONE-APAP 10-325MG 1 EACH TAB PO PRN (22:05)
[2023-09-29] MEDS: DAROLUTAMIDE 300 MG PO SCH (22:53)
[2023-09-30] MEDS ORDERED: METOPROLOL SUCCINATE (ER) 100 MG TAB.ER.24H PO SCH (09:00)
[2023-09-30] MEDS: TAMSULOSIN 0.4 MG CAP.ER.24H PO SCH (09:35)
[2023-09-30] MEDS: FUROSEMIDE 10 MG/ML 4 ML VIAL IV SCH (09:35)
[2023-09-30] MEDS: CHOLECALCIFEROL 25 MCG (1000 IU) TABLET PO SCH ×2 (09:35→20:36)
[2023-09-30] MEDS: GABAPENTIN 100 MG CAP PO SCH ×2 (09:35→20:35)
[2023-09-30] MEDS: METOPROLOL SUCCINATE (ER) 25 MG TAB.ER.24H PO SCH ×2 (09:35→20:35)
[2023-09-30] MEDS: SENNOSIDES 8.6 MG TAB PO SCH ×2 (09:35→20:35)
[2023-09-30] MEDS: DAROLUTAMIDE 300 MG PO SCH (09:40)
--- NOTE | 2023-09-30 10:27 | P.PN ---
Subjective Progress Note Date: 09/30/23 No new copmlaints. Pt reports improvement in dyspnea. Gen: awake, alert HEENT: normocephalic, atraumatic, good hearing acuity, moist mucous membranes Resp: good air exchange, breathing comfortably with no accessory muscle use CVS: good distal perfusion x 4, GI: soft, NTTP, ND : no SPT, no CVAT, MSK: no pitting edema, no clubbing Neuro: non-focal, moving all extremities Psych: cooperative, euthymic mood Hospital course: Patient is a 68-year-old male with a PMH of long-standing prostate cancer with metastasis to bone, afib on Xarelto, and BPH who presents to the emergency room with complaints of shortness of breath and lower extremity swelling. Chest x- ray in the emergency room was consistent with fluid overload and congestive heart failure. EKG revealed A. fib with intraventricular conduction delay at 97 bpm as reviewed by me. Laboratory evaluation was remarkable for a proBNP 9720, troponin less than 0.012, hemoglobin of 11.0 (baseline 8), sodium 136, UA with 35 rbc's, with a respiratory viral panel unremarkable. Assessment: Acute CHF exacerbation, newly diagnosed Chronic conditions: A. fib, BPH, prostate cancer with metastases to bone Plan: Continue with Lasix IV 40 mg daily Intake and output Cardiac monitoring Cardiology consult Daily weights Obtain echocardiogram = severe pulmonary HTN with severe TR Continue with home medications, resumed fentanyl patch 75 g per 72 hours today DVT prophylaxis: xarelto CODE STATUS: Full Code Discussed with: Patient Anticipated discharge place: Home Objective - Vital Signs Vital signs: Vital Signs Temp 97.7 F 09/30/23 04:00 Pulse 98 09/30/23 08:00 Resp 18 09/30/23 08:00 BP 128/79 09/30/23 08:00 Pulse Ox 94 L 09/30/23 08:00 FiO2 Intake & Output 09/29/23 09/30/23 09/30/23 18:59 06:59 18:59 Intake Total 218 340 Output Total 250 450 351 Balance -32 -450 -11 Weight 96.6 kg 98 kg Intake: Oral 218 340 Output: Urine 250 450 150 Post Void Residual 201 Other: Voiding Method External Catheter External Catheter - Labs CBC & Chem 7: 09/29/23 10:28 09/29/23 10:28 Labs: Abnormal Lab Results - Last 24 Hours (Table) 12/23/23 12/23/23 Range/Units 10:28 10:28 Hgb 11.9 L (13.0-17.5) gm/dL Hct 38.4 L (39.0-53.0) % RDW 18.5 H (11.5-15.5) % Lymphocytes # 0.3 L (1.0-4.8) k/uL Potassium 3.4 L (3.5-5.1) mmol/L Chloride 93 L (98-107) mmol/L Carbon Dioxide 31 H (22-30) mmol/L Glucose 102 H (74-99) mg/dL Calcium 7.9 L (8.4-10.2) mg/dL
[2023-09-30] MEDS: SPIRONOLACTONE 25 MG TAB PO SCH (12:32)
--- NOTE | 2023-09-30 12:56 | P.PN ---
Subjective Progress Note Date: 09/30/23 This is Ciaran Godoy NP, I'm dictating on behalf of Dr. Capone's H&P and A&P. Patient was interviewed and examined. Patient is a pleasant 68-year-old male who presented to the hospital with shortness of breath and new onset congestive heart failure. This morning the patient reports that he is breathing better, however nursing staff reports that he is needed increased amount of O2 in order to feel better. Patient continues to demonstrate coarse rhonchi, which is audible just standing next to the p atient. Patient had midodrine and Florinef discontinued yesterday, with the goal of increasing the patient's blood pressure, this goes achieved. Patient is currently on furosemide 40 mg IV push daily, Toprol all XL 25 mg twice a day. Patient does report that he is continuing to cough a lot and has congested lungs. He does continue to report shortness of breath at this time. GENERAL: Well-appearing, well-nourished and in no acute distress. NECK: Supple without JVD or thyromegaly. LUNGS: Breath sounds demonstrate coarse rhonchi bilaterally. Respiration equal and unlabored. No wheezes, rales. HEART: Regular rate and irregular rhythm without murmurs, rubs or gallops. S1 and S2 heard. EXTREMITIES: Normal range of motion, no edema. No clubbing or cyanosis. Peripheral pulses intact and strong. VITALS: Temp 97.7, pulse 98, respirations 18, blood pressure 128/79, O2 saturation 94% on 5 L TELEMETRY: Atrial fibrillation with controlled ventricular response LABS: No new labs since 09/29/2023 IMPRESSION: 1. Persistent atrial fibrillation 2. Congestive heart failure, diastolic 3. Moderate to severe tricuspid regurgitation 4. Moderate to severe pulmonary hypertension 5. History of recent colon infection 6. History of orthostatic intolerance, on Florinef and midodrine PLAN: Continue Lasix. Continue metoprolol. Start spironolactone 25 mg daily. Do not replace potassium. Further recommendations based on patient's clinical course. Objective - Vital Signs Vital signs: Vital Signs Temp 97.7 F 09/30/23 04:00 Pulse 98 09/30/23 08:00 Resp 18 09/30/23 08:00 BP 128/79 09/30/23 08:00 Pulse Ox 94 L 09/30/23 08:00 FiO2 Intake & Output 09/29/23 09/30/23 09/30/23 18:59 06:59 18:59 Intake Total 218 340 Output Total 250 450 351 Balance -32 -450 -11 Weight 96.6 kg 98 kg Intake: Oral 218 340 Output: Urine 250 450 150 Post Void Residual 201 Other: Voiding Method External Catheter External Catheter External Catheter - Labs CBC & Chem 7: 09/29/23 10:28 09/29/23 10:28
[2023-09-30] MEDS: RIVAROXABAN 20 MG TAB PO SCH (17:01)
[2023-09-30] MEDS: oxyCODONE-APAP 10-325MG 1 EACH TAB PO PRN (20:35)
[2023-09-30] MEDS: clonazePAM 1 MG TAB PO SCH (20:36)
[2023-10-01 08:42] LABS: Anisocytosis Slight; Basophils % (A) 1 %; Eosinophils # (A) 0.2 k/uL (0-0.7); Eosinophils % (A) 5 %; HCT 39.5 % (39.0-53.0); HGB 12.2 gm/dL (13.0-17.5); Hypochromasia Moderate; Lymphocytes # (A) 0.5 k/uL (1.0-4.8); Lymphocytes % (A) 14 %; MCH 27.1 pg (25.0-35.0); MCHC 30.9 g/dL (31.0-37.0); MCV 87.8 fL (80.0-100.0); Monocytes # (A) 0.4 k/uL (0-1.0); Monocytes % (A) 9 %; Neutrophils # (A) 2.8 k/uL (1.3-7.7); Neutrophils % (A) 70 %; Platelet Count 240 k/uL (150-450); RBC 4.49 m/uL (4.30-5.90); RDW 18.4 % (11.5-15.5)
[2023-10-01] MEDS: METOPROLOL SUCCINATE (ER) 25 MG TAB.ER.24H PO SCH ×2 (08:48→20:30)
[2023-10-01] MEDS: SPIRONOLACTONE 25 MG TAB PO SCH (08:48)
[2023-10-01] MEDS: TAMSULOSIN 0.4 MG CAP.ER.24H PO SCH (08:48)
[2023-10-01] MEDS: CHOLECALCIFEROL 25 MCG (1000 IU) TABLET PO SCH ×2 (08:48→20:30)
[2023-10-01] MEDS: GABAPENTIN 100 MG CAP PO SCH ×2 (08:48→20:31)
[2023-10-01] MEDS: SENNOSIDES 8.6 MG TAB PO SCH ×2 (08:49→20:30)
[2023-10-01] MEDS: FUROSEMIDE 10 MG/ML 4 ML VIAL IV SCH (08:49)
[2023-10-01 08:56] LABS: African American GFR (CKD) 82 (>60 ml/min/1.73 sqM); Anion Gap 9 mmol/L; Blood Urea Nitrogen 17 mg/dL (9-20); Carbon Dioxide 32 mmol/L (22-30); Chloride 95 mmol/L (98-107); Glucose 102 mg/dL (74-99); Non-African American GFR(CKD) 71 (>60 ml/min/1.73 sqM); Potassium 2.9 mmol/L (3.5-5.1); Sodium 136 mmol/L (137-145)
--- NOTE | 2023-10-01 09:01 | XR ---
EXAMINATION TYPE: XR chest 1V portable DATE OF EXAM: 10/01/2023 Comparison: 09/27/2023 Clinical History: 68-year-old male hypoxia Findings: Heart upper limits of normal in size. Hyperinflation. Small left effusion with patchy left basilar op acity. Pleural-based lesions periphery of the left lower lung and periphery of the right base are red emonstrated. Impression: COPD with trace left effusion with adjacent left basilar atelectasis and/or consolidation. Previous r ight effusion and vascular congestion improved compared to 09/27/2023. Similar expansile lower rib le sions on either side.
[2023-10-01] MEDS ORDERED: POTASSIUM CHLORIDE ER 20 MEQ TAB.ER PO STA (09:32)
[2023-10-01] MEDS: DAROLUTAMIDE 300 MG PO SCH ×3 (10:25→20:31)
--- NOTE | 2023-10-01 10:33 | P.PN ---
Subjective Progress Note Date: 10/01/23 Pt now having ptosis of right eye with mild miosis, suspicious for raghavendra syndrome - neurology consulted Gen: awake, alert HEENT: normocephalic, atraumatic, good hearing acuity, moist mucous membranes Resp: good air exchange, breathing comfortably with no accessory muscle use CVS: good distal perfusion x 4, GI: soft, NTTP, ND : no SPT, no CVAT, MSK: no pitting edema, no clubbing Neuro: non-focal, moving all extremities Psych: cooperative, euthymic mood Hospital course: Patient is a 68-year-old male with a PMH of long-standing prostate cancer with metastasis to bone, afib on Xarelto, and BPH who presents to the emergency room with complaints of shortness of breath and lower extremity swelling. Chest x- ray in the emergency room was consistent with fluid overload and congestive heart failure. EKG revealed A. fib with intraventricular conduction delay at 97 bpm as reviewed by me. Laboratory evaluation was remarkable for a proBNP 9720, troponin less than 0.012, hemoglobin of 11.0 (baseline 8), sodium 136, UA with 35 rbc's, with a respiratory viral panel unremarkable. Assessment: Acute CHF exacerbation, newly diagnosed Right eye ptosis Chronic conditions: A. fib, BPH, prostate cancer with metastases to bone Plan: Continue with Lasix IV 40 mg daily Intake and output Cardiac monitoring Cardiology consult Daily weights Obtain echocardiogram = severe pulmonary HTN with severe TR Continue with home medications, resumed fentanyl patch 75 g per 72 hours today -neurology consulted for new finding of right eye ptosis and mild miosis DVT prophylaxis: xarelto Dispo plan: patient would likely benefit from hospice referral as outpatient - family seems to be on board with this or with palliative care referral CODE STATUS: Full Code Discussed with: Patient Anticipated discharge place: Home Objective - Vital Signs Vital signs: Vital Signs Temp 97.6 F 09/30/23 20:12 Pulse 85 10/01/23 04:00 Resp 16 10/01/23 08:50 BP 99/64 10/01/23 08:50 Pulse Ox 96 10/01/23 08:50 FiO2 Intake & Output 09/30/23 10/01/23 10/01/23 18:59 06:59 18:59 Intake Total 1084 480 130 Output Total 951 Balance 133 480 130 Weight 98 kg 95.5 kg Intake: IV 10 Invasive Line 1 10 Oral 1084 480 120 Output: Urine 750 Post Void Residual 201 Other: Voiding Method External Catheter External Catheter External Catheter - Labs CBC & Chem 7: 10/01/23 07:33 10/01/23 07:33 Labs: Abnormal Lab Results - Last 24 Hours (Table) 10/01/23 10/01/23 Range/Units 07:33 07:33 Hgb 12.2 L (13.0-17.5) gm/dL MCHC 30.9 L (31.0-37.0) g/dL RDW 18.4 H (11.5-15.5) % Lymphocytes # 0.5 L (1.0-4.8) k/uL Sodium 136 L (137-145) mmol/L Potassium 2.9 L (3.5-5.1) mmol/L Chloride 95 L (98-107) mmol/L Carbon Dioxide 32 H (22-30) mmol/L Glucose 102 H (74-99) mg/dL Calcium 8.0 L (8.4-10.2) mg/dL
[2023-10-01] MEDS: POTASSIUM CHLORIDE 10 MEQ in WATER FOR INJECTION 1 100ML.BAG IVPB SCH ×3 (11:31→14:42)
--- NOTE | 2023-10-01 13:35 | P.PN ---
Subjective Progress Note Date: 10/01/23 The patient is a 68-year-old male who was admitted to the hospital yesterday after presenting for a cardioversion. He was found to be in acute heart failure and therefore was referred to the emergency room. He has been thoroughly diuresed throughout his admission. Beta blockers have been maximized for rate control. He has been up ambulating around the room. He reports having some shortness of breath with exertional activity but no chest pain or chest pressure. No palpitations. GENERAL: Well-appearing, well-nourished and in no acute distress. NECK: Supple without JVD or thyromegaly. LUNGS: Breath sounds rhonchorous to auscultation bilaterally. Respiration equal and unlabored. Bilateral inspiratory wheezes HEART: Irregular rate and rhythm without murmurs, rubs or gallops. S1 and S2 heard. EXTREMITIES: Normal range of motion, no edema. No clubbing or cyanosis. Peripheral pulses intact and strong. TELEMETRY: Persistent atrial fibrillation IMPRESSION: Persistent atrial fibrillation heart rates in the low 100s Congestive heart failure, diastolic Moderate to severe tricuspid regurgitation Moderate to severe pulmonary hypertension History of recent covid infection History of orthostatic intolerance, on Florinef and midodrine PLAN: Transition to oral Lasix Continue aggressive pulmonary hygiene Rate control for atrial fibrillation Patient may be discharged from the cardiac standpoint with follow-up with primary crm marketing executive Dr. Elena I am dictating on behalf of Dr Isiah Capone's history/physical and assessment/plan. Objective - Vital Signs Vital signs: Vital Signs Temp 97.6 F 09/30/23 20:12 Pulse 100 10/01/23 12:33 Resp 18 10/01/23 12:33 BP 114/63 10/01/23 12:33 Pulse Ox 95 10/01/23 12:33 FiO2 Intake & Output 09/30/23 10/01/23 10/01/23 18:59 06:59 18:59 Intake Total 1084 480 130 Output Total 951 Balance 133 480 130 Weight 98 kg 95.5 kg Intake: IV 10 Invasive Line 1 10 Oral 1084 480 120 Output: Urine 750 Post Void Residual 201 Other: Voiding Method External Catheter External Catheter External Catheter # Voids 1 - Labs CBC & Chem 7: 10/01/23 07:33 10/01/23 07:33 Labs: Abnormal Lab Results - Last 24 Hours (Table) 10/01/23 10/01/23 Range/Units 07:33 07:33 Hgb 12.2 L (13.0-17.5) gm/dL MCHC 30.9 L (31.0-37.0) g/dL RDW 18.4 H (11.5-15.5) % Lymphocytes # 0.5 L (1.0-4.8) k/uL Sodium 136 L (137-145) mmol/L Potassium 2.9 L (3.5-5.1) mmol/L Chloride 95 L (98-107) mmol/L Carbon Dioxide 32 H (22-30) mmol/L Glucose 102 H (74-99) mg/dL Calcium 8.0 L (8.4-10.2) mg/dL
[2023-10-01] MEDS: RIVAROXABAN 20 MG TAB PO SCH (17:54)
[2023-10-01] MEDS: oxyCODONE-APAP 10-325MG 1 EACH TAB PO PRN (20:29)
[2023-10-01] MEDS: clonazePAM 1 MG TAB PO SCH (20:30)
[2023-10-02] MEDS: DAROLUTAMIDE 300 MG PO SCH ×2 (07:54→20:21)
[2023-10-02] MEDS: CHOLECALCIFEROL 25 MCG (1000 IU) TABLET PO SCH ×2 (08:02→20:20)
[2023-10-02] MEDS: METOPROLOL SUCCINATE (ER) 25 MG TAB.ER.24H PO SCH ×2 (08:02→20:20)
[2023-10-02] MEDS: GABAPENTIN 100 MG CAP PO SCH ×2 (08:02→20:20)
[2023-10-02] MEDS: SPIRONOLACTONE 25 MG TAB PO SCH (08:02)
[2023-10-02] MEDS: FUROSEMIDE 40 MG TAB PO SCH (08:02)
[2023-10-02] MEDS: TAMSULOSIN 0.4 MG CAP.ER.24H PO SCH (08:02)
[2023-10-02] MEDS: SENNOSIDES 8.6 MG TAB PO SCH ×2 (08:02→20:20)
[2023-10-02 10:32] LABS: Anisocytosis Slight; Basophils # (A) 0.1 k/uL (0-0.2); Basophils % (A) 2 %; Eosinophils # (A) 0.2 k/uL (0-0.7); Eosinophils % (A) 4 %; HCT 41.6 % (39.0-53.0); HGB 12.6 gm/dL (13.0-17.5); Hypochromasia Marked; Lymphocytes # (A) 0.5 k/uL (1.0-4.8); Lymphocytes % (A) 10 %; MCH 28.1 pg (25.0-35.0); MCHC 30.2 g/dL (31.0-37.0); Mean Platelet Volume 7.7; Monocytes # (A) 0.4 k/uL (0-1.0); Monocytes % (A) 8 %; Neutrophils # (A) 3.8 k/uL (1.3-7.7); Neutrophils % (A) 74 %; Platelet Count 255 k/uL (150-450); RBC 4.46 m/uL (4.30-5.90); RDW 18.1 % (11.5-15.5); WBC 5.2 k/uL (3.8-10.6)
[2023-10-02 10:33] LABS: MCV 93.1 fL (80.0-100.0)
[2023-10-02 11:06] LABS: African American GFR (CKD) 84 (>60 ml/min/1.73 sqM); Anion Gap 13 mmol/L; Blood Urea Nitrogen 16 mg/dL (9-20); Carbon Dioxide 26 mmol/L (22-30); Chloride 99 mmol/L (98-107); Glucose 85 mg/dL (74-99); Non-African American GFR(CKD) 73 (>60 ml/min/1.73 sqM); Potassium 3.8 mmol/L (3.5-5.1); Sodium 138 mmol/L (137-145)
--- NOTE | 2023-10-02 11:43 | P.PN ---
Subjective Progress Note Date: 10/02/23 This a pleasant 68-year-old gentleman follows in the office with Dr. Elena. He has a history of persistent nature fibrillation, dementia, metastatic prostate cancer. He was initially scheduled for cardioversion on the however became progressively more short of breath and was recommended to go to the emergency department for further evaluation. He remains in atrial fibrillation with controlled heart rate. He seems to be back to his baseline. He denies any orthopnea or PND. He has no edema. He has some mild shortness of breath with activity that is at his baseline. Denies any chest discomfort. Denies any palpitations. Objective - Vital Signs Vital signs: Vital Signs Temp 97.9 F 10/02/23 08:00 Pulse 110 H 10/02/23 08:00 Resp 18 10/02/23 08:00 BP 98/59 10/02/23 08:00 Pulse Ox 94 L 10/02/23 08:00 FiO2 Intake & Output 10/01/23 10/02/23 10/02/23 18:59 06:59 18:59 Intake Total 260 10 Output Total 360 125 Balance -100 -115 Weight 91.8 kg Intake: IV 20 10 Invasive Line 1 20 10 Oral 240 Output: Urine 360 125 Other: Voiding Method External Catheter External Catheter External Catheter # Voids 1 - Exam GENERAL: Well-appearing, well-nourished and in no acute distress. NECK: Supple without JVD or thyromegaly. LUNGS: Breath sounds rhonchorous to auscultation bilaterally. Respiration equal and unlabored. Bilateral inspiratory wheezes HEART: Irregular rate and rhythm, no murmurs, rubs or gallops. S1 and S2 heard. EXTREMITIES: Normal range of motion, no edema. No clubbing or cyanosis. P eripheral pulses intact. - Labs CBC & Chem 7: 10/02/23 07:47 10/02/23 07:47 Labs: Abnormal Lab Results - Last 24 Hours (Table) 10/02/23 10/02/23 Range/Units 07:47 07:47 Hgb 12.6 L (13.0-17.5) gm/dL MCHC 30.2 L (31.0-37.0) g/dL RDW 18.1 H (11.5-15.5) % Lymphocytes # 0.5 L (1.0-4.8) k/uL Calcium 8.0 L (8.4-10.2) mg/dL Assessment and Plan Assessment: #1 acute heart failure with preserved ejection fraction, improved #2 persistent atrial fibrillation with controlled ventricular response #3 moderate to severe tricuspid regurgitation #4 moderate to severe pulmonary hypertension #5 history of recent cold or infection #6 history of orthostatic intolerance Plan: From cardiology's perspective medications were reviewed and will continue the same. Patient may be discharged home when cleared by primary and follow-up in the office with Dr. Elena. LEAD NEURODIAGNOSTIC TECHNOLOGIST note has been reviewed, I agree with a documented findings and plan of care. Patient was seen and examined.
--- NOTE | 2023-10-02 12:55 | P.PN ---
Subjective Progress Note Date: 10/02/23 Patient seen and examined at bedside. No acute events overnight. Gen: awake, alert HEENT: normocephalic, atraumatic, good hearing acuity, moist mucous membranes, right eye ptosis Resp: good air exchange, breathing comfortably with no accessory muscle use CVS: good distal perfusion x 4, GI: soft, NTTP, ND : no SPT, no CVAT, MSK: no pitting edema, no clubbing Neuro: non-focal, moving all extremities Psych: cooperative, euthymic mood Hospital course: Patient is a 68-year-old male with a PMH of long-standing prostate cancer with metastasis to bone, afib on Xarelto, and BPH who presents to the emergency room with complaints of shortness of breath and lower extremity swelling. Chest x- ray in the emergency room was consistent with fluid overload and congestive heart failure. EKG revealed A. fib with intraventricular conduction delay at 97 bpm as reviewed by me. Laboratory evaluation was remarkable for a proBNP 9720, troponin less than 0.012, hemoglobin of 11.0 (baseline 8), sodium 136, UA with 35 rbc's, with a respiratory viral panel unremarkable. Patient admitted for CHF exacerbation. Cardiogram showed severe pulmonary hypertension with severe TR Cardiology consulted. Patient currently on IV Lasix. Family considering hospice care. Assessment: Acute CHF exacerbation, newly diagnosed Right eye ptosis Chronic conditions: A. fib, BPH, prostate cancer with metastases to bone Plan: Cardiology note reviewed, patient started on oral Lasix 40 mg, may be discharged Intake and output Cardiac monitoring Daily weights Continue with home medications, resumed fentanyl patch 75 g per 72 hours today, Klonopin 1 mg at night, [place] as needed, monitor for respiratory depression -neurology consulted for new finding of right eye ptosis and mild miosis ending recommendations Patient and his want to focus on quality of life, hospice consulted. DVT prophylaxis: xarelto CODE STATUS: Full Code Anticipated discharge place: Home with hospice Objective - Vital Signs Vital signs: Vital Signs Temp 97.9 F 10/02/23 08:00 Pulse 110 H 10/02/23 08:00 Resp 18 10/02/23 08:00 BP 98/59 10/02/23 08:00 Pulse Ox 94 L 10/02/23 08:00 FiO2 Intake & Output 10/01/23 10/02/23 10/02/23 18:59 06:59 18:59 Intake Total 260 10 Output Total 360 125 Balance -100 -115 Weight 91.8 kg Intake: IV 20 10 Invasive Line 1 20 10 Oral 240 Output: Urine 360 125 Other: Voiding Method External Catheter External Catheter External Catheter # Voids 1 - Labs CBC & Chem 7: 10/02/23 07:47 10/02/23 07:47 Labs: Abnormal Lab Results - Last 24 Hours (Table) 10/02/23 10/02/23 Range/Units 07:47 07:47 Hgb 12.6 L (13.0-17.5) gm/dL MCHC 30.2 L (31.0-37.0) g/dL RDW 18.1 H (11.5-15.5) % Lymphocytes # 0.5 L (1.0-4.8) k/uL Calcium 8.0 L (8.4-10.2) mg/dL
--- NOTE | 2023-10-02 12:57 | P.PN ---
Progress Note - Text Progress Note Date: 10/02/23 Advanced Care Planning: Diagnoses: Metastatic prostate cancer Heart failure Discussion: Person(s) present and participating in discussion: and patient Summary: Patient has poor quality of life at the moment, wants to focus on taking care of his dogs and be able to function a little bit home. Does not want to come in and out of hospitals. Hospice consulted. A total of 20 minutes of face to face time was spent discussing advanced care planning.
[2023-10-02] MEDS: RIVAROXABAN 20 MG TAB PO SCH (17:27)
[2023-10-02] MEDS: clonazePAM 1 MG TAB PO SCH (20:20)
[2023-10-02] MEDS: oxyCODONE-APAP 10-325MG 1 EACH TAB PO PRN (20:20)
[2023-10-03] MEDS: DAROLUTAMIDE 300 MG PO SCH (07:45)
[2023-10-03] MEDS: METOPROLOL SUCCINATE (ER) 25 MG TAB.ER.24H PO SCH (07:55)
[2023-10-03] MEDS: CHOLECALCIFEROL 25 MCG (1000 IU) TABLET PO SCH (07:55)
[2023-10-03] MEDS: GABAPENTIN 100 MG CAP PO SCH (07:55)
[2023-10-03] MEDS: SENNOSIDES 8.6 MG TAB PO SCH (07:55)
[2023-10-03] MEDS: TAMSULOSIN 0.4 MG CAP.ER.24H PO SCH (07:55)
[2023-10-03] MEDS: FUROSEMIDE 40 MG TAB PO SCH (07:55)
[2023-10-03] MEDS: SPIRONOLACTONE 25 MG TAB PO SCH (07:55)
--- NOTE | 2023-10-03 10:57 | P.DS ---
Providers Date of admission: 09/27/23 22:25 Expected date of discharge: 10/03/23 Attending physician: Sharifa Beck MD Consults: 10/01/23 10:31 Consult Physician Routine Consulting Provider: Dejuan Flores Consult Reason/Comments: raghavendra syndrome vs isolated left eye ptosis Do you want consulting provider notified?: Yes Primary care physician: Stated None Hospital Course: Discharge Diagnosis: Acute CHF exacerbation, newly diagnosed Right eye ptosis A. fib BPH prostate cancer with metastases to bone Hospital Course: Patient is a 68-year-old male with a PMH of long-standing prostate cancer with metastasis to bone, afib on Xarelto, and BPH who presents to the emergency room with complaints of shortness of breath and lower extremity swelling. Chest x- ray in the emergency room was consistent with fluid overload and congestive heart failure. EKG revealed A. fib with intraventricular conduction delay at 97 bpm as reviewed by me. Laboratory evaluation was remarkable for a proBNP 9720, troponin less than 0.012, hemoglobin of 11.0 (baseline 8), sodium 136, UA with 35 rbc's, with a respiratory viral panel unremarkable. Patient admitted for CHF exacerbation. Echo showed severe pulmonary hypertension with severe TR. Cardiology consulted. Patient was on IV Lasix. Family decided to pursue hospice care. Patient being discharged home with hospice. Patient seen and examined at bedside. Vital signs reviewed and stable. Gen: awake, alert HEENT: normocephalic, atraumatic, good hearing acuity, moist mucous membranes, right eye ptosis Resp: good air exchange, breathing comfortably with no accessory muscle use CVS: good distal perfusion x 4, GI: soft, NTTP, ND : no SPT, no CVAT, MSK: no pitting edema, no clubbing Neuro: non-focal, moving all extremities Psych: cooperative, euthymic mood A total of 33 minutes of time were spent preparing this complex discharge summary. Patient was discharged on 10/03/23 at 1009. Patient Condition at Discharge: Stable Plan - Discharge Summary Discharge Rx Participant: Yes New Discharge Prescriptions: New Furosemide [Lasix] 40 mg PO DAILY #0 tab Metoprolol Succinate (ER) [Toprol XL] 25 mg PO BID tab Continue oxyCODONE-APAP 10-325MG [Percocet 10-325 mg] 1 tab PO QID PRN #12 tab PRN Reason: Pain Ibuprofen [Motrin] 800 mg PO Q6H PRN PRN Reason: Pain Sennosides [Senna Lax] 17.2 mg PO BID Tamsulosin HCl [Flomax] 0.4 mg PO DAILY clonazePAM [KlonoPIN] 1 mg PO HS #3 tab Gabapentin [Neurontin] 100 mg PO BID 3 Days #6 cap fentaNYL 75MCG/HR PATCH [Duragesic 75MCG/HR] 1 patch TRANSDERM Q72H Discontinued Rivaroxaban [Xarelto] 20 mg PO W/SUPPER Midodrine HCl [ProAmatine] 10 mg PO TID Leuprolide Acetate [Lupron Depot] 45 mg IM Q90D Metoprolol Succinate [Toprol XL] 100 mg PO DAILY Fludrocortisone [Florinef] 0.1 mg PO DAILY Flecainide [Tambocor] 100 mg PO Q12H Cholecalciferol [Vitamin D3 (25 Mcg = 1000 Iu)] 25 mcg PO BID Darolutamide [Nubeqa] 600 mg PO BID Discharge Medication List Sennosides [Senna Lax] 17.2 mg PO BID 07/05/23 [History] Tamsulosin HCl [Flomax] 0.4 mg PO DAILY 07/05/23 [History] Gabapentin [Neurontin] 100 mg PO BID 3 Days #6 cap 07/20/23 [Rx] clonazePAM [KlonoPIN] 1 mg PO HS #3 tab 07/20/23 [Rx] oxyCODONE-APAP 10-325MG [Percocet 10-325 mg] 1 tab PO QID PRN #12 tab 07/20/23 [Rx] Ibuprofen [Motrin] 800 mg PO Q6H PRN 09/28/23 [History] fentaNYL 75MCG/HR PATCH [Duragesic 75MCG/HR] 1 patch TRANSDERM Q72H 09/28/23 [History] Furosemide [Lasix] 40 mg PO DAILY #0 tab 10/03/23 [Rx] Metoprolol Succinate (ER) [Toprol XL] 25 mg PO BID tab 10/03/23 [Rx] Follow up Appointment(s)/Referral(s): Hoang Oliver Jr, DO [Doctor of Osteopathic Medicine] - 1-2 days Hospice,[facility] [NON-STAFF] - As Needed Patient Instructions/Handouts: Hospice Care (GEN) Discharge Disposition: HOME WITH HOSPICE
[2023-10-03 11:26] VITALS: BP 99/69; PULSE 111; RESP 18; TEMP 98.8; BMI 27.7
== END 2023-10-03 11:09 | disposition hospice, home (50) | DRG 291 ==
LOC: EC 17:41 → 1SOBS 22:25 → 3SCARD 22:56
PROVIDERS: ADMIT Internal Medicine; ATTEND Internal Medicine
DX: I11.0 Hypertensive heart disease with heart failure (principal); I50.31 Acute diastolic (congestive) heart failure; C79.51 Secondary malignant neoplasm of bone; I48.19 Other persistent atrial fibrillation; Z20.822 Contact with and (suspected) exposure to COVID-19; I42.8 Other cardiomyopathies; C61 Malignant neoplasm of prostate; H02.401 Unspecified ptosis of right eyelid; H57.03 Miosis; Z51.5 Encounter for palliative care; F17.210 Nicotine dependence, cigarettes, uncomplicated; I08.3 Combined rheumatic disorders of mitral, aortic and tricuspid valves; I27.20 Pulmonary hypertension, unspecified; I45.9 Conduction disorder, unspecified; N40.0 Benign prostatic hyperplasia without lower urinary tract symptoms; Z79.01 Long term (current) use of anticoagulants; Z79.899 Other long term (current) drug therapy; Z79.52 Long term (current) use of systemic steroids; Z86.16 Personal history of COVID-19; Z88.5 Allergy status to narcotic agent; Z88.8 Allergy status to other drugs, medicaments and biological substances
CPT/HCPCS: 36415; 71045; 71046; 80048; 80053; 81001; 83735; 83880; 84484; 85025; 85610; 85730; 87636; 93005; 93306; 96374; 96376; 99285